=== PATIENT | female | born 1940 | race Caucasian/White ===

== ENCOUNTER 2016-10-22 10:45 | Observation (INO) | payer MEDICARE ==
[~2016-10-22] VITALS: Ht 157.5 cm; Wt 67.9 kg
[~2016-10-22 10:45] MED LIST: ALBU6.7H INH; ASPI1TAB69 PO; BUPIVACAINE LIPOSOME PF 1.3% 20 ML VIAL ONE; DEXAMETHASONE SOD PHOS PF 10 MG/ML VIAL IV ONE; FOLI400T PO; LAMO100T PO; LEVE250T5 PO; LIPI40TA PO; LYRI75CA PO; OXYB5TAB10 PO; SPIRCAP INH; TRIA37.5 PO
[2016-10-22 11:40] VITALS: BP 145/71; PULSE 68; RESP 16; TEMP 97.8; O2SAT 99
[2016-10-22] MEDS ORDERED: LACTATED RINGER'S 1000 ML IV PRN (11:45)
[2016-10-22] MEDS ORDERED: METOPROLOL TARTRATE 25 MG TAB PO PRN (11:45)
[2016-10-22] MEDS ORDERED: SODIUM CHLORID 0.9% 500 ML IV PRN (11:45)
[2016-10-22] MEDS ORDERED: CHLORHEXIDINE GLUCONATE 2 % 1 PACK (2 CLOTHS) TOPICAL PRN (11:45)
[2016-10-22] MEDS ORDERED: INSULIN HUMAN REGULAR 1,000 UNITS/10 ML VIAL SQ PRN (11:45)
[2016-10-22] MEDS ORDERED: POVIDONE IODINE 5% (ANTISEPSIS KIT) 4 APPLICATIONS EACH NARE PRN (11:45)
[2016-10-22] MEDS ORDERED: ceFAZolin 2 GM PREMIX 50 ML IV SCH (11:45)
[2016-10-22 11:59] LABS: BASOPHIL # 0.1 TH/MM3 (0-0.2); BASOPHIL % 0.7 % (0.0-2.0); EOSINOPHIL # 0.3 TH/MM3 (0-0.4); EOSINOPHIL % 3.5 % (0.0-4.0); HEMATOCRIT 35.4 % (35.0-46.0); HEMO FLAGS DIFF FINAL; LYMPH % 11.6 % (9.0-44.0); MEAN CELL VOLUME 87.4 FL (80.0-100.0); MEAN CORPUSCULAR HEMOGLOBIN 28.8 PG (27.0-34.0); MEAN CORPUSCULAR HGB CONC 32.9 % (32.0-36.0); MONO % 6.5 % (0.0-8.0); NEUT % 77.7 % (16.0-70.0); PLATELET COUNT 160 TH/MM3 (150-450); RED BLOOD COUNT 4.06 MIL/MM3 (4.00-5.30); RED CELL DISTRIBUTION WIDTH 14.4 % (11.6-17.2)
[2016-10-22] MEDS ORDERED: PROPOFOL 200 MG/20 ML AMP IV ONE (12:00)
[2016-10-22] MEDS ORDERED: ONDANSETRON HCL 4 MG/2 ML VIAL IV PUSH ONE (12:00)
[2016-10-22] MEDS ORDERED: ePHEDrine/NS 25 MG/5 ML SYR IV ONE (12:00)
[2016-10-22] MEDS ORDERED: LACTATED RINGER'S 1000 ML INJ 1,000 ML IV ONE (12:00)
[2016-10-22] MEDS ORDERED: NEOSTIGMINE 3 MG/3 ML SYR IV ONE (12:00)
[2016-10-22 12:11] LABS: BICARBONATE 31.6 MEQ/L (21.0-32.0); POTASSIUM 3.4 MEQ/L (3.5-5.1)
[2016-10-22] MEDS ORDERED: methylPREDNISolone SOD SUCC 125 MG/2 ML VIAL ONE (13:17)
[2016-10-22] MEDS ORDERED: BUPRENORPHINE HCL 0.3 MG/1 ML VIAL ONE (13:20)
[2016-10-22] MEDS ORDERED: BUPIVACAINE/EPINEPHRINE 0.25% 50 ML VIAL ONE (13:28)
[2016-10-22] MEDS ORDERED: fentaNYL CITRATE 250 MCG/5 ML AMP ONE (13:34)
[2016-10-22] MEDS ORDERED: MIDAZOLAM HCL 2 MG/2 ML VIAL ONE (13:34)
[2016-10-22] MEDS ORDERED: ACETAMINOPHEN 1000 MG/100 ML VIAL IV ONE (13:34)
--- NOTE | 2016-10-22 15:59 | HHI.PR ---
cc: Alok Oates MD Immediate Post Op Note Procedure Date: October 22, 2016 Pre Op Diagnosis: (1) Incisional hernia (2) Mass of left inguinal region Post Op Diagnosis: (1) Mass of left inguinal region (2) Incisional hernia Surgeon: Alok Oates Ward Secretary(s): Please refer to the OR records in the computer for documentation Procedure: Repair of recurrent incisional hernia midline abdomen Lysis of adhesions Excision of left groin mass 4 cm cystic structure Findings: Mass in the groin cystic in nature Recurrent incisional hernia midline with explantation of mesh numerous suture material and heather with primary repair of Complications: None Specimen(s) removed: Left groin mass cystic structure Mesh and suture material and heather from incisional hernia Estimated blood loss: 30 cc Anesthesia: General, Regional Block Drains: None IVF Patient to: PACU Patient Condition: Good Implant/Devices: SEE IMPLANT LOG (if applicable) Date/Time of Procedure: SEE SURGICAL CARE RECORD Alok Oates MD October 22, 2016 15:59
[2016-10-22] MEDS ORDERED: SODIUM CHLORIDE 0.9% FLUSH 5 ML FLUSH IVF PRN (16:00)
[2016-10-22] MEDS ORDERED: ALBUTEROL SULFATE 90 MCG/ACT HFA 8 GM INHALER INH PRN (16:00)
[2016-10-22] MEDS ORDERED: ACETAMINOPHEN/HYDROcodone 325 MG/5 MG TAB PO PRN ×2 (16:00)
[2016-10-22] MEDS: SODIUM CHLOR 0.9% 1000 ML INJ 1,000 ML IV SCH (16:45)
--- NOTE | 2016-10-22 19:16 | EKG ---
Date Performed: 10/22/2016 Time Performed: 11:30:36 PTAGE: 75 years EKG: SINUS BRADYCARDIA MILD IVCD PREVIOUS TRACING : 11/13/2013 14.03 Compared to prior tracing no significant change DOCTOR: Kady Beck Interpretating Date/Time 10/22/2016 19:14:43
[2016-10-22 20:00] VITALS: BP 117/50; PULSE 70; RESP 20; TEMP 97.4; O2SAT 96
[2016-10-22] MEDS: SODIUM CHLORIDE 0.9% FLUSH 5 ML FLUSH IVF SCH (21:00)
[2016-10-22] MEDS: OXYBUTYNIN CHLORIDE 5 MG TAB PO SCH (21:21)
[2016-10-22] MEDS: ACETAMINOPHEN 1000 MG/100 ML VIAL IV SCH (21:21)
[2016-10-22] MEDS: PREGABALIN 75 MG CAP PO SCH (21:22)
[2016-10-22] MEDS: ATORVASTATIN 40 MG TAB PO SCH (21:22)
[2016-10-23] VITALS: BP 106/51; PULSE 69; RESP 20; TEMP 97.5; O2SAT 95
[2016-10-23] MEDS: levETIRAcetam 250 MG TAB PO SCH ×3 (00:10→21:28)
[2016-10-23] MEDS: lamoTRIgine 100 MG TAB PO SCH ×3 (00:10→21:28)
[2016-10-23] MEDS: PANTOPRAZOLE SOD 40 MG DELAYED RELEASE TAB PO SCH ×2 (00:10→14:49)
[2016-10-23] MEDS: ACETAMINOPHEN 1000 MG/100 ML VIAL IV SCH ×3 (00:11→14:43)
[2016-10-23] MEDS: SODIUM CHLOR 0.9% 1000 ML INJ 1,000 ML IV SCH (01:52)
[2016-10-23 08:00] VITALS: BP 99/50; PULSE 65; RESP 16; TEMP 95.5; O2SAT 91
[2016-10-23] MEDS ORDERED: HYDR-3516 PO (08:52)
--- NOTE | 2016-10-23 08:54 | HHI.FF ---
Face to Face Verification Diagnosis: (1) Incisional hernia (2) Mass of left inguinal region Home Health Nursing Order: Wound care and dressing changes Instructions: Midline incision- Monitor ZE dressing LEFT groin: dry dressing ---change daily and PRN Patient requests Tere Barrios as Nurse I have seen patient Jackie Petty on 10/23/16. My clinical findings support the need for the requested home health care services because: Limited ability to care for self I certify that my clinical findings support that this patient is homebound because: Post-op weakness Malini Morales October 23, 2016 08:54
[2016-10-23] MEDS: SODIUM CHLORIDE 0.9% FLUSH 5 ML FLUSH IVF SCH ×2 (09:00→21:00)
[2016-10-23] MEDS: PREGABALIN 75 MG CAP PO SCH ×2 (09:08→21:28)
[2016-10-23] MEDS: FOLIC ACID 1 MG TAB PO SCH (09:09)
--- NOTE | 2016-10-23 10:09 | MP ---
cc: JULI OATES M.D. Corrected Copy: 11/06/16 DATE OF SURGERY 10/22/2016 PREOPERATIVE DIAGNOSES Left groin mass. Incisional hernia, recurrent. POSTOPERATIVE DIAGNOSES 1. Left groin mass, appears to be a cystic structure, pathology pending. 2. Repair of recurrent incisional hernia, low midline with removal of previous mesh connected to small bowel. 3. Lysis of adhesions. 4. Primary repair of recurrent incisional hernia. PROCEDURE Excision of left deep groin mass, exploratory lap with lysis of adhesions repair of recurrent ventral hernia removal of mesh. ANESTHESIA General with a TAP block. SURGEON Dr. Oates. INDICATIONS This is a pleasant 75-year-old female who has had numerous abdominal surgeries. She had a recurrent incisional hernia in the midline. She also has a groin mass on the left side. Plans were made for above. Intraoperatively it was found that a portion of the mesh had been previously placed, was stuck to the small bowel. This was teased off the small bowel without any violation of the serosa. She had multiple adhesions from her numerous surgeries which were taken down. Because of her history of infection, no mesh was placed. She has good, strong tissue that is reapproximated under no tension. PROCEDURE The patient is taken to the operating room, placed on the operating room table in the supine position. After anesthesia of a TAP block and she is placed under general anesthesia, her abdomen and left groin are prepped with Betadine. Time-out is done. She is given preoperative antibiotics. We first direct our attention to the left groin where the palpable nathalie is appreciated. It had been previously marked. We anesthetized with Marcaine solution, about 10 cc, dissected into the deep subcutaneous tissue and enucleate out a clear cystic structure with a rind around it; it came out and was not connected any other major structures. This was dissected free using a combination of blunt dissection and electrocautery. This was passed off the field intact. We then closed the deep layer with 3-0 Vicryl and the skin was reapproximated with 4-0 Vicryl. Sterile bandage applied. We then direct our attention the abdomen and make a midline incision. She had previously had her umbilicus removed. It goes from the midabdomen down to above the pubis, about 15 cm in length. Dissect down to the subcutaneous tissue, identifying multiple Kosovan cheese-like defects that were incarcerated with omentum. This incarcerated omentum is reduced. We then freed up circumferentially just below the fascia on the left side were previous mesh is placed; it is connected to the small bowel which is carefully teased away from the abdominal wall to bring the small bowel up in the an I can see it closely and it is carefully teased away from the small bowel and amputated. The small bowel is then placed, covered with some snow for hemostasis. We dissect circumferentially, lysing flimsy adhesions along the anterior abdominal wall from her multiple previous surgeries to normal-appearing fascia above and below our incision. Once this is done, we then free up the fascia from the subcutaneous tissue circumferentially to mobilize the fascia towards the midline which is done and then we simply reapproximate the fascia with interrupted 0 Ethibond ajaooa-hq-yablu sutures to reapproximate the fascia in the midline to repair the recurrent incisional hernia. Once this is done, then we irrigate copiously. We then close the deep layer with a 3-0 Vicryl in interrupted fashion. The skin is reapproximated with the skin stapling device. The ZE dressing is then applied and placed to suction. Abdominal binder is placed. There was no immediate postop complication at the time of this dictation. I talked to the friend as instructed by the patient; we give her an update. She will be admitted overnight for pain control. She will talk to the as he cannot hear too well. MD CHANDU Jenkins/MINESH /4:14 PM /1:13 PM
[2016-10-23] MEDS: TIOTROPIUM BROMIDE 18 MCG INH INH SCH (11:21)
[2016-10-23] MEDS: ALBUTEROL SULFATE 90 MCG/ACT HFA 18 GM INHALER INH PRN (11:21)
[2016-10-23 12:00] VITALS: BP 124/55; PULSE 63; RESP 17; TEMP 95.6; O2SAT 96
--- NOTE | 2016-10-23 12:53 | HHI.PR ---
Subjective Subjective Notes PROGRESS NOTE FOR SURGICAL ATTENDING, DR. ALOK OATES Resting in bed Had one episode of increased pain overnight but none today Reports headache Objective Vitals/I&O Vital Signs Date Time Temp Pulse Resp B/P Pulse Ox O2 Delivery O2 Flow Rate FiO2 10/23/16 12:00 95.6 63 17 124/55 96 10/22/16 18:00 Nasal Cannula 2 Cardiovascular: Regular Lungs: Clear Abdomen: Other (Abdomen soft; ZE in place with good seal; battery pack with green blinky light; LEFT groin tegaderm in place without any drainage ) Extremities: No edema Narrative Exam Jeong in place A/P Problem List: (1) Incisional hernia (2) Mass of left inguinal region Plan: excised path pending (3) S/P hernia repair Assessment and Plan 75 year old female POD1 report of recurrent incisional hernia; AMBER; excision of LEFT groin mass ---cystic in nature -Advance to regular diet -Pain control---Mccarley + Ofirmev -OOB and mobilize -DC Jeong -DC IVF -CM consult for HHC -Plan for DC tomorrow Attending Statement PROGRESS NOTE FOR SURGICAL ATTENDING, DR. ALOK OATES pt feels pretty good looking to go home tomorrow I agree with above assessment and plan. The exam, history, and the medical decision-making described in the above note were completed with the assistance of the mid-level provider. I reviewed and agree with the findings presented. I attest that I had a vioh-xo-ctaf encounter with the patient on the same day, and personally performed and documented my assessment and findings in the medical record. The following services were provided during this hospital visit: Chart data review, vital sign assessments/reviewing monitor data Review of consultations notes if present. Medication orders/review and/or management Ordering and/or reviewing lab tests Ordering and/or interpreting/reviewing x-rays and/or diagnostic studies Care of the patient and discussion of the patient with the care team Documentation time To help prompt me to consider important information that might be impacting today's encounter and assessment, information from prior notes written by myself or my colleagues may have been "brought forward/copy and pasted" into today's note. Malini Morales October 23, 2016 12:53 Alok Oates MD October 23, 2016 15:13
[2016-10-23] MEDS: ENOXAPARIN SODIUM 30 MG/0.3 ML SYRINGE SQ SCH (14:43)
[2016-10-23] MEDS: CALCIUM CARBONATE 500 MG CHEWABLE TAB CHEW PRN ×4 (15:15→23:39)
[2016-10-23 16:00] VITALS: BP 107/54; PULSE 63; RESP 17; TEMP 95.5; O2SAT 95
[2016-10-23 20:00] VITALS: BP 105/64; PULSE 60; RESP 18; TEMP 97.5; O2SAT 95
[2016-10-23] MEDS: OXYBUTYNIN CHLORIDE 5 MG TAB PO SCH (21:28)
[2016-10-23] MEDS: ATORVASTATIN 40 MG TAB PO SCH (21:28)
[2016-10-24] VITALS: BP 134/63; PULSE 61; RESP 18; TEMP 97.2; O2SAT 95
[2016-10-24] MEDS: CALCIUM CARBONATE 500 MG CHEWABLE TAB CHEW PRN ×3 (03:12→17:55)
[2016-10-24] MEDS: ALBUTEROL SULFATE 90 MCG/ACT HFA 18 GM INHALER INH PRN (03:29)
[2016-10-24 04:51] LABS: AUTOMATED NEUTROPHIL # 14.3 TH/MM3 (1.8-7.7); BASOPHIL % 0.1 % (0.0-2.0); EOSINOPHIL % 0.1 % (0.0-4.0); HEMATOCRIT 33.6 % (35.0-46.0); HEMO FLAGS DIFF FINAL; LYMPH % 5.8 % (9.0-44.0); LYMPHOCYTE # 0.9 TH/MM3 (1.0-4.8); MEAN CORPUSCULAR HEMOGLOBIN 28.9 PG (27.0-34.0); MEAN CORPUSCULAR HGB CONC 32.8 % (32.0-36.0); MONO % 5.2 % (0.0-8.0); NEUT % 88.8 % (16.0-70.0); PLATELET COUNT 157 TH/MM3 (150-450); RED BLOOD COUNT 3.82 MIL/MM3 (4.00-5.30); RED CELL DISTRIBUTION WIDTH 14.3 % (11.6-17.2); WHITE BLOOD COUNT 16.1 TH/MM3 (4.0-11.0)
[2016-10-24 08:00] VITALS: BP 109/51; PULSE 67; RESP 17; TEMP 96.4; O2SAT 90
[2016-10-24] MEDS: TIOTROPIUM BROMIDE 18 MCG INH INH SCH (09:00)
[2016-10-24] MEDS: SODIUM CHLORIDE 0.9% FLUSH 5 ML FLUSH IVF SCH ×2 (09:00→21:00)
[2016-10-24] MEDS: FOLIC ACID 1 MG TAB PO SCH (09:03)
[2016-10-24] MEDS: PREGABALIN 75 MG CAP PO SCH ×2 (09:03→22:25)
[2016-10-24] MEDS: levETIRAcetam 250 MG TAB PO SCH ×2 (09:03→22:25)
[2016-10-24] MEDS: lamoTRIgine 100 MG TAB PO SCH ×2 (09:03→22:25)
--- NOTE | 2016-10-24 11:37 | HHI.PR ---
Subjective Subjective Notes DAILY PROGRESS NOTE FOR SURGICAL ATTENDING, DR. JULI OATES Patient states that she had a bad night She was eating and then started having some chest pain which she was unclear if there is reflux or she was having another heart attack She was concerned. 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 Objective Vitals/I&O Vital Signs Date Time Temp Pulse Resp B/P Pulse Ox O2 Delivery O2 Flow Rate FiO2 10/24/16 08:00 96.4 67 17 109/51 90 10/22/16 18:00 Nasal Cannula 2 Labs Laboratory Tests Test 10/24/16 03:32 White Blood Count 16.1 Red Blood Count 3.82 Hemoglobin 11.0 Hematocrit 33.6 Mean Corpuscular Volume 88.0 Mean Corpuscular Hemoglobin 28.9 Mean Corpuscular Hemoglobin 32.8 Concent Red Cell Distribution Width 14.3 Platelet Count 157 Mean Platelet Volume 8.8 Neutrophils (%) (Auto) 88.8 Lymphocytes (%) (Auto) 5.8 Monocytes (%) (Auto) 5.2 Eosinophils (%) (Auto) 0.1 Basophils (%) (Auto) 0.1 Neutrophils # (Auto) 14.3 Lymphocytes # (Auto) 0.9 Monocytes # (Auto) 0.8 Eosinophils # (Auto) 0.0 Basophils # (Auto) 0.0 CBC Comment DIFF FINAL Differential Comment Radiology Last Impressions Chest X-Ray 10/25/16 0000 Signed Impressions: Service Date/Time: Tuesday, October 25, 2016 11:09 - CONCLUSION: Trace bilateral pleural effusions with atelectasis at the lung bases. Otherwise, no acute finding is seen. Shahid Causey MD Cardiovascular: Regular Lungs: Clear, Other (no sob) Abdomen: Post-op tenderness (dressing ZE intact min pain) Extremities: No edema, SCD's on A/P Problem List: (1) Chest pain Plan: EKG and troponin levels (2) Incisional hernia (3) Mass of left inguinal region Plan: excised path pending (4) S/P hernia repair (5) History of [place] (myocardial infarction) Assessment and Plan 75-year-old female with a history of cardiac disease status post recurrent incisional hernia repair and removal of left groin mass Was doing well developed some chest pain may be reflux questionable heart. EKG orders troponin levels ordered I talked to the business resiliency manager office about a consultation as well. Will hold discharge. Attending Statement NOTE FOR SURGICAL ATTENDING, DR. JULI OATES I attest that I had a mjjr-js-boql encounter with the patient on the same day, and personally performed and documented my assessment and findings in the medical record. The following services were provided during this hospital visit: Chart data review, vital sign assessments/reviewing monitor data Review of consultations notes if present. Medication orders/review and/or management Ordering and/or reviewing lab tests Ordering and/or interpreting/reviewing x-rays and/or diagnostic studies Care of the patient and discussion of the patient with the care team Documentation time To help prompt me to consider important information that might be impacting today's encounter and assessment, information from prior notes written by myself or my colleagues may have been "brought forward/copy and pasted" into today's note. Problem Qualifiers (1) Chest pain: Qualified Code: R07.89 - Other chest pain Juli Oates MD October 24, 2016 11:37
[2016-10-24 12:00] VITALS: BP 104/60; PULSE 64; RESP 17; TEMP 95.4; O2SAT 92
[2016-10-24 13:19] LABS: AUTOMATED NEUTROPHIL # 9.8 TH/MM3 (1.8-7.7); BASOPHIL # 0.1 TH/MM3 (0-0.2); BASOPHIL % 0.7 % (0.0-2.0); EOSINOPHIL # 0.1 TH/MM3 (0-0.4); EOSINOPHIL % 0.8 % (0.0-4.0); HEMATOCRIT 34.9 % (35.0-46.0); HEMO FLAGS DIFF FINAL; LYMPH % 9.5 % (9.0-44.0); LYMPHOCYTE # 1.1 TH/MM3 (1.0-4.8); MEAN CELL VOLUME 88.6 FL (80.0-100.0); MEAN CORPUSCULAR HEMOGLOBIN 28.7 PG (27.0-34.0); MEAN CORPUSCULAR HGB CONC 32.3 % (32.0-36.0); PLATELET COUNT 146 TH/MM3 (150-450); RED BLOOD COUNT 3.93 MIL/MM3 (4.00-5.30); WHITE BLOOD COUNT 11.6 TH/MM3 (4.0-11.0)
--- NOTE | 2016-10-24 14:25 | EKG ---
Date Performed: 10/24/2016 Time Performed: 09:40:15 PTAGE: 75 years EKG: Sinus rhythm POSSIBLE LATERAL MYOCARDIAL INFARCTION , PROBABLY OLD BORDERLINE ECG Compared to prior tracing no si gnificant change PREVIOUS TRACING : 10/22/2016 11.30 DOCTOR: Jett Skinner Interpretating Date/Time 10/24/2016 14:21:40
[2016-10-24 16:00] VITALS: BP 104/59; PULSE 68; RESP 18; TEMP 95.8; O2SAT 94
[2016-10-24] MEDS: PANTOPRAZOLE SOD 40 MG DELAYED RELEASE TAB PO SCH (17:55)
[2016-10-24] MEDS: ENOXAPARIN SODIUM 30 MG/0.3 ML SYRINGE SQ SCH (17:55)
--- NOTE | 2016-10-24 19:11 | MB ---
cc: BRIKIRBYASIA Hook DO DATE OF CONSULTATION 10/24/16 IMPRESSION 1. Chest discomfort unlikely to be related to atherosclerotic heart disease 2. Odynophagia/dysphasia present for 3-4 weeks. 3. Dilated cardiomyopathy, etiology ischemic heart disease, [place] [employer] functional class II, history of myocardial infarction 2000, recent stress test 10/02/2016 demonstrating ejection fraction of 28% with a fixed perfusion defect in the inferolateral wall with mild left ventricular chamber dilatation. The patient was noted to have a dyskinetic area in this region. 4. Hypertension. 5. COPD. Previous smoker. 6. Bilateral carotid bruits. 7. Dyslipidemia on atorvastatin for his 8. Obesity. 9. Postop day #1 status post inguinal hernia repair, right side, removal of masses frp, the left groin. No pathology available. RECOMMENDATIONS 1. Start the patient on PPI Omeprazole 40 mg daily for 2-4 weeks. 2. Outpatient GI evaluation, either a sonogram or EGD. 3. Resume the patient's home cardiac medications. 4. We will repeat an EKG and troponin tomorrow morning. If they are normal, the patient may be discharged. CLINICAL DATA Mrs. Petty is a 75-year-old female admitted to the hospital for hernia repair and removal of masses from her left groin. She apparently developed chest pain postoperatively the surgery and recovery so far had been uneventful. An EKG and troponin are normal so far. She has a history of atherosclerotic heart disease as noted above. Risk factors include remote tobacco usage, hypertension and dyslipidemia. She has had no recent admissions to the hospital for congestive heart failure. She has no history of cardiac arrhythmias or pericardial heart disease. She did have an acute myocardial infarction in 2000. She had a repeat heart catheterization in 2003 which demonstrated patent stent. I do not have the catheterization reports available. She has known carotid artery disease. She apparently had two strokes in 2013. She may have had a seizure at that time but has had no recent seizures that I aware of. She has a history of COPD. No history of GI bleeding or reflux. She has no history of liver disease. No history of kidney disease or thyroid disease. She states that over the past three weeks she has developed odynophagia. She has a feeling that food gets stuck in her upper chest. This is solid food and not liquid at this point in time. She also states that she has been having pressure in the chest which has been also over the past 2-3 weeks. She has had no exertional angina. She has had no palpitations or syncope. She has had no febrile illness. She has not been vomiting. PHYSICAL EXAMINATION GENERAL: An alert and oriented female sitting up in a chair. She is breathing room air. She is not dyspneic nor tachypneic. VITAL SIGNS: She is in a regular rhythm, rate in the 60s, blood pressure was 107/54. HEENT: Anicteric sclerae. Jugular venous pressures are normal. She has bilateral sharp early systolic bruits LUNGS: Auscultation of lungs demonstrates expiratory wheezing and rhonchi bilaterally. CARDIAC: Distant heart sounds, regular rate and rhythm, 1/6 systolic ejection murmur. No gallops or diastolic murmurs noted. ABDOMEN: Soft but distended. EXTREMITIES: Free of cyanosis, clubbing or edema. Peripheral pulses are palpable. CARDIOLOGY STUDIES 12-lead EKG demonstrates sinus rhythm, nonspecific ST-T changes. She is noted to have Q-waves in the apical leads 1 and aVL which are borderline significant. Lytes yesterday preoperatively were 141, 3.4, 104,31.6, BUN 25, creatinine 1.3. Troponin on the was normal. Most recent CBC - white count 9000, hematocrit 35, platelet count 160. She did have mild left shift. IMAGING STUDIES Chest x-ray not available. DISCUSSION This is a 75-year-old female postop day #1 after herniorrhaphy who had chest pain. This is unlikely to be related to atherosclerotic heart disease. She did have a stress test demonstrating no evidence of reversible ischemia, although she had fairly depressed LV function and wall motion abnormalities as noted in the opening remarks. Recommendations are as noted above. The patient will be started on Omeprazole 40 mg daily. We will obtain an EKG and troponin tomorrow morning. If these are negative, she may be discharged. DO FARRUKH Finley/ /6:21 PM /6:58 PM
[2016-10-24 20:00] VITALS: BP 123/69; PULSE 62; RESP 18; TEMP 97.3; O2SAT 94
[2016-10-24 21:30] LABS: ANION GAP 11 MEQ/L (5-15); BLOOD UREA NITROGEN 21 MG/DL (7-18); CHLORIDE 105 MEQ/L (98-107); GLOMERULAR FILTRATION RATE 60 ML/MIN (>89); SODIUM (NA) 140 MEQ/L (136-145)
[2016-10-24 21:44] LABS: POTASSIUM 4.1 MEQ/L (3.5-5.1)
[2016-10-24] MEDS: ATORVASTATIN 40 MG TAB PO SCH (22:25)
[2016-10-24] MEDS: OXYBUTYNIN CHLORIDE 5 MG TAB PO SCH (22:25)
[2016-10-25] VITALS (7 sets, daily range): BP systolic 108–137; BP diastolic 51–65; PULSE 69–79; RESP 17–19; TEMP 96–99; O2SAT 93–97
[2016-10-25] MEDS: PREGABALIN 75 MG CAP PO SCH ×2 (08:34→19:55)
[2016-10-25] MEDS: levETIRAcetam 250 MG TAB PO SCH ×2 (08:34→19:55)
[2016-10-25] MEDS: FOLIC ACID 1 MG TAB PO SCH (08:34)
[2016-10-25] MEDS: lamoTRIgine 100 MG TAB PO SCH ×2 (08:34→19:55)
[2016-10-25] MEDS: SODIUM CHLORIDE 0.9% FLUSH 5 ML FLUSH IVF SCH ×2 (08:35→19:55)
[2016-10-25] MEDS: TIOTROPIUM BROMIDE 18 MCG INH INH SCH (08:35)
[2016-10-25] MEDS: DOCUSATE SODIUM 100 MG/10 ML UDC PO SCH ×2 (09:00→19:55)
--- NOTE | 2016-10-25 09:44 | HHI.PR ---
Subjective Subjective Notes reports SOB and wheezing today, thinks she should have a lung doctor check her out. not ready to go home just yet. reports she is constipated but tolerating po. no N/V, no fevers Objective Vitals/I&O Vital Signs Date Time Temp Pulse Resp B/P Pulse Ox O2 Delivery O2 Flow Rate FiO2 10/25/16 08:00 97.4 69 18 125/56 95 10/25/16 07:38 Nasal Cannula 2.00 Labs Laboratory Tests Test 10/24/16 10/24/16 10/25/16 12:45 19:50 05:20 White Blood Count 11.6 Red Blood Count 3.93 Hemoglobin 11.3 Hematocrit 34.9 Mean Corpuscular Volume 88.6 Mean Corpuscular Hemoglobin 28.7 Mean Corpuscular Hemoglobin 32.3 Concent Red Cell Distribution Width 14.0 Platelet Count 146 Mean Platelet Volume 8.8 Neutrophils (%) (Auto) 84.0 Lymphocytes (%) (Auto) 9.5 Monocytes (%) (Auto) 5.0 Eosinophils (%) (Auto) 0.8 Basophils (%) (Auto) 0.7 Neutrophils # (Auto) 9.8 Lymphocytes # (Auto) 1.1 Monocytes # (Auto) 0.6 Eosinophils # (Auto) 0.1 Basophils # (Auto) 0.1 CBC Comment DIFF FINAL Differential Comment Troponin I LESS THAN 0.02 LESS THAN 0.02 LESS THAN 0.02 B-Type Natriuretic Peptide 132 Sodium Level 140 Potassium Level 4.1 Chloride Level 105 Carbon Dioxide Level 24.0 Anion Gap 11 Blood Urea Nitrogen 21 Creatinine 0.92 Estimat Glomerular Filtration 60 Rate Random Glucose 101 Calcium Level 8.5 Magnesium Level 2.0 Cardiovascular: Regular Lungs: Clear Abdomen: Non-distended, Post-op tenderness, BS normal Narrative Exam minimal wheezing, coarse upper airway sounds, Wound Wound : Wound Location: Abdomen Appearance: Clean & Dry A/P Problem List: (1) Chest pain (2) Incisional hernia (3) Mass of left inguinal region (4) S/P hernia repair (5) History of [place] (myocardial infarction) Assessment and Plan S/P repair recurrent incisional hernia Cardiology ruled out Cardiac source Pt would like Dr. Kennedy to evaluate her for her SOB and "wheezing". He cares for her Will discharge once cleared. Problem Qualifiers (1) Chest pain: Qualified Code: R07.89 - Other chest pain Brian Singh MD October 25, 2016 09:44
[2016-10-25] MEDS: RESP: ALBUTEROL CONC 2.5 MG/0.5 ML NEB NEB SCH ×3 (10:00→20:12)
--- NOTE | 2016-10-25 11:33 | RADRPT ---
EXAM DATE/TIME: 10/25/2016 11:09 [facility] COMPARISON: CHEST SINGLE AP, November 07, 2013, 12:11. INDICATIONS : Shortness of breath post abdominal hernia repair. MEDICAL HISTORY : Myocardial infarction. SURGICAL HISTORY : CABG. ENCOUNTER: Initial ACUITY: 4 - 6 days PAIN SCORE: 4/10 LOCATION: Bilateral lower chest FINDINGS: AP and lateral views of the chest demonstrate a normal size cardiac silhouette. Lungs are underinflat ed with mild atelectasis at the lung bases. There is slight blunting of the costophrenic sulci bilate rally on the lateral projection. No pneumothorax is visualized. Bones and soft tissues demonstrate no acute finding. IVC filter is present. There are clips in the upper abdomen. CONCLUSION: Trace bilateral pleural effusions with atelectasis at the lung bases. Otherwise, no acute finding is seen. Shahid Causey MD on October 25, 2016 at 11:29 Board Certified Radiologist. This report was verified electronically.
[2016-10-25] MEDS: ENOXAPARIN SODIUM 30 MG/0.3 ML SYRINGE SQ SCH (14:27)
--- NOTE | 2016-10-25 15:11 | MB ---
cc: YOSELYN ZAFAR MARK W. M.D. DATE OF CONSULTATION: 10/25/2016. REASON FOR CONSULTATION: Evaluation for wheezing. REQUESTING PHYSICIAN: Dr. Brian Singh. HISTORY OF PRESENT ILLNESS: Ms. Petty is a pleasant 75-year-old female with history of coronary disease status post AL a long time ago and she had dilated cardiomyopathy. History of COPD. She has a long history of smoking; now she smokes only once in awhile. The patient has had multiple surgeries. She says she has had twelve hernia surgeries. She came over here for left inguinal hernia surgery. She had the surgery done and today she felt that she had some wheezing. She had some difficulty swallowing off and on for a month or so. The wheezing has gone now. She denies any shortness of breath. No fever or chills. No night sweats. No nausea or vomiting. She had a workup done in the hospital. Her WBC count was 11.6, hemoglobin 11.3, hematocrit 34.9, MCH 80, platelet count 146,000. Sodium 140, potassium 4.1, chloride 105, carbon dioxide 24, BUN 21, creatinine 0.92. Her chest x-ray shows trace of bilateral pleural effusions with atelectasis. Currently she is feeling much better and denies any shortness breath. No wheezing. No cough. PAST MEDICAL HISTORY: Her past medical history is significant for: 1. History of coronary disease. 2. Cardiomyopathy. 3. Hypertension. 4. COPD. 5. History of about 36 surgeries including 12 hernia surgeries, 6 bladder surgeries, hysterectomy, cholecystectomy, tubal ligation, , femoropopliteal bypass. MEDICATIONS: She is currently takin. Protonix 40 milligrams a day. 2. Albuterol 2.5 milligrams nebulizer treatment. 3. Colace 100 milligrams q. 12-hour. 4. Lovenox 30 milligrams q.24 h. 5. Folic acid 0.4 milligrams. 6. Spiriva once a day. 7. Lamictal 100 milligrams twice a day. 8. Keppra 250 milligrams twice a day. 9. Oxybutynin 5 milligrams a day. 10. Lyrica 75 milligrams twice a day. 11. Lortab for pain. ALLERGIES: She is allergic to: 1. ESTROGEN. 2. NIACIN. 3. SULFA. 4. AMOXICILLIN. SOCIAL HISTORY: She is . She has a history of smoking one pack a day for about 38 years, which she cut down to a few cigarettes a day. No alcohol abuse. FAMILY HISTORY: Noncontributory. REVIEW OF SYSTEMS: Normally she is up, around and active. No headache or dizziness. No malignancy. No DVT or pulmonary embolism. PHYSICAL EXAMINATION: GENERAL: Pleasant elderly female not in acute distress. VITAL SIGNS: Blood pressure 136/65, heart rate 72, respiration 90, temperature 96, saturation 96% on 2 liters nasal cannula. HEAD, EYES, EARS, NOSE, THROAT: Pupils are equal and reactive to light. Oral mucosa and nasal mucosa are normal. NECK: The neck is supple. JVP not raised. CHEST: Air entry equal bilaterally. No rhonchi. CARDIOVASCULAR: S1 and S2 normal. ABDOMEN: Abdomen soft and nondistended. Bowel sounds are present. EXTREMITIES: No edema. IMPRESSION: 1. Wheezing, which has improved. Currently she has no wheezing. 2. Likely underlying COPD. She has a long history of smoking. 3. Nicotine use. 4. Inguinal hernia surgery. 5. Cardiomyopathy. PLAN: 1. I discussed with the patient we will wean off her oxygen. She has nebulizer treatment which she will use only as needed. 2. She will need pulmonary function study as an outpatient. 3. I advised her to quit smoking. 4. She was Lovenox 30 milligrams a day. 5. Spiriva once a day. 6. Albuterol nebulizer as needed. The patient is stable from the pulmonary standpoint of view. Further treatment will depend on the course in the hospital. Thank you, Dr. Singh, for this consultation. MD GAYLE Brar/ALEAH /2:53 PM /3:00 PM
--- NOTE | 2016-10-25 15:54 | EKG ---
Date Performed: 10/25/2016 Time Performed: 05:37:42 PTAGE: 75 years EKG: Sinus rhythm Inferior/lateral T wave changes are nonspecific Borderline ECG Since PREVIOUS TRACING 10/24/2016, no significant change. PREVIOUS TRACING 10/24/2016 DOCTOR: Chevy Cedillo Interpretating Date/Time 10/25/2016 15:53:37
[2016-10-25] MEDS: PANTOPRAZOLE SOD 40 MG DELAYED RELEASE TAB PO SCH (18:20)
[2016-10-25] MEDS: ATORVASTATIN 40 MG TAB PO SCH (19:55)
[2016-10-25] MEDS: OXYBUTYNIN CHLORIDE 5 MG TAB PO SCH (19:55)
[2016-10-26] VITALS (8 sets, daily range): BP systolic 104–120; BP diastolic 56–61; PULSE 80–92; RESP 17–21; TEMP 97.7–99.5; O2SAT 91–97
[2016-10-26] MEDS: RESP: ALBUTEROL CONC 2.5 MG/0.5 ML NEB NEB SCH ×4 (03:27→21:31)
[2016-10-26] MEDS: SODIUM CHLORIDE 0.9% FLUSH 5 ML FLUSH IVF SCH ×2 (09:00→19:45)
[2016-10-26] MEDS: DOCUSATE SODIUM 100 MG/10 ML UDC PO SCH ×2 (09:00→19:24)
[2016-10-26] MEDS: levETIRAcetam 250 MG TAB PO SCH ×2 (09:35→19:45)
[2016-10-26] MEDS: FOLIC ACID 1 MG TAB PO SCH (09:35)
[2016-10-26] MEDS: PREGABALIN 75 MG CAP PO SCH ×2 (09:35→19:45)
[2016-10-26] MEDS: lamoTRIgine 100 MG TAB PO SCH ×2 (09:35→19:45)
[2016-10-26] MEDS: TIOTROPIUM BROMIDE 18 MCG INH INH SCH (09:37)
--- NOTE | 2016-10-26 11:34 | HHI.PR ---
Subjective Subjective Notes still with some SOB Objective Vitals/I&O Vital Signs Date Time Temp Pulse Resp B/P Pulse Ox O2 Delivery O2 Flow Rate FiO2 10/26/16 08:35 92 21 10/26/16 08:00 97.8 80 17 117/61 10/26/16 03:30 Nasal Cannula 2.00 Lungs: Upper airway course sound Abdomen: Non-distended, Post-op tenderness Extremities: Perfused, SCD's on A/P Problem List: (1) Chest pain (2) Incisional hernia (3) Mass of left inguinal region (4) S/P hernia repair (5) History of [place] (myocardial infarction) Assessment and Plan 75yo female with COPD, CAD s/p incisional hernia repair, doing well. pain ok, elsa PO, +BM incision ok, dressing on ZE appreciate cards and pulm help, will keep patient today due to continued SOB, possible DC tomorrow Problem Qualifiers (1) Chest pain: Qualified Code: R07.89 - Other chest pain Chidi Grande MD October 26, 2016 11:34
[2016-10-26] MEDS: ENOXAPARIN SODIUM 30 MG/0.3 ML SYRINGE SQ SCH (13:42)
[2016-10-26] MEDS: PANTOPRAZOLE SOD 40 MG DELAYED RELEASE TAB PO SCH (17:44)
--- NOTE | 2016-10-26 19:12 | HHI.PR ---
Subjective Remarks 75 YOWF s/p hernia surgery, Nicotine use Had wheezing , improving Denies sob Weaned to RA Objective Vital Signs Vital Signs Date Time Temp Pulse Resp B/P Pulse Ox O2 Delivery O2 Flow Rate FiO2 10/26/16 16:06 91 21 10/26/16 16:00 98.6 80 21 104/56 95 10/26/16 12:00 97.7 81 17 113/58 93 10/26/16 08:35 92 21 10/26/16 08:00 97.8 80 17 117/61 93 10/26/16 03:30 91 Nasal Cannula 2.00 10/26/16 00:21 99.5 92 17 120/56 97 10/25/16 20:55 18 10/25/16 20:12 94 Nasal Cannula 2.00 10/25/16 20:00 99.0 79 18 114/57 95 10/25/16 19:57 Nasal Cannula 2.00 I/O 10/25/16 10/25/16 10/25/16 10/26/16 10/26/16 10/26/16 07:00 15:00 23:00 07:00 15:00 23:00 Intake Total 120 ml 550 ml 480 ml 280 ml 585 ml Output Total 0 ml Balance 120 ml 550 ml 480 ml 280 ml 585 ml Intake Oral 120 ml 550 ml 480 ml 280 ml 585 ml IV Total 0 ml 0 ml Output Urine Total 0 ml # Voids 3 2 2 5 # Bowel Movements 0 0 1 Result Diagram: 10/24/16 1245 10/24/16 1950 Objective Remarks GENERAL: WBWN WF,NAD SKIN: Warm and dry. HEAD: Normocephalic. EYES: No scleral icterus. No injection or drainage. NECK: Supple, trachea midline. No JVD or lymphadenopathy. CARDIOVASCULAR: Regular rate and rhythm without murmurs, gallops, or rubs. RESPIRATORY: Breath sounds equal bilaterally. No accessory muscle use. GASTROINTESTINAL: Abdomen soft, non-tender, nondistended. MUSCULOSKELETAL: No cyanosis, or edema. BACK: Nontender without obvious deformity. No CVA tenderness. A/P Assessment and Plan Wheezing improved Likly underlying COPD Nicotine use CMP S/P Hernia repair PLAN: Spiriva daily Albuterol prn Smoking cessation PFT as out pt Stable from pulm standpoint Kyler Call MD October 26, 2016 19:12
[2016-10-26] MEDS: OXYBUTYNIN CHLORIDE 5 MG TAB PO SCH (19:45)
[2016-10-26] MEDS: ATORVASTATIN 40 MG TAB PO SCH (19:45)
[2016-10-27] VITALS: BP 103/56; PULSE 89; RESP 18; TEMP 98.3; O2SAT 98
[2016-10-27] MEDS: RESP: ALBUTEROL CONC 2.5 MG/0.5 ML NEB NEB SCH ×2 (04:12→09:27)
[2016-10-27 04:14] VITALS: O2SAT 93
[2016-10-27 08:00] VITALS: BP 103/55; PULSE 92; RESP 16; TEMP 97.5; O2SAT 93
[2016-10-27] MEDS: levETIRAcetam 250 MG TAB PO SCH (08:47)
[2016-10-27] MEDS: lamoTRIgine 100 MG TAB PO SCH (08:47)
[2016-10-27] MEDS: DOCUSATE SODIUM 100 MG/10 ML UDC PO SCH (08:47)
[2016-10-27] MEDS: SODIUM CHLORIDE 0.9% FLUSH 5 ML FLUSH IVF SCH (08:47)
[2016-10-27] MEDS: PREGABALIN 75 MG CAP PO SCH (08:47)
[2016-10-27] MEDS: FOLIC ACID 1 MG TAB PO SCH (08:47)
[2016-10-27] MEDS: TIOTROPIUM BROMIDE 18 MCG INH INH SCH (08:48)
[2016-10-27] MEDS ORDERED: OXYGENTANK NAS.CANULA (10:20)
[2016-10-27 12:00] VITALS: BP 103/67; PULSE 78; RESP 17; TEMP 96.7; O2SAT 93
--- NOTE | 2016-10-27 12:36 | HHI.PR ---
Subjective Subjective Notes DAILY PROGRESS NOTE FOR SURGICAL ATTENDING, DR. ALOK OATES Wants to get hair done Feels ready to go home Objective Vitals/I&O Vital Signs Date Time Temp Pulse Resp B/P Pulse Ox O2 Delivery O2 Flow Rate FiO2 10/27/16 08:53 93 Nasal Cannula 2.00 10/27/16 08:00 97.5 92 16 103/55 10/26/16 16:06 21 Radiology Last Impressions Chest X-Ray 10/25/16 0000 Signed Impressions: Service Date/Time: Tuesday, October 25, 2016 11:09 - CONCLUSION: Trace bilateral pleural effusions with atelectasis at the lung bases. Otherwise, no acute finding is seen. Shahid Causey MD Cardiovascular: Regular Lungs: Clear Abdomen: Non-distended, Non-tender, Other (ZE in place with good seal ) Extremities: No edema A/P Problem List: (1) Chest pain Plan: EKG and troponin levels (2) Incisional hernia (3) Mass of left inguinal region Plan: excised path benign (4) S/P hernia repair (5) History of [place] (myocardial infarction) Assessment and Plan 75 year old female s/p report of recurrent incisional hernia; AMBER; excision of LEFT groin mass ---cystic in nature -Tolerating regular diet -Pain control with [place] -OOB and mobilize -CM consult for HHC for wound care and o2 -CM setting up home o2 -Plan for DC today if arrangements can be made for home oxygen -Follow up with Dr. Oates on Attending Statement NOTE FOR SURGICAL ATTENDING, DR. ALOK OATES I agree with above assessment and plan. The exam, history, and the medical decision-making described in the above note were completed with the assistance of the mid-level provider. I reviewed and agree with the findings presented. I attest that I had a [id number] encounter with the patient on the same day, and personally performed and documented my assessment and findings in the medical record. The following services were provided during this hospital visit: Chart data review, vital sign assessments/reviewing monitor data Review of consultations notes if present. Medication orders/review and/or management Ordering and/or reviewing lab tests Ordering and/or interpreting/reviewing x-rays and/or diagnostic studies Care of the patient and discussion of the patient with the care team Documentation time To help prompt me to consider important information that might be impacting today's encounter and assessment, information from prior notes written by myself or my colleagues may have been "brought forward/copy and pasted" into today's note. Problem Qualifiers (1) Chest pain: Qualified Code: R07.89 - Other chest pain Malini Morales October 27, 2016 12:36 Alok Oates MD October 27, 2016 12:38
--- NOTE | 2016-10-27 17:18 | HHI.PR ---
Subjective Remarks 75 YOWF s/p hernia surgery, Nicotine use Had wheezing , improving Denies sob Weaned to RA Up in chair Anxious to go home Objective Vital Signs Vital Signs Date Time Temp Pulse Resp B/P Pulse Ox O2 Delivery O2 Flow Rate FiO2 10/27/16 12:00 96.7 78 17 103/67 93 10/27/16 08:53 93 Nasal Cannula 2.00 10/27/16 08:00 97.5 92 16 103/55 93 10/27/16 04:14 93 Nasal Cannula 2.00 10/27/16 00:00 98.3 89 18 103/56 98 10/26/16 20:45 18 10/26/16 20:00 99.3 89 21 110/56 92 I/O 10/26/16 10/26/16 10/26/16 10/27/16 10/27/16 10/27/16 06:59 14:59 22:59 06:59 14:59 22:59 Intake Total 280 ml 585 ml 380 ml 380 ml Balance 280 ml 585 ml 380 ml 380 ml Intake Oral 280 ml 585 ml 380 ml 380 ml IV Total 0 ml # Voids 2 5 2 2 # Bowel Movements 1 Result Diagram: 10/24/16 1245 10/24/16 1950 Objective Remarks GENERAL: WBWN WF,NAD SKIN: Warm and dry. HEAD: Normocephalic. EYES: No scleral icterus. No injection or drainage. NECK: Supple, trachea midline. No JVD or lymphadenopathy. CARDIOVASCULAR: Regular rate and rhythm without murmurs, gallops, or rubs. RESPIRATORY: Breath sounds equal bilaterally. No accessory muscle use. GASTROINTESTINAL: Abdomen soft, non-tender, nondistended. MUSCULOSKELETAL: No cyanosis, or edema. BACK: Nontender without obvious deformity. No CVA tenderness. A/P Assessment and Plan Wheezing improved Likly underlying COPD Nicotine use CMP S/P Hernia repair PLAN: Spiriva daily Albuterol prn Smoking cessation PFT as out pt Stable from pulm standpoint Will FU in office 2 weeks Kyler Call MD October 27, 2016 17:18
--- NOTE | 2016-10-28 13:18 | HHI.DS ---
Discharge Summary Admission Date October 22, 2016 at 18:44 Discharge Date: October 27, 2016 Admitting Diagnosis (1) Chest pain (2) Incisional hernia (3) Mass of left inguinal region (4) S/P hernia repair (5) History of [place] (myocardial infarction) Brief History 75 year old female s/p report of recurrent incisional hernia; AMBER; excision of LEFT groin mass ---cystic in nature CBC/BMP: 10/24/16 1245 10/24/16 1950 PE at Discharge Resting in bed Cardio: RRR Resp: CTAB Abd: ZE in place; LEFT groin dressing in place Hospital Course This is a 75 year old female s/p report of recurrent incisional hernia; AMBER; excision of LEFT groin mass ---cystic in nature. The patient was evaluated by Pulmonology and Cardiology and cleared for DC. She was able to tolerate a regular diet. Her pain was controlled using [place]. The patient need home oxygen set up and this was completed through the assistance of case management. HHC was arranged. The patient will follow up on for ZE removal in the office. Pt Condition on Discharge: Good Discharge Disposition: Disch w/ Home Health Serv Discharge Instructions DIET: Follow Instructions for: As Tolerated, No Restrictions Activities you can perform: See Additionl Instruction Other Activity Instructions: Okay to shower; do not get battery pack wet Malini Morales October 28, 2016 13:17
== END 2016-10-27 15:00 | disposition home health service (06) ==
LOC: HSDC 10:45 → UNDOADMIN 17:23 → HSDI 17:23 → N07A 18:44 → HSDI 18:44
PROVIDERS: ADMIT Surgery; ATTEND Surgery
DX: K43.0 Incisional hernia with obstruction, without gangrene (principal); R19.09 Other intra-abdominal and pelvic swelling, mass and lump; R07.9 Chest pain, unspecified; K66.0 Peritoneal adhesions (postprocedural) (postinfection); I42.0 Dilated cardiomyopathy; I10 Essential (primary) hypertension; G40.909 Epilepsy, unspecified, not intractable, without status epilepticus; J44.9 Chronic obstructive pulmonary disease, unspecified; E66.9 Obesity, unspecified; E78.5 Hyperlipidemia, unspecified; R06.2 Wheezing; I25.2 Old myocardial infarction; I25.10 Atherosclerotic heart disease of native coronary artery without angina pectoris; Z79.51 Long term (current) use of inhaled steroids; Z88.1 Allergy status to other antibiotic agents; Z88.2 Allergy status to sulfonamides; Z88.8 Allergy status to other drugs, medicaments and biological substances; Z87.891 Personal history of nicotine dependence; Z68.27 Body mass index [BMI] 27.0-27.9, adult; Z86.73 Personal history of transient ischemic attack (TIA), and cerebral infarction without residual deficits; Z86.718 Personal history of other venous thrombosis and embolism; Z79.82 Long term (current) use of aspirin
CPT/HCPCS: 11400; 49566; 71020; 80048; 83735; 83880; 84484; 85025; 88304; 93005; 94150; 94620; 94640; 94664; C9290; J0131; J0592; J0690; J1100; J1650; J2250; J2405; J2710; J2930; J3010; J7030; J7120; J7611; 88300; 88305; G0378

== ENCOUNTER 2016-11-12 13:08 | Emergency (ER) | payer OTHER, MEDICARE ==
[~2016-11-12] VITALS: Ht 157.5 cm; Wt 66.0 kg
[~2016-11-12 13:08] MED LIST changes: -BUPIVACAINE LIPOSOME PF 1.3% 20 ML VIAL ONE; -DEXAMETHASONE SOD PHOS PF 10 MG/ML VIAL IV ONE; +HYDR-3516 PO; +OXYGENTANK NAS.CANULA
[2016-11-12 13:22] VITALS: BP 118/63; PULSE 83; RESP 16; TEMP 98.3; O2SAT 97
[2016-11-12] MEDS ORDERED: ASPI81CH37 CHEW (13:38)
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
[2016-11-12] MEDS ORDERED: SODIUM CHLORIDE 0.9% FLUSH 10 ML FLUSH IV FLUSH PRN (14:30)
[2016-11-12 14:37] VITALS: RESP 16; O2SAT 97
[2016-11-12 15:18] LABS: AUTOMATED NEUTROPHIL # 6.4 TH/MM3 (1.8-7.7); BASOPHIL # 0.1 TH/MM3 (0-0.2); BASOPHIL % 0.6 % (0.0-2.0); EOSINOPHIL # 0.5 TH/MM3 (0-0.4); EOSINOPHIL % 5.9 % (0.0-4.0); LYMPH % 12.6 % (9.0-44.0); LYMPHOCYTE # 1.1 TH/MM3 (1.0-4.8); MEAN CELL VOLUME 87.9 FL (80.0-100.0); MEAN CORPUSCULAR HEMOGLOBIN 28.6 PG (27.0-34.0); MEAN CORPUSCULAR HGB CONC 32.5 % (32.0-36.0); MONO % 5.3 % (0.0-8.0); NEUT % 75.6 % (16.0-70.0); PLATELET COUNT 207 TH/MM3 (150-450); RED BLOOD COUNT 3.75 MIL/MM3 (4.00-5.30); RED CELL DISTRIBUTION WIDTH 14.1 % (11.6-17.2); WHITE BLOOD COUNT 8.6 TH/MM3 (4.0-11.0)
[2016-11-12 15:19] LABS: HEMO FLAGS DIFF FINAL
[2016-11-12 15:23] VITALS: BP 119/61; PULSE 69; RESP 16; O2SAT 100
[2016-11-12 15:23] LABS: CHLORIDE 107 MEQ/L (98-107); SODIUM (NA) 145 MEQ/L (136-145)
[2016-11-12 15:27] LABS: ANION GAP 8 MEQ/L (5-15); BICARBONATE 29.9 MEQ/L (21.0-32.0); BLOOD UREA NITROGEN 24 MG/DL (7-18)
[2016-11-12 15:29] LABS: ALT (GPT) 22 U/L (10-53)
--- NOTE | 2016-11-12 15:29 | RADHPO ---
EXAM DATE/TIME: 11/12/2016 15:10 CORRECTION Corrected on: November 12, 2016; [facility] COMPARISON: No previous studies available for comparison. INDICATIONS : Left arm pain. MEDICAL HISTORY : None. SURGICAL HISTORY : None. ENCOUNTER: Initial ACUITY: 2 days PAIN SCORE: 4/10 LOCATION: Left humerus FINDINGS: Degenerative changes are evident about the shoulder. Alignment anatomic. Fracture is not appreciat ed. CONCLUSION: Degenerative changes otherwise negative Tien Ledezma MD FACR on November 12, 2016 at 15:23 Board Certified Radiologist. This report was verified electronically. Tien Ledezma MD FACR on November 12, 2016 at 15:50 Board Certified Radiologist. This report was verified electronically.
[2016-11-12 15:30] LABS: AST (GOT) 16 U/L (15-37); GLOMERULAR FILTRATION RATE 44 ML/MIN (>89)
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
[2016-11-12 15:31] LABS: TOTAL BILIRUBIN ADULT 0.3 MG/DL (0.2-1.0)
[2016-11-12 15:33] LABS: ALKALINE PHOSPHATASE 121 U/L (45-117)
[2016-11-12] MEDS ORDERED: IOHEXOL 350 MG/ML 10 ML VIAL (for RAD DIAG) IV ONE (16:07)
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
[2016-11-12 16:48] VITALS: BP 122/50; PULSE 71; RESP 16; O2SAT 96
--- NOTE | 2016-11-13 17:11 | EKG ---
Date Performed: 11/12/2016 Time Performed: 14:39:06 PTAGE: 76 years EKG: Sinus rhythm POSSIBLE LATERAL MYOCARDIAL INFARCTION-age indeterminate BORDERLINE ECG PREVIOUS TRACING : 10/25/2016 05.37 DOCTOR: Kade Laura Interpretating Date/Time 11/13/2016 17:10:28
== END 2016-11-12 17:39 | disposition home or self-care (01) ==
LOC: PHEFT 13:08
DX: R10.33 Periumbilical pain (principal); M54.5 Low back pain; M79.602 Pain in left arm; R94.31 Abnormal electrocardiogram [ECG] [EKG]; J45.909 Unspecified asthma, uncomplicated; E78.00 Pure hypercholesterolemia, unspecified; I10 Essential (primary) hypertension; J44.9 Chronic obstructive pulmonary disease, unspecified; I50.9 Heart failure, unspecified; I25.10 Atherosclerotic heart disease of native coronary artery without angina pectoris; G40.909 Epilepsy, unspecified, not intractable, without status epilepticus; Z86.73 Personal history of transient ischemic attack (TIA), and cerebral infarction without residual deficits; Z95.5 Presence of coronary angioplasty implant and graft; V43.52XA Car driver injured in collision with other type car in traffic accident, initial encounter; Y93.89 Activity, other specified; Y92.410 Unspecified street and highway as the place of occurrence of the external cause; Y99.8 Other external cause status
CPT/HCPCS: 71010; 73060; 74177; 80053; 85025; 93005; 99285; Q9967

== ENCOUNTER → 2016-11-26 | Day surgery (SDC) | payer MEDICARE ==
[~2016-11-26] MED LIST changes: +ACETAMINOPHEN 1000 MG/100 ML VIAL IV ONE; +ACETAMINOPHEN/HYDROcodone 325 MG/5 MG TAB ONE; -ASPI1TAB69 PO; +ASPI81CH37 CHEW; +BUPIVACAINE/EPINEPHRINE 0.5% PF 10 ML VIAL ONE; +ISOSULFAN BLUE 50 MG/5 ML VIAL SQ ONE; +LACTATED RINGER'S 1000 ML INJ 1,000 ML ONE; +LIDOCAINE 1.5%/EPINEPHrine 1:200,000 PF SOLN 30 ML AMP ONE; +MIDAZOLAM HCL 2 MG/2 ML VIAL ONE; +MORPHINE SULFATE 4 MG/ML INJ ONE; +NEOMYCIN/POLYMYXIN/BACITRACIN OINT 15 GM TUBE ONE; +ONDANSETRON HCL 4 MG/2 ML VIAL IV PUSH ONE; +PROPOFOL 200 MG/20 ML AMP IV ONE; +ceFAZolin INJ 1,000 MG VIAL ONE
--- NOTE | 2016-11-26 14:53 | TN ---
cc: JULI OATES M.D. DATE OF SURGERY: 11/26/2016 PREOPERATIVE DIAGNOSIS Persistent seroma left groin. POSTOPERATIVE DIAGNOSIS Persistent seroma left groin. PROCEDURE injection of blue dye to identify lymph channels Removal of seroma cavity with drainage of seroma with obliteration of the space with placement of MARIEL. ANESTHESIA TIVA. SURGEON Dr. Oates. ENGINE EMISSION TECHNICIAN Malini Morales, SABAS The STATOR TESTER was present from beginning to the end of the case assisting in all portions of the procedure. It was necessary to have this individual in the room to assist in the above surgical procedure. The surgical procedure was assisted by the STATOR TESTER. The STATOR TESTER presence was necessary throughout the case for appropriate retraction, dissection, visualization, and resection of the important anatomical structures during the surgical procedure. The STATOR TESTER was assisting throughout the entirety of the operation. The skill set of the STATOR TESTER is medically and surgically necessary to safely complete the surgical procedure. During the surgical case the operating room ophthalmic surgical assistant was working instrument table and passing instruments to the attending surgeon and STATOR TESTER The STATOR TESTER was directly assisting the operating surgeon and involved in the technical aspects of the surgical case. INDICATIONS This is a pleasant lady who I had taken out a large fluid filled sac about a month ago in her left groin and subsequently recurred despite repeated drainage attempts in the office. Plans were made for placement of a MARIEL. I added procedure injection of Lymphazurin blue dye to hopefully identify the lymphatic channel that was leaking with the injection of Lymphazurin blue dye in the anterior thigh, however, no drainage of blue lymph was seen intraoperatively. PROCEDURE The patient was taken to the operating room and placed in the supine position. After anesthesia her left leg and groin are prepped with Betadine. We inject 5 ccs of Lymphazurin blue dye in the subcutaneous tissues and the anterior thigh. We then prep with Betadine. The cavity is aspirated, it probably has about 60 ccs of fluid within it. None of it is stained blue. We then make an incision over the previous incision down to the cyst cavity which portions of removed. I do not see any blue dye in the vicinity. There were two areas, one along the inferior border of the cyst cavity and one superior that appeared to possibly be serous fluid slowly coming out. These were oversewn with a Vicryl suture. We then dried up the area and carefully inspected the area. There was one other area that seemed to be slowly oozing some serous fluid and this is oversewn with a [id number] Vicryl suture. We then cauterized essentially the entirety of the space. I did place a little alcohol in the space to irritate the area and some Betadine. We then placed some Solitario after drying it out and watched this for about 5 minutes to see if any of the Solitario could localize the oozing area, one very small spot was seen, this was oversewn again in the inferior aspect of the wound about mid in the floor of the cavity. This was oversewn with a 3-0 Vicryl. After this was done we then did not note any other wet spots. We then placed the 6 MARIEL coming out to the lateral edge which is sewed with a 3-0 Nylon at the skin level. Deep layer was then reapproximated with 3-0 Vicryl and skin is closed with 4-0 Vicryl. A pressure dressing is applied. The patient tolerated the procedure well and had no immediate postop complication. MD CHANDU Jenkins/NADEGE /1:26 PM /2:30 PM ROBERTH
== END | disposition home or self-care (01) ==
LOC: ESDC 08:56
PROVIDERS: ATTEND Surgery
DX: L76.34 Postprocedural seroma of skin and subcutaneous tissue following other procedure (principal)
CPT/HCPCS: 00400; 10140; 38792; J0131; J0690; J2250; J2270; J2405; J3010; J7120; Q9968

== ENCOUNTER 2016-12-20 19:06 | Emergency (ER) | payer MEDICARE ==
[~2016-12-20] VITALS: Ht 157.5 cm; Wt 64.0 kg
[~2016-12-20 19:06] MED LIST changes: -ACETAMINOPHEN 1000 MG/100 ML VIAL IV ONE; -ACETAMINOPHEN/HYDROcodone 325 MG/5 MG TAB ONE; -BUPIVACAINE/EPINEPHRINE 0.5% PF 10 ML VIAL ONE; -ISOSULFAN BLUE 50 MG/5 ML VIAL SQ ONE; -LACTATED RINGER'S 1000 ML INJ 1,000 ML ONE; -LIDOCAINE 1.5%/EPINEPHrine 1:200,000 PF SOLN 30 ML AMP ONE; -MIDAZOLAM HCL 2 MG/2 ML VIAL ONE; -MORPHINE SULFATE 4 MG/ML INJ ONE; -NEOMYCIN/POLYMYXIN/BACITRACIN OINT 15 GM TUBE ONE; -ONDANSETRON HCL 4 MG/2 ML VIAL IV PUSH ONE; -PROPOFOL 200 MG/20 ML AMP IV ONE; -ceFAZolin INJ 1,000 MG VIAL ONE
[2016-12-20 19:25] VITALS: BP 150/67; PULSE 69; RESP 18; TEMP 98.1; O2SAT 99
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
[2016-12-20 19:56] VITALS: BP 150/67; PULSE 69; RESP 18; TEMP 98.1; O2SAT 99
== END 2016-12-20 20:17 | disposition home or self-care (01) ==
LOC: PHED 19:06
DX: L76.34 Postprocedural seroma of skin and subcutaneous tissue following other procedure (principal); I50.9 Heart failure, unspecified; I11.0 Hypertensive heart disease with heart failure; I25.2 Old myocardial infarction; G40.909 Epilepsy, unspecified, not intractable, without status epilepticus; Z95.5 Presence of coronary angioplasty implant and graft; Z79.82 Long term (current) use of aspirin; E78.00 Pure hypercholesterolemia, unspecified; J44.9 Chronic obstructive pulmonary disease, unspecified
CPT/HCPCS: 99282

== ENCOUNTER 2017-01-19 14:35 | Observation (INO) | payer MEDICARE ==
[~2017-01-19] VITALS: Ht 157.5 cm; Wt 65.0 kg
[~2017-01-19 14:35] MED LIST changes: -HYDR-3516 PO
[2017-01-19] MEDS ORDERED: SODIUM CHLORIDE 0.9% FLUSH 10 ML FLUSH IVF PRN (15:15)
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
--- NOTE | 2017-01-19 15:32 | RADRPT ---
EXAM DATE/TIME: 01/19/2017 15:21 [facility] COMPARISON: CHEST SINGLE AP, November 12, 2016, 14:34. INDICATIONS : Syncope MEDICAL HISTORY : Myocardial infarction. SURGICAL HISTORY : CABG. ENCOUNTER: Initial ACUITY: 1 day PAIN SCORE: 0/10 LOCATION: Bilateral chest FINDINGS: A single view of the chest demonstrates the lungs to be hyperaerated without evidence of mass, infilt rate or effusion. Cardiomegaly. Pulmonary vascularity normal. The cardiomediastinal contours are unr emarkable. Osseous structures are intact. CONCLUSION: Cardiomegaly. Jose Contreras MD on January 19, 2017 at 15:30 Board Certified Radiologist. This report was verified electronically.
[2017-01-19 15:45] VITALS: BP 133/61; PULSE 63; RESP 16; TEMP 98; O2SAT 100
[2017-01-19] MEDS ORDERED: SODIUM CHLORID 0.9% 500 ML INJ 500 ML IV ONE (16:00)
--- NOTE | 2017-01-19 16:11 | RADRPT ---
EXAM DATE/TIME: 01/19/2017 15:37 [facility] COMPARISON: CT BRAIN W/O CONTRAST, March 30, 2014, 7:26. INDICATIONS : Patient complains of weakness, dizziness. RADIATION DOSE: 56.77 CTDIvol (mGy) MEDICAL HISTORY : Cardiovascular disease. Chronic obstructive pulmonary disease. Stroke. SURGICAL HISTORY : None. ENCOUNTER: Initial ACUITY: 1 day PAIN SCALE: 0/10 LOCATION: cranial TECHNIQUE: Multiple contiguous axial images were obtained of the head. Using automated exposure control and adj ustment of the mA and/or kV according to patient size, radiation dose was kept as low as reasonably a chievable to obtain optimal diagnostic quality images. DICOM format image data is available electro nically for review and comparison. FINDINGS: An area of encephalomalacia involving the right parietal lobe. Supratentorial and infratentorial atro phy noted. No hemorrhage or acute infarction. Ventricles are normal in size. Paranasal sinuses and ma stoid air cells. CONCLUSION: 1. No acute intracranial abnormality. 2. Right parietal encephalomalacia. Carlton Flanagan Jr., MD on January 19, 2017 at 16:03 Board Certified Radiologist. This report was verified electronically.
[2017-01-19 16:27] LABS: AUTOMATED NEUTROPHIL # 5.3 TH/MM3 (1.8-7.7); BASOPHIL # 0.1 TH/MM3 (0-0.2); BASOPHIL % 0.8 % (0.0-2.0); EOSINOPHIL # 0.3 TH/MM3 (0-0.4); EOSINOPHIL % 4.6 % (0.0-4.0); HEMATOCRIT 34.3 % (35.0-46.0); HEMO FLAGS DIFF FINAL; LYMPH % 12.7 % (9.0-44.0); LYMPHOCYTE # 0.9 TH/MM3 (1.0-4.8); MEAN CELL VOLUME 87.9 FL (80.0-100.0); MEAN CORPUSCULAR HEMOGLOBIN 29.2 PG (27.0-34.0); MEAN CORPUSCULAR HGB CONC 33.2 % (32.0-36.0); MONO % 8.3 % (0.0-8.0); NEUT % 73.6 % (16.0-70.0); PLATELET COUNT 182 TH/MM3 (150-450); RED BLOOD COUNT 3.91 MIL/MM3 (4.00-5.30); RED CELL DISTRIBUTION WIDTH 14.1 % (11.6-17.2); WHITE BLOOD COUNT 7.2 TH/MM3 (4.0-11.0)
[2017-01-19 16:37] LABS: APTT (PATIENT) 24.2 SEC (24.3-30.1); INTERNATIONAL NORMALIZED RATIO 0.9 RATIO
[2017-01-19 16:52] LABS: ANION GAP 7 MEQ/L (5-15); BICARBONATE 31.4 MEQ/L (21.0-32.0); BLOOD UREA NITROGEN 18 MG/DL (7-18); CHLORIDE 105 MEQ/L (98-107); GLOMERULAR FILTRATION RATE 45 ML/MIN (>89); MAGNESIUM 2.1 MG/DL (1.5-2.5); POTASSIUM 3.2 MEQ/L (3.5-5.1); SODIUM (NA) 143 MEQ/L (136-145)
[2017-01-19 16:53] LABS: CREATINE KINASE 101 U/L (26-192)
[2017-01-19 17:09] LABS: BACTERIA, URINE RARE /hpf; BLOOD, URINE NEG (NEG); COMMENT (UR) CATH-CULTURE IND; CULTURE IF INDICATED CATH CULTURE IND; GLUCOSE,URINE NEG (NEG); KETONE, URINE NEG (NEG); NITRITE,URINE NEG (NEG); PH, URINE 6.5 (5.0-8.5); SQUAMOUS EPITHELIAL CELL URINE <1 /hpf (0-5); URINE COLOR LIGHT-YELLOW (YELLW/STRAW)
[2017-01-19] MEDS ORDERED: TRIA37.53 PO (17:14)
[2017-01-19] MEDS ORDERED: POTASSIUM CHLORIDE 20 MEQ CONTROLLED RELEASE TAB PO ONE (17:30)
[2017-01-19 18:24] VITALS: BP 148/65; PULSE 56; RESP 17; O2SAT 99
[2017-01-19] MEDS ORDERED: NALOXONE HCL 0.4 MG/ML AMP IV PRN (18:45)
[2017-01-19] MEDS ORDERED: SENNOSIDES 8.6 MG TAB PO PRN (18:45)
[2017-01-19] MEDS ORDERED: MAGNESIUM HYDROXIDE SUSP 30 ML CUP PO PRN (18:45)
[2017-01-19] MEDS ORDERED: BISACODYL 10 MG SUPP RECTAL PRN (18:45)
[2017-01-19] MEDS ORDERED: ACETAMINOPHEN 325 MG TAB PO PRN (18:45)
[2017-01-19] MEDS ORDERED: LACTULOSE SYRUP 20 GM/30 ML CUP PO PRN (18:45)
[2017-01-19] MEDS ORDERED: ONDANSETRON HCL 4 MG/2 ML VIAL IVP PRN (18:45)
[2017-01-19] MEDS ORDERED: PILL SPLITTER OTHER PRN (19:00)
[2017-01-19] MEDS ORDERED: ALBUTEROL SULFATE 90 MCG/ACT HFA 18 GM INHALER INH PRN (19:15)
--- NOTE | 2017-01-19 19:58 | RADRPT ---
EXAM DATE/TIME: 01/19/2017 19:14 [facility] COMPARISON: MRI BRAIN W/O CONTRAST, January 19, 2017, 19:14. MRA BRAIN W/O CONTRAST, November 07, 2013, 15:33. INDICATIONS : CVA. MEDICAL HISTORY : Myocardial infarction. Chronic obstructive pulmonary disease. Diverticulosis. Skin cancer-15 years ag o, Kidney cysts, Seizures. SURGICAL HISTORY : CABG Cholecystectomy. Hysterectomy. Aortobifemoral bypass graft-1998, Abdomen hernia repair x13 last one 10/22/16, Bladder sx-6 years ago. ENCOUNTER: Initial ACUITY: 1 day PAIN SCORE: 3/10 LOCATION: Bilateral cranial Please note a normal MRA of the brain does not entirely exclude the possibility of a small aneurysm, nor the possibility of distal intracranial vessel disease. TECHNIQUE: 3D time of flight MRA was performed. Source images, multiplanar STS MIP, and 3D volume MIP reconstru ctions were reviewed. FINDINGS: There is excellent visualization of the major intracranial arteries out to the second-order branch ve ssels. Vascular asymmetry is identified in the middle cerebral arteries. There is a paucity of vessels exten ding to the right posterior parietal region where a large old infarct is noted. There are no proximal intraluminal filling defects or evidence of proximal occlusive disease. There is no evidence of aneurysm, mass effect or vascular malformations. Right vertebral artery is dominant. Left vertebral artery terminates in PICA. CONCLUSION: 1. Old right parietal lobe infarct associated with paucity of vessels in the infarcted area. 2. No findings characteristic of acute occlusive disease or intraluminal filling defects. 3. Dominant right vertebral artery and PICA continuation of the left vertebral artery. 4. No evidence of aneurysm, vascular malformation or mass effect. Eligio Mendes MD on January 19, 2017 at 19:44 Board Certified Radiologist. This report was verified electronically.
--- NOTE | 2017-01-19 20:10 | RADRPT ---
EXAM DATE/TIME: 01/19/2017 19:14 [facility] COMPARISON: MRI BRAIN W/O CONTRAST, November 07, 2013, 15:33. INDICATIONS : CVA. MEDICAL HISTORY : Myocardial infarction. Chronic obstructive pulmonary disease. Diverticulosis. Siezure-2 years ago, Sk in cancer-15 years ago. SURGICAL HISTORY : CABG Cholecystectomy. Hysterectomy. Aortobifemoral bypass graft-1998, Abdomen hernia repair x13 last one 10/22/16, Bladder sx-6 years ago. ENCOUNTER: Initial ACUITY: 1 day PAIN SCORE: 3/10 LOCATION: Bilateral cranial TECHNIQUE: Multiplanar, multisequence MRI of the brain was performed without contrast. FINDINGS: CEREBRUM: Large area of encephalomalacia is identified in the right parietal lobe. There are no findings charac teristic of an acute infarct, hemorrhage or mass. There are no structural fluid collections. WHITE MATTER: A few scattered T2 hyperintense signal abnormalities are seen in the white matter. POSTERIOR FOSSA: The cerebellum and brainstem are intact. The 4th ventricle is midline. The cerebellopontine angle is unremarkable. The cerebellar tonsils are normal in position. DIFFUSION IMAGING: No focal areas of restricted diffusion are seen. No evidence of acute infarction. EXTRACRANIAL: The visualized portions of the orbits and paranasal sinuses are unremarkable. CONCLUSION: 1. Right parietal encephalomalacia characteristic of old infarct. 2. No evidence of acute infarct, hemorrhage, mass or edema. 3. Cerebral white matter disease characteristic of chronic microvascular ischemic change. Elgiio Mendes MD on January 19, 2017 at 20:01 Board Certified Radiologist. This report was verified electronically.
[2017-01-19] MEDS: SODIUM CHLOR 0.45% 1000 ML INJ 1,000 ML IV SCH (20:52)
[2017-01-19] MEDS: levETIRAcetam 250 MG TAB PO SCH (20:53)
[2017-01-19] MEDS: OXYBUTYNIN CHLORIDE 5 MG TAB PO SCH (20:53)
[2017-01-19] MEDS: HEPARIN SODIUM - SQ 10,000 UNITS/ML VIAL SQ SCH (20:53)
[2017-01-19] MEDS: lamoTRIgine 100 MG TAB PO SCH (20:53)
[2017-01-19] MEDS: ATORVASTATIN 40 MG TAB PO SCH (20:54)
[2017-01-19] MEDS: SODIUM CHLORIDE 0.9% FLUSH 10 ML FLUSH IV FLUSH SCH (20:54)
[2017-01-19] MEDS: DOCUSATE SODIUM 50 MG/SENNA 8.6 MG TAB PO SCH (20:54)
[2017-01-19 21:23] VITALS: BP 145/67; PULSE 58; RESP 18; O2SAT 98
[2017-01-19 22:29] VITALS: BP_SYST 111; BP_SYST 138; BP_SYST 144; BP_DIAS 57; BP_DIAS 60; BP_DIAS 62; PULSE 68; RESP 17; TEMP 98.2; O2SAT 98
[2017-01-19 23:56] VITALS: BP 101/52; PULSE 64; RESP 17; TEMP 97.1; O2SAT 95
[2017-01-20] VITALS (9 sets, daily range): BP systolic 108–148; BP diastolic 53–69; PULSE 57–70; RESP 16–18; TEMP 97.2–98.3; O2SAT 96–99
[2017-01-20 07:54] LABS: BICARBONATE 20.7 MEQ/L (21.0-32.0); POTASSIUM 3.7 MEQ/L (3.5-5.1)
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
[2017-01-20] MEDS: TIOTROPIUM BROMIDE 18 MCG INH INH SCH (09:00)
--- NOTE | 2017-01-20 09:42 | RADRPT ---
EXAM DATE/TIME: 01/20/2017 08:38 [place] COMPARISON: No previous studies available for comparison. INDICATIONS : Cerebrovascular accident. MEDICAL HISTORY : Congestive heart failure. Myocardial infarction. Hypercholesterolemia. Stroke. Epilepsy. Seizures. Pe ripheral neuropathy. Dizziness. CAD. Peripheral vascular disease. Hypertension. COPD. Asthma. Sleep a pnea. Dyspena. GERD. IBS. SURGICAL HISTORY : Cholecystectomy. Hysterectomy. Bilateral cataract surgery. Cardiac stents. Left fermoral endarectom y. CABG. Hernia repair. Bilateral breast lump removal. Bladder surgery. ENCOUNTER: Initial ACUITY: 1 day PAIN SCORE: 110 LOCATION: Bilateral neck PEAK SYSTOLIC VELOCITIES (cm/sec): ICA/CCA RATIO: Right: 2.7 Left: 2.2 ICA: Right: 167 Left: 133 CCA: Right: 62 Left: 60 ECA: Right: 52 Left: 57 VERTEBRAL: Right: 65 antegrade Left: 46 antegrade Elevated flow velocities and ICA/CCA ratios have been found to correlate with increased degrees of vessel stenosis, calculated as percentage of diameter relative to a normal segment of distal ICA/CCA FINDINGS: RIGHT CAROTID: Mild calcified plaque in the bulb extending to the origin of the internal carotid artery. Increased r atios likely exaggerated by tortuosity corresponding to moderate, 50-69%, stenosis. LEFT CAROTID: Mild calcified plaque in the bulb extending to the origin of the internal carotid artery. Increased r atios likely exaggerated by tortuosity corresponding to moderate, 50-69%, stenosis. VERTEBRAL ARTERIES: Antegrade flow is seen in both vertebral arteries. MISCELLANEOUS: None. CONCLUSION: 1. Findings consistent with moderate, 50-69%, carotid artery stenosis bilaterally, likely exaggerated by tortuosity. 2. Antegrade vertebral artery flow bilaterally. Gareth Pizano MD on January 20, 2017 at 9:37 Board Certified Radiologist. This report was verified electronically.
[2017-01-20] MEDS: HEPARIN SODIUM - SQ 10,000 UNITS/ML VIAL SQ SCH ×2 (10:11→23:38)
[2017-01-20] MEDS: MECLIZINE HCL 25 MG TAB PO PRN (10:12)
[2017-01-20] MEDS: DOCUSATE SODIUM 50 MG/SENNA 8.6 MG TAB PO SCH ×2 (10:12→19:52)
[2017-01-20] MEDS: TRIAMTERENE/HCTZ 37.5 MG/25 MG CAP PO SCH (10:12)
[2017-01-20] MEDS: FOLIC ACID 1 MG TAB PO SCH (10:12)
[2017-01-20] MEDS: lamoTRIgine 100 MG TAB PO SCH (10:12)
[2017-01-20] MEDS: levETIRAcetam 250 MG TAB PO SCH ×2 (10:12→23:36)
[2017-01-20] MEDS: SODIUM CHLOR 0.45% 1000 ML INJ 1,000 ML IV SCH (10:13)
[2017-01-20] MEDS: SODIUM CHLORIDE 0.9% FLUSH 10 ML FLUSH IV FLUSH SCH ×2 (10:13→23:37)
[2017-01-20] MEDS: ASPIRIN 81 MG CHEW TAB CHEW SCH (10:13)
--- NOTE | 2017-01-20 13:52 | EKG ---
Date Performed: 01/19/2017 Time Performed: 16:35:53 PTAGE: 76 years EKG: SINUS BRADYCARDIA WITH FIRST DEGREE AV BLOCK POSSIBLE LATERAL MYOCARDIAL INFARCTION ABNORMA L ECG PREVIOUS TRACING : 11/12/2016 14.39 Since the prior tracing, there has been some lengthening in the IL interval, with no other significant serial change. DOCTOR: Denise Hernandez Interpretating Date/Time 01/20/2017 13:51:22
[2017-01-20 14:05] LABS: AUTOMATED NEUTROPHIL # 6.1 TH/MM3 (1.8-7.7); BASOPHIL % 0.5 % (0.0-2.0); EOSINOPHIL # 0.3 TH/MM3 (0-0.4); EOSINOPHIL % 3.6 % (0.0-4.0); HEMATOCRIT 38.1 % (35.0-46.0); HEMO FLAGS DIFF FINAL; LYMPH % 13.5 % (9.0-44.0); LYMPHOCYTE # 1.1 TH/MM3 (1.0-4.8); MEAN CELL VOLUME 88.6 FL (80.0-100.0); MEAN CORPUSCULAR HEMOGLOBIN 28.8 PG (27.0-34.0); MEAN CORPUSCULAR HGB CONC 32.5 % (32.0-36.0); MONO % 6.1 % (0.0-8.0); NEUT % 76.3 % (16.0-70.0); PLATELET COUNT 176 TH/MM3 (150-450); RED CELL DISTRIBUTION WIDTH 14.1 % (11.6-17.2)
--- NOTE | 2017-01-20 14:42 | ECHRPT ---
Indication: cva/tia CONCLUSIONS The left ventricular systolic function is severely reduced with an estimated ejection fraction in th e range of 20-25%. Normal left ventricular size. Wall thickness is normal. Trace mitral valve regurgitation. There is mild tricuspid valve regurgitation. The pulmonary valve is not well visualized. BP: / HR: Rhythm: MEASUREMENTS (Male / Female) Normal Values Technical Quality:Good 2D ECHO LV Diastolic Diameter PLAX 5.1 cm 4.2 - 5.9 / 3.9 - 5.3 cm LV Systolic Diameter PLAX 4.8 cm IVS Diastolic Thickness 0.8 cm 0.6 - 1.0 / 0.6 - 0.9 cm LVPW Diastolic Thickness 0.8 cm 0.6 - 1.0 / 0.6 - 0.9 cm LV Relative Wall Thickness 0.3 RV Internal Dim ED PLAX 2.3 cm M-MODE Aortic Root Diameter MM 3.5 cm LA Systolic Diameter MM 2.8 cm LA Ao Ratio MM 0.8 AV Cusp Separation MM 2.1 cm DOPPLER Mitral E Point Velocity 62.2 cm/s Mitral A Point Velocity 74.0 cm/s Mitral E to A Ratio 0.8 LV E' Lateral Velocity 9.3 cm/s Mitral E to LV E' Lateral Ratio 6.7 LV E' Septal Velocity 5.6 cm/s Mitral E to LV E' Septal Ratio 11.0 FINDINGS LEFT VENTRICLE The left ventricular systolic function is severely reduced with an estimated ejection fraction in th e range of 20-25%. Global hypokinesis Normal left ventricular size. Wall thickness is normal. RIGHT VENTRICLE Normal right ventricular size and systolic function. LEFT ATRIUM The left atrial size is normal. RIGHT ATRIUM The right atrial size is normal. ATRIAL SEPTUM Normal atrial septal thickness without atrial level shunting by limited color doppler interrogation. AORTA The aortic root and proximal ascending aorta are normal in size on limited imaging. MITRAL VALVE Structurally normal mitral valve. Trace mitral valve regurgitation. AORTIC VALVE Trileaflet aortic valve. No aortic valve stenosis or regurgitation. TRICUSPID VALVE There is mild tricuspid valve regurgitation. PULMONARY VALVE The pulmonary valve is not well visualized. VESSELS The inferior vena cava is normal in size. PERICARDIUM No pericardial effusion. Letha Hall MD, FACC (Electronically Signed) Final Date:20 January 2017 14:41
--- NOTE | 2017-01-20 22:00 | MG ---
cc: JONNY GERARDO MD Sex: F DATE OF : 1940 REFERRING PHYSICIAN: Dr. Khanna MEDICAL HISTORY: 1. Hyperlipidemia. 2. Heart attack. 3. TIA. 4. Coronary artery disease 5. Hypercholesterolemia 6. Sleep apnea. 7. Asthma. 8. COPD. 9. Diverticulitis. 10. Seizure. 11. Dementia. MEDICATIONS: 1. Aspirin 2. Folic acid 3. Antivert 4. Lipitor 5. Lamictal. 6. Keppra. 7. Ditropan 8. Heparin. DESCRIPTION: The background activity is 9-10 hertz alpha located posteriorly, attenuates bilateral and symmetrically to eye opening. During the recording there was drop out of the background rhythm that was replaced by 5-6 Hz theta activity, with appearance of sleep spindles and transitioning to stage II sleep. Hyperventilation was not done. Photic stimulation did not elicit a driving response.No electrographic seizures or epileptiform discharges were noted during the recording. There is excessive muscle artifact. INTERPRETATION This is a normal awake and asleep EEG. There were no electrographic seizure or epileptiform discharges noted during the recording. Clinical correlation is recommended. Jonny Gerardo MD [facility] /9:40 PM /9:44 PM MTDD
[2017-01-20] MEDS: ATORVASTATIN 40 MG TAB PO SCH (23:36)
[2017-01-20] MEDS: OXYBUTYNIN CHLORIDE 5 MG TAB PO SCH (23:36)
[2017-01-21] VITALS (12 sets, daily range): BP systolic 109–142; BP diastolic 54–68; PULSE 60–67; RESP 16–20; TEMP 97.7–98.3; O2SAT 94–98
[2017-01-21] MEDS: lamoTRIgine 100 MG TAB PO SCH ×3 (00:20→20:09)
[2017-01-21] MEDS: SODIUM CHLOR 0.45% 1000 ML INJ 1,000 ML IV SCH (00:21)
--- NOTE | 2017-01-21 08:01 | HHI.PR ---
Subjective Remarks Dizziness with sitting up and head movement No nausea No chest pain No shortness of breath Anxious to go home Left groin with fluid-filled cyst unchanged Telemetry reviewed, sinus rhythm Objective Objective Results - Vital Signs Date Time Temp Pulse Resp B/P (MAP) Pulse Ox O2 Delivery O2 Flow Rate FiO2 01/21/17 03:51 98.2 62 17 109/60 (76) 95 01/21/17 00:10 98.3 62 17 129/62 (84) 94 01/20/17 19:31 98.3 65 17 129/61 (83) 96 01/20/17 16:21 65 01/20/17 16:00 98.1 57 17 133/66 (88) 99 01/20/17 13:09 60 01/20/17 12:00 97.7 66 16 148/69 (95) 98 01/20/17 08:00 97.9 62 18 138/64 (88) 98 I/O 01/20/17 01/20/17 01/20/17 01/21/17 01/21/17 01/21/17 06:59 14:59 22:59 06:59 14:59 22:59 Intake Total 1160 ml Balance 1160 ml Intake Oral 960 ml IV Total 200 ml # Voids 6 5 # Bowel Movements 2 Result Diagram: 01/20/17 1312 01/20/17 0600 Imaging Last Impressions Head CT 01/19/17 1505 Signed Impressions: Service Date/Time: Thursday, January 19, 2017 15:37 - CONCLUSION: 1. No acute intracranial abnormality. 2. Right parietal encephalomalacia. Carlton Flanagan Jr., MD Chest X-Ray 01/19/17 1505 Signed Impressions: Service Date/Time: Thursday, January 19, 2017 15:21 - CONCLUSION: Cardiomegaly. Jose Contreras MD Head Magnetic Resonance Angiography 01/19/17 0000 Signed Impressions: Service Date/Time: Thursday, January 19, 2017 19:14 - CONCLUSION: 1. Old right parietal lobe infarct associated with paucity of vessels in the infarcted area. 2. No findings characteristic of acute occlusive disease or intraluminal filling defects. 3. Dominant right vertebral artery and PICA continuation of the left vertebral artery. 4. No evidence of aneurysm, vascular malformation or mass effect. Eligio Mendes MD Brain MRI 01/19/17 0000 Signed Impressions: Service Date/Time: Thursday, January 19, 2017 19:14 - CONCLUSION: 1. Right parietal encephalomalacia characteristic of old infarct. 2. No evidence of acute infarct, hemorrhage, mass or edema. 3. Cerebral white matter disease characteristic of chronic microvascular ischemic change. Eligio Mendes MD Other Results Laboratory Tests Test 01/20/17 13:12 01/20/17 13:20 White Blood Count 8.0 Red Blood Count 4.30 Hemoglobin 12.4 Hematocrit 38.1 Mean Corpuscular Volume 88.6 Mean Corpuscular Hemoglobin 28.8 Mean Corpuscular Hemoglobin Concent 32.5 Red Cell Distribution Width 14.1 Platelet Count 176 Mean Platelet Volume 8.4 Neutrophils (%) (Auto) 76.3 Lymphocytes (%) (Auto) 13.5 Monocytes (%) (Auto) 6.1 Eosinophils (%) (Auto) 3.6 Basophils (%) (Auto) 0.5 Neutrophils # (Auto) 6.1 Lymphocytes # (Auto) 1.1 Monocytes # (Auto) 0.5 Eosinophils # (Auto) 0.3 Basophils # (Auto) 0.0 CBC Comment DIFF FINAL Differential Comment Vitamin B12 Level 437 Thyroid Stimulating Hormone 3rd Gen 0.875 Date/Time Source Procedure Growth Status 01/19/17 16:20 Urine Catheterized Urine Urine Culture - Preliminary NO GROWTH IN 24 HOURS. Resulted ROS General: Other (dizziness ), No: Fatigue, Weakness HEENT: No: Sore Throat, Dysphagia Cardiac: No: Chest Pain, Edema, Palpitations Pulmonary: No: Cough, SOB, Wheezing GI: No: Abdominal Pain, BM, Diarrhea, N/V /CREATIVE RECRUITER: No: Dysuria, Urgency Neuro/MS: No: Lightheaded, Confusion Psych: No: Anxiety, Depression Skin: No: Itching, Rash Physical Exam Physical Exam GENERAL: This is a well-nourished, well-developed patient, in no apparent distress. SKIN: No rashes, ecchymoses or lesions. Cool and dry. HEAD: Atraumatic. Normocephalic. No temporal or scalp tenderness. EYES: Pupils equal round and reactive. Extraocular motions intact. No scleral icterus. No injection or drainage. ENT: Nose without bleeding, purulent drainage or septal hematoma. Throat without erythema, tonsillar hypertrophy or exudate. Uvula midline. Airway patent. NECK: Trachea midline. No JVD or lymphadenopathy. Supple, nontender, no meningeal signs. CARDIOVASCULAR: Regular rate and rhythm without murmurs, gallops, or rubs. RESPIRATORY: Clear to auscultation. Breath sounds equal bilaterally. No wheezes , rales, or rhonchi. GASTROINTESTINAL: Abdomen soft, non-tender, nondistended. No hepato-splenomegaly , or palpable masses. No guarding. Left groin with fluid filled area, no erythema, no drainage MUSCULOSKELETAL: Extremities without clubbing, cyanosis, or edema. No joint tenderness, effusion, or edema noted. No calf tenderness. Negative Homans sign bilaterally. NEUROLOGICAL: Awake, alert oriented 3. Bilateral upper and lower extremities weak, 4 out of 5. Bilateral upper extremity ataxia with [id number]. Slow to respond. Urinary Catheter: No Vascular Central Line Catheter: No A/P Diagnosis: (1) Dizziness ICD Codes: R42 - Dizziness and giddiness Status: Acute (2) Seizure disorder ICD Codes: G40.909 - Epilepsy, unspecified, not intractable, without status epilepticus Status: Chronic (3) History of CVA (cerebrovascular accident) ICD Codes: Z86.73 - Personal history of transient ischemic attack (TIA), and cerebral infarction without residual deficits Status: Chronic (4) S/P hernia repair ICD Codes: Z98.890 - Other specified postprocedural states; Z87.19 - Personal history of other diseases of the digestive system Status: Acute (5) Hyperlipemia ICD Codes: E78.5 - Hyperlipidemia Status: Acute (6) Heartburn ICD Codes: R12 - Heartburn Status: Chronic (7) Peripheral neuropathy ICD Codes: G62.9 - Polyneuropathy, unspecified Status: Chronic (8) COPD (chronic obstructive pulmonary disease) ICD Codes: J44.9 - Chronic obstructive pulmonary disease, unspecified Status: Chronic Assessment and Plan 76-year-old female with history of stroke, peripheral neuropathy, epilepsy. Presented with worsening dizziness. Dizziness, no evidence of new stroke per imaging findings. Possible positional vertigo -Continue neuro checks -PTE valve -Appreciate your input, possibly vertigo. -EEG done, no seizure -Continue aspirin, statin -Neuro workup so far negative, echo EF 20-25% -No carotis stenosis -continuous cardiac telemetry -Symptoms consistent with vertigo, has been started on Antivert, requested that RN give first dose at this time. History of epilepsy -Continue with seizure precautions -Continue with Keppra and Lamictal -Lamictal and Keppra levels pending s/p report of recurrent incisional hernia; AMBER; excision of LEFT groin mass --- cystic in nature September 2016. Had recent MARIEL that was accidentally dislodged and frequent aspirations per surgeon. -Appreciate surgical input, Dr. Oates may be aspirating left groin today before she goes home. History of dilated cardiomyopathy History of CAD and prior CT Hypertension -Continue with home meds -EF 20-25%, patient may benefit from Roshan inhibitor, defer to documentation clerk. -Patient to continue to follow with Dr. Garay as outpatient. COPD, stable -Continue with Ventolin inhaler as needed Heparin for DVT prophylaxis Case management for discharge planning, home health care and PT We will have patient get out of bed to ambulate today Plan to discharge this afternoon Follow-up with neurology Follow-up with cardiology Follow-up with surgeon Diet heart healthy Activity as tolerated, no driving Discussed with RN Discussed with patient Discussed with Dr. Rawls Patient was seen by myself and Dr. Rawls, this note is written on his behalf Problem Qualifiers (1) Peripheral neuropathy: Qualified Codes: G62.9 - Polyneuropathy, unspecified (2) COPD (chronic obstructive pulmonary disease): Qualified Codes: J44.9 - Chronic obstructive pulmonary disease, unspecified Nohemi Sousa Jan 21, 2017 08:01
--- NOTE | 2017-01-21 08:08 | HHI.FF ---
Face to Face Verification Diagnosis: (1) BPPV (benign paroxysmal positional vertigo) (2) History of CVA (cerebrovascular accident) Physical Therapy Order: Evaluate and Treat Home Health Nursing Order: Medical education Nursing assessment with vital signs I have seen patient Jackie Petty on 01/21/17. My clinical findings support the need for the requested home health care services because: Deconditioned w/ increased weakness Need for psychosocial assistance High risk of falls I certify that my clinical findings support that this patient is homebound because: Unsteady gait/balance Need for psychosocial assistance Nohemi Sousa Jan 21, 2017 08:08
[2017-01-21] MEDS: ASPIRIN 81 MG CHEW TAB CHEW SCH (08:46)
[2017-01-21] MEDS: HEPARIN SODIUM - SQ 10,000 UNITS/ML VIAL SQ SCH ×2 (08:46→20:09)
[2017-01-21] MEDS: MECLIZINE HCL 25 MG TAB PO PRN ×2 (08:47→20:06)
[2017-01-21] MEDS: DOCUSATE SODIUM 50 MG/SENNA 8.6 MG TAB PO SCH ×2 (08:47→20:11)
[2017-01-21] MEDS: FOLIC ACID 1 MG TAB PO SCH (08:47)
[2017-01-21] MEDS: SODIUM CHLORIDE 0.9% FLUSH 10 ML FLUSH IV FLUSH SCH ×2 (08:47→20:08)
[2017-01-21] MEDS: levETIRAcetam 250 MG TAB PO SCH ×2 (08:47→20:07)
[2017-01-21] MEDS: TRIAMTERENE/HCTZ 37.5 MG/25 MG CAP PO SCH (08:47)
[2017-01-21] MEDS: TIOTROPIUM BROMIDE 18 MCG INH INH SCH (08:47)
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
--- NOTE | 2017-01-21 09:30 | MP ---
cc: JULI OATES M.D. DATE OF PROCEDURE 01/21/2017 PREOPERATIVE DIAGNOSIS Persistent seroma left groin. POSTOPERATIVE DIAGNOSIS Persistent seroma left groin. PROCEDURE Aspiration of persistent seroma left groin. 55cc SURGEON Dr. Juli Oates M.D. PROCEDURE NOTE The patient is in G-80 in the ER. She was being evaluated for dizziness, questionable TIA. She has had a recurrence of this seroma. She was supposed to be in the office yesterday but she has been in the ER since yesterday. The patient is in the room. We prepped the groin with Betadine. An 18-gauge Angiocath is used to advance into the seroma. About 55 cc of clear fluid is aspirated. A pressure dressing is applied. The patient tolerated the procedure well. Juli Oates MD JDB/SSB /9:00 AM /9:20 AM ROBERTH
[2017-01-21] MEDS: ACETAMINOPHEN 325 MG TAB PO PRN ×2 (12:11→20:20)
[2017-01-21] MEDS ORDERED: LISINOPRIL 5 MG TAB PO ONE (13:00)
[2017-01-21 16:27] LABS: LEVETIRACETAM 17.4 mcg/mL (12.0 - 46.0)
[2017-01-21] MEDS: ATORVASTATIN 40 MG TAB PO SCH (20:08)
[2017-01-21] MEDS: CARVEDILOL 3.125 MG TAB PO SCH (20:10)
[2017-01-21] MEDS: OXYBUTYNIN CHLORIDE 5 MG TAB PO SCH (20:10)
[2017-01-21] MEDS ORDERED: TEMAZEPAM 7.5 MG CAP PO PRN (23:45)
[2017-01-22] VITALS (8 sets, daily range): BP systolic 93–111; BP diastolic 52–58; PULSE 50–64; RESP 16–20; TEMP 97.7–98.3; O2SAT 93–95
[2017-01-22] MEDS: levETIRAcetam 250 MG TAB PO SCH (08:09)
[2017-01-22] MEDS: SODIUM CHLORIDE 0.9% FLUSH 10 ML FLUSH IV FLUSH SCH (08:09)
[2017-01-22] MEDS: MECLIZINE HCL 25 MG TAB PO PRN (08:09)
[2017-01-22] MEDS: HEPARIN SODIUM - SQ 10,000 UNITS/ML VIAL SQ SCH (08:09)
[2017-01-22] MEDS: DOCUSATE SODIUM 50 MG/SENNA 8.6 MG TAB PO SCH (08:10)
[2017-01-22] MEDS: ASPIRIN 81 MG CHEW TAB CHEW SCH (08:10)
[2017-01-22] MEDS: TIOTROPIUM BROMIDE 18 MCG INH INH SCH (08:10)
[2017-01-22] MEDS: FOLIC ACID 1 MG TAB PO SCH (08:10)
[2017-01-22] MEDS ORDERED: MECL1TAB42 PO (08:13)
[2017-01-22] MEDS ORDERED: LISI-519 PO (08:13)
[2017-01-22] MEDS ORDERED: CARV3.125 PO (08:13)
[2017-01-22] MEDS: CARVEDILOL 3.125 MG TAB PO SCH (08:16)
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
--- NOTE | 2017-01-22 08:21 | HHI.PR ---
Subjective Remarks less dizzy no cp no sob had cyst drained yesterday, left groin better no fever anxious to go home Objective Objective Results - Vital Signs Date Time Temp Pulse Resp B/P (MAP) Pulse Ox O2 Delivery O2 Flow Rate FiO2 01/22/17 07:36 98.3 60 16 102/54 (70) 95 01/22/17 04:18 97.7 58 20 93/52 (66) 93 01/22/17 04:11 50 01/22/17 01:00 58 01/22/17 00:18 98.3 59 20 93/53 (66) 95 01/21/17 21:46 18 01/21/17 21:00 66 01/21/17 20:36 97.9 62 20 129/54 (79) 95 01/21/17 16:50 62 01/21/17 15:13 98.1 67 16 142/68 (92) 97 01/21/17 12:25 61 01/21/17 11:42 97.9 64 16 132/68 (89) 98 I/O 01/21/17 01/21/17 01/21/17 01/22/17 01/22/17 01/22/17 06:59 14:59 22:59 06:59 14:59 22:59 Intake Total 225 ml Balance 225 ml IV Total 225 ml # Voids 10 1 3 1 # Bowel Movements 1 1 Result Diagram: 01/20/17 1312 01/20/17 0600 Imaging Last Impressions Head CT 01/19/17 1505 Signed Impressions: Service Date/Time: Thursday, January 19, 2017 15:37 - CONCLUSION: 1. No acute intracranial abnormality. 2. Right parietal encephalomalacia. Carlton Flanagan Jr., MD Chest X-Ray 01/19/17 1505 Signed Impressions: Service Date/Time: Thursday, January 19, 2017 15:21 - CONCLUSION: Cardiomegaly. Jose Contreras MD Head Magnetic Resonance Angiography 01/19/17 0000 Signed Impressions: Service Date/Time: Thursday, January 19, 2017 19:14 - CONCLUSION: 1. Old right parietal lobe infarct associated with paucity of vessels in the infarcted area. 2. No findings characteristic of acute occlusive disease or intraluminal filling defects. 3. Dominant right vertebral artery and PICA continuation of the left vertebral artery. 4. No evidence of aneurysm, vascular malformation or mass effect. Eligio Mendes MD Brain MRI 01/19/17 0000 Signed Impressions: Service Date/Time: Thursday, January 19, 2017 19:14 - CONCLUSION: 1. Right parietal encephalomalacia characteristic of old infarct. 2. No evidence of acute infarct, hemorrhage, mass or edema. 3. Cerebral white matter disease characteristic of chronic microvascular ischemic change. Eligio Mendes MD Other Results Date/Time Source Procedure Growth Status 01/19/17 16:20 Urine Catheterized Urine Urine Culture - Final NO GROWTH IN 48 HOURS. Complete ROS General: Other (dizziness) HEENT: No: Sore Throat, Dysphagia Cardiac: No: Chest Pain, Edema, Palpitations Pulmonary: No: Cough, SOB, Wheezing GI: No: Abdominal Pain, BM, Diarrhea, N/V /AUTO BODY REPAIR TECHNICIAN: No: Dysuria, Urgency Neuro/MS: Other (poor balance ), No: Lightheaded, Confusion Psych: No: Anxiety, Depression Skin: No: Itching, Rash Physical Exam Physical Exam GENERAL: This is a well-nourished, well-developed patient, in no apparent distress. SKIN: No rashes, ecchymoses or lesions. Cool and dry. HEAD: Atraumatic. Normocephalic. No temporal or scalp tenderness. EYES: Pupils equal round and reactive. Extraocular motions intact. No scleral icterus. No injection or drainage. ENT: Nose without bleeding, purulent drainage or septal hematoma. Throat without erythema, tonsillar hypertrophy or exudate. Uvula midline. Airway patent. NECK: Trachea midline. No JVD or lymphadenopathy. Supple, nontender, no meningeal signs. CARDIOVASCULAR: Regular rate and rhythm without murmurs, gallops, or rubs. RESPIRATORY: Clear to auscultation. Breath sounds equal bilaterally. No wheezes , rales, or rhonchi. GASTROINTESTINAL: Abdomen soft, non-tender, nondistended. No hepato-splenomegaly , or palpable masses. No guarding. Left groin with fluid filled area, no erythema, no drainage MUSCULOSKELETAL: Extremities without clubbing, cyanosis, or edema. No joint tenderness, effusion, or edema noted. No calf tenderness. Negative Homans sign bilaterally. NEUROLOGICAL: Awake, alert oriented 3. Bilateral upper and lower extremities weak, 4 out of 5. Bilateral upper extremity ataxia with [id number]. Slow to respond. Urinary Catheter: No Vascular Central Line Catheter: No A/P Diagnosis: (1) Dizziness ICD Codes: R42 - Dizziness and giddiness Status: Acute (2) Seizure disorder ICD Codes: G40.909 - Epilepsy, unspecified, not intractable, without status epilepticus Status: Chronic (3) History of CVA (cerebrovascular accident) ICD Codes: Z86.73 - Personal history of transient ischemic attack (TIA), and cerebral infarction without residual deficits Status: Chronic (4) S/P hernia repair ICD Codes: Z98.890 - Other specified postprocedural states; Z87.19 - Personal history of other diseases of the digestive system Status: Acute (5) Hyperlipemia ICD Codes: E78.5 - Hyperlipidemia Status: Acute (6) Heartburn ICD Codes: R12 - Heartburn Status: Chronic (7) Peripheral neuropathy ICD Codes: G62.9 - Polyneuropathy, unspecified Status: Chronic (8) COPD (chronic obstructive pulmonary disease) ICD Codes: J44.9 - Chronic obstructive pulmonary disease, unspecified Status: Chronic (9) Cardiomyopathy ICD Codes: I42.9 - Cardiomyopathy, unspecified Status: Chronic Assessment and Plan 76-year-old female with history of stroke, peripheral neuropathy, epilepsy. Presented with worsening dizziness. Dizziness, no evidence of new stroke per imaging findings. Possible positional vertigo -Continue neuro checks -PT eval -Appreciate neuro input, possibly vertigo. -EEG done, no seizure -Continue aspirin, statin -Neuro workup so far negative, echo EF 20-25% -No carotis stenosis -continuous cardiac telemetry -dizziness improving, continue Antivert History of epilepsy -Continue with seizure precautions -Continue with Keppra and Lamictal -Lamictal (p) and Keppra levels ok s/p report of recurrent incisional hernia; AMBER; excision of LEFT groin mass --- cystic in nature September 2016. Had recent MARIEL that was accidentally dislodged and frequent aspirations per surgeon. -Appreciate surgical input, Dr. Oates -s/p aspiration of left groin 01/21, tolerated well History of dilated cardiomyopathy History of CAD and prior [place] Hypertension -Continue with home meds -EF 20-25%, started on Lisinopril 2.5 mg po daily and Coreg 3.125 mg po bid -BP low 100s, typically runs low. Will stop triamterene and HCTZ -Patient to follow with Dr. Garay as outpatient in one week COPD, stable -Continue with Ventolin inhaler as needed Heparin for DVT prophylaxis Case management for discharge planning, home health care and PT Plan to discharge this afternoon Follow-up with neurology Follow-up with cardiology Follow-up with surgeon Diet heart healthy Activity as tolerated, no driving Discussed with RN Discussed with patient Discussed with Dr. Rawls Patient was seen by myself and Dr. Rawls, this note is written on his behalf Discharge Planning 45 Problem Qualifiers (1) Peripheral neuropathy: Qualified Codes: G62.9 - Polyneuropathy, unspecified (2) COPD (chronic obstructive pulmonary disease): Qualified Codes: J44.9 - Chronic obstructive pulmonary disease, unspecified (3) Cardiomyopathy: Qualified Codes: I42.9 - Cardiomyopathy, unspecified [facility] Jan 22, 2017 08:21
[2017-01-22] MEDS ORDERED: LISINOPRIL 5 MG TAB PO SCH (09:00)
[2017-01-22] MEDS: lamoTRIgine 100 MG TAB PO SCH (09:00)
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
== END 2017-01-22 15:49 | disposition home or self-care (01) ==
LOC: NEPE 14:35 → INTOOBSV 18:31 → NEDA 18:31 → NEPGCP 22:00
PROVIDERS: ADMIT Specialist; ATTEND Specialist
DX: R42 Dizziness and giddiness (principal); G40.909 Epilepsy, unspecified, not intractable, without status epilepticus; R12 Heartburn; E78.5 Hyperlipidemia, unspecified; G62.9 Polyneuropathy, unspecified; J44.9 Chronic obstructive pulmonary disease, unspecified; I25.10 Atherosclerotic heart disease of native coronary artery without angina pectoris; R82.79 Other abnormal findings on microbiological examination of urine; Z86.73 Personal history of transient ischemic attack (TIA), and cerebral infarction without residual deficits; I65.29 Occlusion and stenosis of unspecified carotid artery; I42.0 Dilated cardiomyopathy; R94.31 Abnormal electrocardiogram [ECG] [EKG]
CPT/HCPCS: 70450; 70544; 70551; 71010; 80048; 80175; 80177; 81001; 82550; 82607; 83735; 84443; 84484; 85025; 85610; 85730; 87086; 93005; 93306; 93880; 95819; 96360; 96361; 96372; 97110; 97116; 97163; 99285; G0378; G8987; G8988; J1644; J7040

== ENCOUNTER → 2017-02-24 | Day surgery (SDC) | payer MEDICARE ==
[~2017-02-24] MED LIST changes: +CARV3.125 PO; +LISI-519 PO; +MECL1TAB42 PO; -TRIA37.5 PO
--- NOTE | 2017-02-24 16:57 | RADRPT ---
EXAM DATE/TIME: 02/24/2017 09:23 [place] COMPARISON: No previous studies available for comparison. INDICATIONS : Post operative seroma of left groin after surgery on 10/14/16. DOSE: 4.0 mCi Tc99m Sulfur Colloid INJECTION SITE: Bilateral Feet MEDICAL HISTORY : Peripheral vascular disease. Chronic obstructive pulmonary disease. Myocardial infarction. SURGICAL HISTORY : Tubal ligation. Inguinal hernia repair. Hysterectomy. ENCOUNTER: Sequela ACUITY: 4 - 6 months PAIN SCALE: 0/10 LOCATION: Left Groin. TECHNIQUE: Multiple injections were made per protocol. Lymphangiogram phase was obtained in addition to delayed spot views. FINDINGS: 1 mci injection was performed with 27 gauge needle in the first and second web spaces of the feet ruthy aterally. Imaging was then performed at 60 minutes. Radiotracer accumulation is noted in lymphatic webs in the proximal calf extending to mid to distal t high on the left side. Slightly more prominent accumulation of radiotracer in the left groin correspo nding to the patient's region of fluid collection. This however is moderately improved on delayed diana ging. Radiotracer accumulation is noted more centrally in the iliac shwetha chain. CONCLUSION: 1. Findings consistent with delayed lymphatic drainage in the left lower extremity without focal sign ificant obstruction. 2. Asymmetric accumulation of radiotracer in the left groin in the region of patient's fluid collecti on consistent with small lymphocele. This collection does improve on delayed imaging. Gareth Pizano MD on February 24, 2017 at 16:15 Board Certified Radiologist. This report was verified electronically.
== END | disposition home or self-care (01) ==
LOC: HRAD 09:02
PROVIDERS: ATTEND Surgery
DX: L76.82 Other postprocedural complications of skin and subcutaneous tissue (principal); Y83.8 Other surgical procedures as the cause of abnormal reaction of the patient, or of later complication, without mention of misadventure at the time of the procedure; I73.9 Peripheral vascular disease, unspecified; J44.9 Chronic obstructive pulmonary disease, unspecified; I25.2 Old myocardial infarction
CPT/HCPCS: 78195; A9541

== ENCOUNTER 2017-05-12 06:26 | Day surgery (SDC) | payer MEDICARE ==
[2017-05-12] VITALS (7 sets, daily range): BP systolic 101–153; BP diastolic 52–83; PULSE 64–69; RESP 17–22; TEMP 97.6–98.1; O2SAT 95–98
[~2017-05-12] VITALS: Ht 157.5 cm; Wt 63.2 kg
[~2017-05-12 06:26] MED LIST changes: -ASPI81CH37 CHEW; +ASPI81CH6 CHEW; -OXYB5TAB10 PO; +OXYB5TAB8 PO
[2017-05-12] MEDS ORDERED: LIDOCAINE 1%/EPINEPHrine 1:100,000 SOLN 20 ML VIAL ONE (07:39)
[2017-05-12 08:10] LABS: BASOPHIL % 0.5 % (0.0-2.0); EOSINOPHIL # 0.2 TH/MM3 (0-0.4); EOSINOPHIL % 2.4 % (0.0-4.0); HEMATOCRIT 39.3 % (35.0-46.0); HEMO FLAGS DIFF FINAL; LYMPH % 10.8 % (9.0-44.0); LYMPHOCYTE # 0.9 TH/MM3 (1.0-4.8); MEAN CELL VOLUME 90.1 FL (80.0-100.0); MEAN CORPUSCULAR HEMOGLOBIN 30.1 PG (27.0-34.0); MEAN CORPUSCULAR HGB CONC 33.4 % (32.0-36.0); NEUT % 80.3 % (16.0-70.0); PLATELET COUNT 188 TH/MM3 (150-450); RED BLOOD COUNT 4.36 MIL/MM3 (4.00-5.30); RED CELL DISTRIBUTION WIDTH 13.3 % (11.6-17.2); WHITE BLOOD COUNT 8.7 TH/MM3 (4.0-11.0)
[2017-05-12 08:21] LABS: APTT (PATIENT) 23.2 SEC (24.3-30.1); PROTHROMBIN TIME - PATIENT 9.8 SEC (9.8-11.6)
[2017-05-12] MEDS ORDERED: MIDAZOLAM HCL 2 MG/2 ML VIAL ONE (09:27)
--- NOTE | 2017-05-12 10:08 | PD.RAD ---
Post CT Procedure Prog Note Pre Procedure Diagnosis: (1) Seroma due to trauma Post Procedure Diagnosis: (1) Seroma due to trauma Procedure Date: May 12, 2017 Supervising Radiologist: Gareth Pizano Anesthesia: Conscious Sedation Plan of Activity Patient to Unit: [facility] Patient Condition: Good See PACS Report for procedural detail/treatment Gareth Pizano MD May 12, 2017 10:08
--- NOTE | 2017-05-12 11:02 | RADRPT ---
EXAM DATE/TIME: 05/12/2017 09:36 [facility] COMPARISON: No previous studies available for comparison. INDICATIONS : History of persistent left thigh seroma. Seroma drain has been requested. SEDATION TIME: 30 minutes MEDICATION(S): 1.) 1.5 mg midazolam (Versed) IV 2.) 75 mcg fentanyl (Sublimaze) IV DEVICE(S): 1.) 18 gauge Wilson blunt needle 2.) 8 Fr Skater FLUID: Total volume of 40 cc of clear, yellow fluid was removed. Fluid was discarded. MEDICAL HISTORY : Chronic obstructive pulmonary disease. Myocardial infarction. Cerebrovascular disease. Seizure. SURGICAL HISTORY : None. ENCOUNTER: Initial ACUITY: 1 day PAIN SCORE: 0/10 LOCATION: Left thigh PROCEDURE: 1.) Conscious sedation with continuous EKG and oximetry monitoring. 2.) EKG and oximetry remained stable throughout the procedure. PROCEDURE : 1. CT guided drainage of left thigh seroma 2. Conscious sedation with continuous EKG and oximetry monitoring. The risks, benefits and alternatives to the procedure were explained and verbal and written consent w as obtained. Using automated exposure control and adjustment of the mA and/or kV according to patient size, radiation dose was kept as low as reasonably achievable to obtain optimal diagnostic quality i mages. The site was prepped in sterile fashion. Full sterile technique was used, including cap, ma sk, sterile gloves and gown and a large sterile sheet. Hand hygiene and 2% chlorhexidine and/or beta dine/alcohol prep was utilized per protocol for cutaneous antisepsis. The skin and subcutaneous tiss ues were infiltrated with local anesthetic solution. DICOM format image data is available electronic ally for review and comparison. Using CT guidance the prescribed site was localized. Drainage was performed using the prescribed cat heter The patient tolerated the procedure well and there were no complications. Conscious sedation was per formed with the prescribed dosages and duration as above in the presence of an independent trained ra diology nurse to assist in the monitoring of the patient. EKG and oximetry remained stable throughou t the procedure. The patient tolerated the procedure well and there were no complications. The patient was sent to pos t anesthesia recovery in stable condition. CONCLUSION: Uncomplicated CT guided placement of 8 Trinidadian seroma drainage catheter, as above. Gareth Pizano MD on May 12, 2017 at 10:58 Board Certified Radiologist. This report was verified electronically.
== END 2017-05-12 12:45 | disposition home health service (06) ==
LOC: HRAD 06:26 → HRIP 06:31 → HRAD 12:45
PROVIDERS: ATTEND Surgery
DX: L76.34 Postprocedural seroma of skin and subcutaneous tissue following other procedure (principal); I50.9 Heart failure, unspecified; I25.2 Old myocardial infarction; J44.9 Chronic obstructive pulmonary disease, unspecified; I67.9 Cerebrovascular disease, unspecified; R56.9 Unspecified convulsions; I25.10 Atherosclerotic heart disease of native coronary artery without angina pectoris; I73.9 Peripheral vascular disease, unspecified; I10 Essential (primary) hypertension; Z86.73 Personal history of transient ischemic attack (TIA), and cerebral infarction without residual deficits; Z01.818 Encounter for other preprocedural examination
CPT/HCPCS: 10160; 75989; 85025; 85610; 85730; C1729; C1769; J2250; J3010

== ENCOUNTER 2017-06-05 00:12 | Inpatient (IN) | payer MEDICARE ==
[2017-06-05] VITALS (8 sets, daily range): BP systolic 89–122; BP diastolic 45–58; PULSE 68–87; RESP 15–25; TEMP 95.5–98.1; O2SAT 90–100
[~2017-06-05] VITALS: Ht 157.5 cm; Wt 76.2 kg
[~2017-06-05 00:12] MED LIST changes: -MECL1TAB42 PO; -OXYGENTANK NAS.CANULA
--- NOTE | 2017-06-05 00:34 | PD ---
HPI Chief Complaint: Fall Time Seen by Provider: 00:25 Travel History International Travel<30 days: No Contact w/Intl Traveler<30days: No Traveled to known affect area: No History of Present Illness HPI 76-year-old female brought in by EMS from home for evaluation of left hip and lower extremity pain after mechanical slip and fall on tile jennifer this evening. Patient struck her head on the ground, however she denies loss of consciousness. States that her head pain is mild. Her hip pain and left knee pain was 10 out of 10, and she was given morphine by EMS with improvement in pain to 6 out of 10. She denies any other injuries. She has a MARIEL drain in her left thigh for a chronic seroma that is being managed by general surgeon Dr. Oates. She takes aspirin 81 mg daily. No other antiplatelets or anticoagulants. PFSH Past Medical History Arthritis: Yes Asthma: Yes Cancer: No Cardiac Catheterization: Yes Cardiovascular Problems: Yes ([place]; HX CHF) High Cholesterol: Yes Chest Pain: Yes Congestive Heart Failure: Yes COPD: Yes Cerebrovascular Accident: Yes (STROKE AT AGE 27, TIA VS STROKE OCTOBER 2013) Coronary Artery Disease: Yes Diabetes: No Diminished Hearing: No Endocrine: No Gastrointestinal Disorders: Yes (HX DIVERTICULTIS) Genitourinary: Yes (HAD SURGERY - BLADDER SUSPENSION) Headaches: No Hepatitis: No Hiatal Hernia: No Hypertension: Yes Immune Disorder: No Musculoskeletal: Yes (ARTHRITIS; BACK AND NECK PAIN) Neurologic: Yes (HAD STROKE AT AGE 26; ALSO HAS EPILEPSY ;STROKE NOVEMBER 07 AND NOVEMBER 13) Psychiatric: No Respiratory: Yes (COPD POSSIBLE SLEEP APNEA) Migraines: No Seizures: Yes (EPILEPSY) Thyroid Disease: No ?: Not Menopausal: Yes : 1 Para: 1 Dilation and Curettage (D&C): Yes Tubal Ligation: Yes Past Surgical History Abdominal Surgery: Yes AICD: No Body Medical Devices: GREENFELD FILTER & SHUNT FROM AORTIC FEMORAL BYPASS SURGERY CARDIAC STENTS Cardiac Surgery: Yes (AORTIC BYPASS) Section: Yes Cholecystectomy: Yes Coronary Stent: Yes Ear Surgery: No Endocrine Surgery: No Eye Surgery: No Genitourinary Surgery: Yes Gynecologic Surgery: Yes Hysterectomy: Yes (PARTIAL) Joint Replacement: No Neurologic Surgery: No Oral Surgery: No Pacemaker: No Thoracic Surgery: No Other Surgery: Yes Social History Alcohol Use: No Tobacco Use: Yes Substance Use: No Allergies-Medications (Allergen,Severity, Reaction): Coded Allergies: Sulfa (Sulfonamide Antibiotics) (Unverified Allergy, Severe, RASH, 06/05/17) INTERMEDIATE REACTION niacin (Unverified Allergy, Severe, FELT BODY WAS ON FIRE, 06/05/17) estradiol (Unverified Allergy, Unknown, 06/05/17) HAD STROKE AGE 27 FROM ORAL CONTRACEPTIVES estrogens, conjugated (Unverified Allergy, Unknown, 06/05/17) HAD STROKE AGE 27 FROM ORAL CONTRACEPTIVES amoxicillin (Unverified Adverse Reaction, Severe, Nausea/Vomiting, 06/05/17) Reported Meds & Prescriptions Reported Meds & Active Scripts Active Lisinopril 5 Mg Tab 2.5 Mg PO DAILY 30 Days Coreg (Carvedilol) 3.125 Mg Tab 3.125 Mg PO Q12HR 30 Days Reported Biotin 5 Mg Tab 5 Mg PO Vitamin E Unknown Strength Cap Unknown Dose PO DAILY Vitamin B-12 (Cyanocobalamin) 1,000 Mcg Tab 1,000 Mcg PO DAILY Aspirin Low Dose (Aspirin) 81 Mg Chew 81 Mg CHEW DAILY Ditropan (Oxybutynin Chloride) 5 Mg Tab 5 Mg PO HS Folic Acid 400 Mcg Tab 400 Mcg PO DAILY Lyrica (Pregabalin) 75 Mg Cap 75 Mg PO BID Lamotrigine 100 Mg Tab 100 Mg PO BID Proventil Hfa 6.7 GM Inh (Albuterol Sulfate) 90 Mcg/Act Aer 2 Puff INH Q4-6H PRN Spiriva Handihaler (Tiotropium Inh) 18 Mcg Cap 18 Mcg INH DAILY 1 capsule = 18 mcg Lipitor (Atorvastatin Calcium) 40 Mg Tab 40 Mg PO HS Levetiracetam 250 Mg Tab 250 Mg PO BID Review of Systems Except as stated in HPI: all other systems reviewed are Neg Physical Exam Narrative GENERAL: Well-developed, well-nourished, awake, alert, pleasant, no apparent distress. SKIN: Focused skin assessment warm/dry. No lacerations, abrasions, or ecchymosis. HEAD: Left parietal scalp hematoma. No craniofacial step-offs. Normocephalic. EYES: Pupils equal and round. No scleral icterus. No injection or drainage. ENT: No nasal bleeding or discharge. Mucous membranes pink and moist. NECK: Trachea midline. No JVD. No midline cervical spine step-off or tenderness. CARDIOVASCULAR: Regular rate and rhythm. Distal pulses brisk and equal bilaterally. RESPIRATORY: No accessory muscle use. Clear to auscultation. Breath sounds equal bilaterally. GASTROINTESTINAL: Abdomen soft, non-tender, nondistended. Hepatic and splenic margins not palpable. MUSCULOSKELETAL: Left lower extremity with external rotation and shortening with tenderness at the left hip and thigh. There is a MARIEL drain in the left anterior/lateral thigh which the patient states leads to a seroma that has been there after a trauma and is being managed by general surgeon Dr. Oates. MARIEL drain has clear/serous fluid. Patient has tenderness throughout the entire left lower extremity without obvious deformity to the knee or ankle joints. There is limited range of motion in left lower extremity at the hip and knee secondary to pain. The rest of her joints and extremities are without deformity , without tenderness, with normal range of motion. NEUROLOGICAL: Awake and alert. No obvious cranial nerve deficits. Motor grossly within normal limits. Normal speech. PSYCHIATRIC: Appropriate mood and affect; insight and judgment normal. Data Data Last Documented VS Vital Signs Date Time Temp Pulse Resp B/P (MAP) Pulse Ox O2 Delivery O2 Flow Rate FiO2 06/05/17 00:34 96 Nasal Cannula 2.00 06/05/17 00:21 98.1 87 25 122/58 (79) Orders Orders Electrocardiogram (06/05/17 00:31) Complete Blood Count With Diff (06/05/17 00:31) Comprehensive Metabolic Panel (06/05/17 00:31) Prothrombin Time / Inr (Pt) (06/05/17 00:31) Act Partial Throm Time (Ptt) (06/05/17 00:31) Chest, Single Ap (06/05/17 00:31) Ecg Monitoring (06/05/17 00:31) Iv Access Insert/Monitor (06/05/17 00:31) Oximetry (06/05/17 00:31) Sodium Chloride 0.9% Flush (Ns Flush) (06/05/17 00:45) Ct Brain W/O Iv Contrast(Rout) (06/05/17 ) Ct Cerv Spine W/O Contrast (06/05/17 ) Hip, Uni(4+Vws) W Ap Pelvis (06/05/17 ) Femur (Ap & Lat/2vws) (06/05/17 ) Tibia/Fibula (Ap/Lat) (06/05/17 ) Diet Npo (06/05/17 Breakfast) Labs Laboratory Tests Test 06/05/17 01:10 White Blood Count 17.7 TH/MM3 Red Blood Count 3.79 MIL/MM3 Hemoglobin 11.7 GM/DL Hematocrit 34.1 % Mean Corpuscular Volume 89.9 FL Mean Corpuscular Hemoglobin 30.7 PG Mean Corpuscular Hemoglobin Concent 34.2 % Red Cell Distribution Width 13.5 % Platelet Count 174 TH/MM3 Mean Platelet Volume 8.8 FL Neutrophils (%) (Auto) 89.2 % Lymphocytes (%) (Auto) 4.7 % Monocytes (%) (Auto) 5.1 % Eosinophils (%) (Auto) 0.5 % Basophils (%) (Auto) 0.5 % Neutrophils # (Auto) 15.8 TH/MM3 Lymphocytes # (Auto) 0.8 TH/MM3 Monocytes # (Auto) 0.9 TH/MM3 Eosinophils # (Auto) 0.1 TH/MM3 Basophils # (Auto) 0.1 TH/MM3 CBC Comment DIFF FINAL Differential Comment Prothrombin Time 10.5 SEC Prothromb Time International Ratio 1.0 RATIO Activated Partial Thromboplast Time 24.6 SEC Blood Urea Nitrogen 28 MG/DL Creatinine 1.39 MG/DL Random Glucose 102 MG/DL Total Protein 6.5 GM/DL Albumin 3.5 GM/DL Calcium Level 8.6 MG/DL Alkaline Phosphatase 112 U/L Aspartate Amino Transf (AST/SGOT) 25 U/L Alanine Aminotransferase (ALT/SGPT) 21 U/L Total Bilirubin 0.4 MG/DL Sodium Level 144 MEQ/L Potassium Level 3.1 MEQ/L Chloride Level 110 MEQ/L Carbon Dioxide Level 25.6 MEQ/L Anion Gap 8 MEQ/L Estimat Glomerular Filtration Rate 37 ML/MIN [facility] Medical Decision Making Medical Screen Exam Complete: Yes Emergency Medical Condition: Yes Differential Diagnosis Left hip fracture, left femoral fracture, left knee fracture, left tib-fib fracture, closed head injury, intracranial trauma, cervical spine injury Narrative Course Vital signs show heart rate 87, blood pressure 122/58, pulse ox 90% on room air , oral temp of 98.1F. The patient has history of COPD. There is no wheezing and she is not in any respiratory distress. O2 saturation is 96% on 2 L nasal cannula. CBC: WBC 17.7, hemoglobin 11.7, hematocrit 34.1, platelets 174. CMP is remarkable for potassium 3.1, BUN 28, creatinine 1.38, GFR 37, otherwise unremarkable. Left hip x-ray shows impacted left femoral neck fracture, pigtail drainage catheter in the left proximal thigh at the level of the greater trochanter. Left tib-fib x-ray shows no evidence of fracture. CT head shows right parietal encephalomalacia indicating old insult, no acute intracranial findings. Left femur x-ray shows impacted left femoral neck fracture. CT cervical spine shows no evidence of fracture, prominent multilevel degenerative findings. Chest x-ray shows no acute cardio pulmonary disease. Patient was made aware of all findings. She will be kept NPO. She was given morphine with relief of pain. Case discussed with on-call orthopedist Dr. Mosher who agrees with admission to the medical service and plans for ORIF later today. Case discussed with hospitalist Dr. Giles who will admit the patient to her service. Patient was made aware of all findings and plan. Diagnosis Primary Impression: Fracture of neck of left femur Qualified Codes: S72.002A - Fracture of unspecified part of neck of left femur , initial encounter for closed fracture Additional Impressions: Fall Qualified Codes: W19.XXXA - Unspecified fall, initial encounter Closed head injury Qualified Codes: S09.90XA - Unspecified injury of head, initial encounter Admitting Information Admitting Physician Requests: Admit Gallo Pinto MD Jun 05, 2017 00:34
[2017-06-05] MEDS ORDERED: SODIUM CHLORIDE 0.9% FLUSH 10 ML FLUSH IVF PRN (00:45)
[2017-06-05] MEDS ORDERED: VITA200C3 PO (01:03)
[2017-06-05] MEDS ORDERED: BIOT5TAB PO (01:03)
[2017-06-05] MEDS ORDERED: VITA10002 PO (01:03)
[2017-06-05 01:25] LABS: AUTOMATED NEUTROPHIL # 15.8 TH/MM3 (1.8-7.7); BASOPHIL # 0.1 TH/MM3 (0-0.2); BASOPHIL % 0.5 % (0.0-2.0); EOSINOPHIL # 0.1 TH/MM3 (0-0.4); EOSINOPHIL % 0.5 % (0.0-4.0); HEMATOCRIT 34.1 % (35.0-46.0); HEMOGLOBIN 11.7 GM/DL (11.6-15.3); LYMPH % 4.7 % (9.0-44.0); LYMPHOCYTE # 0.8 TH/MM3 (1.0-4.8); MEAN CELL VOLUME 89.9 FL (80.0-100.0); MEAN CORPUSCULAR HEMOGLOBIN 30.7 PG (27.0-34.0); MEAN CORPUSCULAR HGB CONC 34.2 % (32.0-36.0); MEAN PLATELET VOLUME 8.8 FL (7.0-11.0); MONO % 5.1 % (0.0-8.0); MONOCYTE # 0.9 TH/MM3 (0-0.9); NEUT % 89.2 % (16.0-70.0); PLATELET COUNT 174 TH/MM3 (150-450); RED BLOOD COUNT 3.79 MIL/MM3 (4.00-5.30); RED CELL DISTRIBUTION WIDTH 13.5 % (11.6-17.2); WHITE BLOOD COUNT 17.7 TH/MM3 (4.0-11.0)
[2017-06-05 01:37] LABS: PROTHROMBIN TIME - PATIENT 10.5 SEC (9.8-11.6)
--- NOTE | 2017-06-05 01:41 | RADRPT ---
EXAM DATE/TIME: 06/05/2017 00:52 [facility] COMPARISON: No previous studies available for comparison. INDICATIONS : Pt fell onto left side on a tile floor- Pain to left leg MEDICAL HISTORY : Congestive heart failure. Hypertension Chronic obstructive pulmonary disease. [place], TIA, Angina SURGICAL HISTORY : section. Cholecystectomy. Hysterectomy. Hernia Repair, Aortic Femoral Bypass ENCOUNTER: Initial ACUITY: 1 day PAIN SCORE: 9/10 LOCATION: Left Hip FINDINGS: 4 views left hip and pelvis. Left femoral neck fracture with impaction. Hip joint alignment within no rmal limits. Metallic tacks are seen in the pelvis indicating prior hernia repair surgery. Catheter w ith pigtail configuration is seen anterior to the greater trochanter on the left. Surgical clips in t he inguinal low regions. CONCLUSION: 1. Impacted left femoral neck fracture. 2. Pigtail drainage catheter in the left proximal thigh at the level of the greater trochanter. Duran Amaya MD on June 05, 2017 at 1:36 Board Certified Radiologist. This report was verified electronically.
--- NOTE | 2017-06-05 01:42 | RADRPT ---
EXAM DATE/TIME: 06/05/2017 00:54 [facility] COMPARISON: CHEST SINGLE AP, January 19, 2017, 15:21. INDICATIONS : Pt fell onto left side on a tile floor MEDICAL HISTORY : Congestive heart failure. Chronic obstructive pulmonary disease. Hypertension. [place], TIA, Angina SURGICAL HISTORY : section. Cholecystectomy. Hysterectomy. Hernia Repair, Aortic femoral bypass ENCOUNTER: Initial ACUITY: 1 day PAIN SCORE: 7/10 LOCATION: Bilateral chest FINDINGS: Single AP view of the chest. The lungs are clear. Cardiomediastinal silhouette within normal limits. No evidence of pleural effusion or pneumothorax. CONCLUSION: No acute cardiopulmonary disease identified. Duran Amaya MD on June 05, 2017 at 1:40 Board Certified Radiologist. This report was verified electronically.
--- NOTE | 2017-06-05 01:42 | RADRPT ---
EXAM DATE/TIME: 06/05/2017 00:56 [facility] COMPARISON: No previous studies available for comparison. INDICATIONS : Pt fell onto left side on a tile floor- Pain to left leg MEDICAL HISTORY : Congestive heart failure. Chronic obstructive pulmonary disease. Hypertension. [place], TIA, Angina SURGICAL HISTORY : section. Cholecystectomy. Hysterectomy. Hernia Repair, Aortic femoral Bypass ENCOUNTER: Initial ACUITY: 1 day PAIN SCORE: 6/10 LOCATION: Left Tib-fib FINDINGS: 5 views left tibia and fibula. Bone alignment within normal limits. No evidence of fracture. CONCLUSION: No evidence of fracture. Duran Amaya MD on June 05, 2017 at 1:40 Board Certified Radiologist. This report was verified electronically.
--- NOTE | 2017-06-05 01:44 | RADRPT ---
EXAM DATE/TIME: 06/05/2017 01:05 [facility] COMPARISON: CT BRAIN W/O CONTRAST, January 19, 2017, 15:37. INDICATIONS : Trauma, fall. Hit left side of head. RADIATION DOSE: 56.35 CTDIvol (mGy) MEDICAL HISTORY : Stroke. Hypertension. Myocardial infarction.Epilepsy. SURGICAL HISTORY : CABG Coronary artery stent. ENCOUNTER: Initial ACUITY: 1 day PAIN SCALE: 3/10 LOCATION: cranial TECHNIQUE: Multiple contiguous axial images were obtained of the head. Using automated exposure control and adjustment of the mA and/or kV according to patient size, radiation dose was kept as low as reasonably achievable to obtain optimal diagnostic quality images. DICOM format image data is av ailable electronically for review and comparison. FINDINGS: CEREBRUM: Old right parietal encephalomalacia. The ventricles are normal for age. No evidence of midline shift, mass lesion, hemorrhage or acute infarction. No extra-axial fluid collections are se en. POSTERIOR FOSSA: The cerebellum and brainstem are intact. The 4th ventricle is midline. The cer ebellopontine angle is unremarkable. EXTRACRANIAL: The visualized portion of the orbits is intact. SKULL: The calvaria is intact. No evidence of skull fracture. CONCLUSION: Right parietal encephalomalacia indicating old insult. No acute intracranial findings . Duran Amaya MD on June 05, 2017 at 1:41 Board Certified Radiologist. This report was verified electronically.
--- NOTE | 2017-06-05 01:47 | RADRPT ---
EXAM DATE/TIME: 06/05/2017 00:51 [facility] COMPARISON: No previous studies available for comparison. INDICATIONS : Pt fell onto left side on a tile floor- Pain to left leg MEDICAL HISTORY : Congestive heart failure. Chronic obstructive pulmonary disease. Hypertension. [place], TIA, Angina SURGICAL HISTORY : section. Cholecystectomy. Hysterectomy. Hernia Repair, Aortic Femoral bypass ENCOUNTER: Initial ACUITY: 1 day PAIN SCORE: 9/10 LOCATION: Left Femur FINDINGS: 3 views left femur. Impacted left femoral neck fracture. Pigtail surgical drainage catheter anterior to the intertrochanteric region of the proximal left femur. CONCLUSION: Impacted left femoral neck fracture. Duran Amaya MD on June 05, 2017 at 1:45 Board Certified Radiologist. This report was verified electronically.
[2017-06-05 01:52] LABS: ALBUMIN 3.5 GM/DL (3.4-5.0); ALT (GPT) 21 U/L (10-53); AST (GOT) 25 U/L (15-37); BICARBONATE 25.6 MEQ/L (21.0-32.0); BLOOD UREA NITROGEN 28 MG/DL (7-18); CALCIUM 8.6 MG/DL (8.5-10.1); CHLORIDE 110 MEQ/L (98-107); CREATININE 1.39 MG/DL (0.50-1.00); GLOMERULAR FILTRATION RATE 37 ML/MIN (>89); GLUCOSE,RANDOM 102 MG/DL (74-106); SODIUM (NA) 144 MEQ/L (136-145)
--- NOTE | 2017-06-05 01:53 | RADRPT ---
EXAM DATE/TIME: 06/05/2017 01:05 [facility] COMPARISON: No previous studies available for comparison. INDICATIONS : Trauma, fall. Hit left side of head. RADIATION DOSE: 37.56 CTDIvol (mGy) MEDICAL HISTORY : Stroke. Hypertension. Myocardial infarction.Epilepsy. SURGICAL HISTORY : CABG Coronary artery stent. ENCOUNTER: Initial ACUITY: 1 day PAIN SCALE: 0/10 LOCATION: neck TECHNIQUE: Volumetric scanning of the cervical spine was performed. Multiplanar reconstructions in the sagittal, coronal and oblique axial planes were performed. Using automated exposure control and adjustment o f the mA and/or kV according to patient size, radiation dose was kept as low as reasonably achievable to obtain optimal diagnostic quality images. DICOM format image data is available electronically f or review and comparison. FINDINGS: VERTEBRAE: Normal vertebral body height. ALIGNMENT: No evidence of subluxation. C2-C3: Broad-based disc bulge and bilateral facet arthrosis. Mild central canal narrowing with AP diameter o f the thecal sac measuring 9 mm. Neural foraminal diameters within normal limits. C3-C4: Severe left-sided facet arthrosis. Mild bilateral neural foraminal narrowing. Central canal diameter within normal limits. C4-C5: Severe left-sided facet arthrosis and moderate right-sided facet arthrosis. Severe left neural forami nal narrowing. Central canal diameter within normal limits. C5-C6: Moderate bilateral facet arthrosis and broad-based disc osteophyte complex. Minimal central canal emily rowing. Moderate severity right neural foraminal narrowing. Severe left neural foraminal narrowing. C6-C7: Broad-based disc osteophyte complex. Moderate right neural foraminal narrowing. Mild left neural fora radha narrowing. C7-T1: The bony spinal canal is normal in size. No evidence of disc bulge or herniation. The neural forami na are bilaterally patent. CONCLUSION: 1. No evidence of fracture. 2. Prominent multilevel degenerative findings. Duran Amaya MD on June 05, 2017 at 1:46 Board Certified Radiologist. This report was verified electronically.
[2017-06-05 01:54] LABS: ALKALINE PHOSPHATASE 112 U/L (45-117); TOTAL BILIRUBIN ADULT 0.4 MG/DL (0.2-1.0); TOTAL PROTEIN 6.5 GM/DL (6.4-8.2)
[2017-06-05] MEDS ORDERED: BISACODYL 10 MG SUPP RECTAL PRN (03:00)
[2017-06-05] MEDS ORDERED: MAGNESIUM HYDROXIDE SUSP 30 ML CUP PO PRN (03:00)
[2017-06-05] MEDS ORDERED: ACETAMINOPHEN 325 MG TAB PO PRN (03:00)
[2017-06-05] MEDS ORDERED: SENNOSIDES 8.6 MG TAB PO PRN (03:00)
[2017-06-05] MEDS ORDERED: NALOXONE HCL 0.4 MG/ML AMP IV PUSH PRN (03:00)
[2017-06-05] MEDS ORDERED: LACTULOSE SYRUP 20 GM/30 ML CUP PO PRN (03:00)
[2017-06-05] MEDS ORDERED: SODIUM CHLORIDE 0.9% FLUSH 10 ML FLUSH IV FLUSH PRN (03:00)
[2017-06-05] MEDS ORDERED: ONDANSETRON HCL 4 MG/2 ML VIAL IVP PRN (03:00)
[2017-06-05] MEDS: SODIUM CHLOR 0.9% 1000 ML INJ 1,000 ML IV SCH ×2 (04:04→16:17)
[2017-06-05] MEDS: MORPHINE SULFATE 2 MG/ML INJ IV PUSH PRN (04:05)
--- NOTE | 2017-06-05 06:48 | PD.ORT.PN ---
Subjective Subjective Remarks Patient with history of vertigo and also seroma of left thigh. Fell yesterday when feeding stray cat. Significant pain to left hip and was unable to ambulate Objective Vitals Vital Signs Date Time Temp Pulse Resp B/P (MAP) Pulse Ox O2 Delivery O2 Flow Rate FiO2 06/05/17 04:30 97.8 71 18 102/50 (67) 99 06/05/17 03:50 06/05/17 02:37 87 18 104/51 (68) 100 Nasal Cannula 2.00 06/05/17 00:34 96 Nasal Cannula 2.00 06/05/17 00:21 98.1 87 25 122/58 (79) 90 I/O 06/04/17 06/04/17 06/04/17 06/05/17 06/05/17 06/05/17 07:00 15:00 23:00 07:00 15:00 23:00 Output Total 70 ml Balance -70 ml Output Drainage Total 70 ml Result Diagram: 06/05/17 0110 06/05/17 0110 Other Results Laboratory Tests Test 06/05/17 01:10 Prothromb Time International Ratio 1.0 RATIO Prothrombin Time 10.5 SEC (9.8-11.6) Imaging Last 24 hours Impressions Chest X-Ray 06/05/17 0031 Signed Impressions: Service Date/Time: Monday, June 05, 2017 00:54 - CONCLUSION: No acute cardiopulmonary disease identified. Duran Amaya MD Tibia/Fibula X-Ray 06/05/17 0000 Signed Impressions: Service Date/Time: Monday, June 05, 2017 00:56 - CONCLUSION: No evidence of fracture. Duran Amaya MD Hip and Pelvis X-Ray 06/05/17 0000 Signed Impressions: Service Date/Time: Monday, June 05, 2017 00:52 - CONCLUSION: 1. Impacted left femoral neck fracture. 2. Pigtail drainage catheter in the left proximal thigh at the level of the greater trochanter. 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 No acute intracranial findings. Duran Amaya MD Femur X-Ray 06/05/17 0000 Signed Impressions: Service Date/Time: Monday, June 05, 2017 00:51 - CONCLUSION: Impacted left femoral neck fracture. Duran Amaya MD Cervical Spine CT 06/05/17 0000 Signed Impressions: Service Date/Time: Monday, June 05, 2017 01:05 - CONCLUSION: 1. No evidence of fracture. 2. Prominent multilevel degenerative findings. Duran Amaya MD Objective Remarks Bilateral upper extremities: Full range of motion neurovascular intact Right lower extremity: Full range of motion neurovascularly intact Left lower extremity: Drain in place over left hip. Pain to palpation of hip. Semi-clear serous fluid and drain. No pain with knee or ankle range of motion. Distally intact sensation good capillary refills. Active dorsiflexion plantar flexion foot Assessment & Plan Assessment and Plan Left femoral neck fracture Drain in place from seroma of the left hip Continued nothing by mouth status Need to contact Dr. Oates concerning seroma and findings. Going to continue to schedule her for surgery today for left hip hemiarthroplasty. Sign consents Nazario Apodaca Jr. Jun 05, 2017 06:48
[2017-06-05] MEDS ORDERED: LACTATED RINGER'S 1000 ML IV PRN (07:45)
[2017-06-05] MEDS ORDERED: SODIUM CHLORID 0.9% 500 ML IV PRN (07:45)
[2017-06-05] MEDS ORDERED: POVIDONE IODINE 5% (ANTISEPSIS KIT) 4 APPLICATIONS EACH NARE PRN (07:45)
[2017-06-05] MEDS ORDERED: CHLORHEXIDINE GLUCONATE 2 % 1 PACK (2 CLOTHS) TOPICAL PRN (07:45)
[2017-06-05] MEDS ORDERED: METOPROLOL TARTRATE 25 MG TAB PO PRN (07:45)
[2017-06-05] MEDS: TIOTROPIUM BROMIDE 18 MCG INH INH SCH (08:26)
[2017-06-05] MEDS: levETIRAcetam 250 MG TAB PO SCH ×2 (08:27→22:13)
[2017-06-05] MEDS: LISINOPRIL 5 MG TAB PO SCH (08:27)
[2017-06-05] MEDS: CARVEDILOL 3.125 MG TAB PO SCH ×2 (08:27→21:00)
[2017-06-05] MEDS: DOCUSATE SODIUM 50 MG/SENNA 8.6 MG TAB PO SCH ×2 (08:27→22:13)
[2017-06-05] MEDS: PREGABALIN 75 MG CAP PO SCH ×2 (08:27→22:16)
[2017-06-05] MEDS: lamoTRIgine 100 MG TAB PO SCH ×2 (08:27→22:12)
[2017-06-05] MEDS: SODIUM CHLORIDE 0.9% FLUSH 10 ML FLUSH IV FLUSH SCH ×2 (08:28→22:17)
[2017-06-05] MEDS ORDERED: GENTAMICIN SULFATE 80 MG/2 ML VIAL ONE (09:41)
[2017-06-05] MEDS ORDERED: ACETAMINOPHEN 1000 MG/100 ML 100 ML IV ONE (10:49)
[2017-06-05] MEDS ORDERED: ePHEDrine/NS 25 MG/5 ML SYRINGE IV ONE (12:00)
[2017-06-05] MEDS ORDERED: NS 500 ML (EXCEL BAG) INJ 500 ML IV ONE (12:00)
[2017-06-05] MEDS ORDERED: SODIUM CHLOR 0.9% (EXCEL) INJ 250 ML IV ONE (12:00)
[2017-06-05] MEDS ORDERED: PROPOFOL 200 MG/20 ML AMP IV ONE (12:00)
[2017-06-05] MEDS ORDERED: ONDANSETRON HCL 4 MG/2 ML VIAL IV PUSH ONE (12:00)
[2017-06-05] MEDS ORDERED: PHENYLEPH/NS 1000 MCG/10 ML SYR IV ONE (12:00)
[2017-06-05] MEDS ORDERED: LIDOCAINE HCL 1% PF 5 ML SYRINGE OTHER ONE (12:00)
[2017-06-05] MEDS ORDERED: ROCURONIUM INJ 50 MG/5 ML VIAL IV ONE (12:00)
[2017-06-05] MEDS ORDERED: DEXAMETHASONE SOD PHOS 4 MG/ML VIAL IV ONE (12:00)
[2017-06-05] MEDS ORDERED: ceFAZolin 2 GM PREMIX 50 ML ONE (12:05)
[2017-06-05] MEDS ORDERED: VANCOMYCIN HCL 1000 MG VIAL ONE (12:05)
[2017-06-05] MEDS ORDERED: TRANEXAMIC ACID INJ 1,020 MG in SODIUM CHLORIDE 0.9% INJ 100 ML IV ONE (13:00)
--- NOTE | 2017-06-05 13:05 | PD.OP ---
cc: Adam Maloney MD Operative Report Date of Surgery: Jun 05, 2017 Preoperative Diagnosis: Displaced left femoral neck fracture Postoperative Diagnosis: Procedure: Left hip hemiarthroplasty Anesthesia: Gen. Surgeon: Adam Maloney Personal Lines Underwriter(s): CHRISTIANNE Bennett PA-C The surgical procedure was assisted by my physician assistant athletic trainer. My P.A. presence was necessary throughout this case for the manipulation and positioning of the surgical extremity. My P.A. was assisting me throughout the duration of this procedure. The skill set of a physician assistant athletic trainer was medically necessary to complete this procedure. During the surgical case the surgical supply assistant was working at the back table and the physician assistant athletic trainer was directly assisting me. Operation and Findings: PLAN OF ACTIVITY Weight bear as tolerated. IMPLANTS USED DePuy Corail size [10] stem with size [46] bipolar head and [+] neck. DETAILS OF PROCEDURE This patient was brought into the operating room and placed on the OR table. The patient was given anesthesia. The patient received IV antibiotics. The patient was then placed in lateral decubitus position. The hip and leg were prepped with alcohol, followed by Hibiclens and draped in a usual sterile fashion. Prior to draping the leg the drain along the anterior aspect of the groin was removed. This drain tract was sealed off completely from the surgical field. Clean air was used for this procedure. Time out procedure was performed. The procedure began with a 5 inch incision over the posterolateral hip. The subcutaneous tissue was dissected with the Bovie. The iliotibial band were split in line with fibers. The Charnley retractor was placed. The piriformis and external rotators were released from the femur and tagged with a #1 Vicryl suture. The capsule is now incised and tagged with #1 Vicryl. The femoral neck fracture was now visualized. A corkscrew was now used to remove the femoral head. The femoral head was sized and measured. Soft tissue was now protected. The hip skid was placed underneath the femoral neck. An oscillating saw was used to make a femoral neck cut. At this point attention was turned to preparation of the proximal femur. A box osteotome was used to remove the lateral cortex of the femoral neck. The T- handle reamer was used to open the femoral canal. Next, the canal was broached. A lateralizing reamer was used to help lateralize the prosthesis. At this point a trial head and neck were placed. The hip was reduced. The patient was found to have excellent stability with good range of motion. Trial components were removed. Soft tissue and bone were thoroughly irrigated. A Corail stem was now opened. The stem was now impacted into the proximal femur. Care was taken to keep appropriate anteversion. The head and neck were now impacted onto the stem. The hip was again reduced. The hip was found to have good range of motion and good stability. Leg lengths were clinically equal. The wound was thoroughly irrigated. The capsule, piriformis and iliotibial band were closed with #1 Vicryl. Subcutaneous tissue was closed with 3-0 Vicryl. The skin was closed with heather. A sterile dressing was applied with Primapore. The patient was placed into a knee immobilizer. The patient was awakened and transferred to the recovery room in stable condition. Needle and sponge counts were correct. Adam Maloney MD Jun 05, 2017 13:05
[2017-06-05] MEDS ORDERED: ERGOCALCIFEROL (VIT D2) 50,000 UNIT CAP PO ONE (13:15)
[2017-06-05] MEDS ORDERED: MORPHINE SULFATE 2 MG/ML INJ IV PUSH PRN (13:15)
[2017-06-05] MEDS ORDERED: DO NOT ADM ANY ANTICOAGULANT DRUGS PRN (13:30)
--- NOTE | 2017-06-05 13:31 | MB ---
cc: BEBETO MARTINEZ CONDITION ON ADMISSION: 06/05/2017 DATE OF CONSULTATION 06/05/2017 REASON FOR CONSULTATION Left femoral neck fracture. CONSULTING PHYSICIAN Dr. Nazario Zepeda. HISTORY Shaina is a 76-year-old female who fell at home. She slipped and fell on a tile floor. She had immediate left hip pain. She was unable to stand or ambulate. She did hit her head but denies any loss of consciousness. She denies any dizziness or syncope. She presented to the emergency room where x-rays revealed a left femoral neck fracture. She is currently awake and alert on the orthopedic floor. Her only complaint is her left hip. She states that she has had problems with the left groin area for several months. She developed a seroma which was excised by Dr. Oates. The fluid returned and she has had a drain placed by Interventional Radiology. She denies any history of infection in this region. PAST MEDICAL HISTORY ILLNESSES 1. Coronary artery disease. 2. History of CVA. 3. Diverticulitis. 4. Arthritis. 5. History of seizures. SURGERIES 1. Abdominal surgery. 2. Cholecystectomy. 3. Coronary artery stent placement. 4. . 5. Partial hysterectomy. 6. Aortic bypass. ALLERGIES SULFA. NIACIN. ESTRADIOL. AMOXICILLIN. MEDICATIONS 1. Lisinopril. 2. Coreg. 3. Biotin. 4. Multivitamin. 5. Aspirin. 6. Ditropan. 7. Lyrica. 8. Proventil. 9. Spiriva. 10. Lipitor. SOCIAL HISTORY The patient denies alcohol or drug use. She does smoke. REVIEW OF SYSTEMS The patient denies headache, visual changes, neck pain, chest pain, shortness of breath, abdominal pain, nausea, vomiting or recent weight loss, fever or chills, numbness or tingling of extremities or recent weight loss. She complains of left hip pain. The pain is worse with movement. PHYSICAL EXAMINATION GENERAL: The patient is a well-developed, well-nourished 76-year-old female in no acute distress. She is awake and alert. She is alert and oriented x3. VITAL SIGNS: Temperature 97.9, pulse is 73, respirations 17, blood pressure 103/58, O2 sat 99% on 3 liters nasal cannula. HEAD: The patient is normocephalic. Pupils are equal. NECK: Soft, nontender. Trachea is midline. ABDOMEN: Soft, nontender, nondistended. EXTREMITIES: Examination of bilateral upper extremities reveals no significant pain with shoulder, elbow or wrist motion. She has intact sensation in all fingers. She has good capillary refill in all fingers. Skin is intact to both hands. Examination of right leg reveals no pain with hip, knee or ankle motion. Skin is intact. Dorsalis pedis pulse is palpable. Sensation is intact. Examination of the left leg reveals pain with any hip motion. She has no tenderness around her knee, tibia or ankle. Skin is intact. Dorsalis pedis pulse is palpable. Sensation is intact. The patient also has a drain along the anterior aspect of her groin. There is a well-healed incision from previous seroma excision. X-RAYS X-rays of the left hip are reviewed. X-rays reveal a displaced left femoral neck fracture. ASSESSMENT 1. Probable osteoporosis. 2. Displaced left femoral neck fracture. 3. Seroma of right anterior hip and groin. 4. Coronary artery disease 5. CHF. PLAN The treatment options were discussed with the patient. At this point I would recommend left hip hemiarthroplasty. The risks of surgery include bleeding, infection, injury to arteries, nerves and blood vessels, nonunion, malunion, hip dislocation, leg length discrepancies as well as medical complications including blood clot, stroke, heart attack and . All questions were answered. I will plan on surgery today. I discussed with Dr. Oates who has been managing her left groin seroma. He would recommend removal of the drain at the time of the surgery. A mid-level provider in my office, nurse practitioner or PA, may see this patient on a follow-up basis and continue to implement the objective of this plan including: Starting or adjusting medications, injections of muscle, tendon, bursa or joints, cast application, orthotic or brace application, physical therapy, further radiographic studies including x-ray, MRI, CT, ultrasounds or bone scan, vascular studies, neurologic studies, or other specialist consultations, and proceeding with surgical management as appropriate. MD VAN Richey/MINESH /12:55 PM /1:03 PM
[2017-06-05] MEDS ORDERED: SUGAMMADEX SODIUM 200 MG/2 ML VIAL IV PUSH ONE (13:41)
[2017-06-05] MEDS ORDERED: Post-op Orders (for Pharmacy) XX ONE (14:00)
--- NOTE | 2017-06-05 14:30 | RADRPT ---
EXAM DATE/TIME: 06/05/2017 14:01 [place] COMPARISON: No previous studies available for comparison. INDICATIONS : Post-op left hip replacement. MEDICAL HISTORY : Stroke. Hypertension. Myocardial infarction.Epilepsy. SURGICAL HISTORY : CABG Coronary artery stent. ENCOUNTER: Initial ACUITY: 1 day PAIN SCORE: Non-responsive. LOCATION: Left hip FINDINGS: The patient is status post a total hip arthroplasty with a bipolar prosthesis. Prosthesis is well-sea sam. Alignment is anatomic. A fracture is not appreciated. CONCLUSION: Anatomic alignment. Tien Ledezma MD FACR on June 05, 2017 at 14:27 Board Certified Radiologist. This report was verified electronically.
[2017-06-05] MEDS ORDERED: XARE10TA PO (14:32)
[2017-06-05] MEDS ORDERED: HYDR-3580 PO (14:32)
[2017-06-05] MEDS ORDERED: CALCTAB19 PO (14:32)
[2017-06-05] MEDS ORDERED: VITA500012 PO (14:32)
[2017-06-05] MEDS ORDERED: WALKER/ADULT/FO1 MIS (14:32)
[2017-06-05] MEDS ORDERED: POTASSIUM CHLORIDE 25 MEQ EFFERVESCENT TAB PO ONE (16:15)
[2017-06-05] MEDS ORDERED: RESP: ALBUTEROL 2.5 MG/3 ML NEB (PRN) NEB (16:30)
[2017-06-05] MEDS: ceFAZolin 2 GM PREMIX 50 ML IV SCH ×2 (17:04→22:21)
--- NOTE | 2017-06-05 17:07 | HHI.HP ---
[facility] Primary Care Physician Rambo Puckett MD Admission Diagnosis left femoral neck fracture, fall, closed head injury Diagnoses: Chief Complaint: Fall Travel History International Travel<30 Days: No Contact w/Intl Traveler <30 Da: No Traveled to Known Affected Are: No History of Present Illness The patient is a 76-year-old female with a past medical history of CVA, epilepsy and CAD who is presenting to the hospital after a fall at home. The patient said that she was getting ready to go to [facility] and after feeding a stray cat she walked back into her house and fell down. She is not sure what made her fall. She did not lose consciousness. She did not feel lightheaded or dizzy. She is not sure if she tripped. Her and neighbor helped her up into a chair and then called for an ambulance. The patient was found to have an impacted left femoral fracture and is status post repair. The patient says she was admitted to the hospital a couple weeks ago for vertigo. The patient also mentions that since September she has had complications following a hernia repair on the left side and had to have drainage procedures regularly. She says invasive radiology placed a drain and she follows with general surgery. Review of Systems Except as stated in HPI: all other systems reviewed are Neg Past Family Social History Past Medical History Epilepsy CVA with left-sided weakness Hyperlipidemia CAD status post stent placement Vertigo Past Surgical History Aortofemoral bypass Rudy filter placement Breast surgery for cyst removal Bladder surgery Hernia repair Hysterectomy Cholecystectomy Tubal ligation Allergies: Coded Allergies: Sulfa (Sulfonamide Antibiotics) (Unverified Allergy, Severe, RASH, 06/05/17) INTERMEDIATE REACTION niacin (Unverified Allergy, Severe, FELT BODY WAS ON FIRE, 06/05/17) estradiol (Unverified Allergy, Unknown, 06/05/17) HAD STROKE AGE 27 FROM ORAL CONTRACEPTIVES estrogens, conjugated (Unverified Allergy, Unknown, 06/05/17) HAD STROKE AGE 27 FROM ORAL CONTRACEPTIVES amoxicillin (Unverified Adverse Reaction, Severe, Nausea/Vomiting, 06/05/17) Active Ordered Medications Current Medications Medications (Trade) Dose Ordered Sig/Norah Route Start Time Stop Time Status Last Admin (NS Flush) 2 ml UNSCH PRN IVF 06/05/17 00:45 (Morphine Inj) 2 mg Q4H PRN IV PUSH 06/05/17 03:00 06/05/17 04:05 Sodium Chloride 1,000 ml @ 75 mls/hr [id number] IV 06/05/17 02:57 06/05/17 04:04 (NS Flush) 2 ml UNSCH PRN IV FLUSH 06/05/17 03:00 (NS Flush) 2 ml BID IV FLUSH 06/05/17 09:00 06/05/17 08:28 (Tylenol) 650 mg Q4H PRN PO 06/05/17 03:00 (Zofran Inj) 4 mg Q6H PRN IVP 06/05/17 03:00 (Narcan Inj) 0.4 mg UNSCH PRN IV PUSH 06/05/17 03:00 (Miracle-Colace) 1 tab BID PO 06/05/17 09:00 06/05/17 08:27 (Milk Of Magnesia Liq) 30 ml Q12H PRN PO 06/05/17 03:00 (Senokot) 17.2 mg Q12H PRN PO 06/05/17 03:00 (Dulcolax Supp) 10 mg DAILY PRN RECTAL 06/05/17 03:00 (Lactulose Liq) 30 ml DAILY PRN PO 06/05/17 03:00 (Lipitor) 40 mg HS PO 06/05/17 21:00 (Coreg) 3.125 mg Q12HR PO 06/05/17 09:00 06/05/17 08:27 (LaMICtal) 100 mg BID PO 06/05/17 09:00 06/05/17 08:27 (Keppra) 250 mg BID PO 06/05/17 09:00 06/05/17 08:27 (Prinivil) 2.5 mg DAILY PO 06/05/17 09:00 06/05/17 08:27 (Ditropan) 5 mg HS PO 06/05/17 21:00 (Lyrica) 75 mg BID PO 06/05/17 09:00 06/05/17 08:27 (Spiriva Inh) 18 mcg DAILY INH 06/05/17 09:00 06/05/17 08:26 Lactated Ringer's 1,000 ml @ 30 mls/hr Q24H PRN IV 06/05/17 07:45 06/08/17 07:44 06/05/17 08:26 Sodium Chloride 500 ml @ 30 mls/hr [id number] PRN IV 06/05/17 07:45 06/08/17 07:44 (Lopressor) 25 mg FOIL SPINNER PRN PO 06/05/17 07:45 06/08/17 07:44 (Betadine 5% Antisepsis Kit) 1 applic FOIL SPINNER PRN EACH NARE 06/05/17 07:45 06/08/17 07:44 (Chlorhexidine 2% Cloth) 3 pack FOIL SPINNER PRN TOPICAL 06/05/17 07:45 06/08/17 07:44 Cefazolin Sodium/ Dextrose 50 ml @ 100 mls/hr Q6H IV 06/05/17 18:00 06/07/17 00:29 (Lovenox Inj) 30 mg Q24H SQ 06/06/17 12:30 ([place] 7.5-325 Mg) 1 tab Q3H PRN PO 06/05/17 13:15 Vancomycin HCl 1000 mg/Sodium Chloride 250 ml @ 250 mls/hr Q12H IV 06/06/17 00:00 06/06/17 12:59 (Morphine Inj) 3 mg Q3H PRN IV PUSH 06/05/17 13:15 (Vitamin D3) 5,000 units DAILY PO 06/06/17 09:00 Miscellaneous Information ALL NURSING DEPARTME... UNSCH PRN .XX 06/05/17 13:30 06/06/17 13:29 (Albuterol Neb) 2.5 mg Q2HR NEB PRN NEB 06/05/17 16:30 Family History Both her parents of heart disease in their 50s Alcoholism Social History The patient rarely smokes. She does not drink alcohol. Physical Exam Vital Signs Vital Signs Date Time Temp Pulse Resp B/P (MAP) Pulse Ox O2 Delivery O2 Flow Rate FiO2 06/05/17 16:02 95.5 68 17 92/45 (61) 90 06/05/17 14:15 64 16 132/58 (82) 100 Nasal Cannula 2 06/05/17 14:00 64 16 123/58 (79) 100 Nasal Cannula 2 06/05/17 13:45 69 16 111/57 (75) 100 Nasal Cannula 2 06/05/17 13:30 97.7 72 16 123/56 (78) 98 Nasal Cannula 2 06/05/17 09:30 Nasal Cannula 3 06/05/17 08:00 97.9 73 17 103/58 (73) 99 06/05/17 04:30 97.8 71 18 102/50 (67) 99 06/05/17 03:50 06/05/17 02:37 87 18 104/51 (68) 100 Nasal Cannula 2.00 06/05/17 00:34 96 Nasal Cannula 2.00 06/05/17 00:21 98.1 87 25 122/58 (79) 90 Physical Exam GENERAL: This is a well-nourished, well-developed patient, in no apparent distress. SKIN: No rashes, ecchymoses or lesions. Cool and dry. HEAD: Atraumatic. Normocephalic. No temporal or scalp tenderness. EYES: Pupils equal round and reactive. Extraocular motions intact. No scleral icterus. No injection or drainage. ENT: Nose without bleeding, purulent drainage or septal hematoma. Throat without erythema, tonsillar hypertrophy or exudate. Uvula midline. Airway patent. NECK: Trachea midline. No JVD or lymphadenopathy. Supple, nontender, no meningeal signs. CARDIOVASCULAR: Regular rate and rhythm without murmurs, gallops, or rubs. RESPIRATORY: Clear to auscultation. Breath sounds equal bilaterally. No wheezes , rales, or rhonchi. GASTROINTESTINAL: Abdomen soft, non-tender, nondistended. No hepato-splenomegaly , or palpable masses. No guarding. MUSCULOSKELETAL: Left lower extremity is bandaged and splinted. NEUROLOGICAL: Awake and alert. Cranial nerves II through XII intact. Motor and sensory grossly within normal limits. Five out of 5 muscle strength in all muscle groups. Normal speech. PSYCH: Mood and affect appropriate. Laboratory Laboratory Tests Test 06/05/17 01:10 White Blood Count 17.7 Red Blood Count 3.79 Hemoglobin 11.7 Hematocrit 34.1 Mean Corpuscular Volume 89.9 Mean Corpuscular Hemoglobin 30.7 Mean Corpuscular Hemoglobin Concent 34.2 Red Cell Distribution Width 13.5 Platelet Count 174 Mean Platelet Volume 8.8 Neutrophils (%) (Auto) 89.2 Lymphocytes (%) (Auto) 4.7 Monocytes (%) (Auto) 5.1 Eosinophils (%) (Auto) 0.5 Basophils (%) (Auto) 0.5 Neutrophils # (Auto) 15.8 Lymphocytes # (Auto) 0.8 Monocytes # (Auto) 0.9 Eosinophils # (Auto) 0.1 Basophils # (Auto) 0.1 CBC Comment DIFF FINAL Differential Comment Prothrombin Time 10.5 Prothromb Time International Ratio 1.0 Activated Partial Thromboplast Time 24.6 Blood Urea Nitrogen 28 Creatinine 1.39 Random Glucose 102 Total Protein 6.5 Albumin 3.5 Calcium Level 8.6 Alkaline Phosphatase 112 Aspartate Amino Transf (AST/SGOT) 25 Alanine Aminotransferase (ALT/SGPT) 21 Total Bilirubin 0.4 Sodium Level 144 Potassium Level 3.1 Chloride Level 110 Carbon Dioxide Level 25.6 Anion Gap 8 Estimat Glomerular Filtration Rate 37 Result Diagram: 06/05/17 0110 06/05/17 0110 Imaging Last Impressions Hip and Pelvis X-Ray 06/05/17 1403 Signed Impressions: Service Date/Time: Monday, June 05, 2017 14:01 - CONCLUSION: Anatomic alignment. Tien Ledezma MD FACR Chest X-Ray 06/05/17 0031 Signed Impressions: Service Date/Time: Monday, June 05, 2017 00:54 - CONCLUSION: No acute cardiopulmonary disease identified. Duran Amaya MD Tibia/Fibula X-Ray 06/05/17 0000 Signed Impressions: Service Date/Time: Monday, June 05, 2017 00:56 - CONCLUSION: No evidence of fracture. 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 No acute intracranial findings. Duran Amaya MD Femur X-Ray 06/05/17 0000 Signed Impressions: Service Date/Time: Monday, June 05, 2017 00:51 - CONCLUSION: Impacted left femoral neck fracture. Duran Amaya MD Cervical Spine CT 06/05/17 0000 Signed Impressions: Service Date/Time: Monday, June 05, 2017 01:05 - CONCLUSION: 1. No evidence of fracture. 2. Prominent multilevel degenerative findings. MD Dara Martínez VTE Risk Assessment Caprini VTE Risk Assessment: Mod/High Risk (score >= 2) Caprini Risk Assessment Model Point Value = 1 Point Value = 2 Point Value = 3 Point Value = 5 Age 41-60 Minor surgery BMI > 25 kg/m2 Swollen legs Varicose veins or History of unexplained or recurrent spontaneous Oral contraceptives or hormone replacement Sepsis (< 1 month) Serious lung disease, including pneumonia (< 1 month) Abnormal pulmonary function Acute myocardial infarction Congestive heart failure (< 1 month) History of inflammatory bowel disease Medical patient at bed rest Age 61-74 Arthroscopic surgery Major open surgery (> 45 min) Laparoscopic surgery (> 45 min) Malignancy Confined to bed (> 72 hours) Immobilizing plaster cast Central venous access Age >= 75 History of VTE Family history of VTE Factor V Leiden Prothrombin [id number] Lupus anticoagulant Anticardiolipin antibodies Elevated serum homocysteine Heparin-induced thrombocytopenia Other congenital or acquired thrombophilia Stroke (< 1 month) Elective arthroplasty Hip, pelvis, or leg fracture Acute spinal cord injury (< 1 month) Prophylaxis Regimen Total Risk Factor Score Risk Level Prophylaxis Regimen 0-1 Low Early ambulation 2 Moderate Order ONE of the following: *Sequential Compression Device (SCD) *Heparin 5000 units SQ BID 3-4 Higher Order ONE of the following medications: *Heparin 5000 units SQ TID *Enoxaparin/Lovenox 40 mg SQ daily (WT < 150 kg, CrCl > 30 mL/min) *Enoxaparin/Lovenox 30 mg SQ daily (WT < 150 kg, CrCl > 10-29 mL/min) *Enoxaparin/Lovenox 30 mg SQ BID (WT < 150 kg, CrCl > 30 mL/min) AND/OR *Sequential Compression Device (SCD) 5 or more Highest Order ONE of the following medications: *Heparin 5000 units SQ TID (Preferred with Epidurals) *Enoxaparin/Lovenox 40 mg SQ daily (WT < 150 kg, CrCl > 30 mL/min) *Enoxaparin/Lovenox 30 mg SQ daily (WT < 150 kg, CrCl > 10-29 mL/min) *Enoxaparin/Lovenox 30 mg SQ BID (WT < 150 kg, CrCl > 30 mL/min) AND *Sequential Compression Device (SCD) Assessment and Plan Assessment and Plan Left femoral fracture Orthopedic surgery was consulted. The patient is status post surgical repair. - Anticoagulation, weightbearing and wound care per orthopedic surgery. - Incentive spirometry. - Physical therapy. - Pain control with a bowel regimen. Seroma It was a complication following hernia repair on the left side. She had a drain placed recently by interventional radiology but I was removed in surgery. - Wound care as directed. - Outpatient follow-up with general surgery. Epilepsy The patient says it has been 2 years since her last seizure. - Continue home medications. - Outpatient follow-up. CVA The patient endorses slight left-sided weakness. - Continue with physical therapy. Hypokalemia Likely secondary to decreased by mouth intake. - Replete and monitor. Leukocytosis Likely reactive. - Follow CBC. Hypertension Blood pressure has been low but stable. - Hold antihypertensives if needed. - Fluids. PPx: Per orthopedic surgery Discussed Condition With Patient, patient's family, nurse Physician Certification 2 Midnight Certification Type: Admission for Inpatient Services Order for Inpatient Services The services are ordered in accordance with Medicare regulations or non- Medicare payer requirements, as applicable. In the case of services not specified as inpatient-only, they are appropriately provided as inpatient services in accordance with the 2-midnight benchmark. Estimated LOS (days): 2 days is the estimated time the patient will need to remain in the hospital, assuming treatment plan goals are met and no additional complications. Post-Hospital Plan: Not yet determined Nazario Liu DO Jun 05, 2017 17:07
--- NOTE | 2017-06-05 22:10 | EKG ---
Date Performed: 06/05/2017 Time Performed: 00:43:04 PTAGE: 76 years EKG: Sinus rhythm NONSPECIFIC T-WAVE ABNORMALITY BORDERLINE ECG PREVIOUS TRACING : 01/19/2017 16.35 Compared to prior tracing no significant change DOCTOR: Allan Nova Interpretating Date/Time 06/05/2017 22:08:45
[2017-06-05] MEDS: ATORVASTATIN 40 MG TAB PO SCH (22:13)
[2017-06-05] MEDS: OXYBUTYNIN CHLORIDE 5 MG TAB PO SCH (22:14)
[2017-06-05] MEDS: VANCOMYCIN INJ 1,000 MG in SODIUM CHLOR 0.9% 250 ML INJ 250 ML IV SCH (23:47)
[2017-06-06] VITALS (10 sets, daily range): BP systolic 84–134; BP diastolic 41–60; PULSE 60–86; RESP 14–18; TEMP 95.8–98.9; O2SAT 92–98
[2017-06-06] MEDS: SODIUM CHLOR 0.9% 1000 ML INJ 1,000 ML IV SCH ×2 (03:02→18:57)
[2017-06-06] MEDS: ceFAZolin 2 GM PREMIX 50 ML IV SCH ×3 (05:01→18:18)
[2017-06-06 05:04] LABS: AUTOMATED NEUTROPHIL # 10.3 TH/MM3 (1.8-7.7); BASOPHIL % 0.3 % (0.0-2.0); HEMOGLOBIN 9.8 GM/DL (11.6-15.3); LYMPH % 3.1 % (9.0-44.0); LYMPHOCYTE # 0.3 TH/MM3 (1.0-4.8); MEAN CORPUSCULAR HEMOGLOBIN 30.3 PG (27.0-34.0); MEAN CORPUSCULAR HGB CONC 33.6 % (32.0-36.0); MEAN PLATELET VOLUME 8.2 FL (7.0-11.0); MONO % 3.6 % (0.0-8.0); MONOCYTE # 0.4 TH/MM3 (0-0.9); PLATELET COUNT 112 TH/MM3 (150-450); RED BLOOD COUNT 3.22 MIL/MM3 (4.00-5.30); RED CELL DISTRIBUTION WIDTH 13.6 % (11.6-17.2); WHITE BLOOD COUNT 11.1 TH/MM3 (4.0-11.0)
[2017-06-06] MEDS: MORPHINE SULFATE 2 MG/ML INJ IV PUSH PRN (05:04)
[2017-06-06 05:29] LABS: BICARBONATE 23.3 MEQ/L (21.0-32.0); CALCIUM 8.1 MG/DL (8.5-10.1); CREATININE 1.02 MG/DL (0.50-1.00); MAGNESIUM 1.7 MG/DL (1.5-2.5)
--- NOTE | 2017-06-06 07:09 | PD.ORT.PN ---
Subjective Subjective Remarks Resting comfortably with no new complaints Objective Vitals Vital Signs Date Time Temp Pulse Resp B/P (MAP) Pulse Ox O2 Delivery O2 Flow Rate FiO2 06/06/17 04:10 96.1 86 15 100/51 (67) 97 06/06/17 00:40 97.7 60 14 94/49 (64) 93 06/05/17 20:25 97.0 68 15 89/53 (65) 91 06/05/17 19:58 99 Nasal Cannula 2.00 06/05/17 16:02 95.5 68 17 92/45 (61) 90 06/05/17 14:15 64 16 132/58 (82) 100 Nasal Cannula 2 06/05/17 14:00 64 16 123/58 (79) 100 Nasal Cannula 2 06/05/17 13:45 69 16 111/57 (75) 100 Nasal Cannula 2 06/05/17 13:30 97.7 72 16 123/56 (78) 98 Nasal Cannula 2 06/05/17 09:30 Nasal Cannula 3 06/05/17 08:00 97.9 73 17 103/58 (73) 99 I/O 06/05/17 06/05/17 06/05/17 06/06/17 06/06/17 06/06/17 07:00 15:00 23:00 07:00 15:00 23:00 Intake Total 0 ml 725 ml 350 ml Output Total 70 ml 50 ml Balance -70 ml 675 ml 350 ml Intake Oral 0 ml 225 ml 300 ml IV Total 50 ml Other 500 ml Output Urine Total 0 ml Drainage Total 70 ml Estimated Blood Loss 50 ml # Voids 1 2 # Bowel Movements 0 0 0 Result Diagram: 06/06/17 0457 06/06/17 0457 Imaging Last 24 hours Impressions Chest X-Ray 06/05/17 0031 Signed Impressions: Service Date/Time: Monday, June 05, 2017 00:54 - CONCLUSION: No acute cardiopulmonary disease identified. Duran Amaya MD Tibia/Fibula X-Ray 06/05/17 0000 Signed Impressions: Service Date/Time: Monday, June 05, 2017 00:56 - CONCLUSION: No evidence of fracture. Duran Amaya MD Hip and Pelvis X-Ray 06/05/17 0000 Signed Impressions: Service Date/Time: Monday, June 05, 2017 00:52 - CONCLUSION: 1. Impacted left femoral neck fracture. 2. Pigtail drainage catheter in the left proximal thigh at the level of the greater trochanter. 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 No acute intracranial findings. Duran Amaya MD Femur X-Ray 06/05/17 0000 Signed Impressions: Service Date/Time: Monday, June 05, 2017 00:51 - CONCLUSION: Impacted left femoral neck fracture. Duran Amaya MD Cervical Spine CT 06/05/17 0000 Signed Impressions: Service Date/Time: Monday, June 05, 2017 01:05 - CONCLUSION: 1. No evidence of fracture. 2. Prominent multilevel degenerative findings. Duran Amaya MD Objective Remarks Bilateral upper extremities: Full range of motion neurovascular intact Right lower extremity: Full range of motion neurovascularly intact Left lower extremity: Clean dry dressings intact. Mild swelling. Knee immobilizer in position. Distally intact sensation with good capillary refills. Active dorsiflexion and plantar flexion of foot Assessment & Plan Assessment and Plan Left hip hemiarthroplasty POD 1 Physical therapy twice daily weightbearing as tolerated with posterior hip precautions Dry dressings over posterior incision. Leave in place if not soiled or disheveled Dressing over anterior hip to be changed daily with Xeroform and Primapore. May use ABDs instead if any significant drainage Nazario Apodaca Jr. Jun 06, 2017 07:09
[2017-06-06] MEDS: SODIUM CHLORIDE 0.9% FLUSH 10 ML FLUSH IV FLUSH SCH ×2 (09:00→23:13)
[2017-06-06] MEDS: PREGABALIN 75 MG CAP PO SCH ×3 (09:00→23:12)
[2017-06-06] MEDS: lamoTRIgine 100 MG TAB PO SCH ×2 (09:00→23:12)
[2017-06-06] MEDS: LISINOPRIL 5 MG TAB PO SCH (09:00)
[2017-06-06] MEDS: DOCUSATE SODIUM 50 MG/SENNA 8.6 MG TAB PO SCH ×2 (09:00→23:14)
[2017-06-06] MEDS: CARVEDILOL 3.125 MG TAB PO SCH ×2 (09:00→23:12)
[2017-06-06] MEDS: levETIRAcetam 250 MG TAB PO SCH ×2 (09:00→23:11)
[2017-06-06] MEDS: CHOLECALCIFEROL (VIT D3) 5000 UNIT CAP PO SCH (09:00)
[2017-06-06] MEDS: TIOTROPIUM BROMIDE 18 MCG INH INH SCH (09:00)
[2017-06-06] MEDS: ENOXAPARIN SODIUM 30 MG/0.3 ML SYRINGE SQ SCH (12:30)
[2017-06-06] MEDS: VANCOMYCIN INJ 1,000 MG in SODIUM CHLOR 0.9% 250 ML INJ 250 ML IV SCH (13:30)
[2017-06-06] MEDS: ACETAMINOPHEN/HYDROcodone 325 MG/7.5 MG TAB PO PRN (13:55)
--- NOTE | 2017-06-06 15:11 | HHI.PR ---
Subjective Remarks The patient was looking for her call button. She said she had some pain but was doing well. She said she had some leakage from the wound on her left lower extremity. Discussed with nursing. Objective Vitals Vital Signs Date Time Temp Pulse Resp B/P (MAP) Pulse Ox O2 Delivery O2 Flow Rate FiO2 06/06/17 12:00 95.8 66 18 96/60 (72) 98 06/06/17 09:56 96 Nasal Cannula 1.00 06/06/17 07:31 96.2 62 18 93/52 (66) 98 06/06/17 04:10 96.1 86 15 100/51 (67) 97 06/06/17 00:40 97.7 60 14 94/49 (64) 93 06/05/17 20:25 97.0 68 15 89/53 (65) 91 06/05/17 19:58 99 Nasal Cannula 2.00 06/05/17 16:02 95.5 68 17 92/45 (61) 90 I/O 06/05/17 06/05/17 06/05/17 06/06/17 06/06/17 06/06/17 07:00 15:00 23:00 07:00 15:00 23:00 Intake Total 0 ml 725 ml 350 ml 240 ml Output Total 70 ml 50 ml Balance -70 ml 675 ml 350 ml 240 ml Intake Oral 0 ml 225 ml 300 ml 240 ml IV Total 50 ml Other 500 ml Output Urine Total 0 ml Drainage Total 70 ml Estimated Blood Loss 50 ml # Voids 1 2 1 # Bowel Movements 0 0 0 0 Result Diagram: 06/06/17 0457 06/06/17 0457 Imaging Last Impressions Hip and Pelvis X-Ray 06/05/17 1403 Signed Impressions: Service Date/Time: Monday, June 05, 2017 14:01 - CONCLUSION: Anatomic alignment. Tien Ledezma MD FACR Chest X-Ray 06/05/17 0031 Signed Impressions: Service Date/Time: Monday, June 05, 2017 00:54 - CONCLUSION: No acute cardiopulmonary disease identified. Duran Amaya MD Tibia/Fibula X-Ray 06/05/17 0000 Signed Impressions: Service Date/Time: Monday, June 05, 2017 00:56 - CONCLUSION: No evidence of fracture. 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 No acute intracranial findings. Duran Amaya MD Femur X-Ray 06/05/17 0000 Signed Impressions: Service Date/Time: Monday, June 05, 2017 00:51 - CONCLUSION: Impacted left femoral neck fracture. Duran Amaya MD Cervical Spine CT 06/05/17 0000 Signed Impressions: Service Date/Time: Monday, June 05, 2017 01:05 - CONCLUSION: 1. No evidence of fracture. 2. Prominent multilevel degenerative findings. Duran Amaya MD Objective Remarks GENERAL: This is a well-nourished, well-developed patient, in no apparent distress. SKIN: No rashes, ecchymoses or lesions. Cool and dry. HEAD: Atraumatic. Normocephalic. No temporal or scalp tenderness. EYES: Pupils equal round and reactive. Extraocular motions intact. No scleral icterus. No injection or drainage. ENT: Nose without bleeding, purulent drainage or septal hematoma. Throat without erythema, tonsillar hypertrophy or exudate. Uvula midline. Airway patent. NECK: Trachea midline. No JVD or lymphadenopathy. Supple, nontender, no meningeal signs. CARDIOVASCULAR: Regular rate and rhythm without murmurs, gallops, or rubs. RESPIRATORY: Clear to auscultation. Breath sounds equal bilaterally. No wheezes , rales, or rhonchi. GASTROINTESTINAL: Abdomen soft, non-tender, nondistended. No hepato-splenomegaly , or palpable masses. No guarding. MUSCULOSKELETAL: Left lower extremity is bandaged and splinted. NEUROLOGICAL: Awake and alert. Cranial nerves II through XII intact. Motor and sensory grossly within normal limits. Five out of 5 muscle strength in all muscle groups. Normal speech. PSYCH: Mood and affect appropriate. Medications and IVs Current Medications Medications (Trade) Dose Ordered Sig/Norah Route Start Time Stop Time Status Last Admin (NS Flush) 2 ml UNSCH PRN IVF 06/05/17 00:45 (Morphine Inj) 2 mg Q4H PRN IV PUSH 06/05/17 03:00 06/06/17 05:04 Sodium Chloride 1,000 ml @ 75 mls/hr [id number] IV 06/05/17 02:57 06/06/17 03:02 (NS Flush) 2 ml UNSCH PRN IV FLUSH 06/05/17 03:00 (NS Flush) 2 ml BID IV FLUSH 06/05/17 09:00 06/06/17 09:00 (Tylenol) 650 mg Q4H PRN PO 06/05/17 03:00 (Zofran Inj) 4 mg Q6H PRN IVP 06/05/17 03:00 (Narcan Inj) 0.4 mg UNSCH PRN IV PUSH 06/05/17 03:00 (Miracle-Colace) 1 tab BID PO 06/05/17 09:00 06/06/17 09:00 (Milk Of Magnesia Liq) 30 ml Q12H PRN PO 06/05/17 03:00 (Senokot) 17.2 mg Q12H PRN PO 06/05/17 03:00 (Dulcolax Supp) 10 mg DAILY PRN RECTAL 06/05/17 03:00 (Lactulose Liq) 30 ml DAILY PRN PO 06/05/17 03:00 (Lipitor) 40 mg HS PO 06/05/17 21:00 06/05/17 22:13 (Coreg) 3.125 mg Q12HR PO 06/05/17 09:00 06/06/17 09:00 (LaMICtal) 100 mg BID PO 06/05/17 09:00 06/06/17 09:00 (Keppra) 250 mg BID PO 06/05/17 09:00 06/06/17 09:00 (Prinivil) 2.5 mg DAILY PO 06/05/17 09:00 06/06/17 09:00 (Ditropan) 5 mg HS PO 06/05/17 21:00 06/05/17 22:14 (Lyrica) 75 mg BID PO 06/05/17 09:00 06/06/17 09:00 (Spiriva Inh) 18 mcg DAILY INH 06/05/17 09:00 06/06/17 09:00 Lactated Ringer's 1,000 ml @ 30 mls/hr Q24H PRN IV 06/05/17 07:45 06/08/17 07:44 06/05/17 08:26 Sodium Chloride 500 ml @ 30 mls/hr [id number] PRN IV 06/05/17 07:45 06/08/17 07:44 (Lopressor) 25 mg ANIMAL TRAINER SUPERVISOR PRN PO 06/05/17 07:45 06/08/17 07:44 (Betadine 5% Antisepsis Kit) 1 applic ANIMAL TRAINER SUPERVISOR PRN EACH NARE 06/05/17 07:45 06/08/17 07:44 (Chlorhexidine 2% Cloth) 3 pack ANIMAL TRAINER SUPERVISOR PRN TOPICAL 06/05/17 07:45 06/08/17 07:44 Cefazolin Sodium/ Dextrose 50 ml @ 100 mls/hr Q6H IV 06/05/17 18:00 06/07/17 00:29 06/06/17 13:30 (Lovenox Inj) 30 mg Q24H SQ 06/06/17 12:30 ([place] 7.5-325 Mg) 1 tab Q3H PRN PO 06/05/17 13:15 06/06/17 13:55 (Morphine Inj) 3 mg Q3H PRN IV PUSH 06/05/17 13:15 (Vitamin D3) 5,000 units DAILY PO 06/06/17 09:00 06/06/17 09:00 (Albuterol Neb) 2.5 mg Q2HR NEB PRN NEB 06/05/17 16:30 A/P Assessment and Plan Left femoral fracture Orthopedic surgery was consulted. The patient is status post surgical repair. - Anticoagulation, weightbearing and wound care per orthopedic surgery. - Incentive spirometry. - Physical therapy. - Pain control with a bowel regimen. Seroma It was a complication following hernia repair on the left side. She had a drain placed recently by interventional radiology but it was removed in surgery. - Wound care as directed. - Outpatient follow-up with general surgery. Epilepsy The patient says it has been 2 years since her last seizure. - Continue home medications. - Outpatient follow-up. CVA The patient endorses slight left-sided weakness. - Continue with physical therapy. Hypokalemia Likely secondary to decreased by mouth intake. Resolved. - Replete and monitor. Leukocytosis Likely reactive. Chest x-ray unremarkable. - Follow CBC. Improving. Hypertension Blood pressure has been low but stable. - Hold lisinopril. Continue Coreg with holding parameters. - Fluids. Renal insufficiency Improved with IV fluids. - Continue IV fluids and avoid nephrotoxins. Thrombocytopenia Appears somewhat chronic. - Monitor CBC. PPx: Per orthopedic surgery Nazario Liu DO Jun 06, 2017 15:11
[2017-06-06] MEDS: ATORVASTATIN 40 MG TAB PO SCH (23:12)
[2017-06-06] MEDS: OXYBUTYNIN CHLORIDE 5 MG TAB PO SCH (23:13)
[2017-06-07] MEDS: ceFAZolin 2 GM PREMIX 50 ML IV SCH (00:24)
[2017-06-07] MEDS: ACETAMINOPHEN/HYDROcodone 325 MG/7.5 MG TAB PO PRN ×2 (00:34→19:41)
[2017-06-07 05:23] VITALS: BP 88/43
[2017-06-07 05:27] VITALS: BP 88/43; PULSE 72; RESP 18; TEMP 97.4; O2SAT 93
[2017-06-07] MEDS ORDERED: SODIUM CHLORID 0.9% 500 ML INJ 500 ML IV ONE (05:30)
--- NOTE | 2017-06-07 06:56 | PD.ORT.PN ---
Subjective Subjective Remarks Resting comfortably with no new complaints Objective Vitals Vital Signs Date Time Temp Pulse Resp B/P (MAP) Pulse Ox O2 Delivery O2 Flow Rate FiO2 06/07/17 05:27 97.4 72 18 88/43 (58) 93 06/07/17 05:23 88/43 (58) 06/06/17 23:09 98.9 73 18 134/58 (83) 92 06/06/17 21:30 95/51 (66) 06/06/17 19:18 97.4 70 18 84/41 (55) 93 06/06/17 16:00 96.7 72 18 87/46 (60) 92 06/06/17 15:38 98 21 06/06/17 12:00 95.8 66 18 96/60 (72) 98 06/06/17 09:56 96 Nasal Cannula 1.00 06/06/17 07:31 96.2 62 18 93/52 (66) 98 I/O 06/06/17 06/06/17 06/06/17 06/07/17 06/07/17 06/07/17 07:00 15:00 23:00 07:00 15:00 23:00 Intake Total 960 ml 480 ml 480 ml Balance 960 ml 480 ml 480 ml Intake Oral 960 ml 480 ml 480 ml # Voids 3 1 2 # Bowel Movements 0 0 0 Result Diagram: 06/06/17 0457 06/06/17 0457 Imaging Last 24 hours Impressions Chest X-Ray 06/05/17 0031 Signed Impressions: Service Date/Time: Monday, June 05, 2017 00:54 - CONCLUSION: No acute cardiopulmonary disease identified. Duran Amaya MD Tibia/Fibula X-Ray 06/05/17 0000 Signed Impressions: Service Date/Time: Monday, June 05, 2017 00:56 - CONCLUSION: No evidence of fracture. Duran Amaya MD Hip and Pelvis X-Ray 06/05/17 0000 Signed Impressions: Service Date/Time: Monday, June 05, 2017 00:52 - CONCLUSION: 1. Impacted left femoral neck fracture. 2. Pigtail drainage catheter in the left proximal thigh at the level of the greater trochanter. 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 No acute intracranial findings. Duran Amaya MD Femur X-Ray 06/05/17 0000 Signed Impressions: Service Date/Time: Monday, June 05, 2017 00:51 - CONCLUSION: Impacted left femoral neck fracture. Duran Amaya MD Cervical Spine CT 06/05/17 0000 Signed Impressions: Service Date/Time: Monday, June 05, 2017 01:05 - CONCLUSION: 1. No evidence of fracture. 2. Prominent multilevel degenerative findings. Duran Amaya MD Objective Remarks Bilateral upper extremities: Full range of motion neurovascular intact Right lower extremity: Full range of motion neurovascularly intact Left lower extremity: Clean dry dressings intact. Mild swelling. Knee immobilizer in position. Distally intact sensation with good capillary refills. Active dorsiflexion and plantar flexion of foot Assessment & Plan Assessment and Plan Left hip hemiarthroplasty POD 2 Physical therapy twice daily weightbearing as tolerated with posterior hip precautions Dry dressings over posterior incision. Leave in place if not soiled or disheveled Dressing over anterior hip to be changed daily with Xeroform and Primapore. May use ABDs instead if any significant drainage Lovenox Plan on discharge to rehabilitation follow-up Dr. Maloney or [place] in 2 weeks Nazario Apodaca Jr. Jun 07, 2017 06:56
[2017-06-07 08:12] VITALS: BP 86/47; PULSE 63; RESP 18; TEMP 98.3; O2SAT 95
[2017-06-07] MEDS: SODIUM CHLORIDE 0.9% FLUSH 10 ML FLUSH IV FLUSH SCH ×2 (08:46→21:00)
[2017-06-07] MEDS: CARVEDILOL 3.125 MG TAB PO SCH (08:46)
[2017-06-07] MEDS: lamoTRIgine 100 MG TAB PO SCH ×2 (08:47→23:39)
[2017-06-07] MEDS: DOCUSATE SODIUM 50 MG/SENNA 8.6 MG TAB PO SCH ×2 (08:47→23:39)
[2017-06-07] MEDS: levETIRAcetam 250 MG TAB PO SCH ×2 (08:48→23:40)
[2017-06-07] MEDS: CHOLECALCIFEROL (VIT D3) 5000 UNIT CAP PO SCH (08:48)
[2017-06-07] MEDS: SODIUM CHLOR 0.9% 1000 ML INJ 1,000 ML IV SCH (08:48)
[2017-06-07] MEDS: PREGABALIN 75 MG CAP PO SCH ×2 (08:48→23:39)
[2017-06-07] MEDS: TIOTROPIUM BROMIDE 18 MCG INH INH SCH (08:49)
[2017-06-07 08:56] LABS: HEMATOCRIT 24.8 % (35.0-46.0); HEMOGLOBIN 8.5 GM/DL (11.6-15.3); MEAN CELL VOLUME 90.3 FL (80.0-100.0); MEAN CORPUSCULAR HGB CONC 34.4 % (32.0-36.0); MEAN PLATELET VOLUME 8.6 FL (7.0-11.0); PLATELET COUNT 96 TH/MM3 (150-450); RED BLOOD COUNT 2.74 MIL/MM3 (4.00-5.30); RED CELL DISTRIBUTION WIDTH 13.4 % (11.6-17.2); WHITE BLOOD COUNT 6.9 TH/MM3 (4.0-11.0)
[2017-06-07 09:20] LABS: BICARBONATE 21.9 MEQ/L (21.0-32.0); CALCIUM 7.9 MG/DL (8.5-10.1); CREATININE 0.92 MG/DL (0.50-1.00); MAGNESIUM 1.7 MG/DL (1.5-2.5)
[2017-06-07 12:00] VITALS: BP 122/64; PULSE 67; RESP 18; TEMP 98; O2SAT 97
[2017-06-07] MEDS: ENOXAPARIN SODIUM 30 MG/0.3 ML SYRINGE SQ SCH (12:36)
--- NOTE | 2017-06-07 15:52 | HHI.PR ---
Subjective Remarks The patient was sitting up in a chair. She said that her family was bringing her food as she did not get breakfast or lunch here. She said her breathing was stable. She had a bowel movement last night. The patient wants to go home and not to rehabilitation. Discussed with nursing. Objective Vitals Vital Signs Date Time Temp Pulse Resp B/P (MAP) Pulse Ox O2 Delivery O2 Flow Rate FiO2 06/07/17 12:00 98.0 67 18 122/64 (83) 97 06/07/17 09:48 16 06/07/17 08:12 98.3 63 18 86/47 (60) 95 06/07/17 05:27 97.4 72 18 88/43 (58) 93 06/07/17 05:23 88/43 (58) 06/06/17 23:09 98.9 73 18 134/58 (83) 92 06/06/17 21:30 95/51 (66) 06/06/17 19:18 97.4 70 18 84/41 (55) 93 06/06/17 16:00 96.7 72 18 87/46 (60) 92 I/O 06/06/17 06/06/17 06/06/17 06/07/17 06/07/17 06/07/17 07:00 15:00 23:00 07:00 15:00 23:00 Intake Total 960 ml 480 ml 480 ml Balance 960 ml 480 ml 480 ml Intake Oral 960 ml 480 ml 480 ml # Voids 3 1 2 # Bowel Movements 0 0 0 Result Diagram: 06/07/17 0837 06/07/17 0757 Imaging Last Impressions Hip and Pelvis X-Ray 06/05/17 1403 Signed Impressions: Service Date/Time: Monday, June 05, 2017 14:01 - CONCLUSION: Anatomic alignment. Tien Ledezma MD FACR Chest X-Ray 06/05/17 0031 Signed Impressions: Service Date/Time: Monday, June 05, 2017 00:54 - CONCLUSION: No acute cardiopulmonary disease identified. Duran Amaya MD Tibia/Fibula X-Ray 06/05/17 0000 Signed Impressions: Service Date/Time: Monday, June 05, 2017 00:56 - CONCLUSION: No evidence of fracture. 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 No acute intracranial findings. Duran Amaya MD Femur X-Ray 06/05/17 0000 Signed Impressions: Service Date/Time: Monday, June 05, 2017 00:51 - CONCLUSION: Impacted left femoral neck fracture. Duran Amaya MD Cervical Spine CT 06/05/17 0000 Signed Impressions: Service Date/Time: Monday, June 05, 2017 01:05 - CONCLUSION: 1. No evidence of fracture. 2. Prominent multilevel degenerative findings. Duran Amaya MD Objective Remarks GENERAL: This is a well-nourished, well-developed patient, in no apparent distress. SKIN: No rashes, ecchymoses or lesions. Cool and dry. HEAD: Atraumatic. Normocephalic. No temporal or scalp tenderness. EYES: Pupils equal round and reactive. Extraocular motions intact. No scleral icterus. No injection or drainage. ENT: Nose without bleeding, purulent drainage or septal hematoma. Throat without erythema, tonsillar hypertrophy or exudate. Uvula midline. Airway patent. NECK: Trachea midline. No JVD or lymphadenopathy. Supple, nontender, no meningeal signs. CARDIOVASCULAR: Regular rate and rhythm without murmurs, gallops, or rubs. RESPIRATORY: Clear to auscultation. Breath sounds equal bilaterally. No wheezes , rales, or rhonchi. GASTROINTESTINAL: Abdomen soft, non-tender, nondistended. No hepato-splenomegaly , or palpable masses. No guarding. MUSCULOSKELETAL: Left lower extremity is bandaged and splinted. NEUROLOGICAL: Awake and alert. Cranial nerves II through XII intact. Motor and sensory grossly within normal limits. Five out of 5 muscle strength in all muscle groups. Normal speech. PSYCH: Mood and affect appropriate. Procedures Left hip hemiarthroplasty Medications and IVs Current Medications Medications (Trade) Dose Ordered Sig/Norah Route Start Time Stop Time Status Last Admin (NS Flush) 2 ml UNSCH PRN IVF 06/05/17 00:45 (Morphine Inj) 2 mg Q4H PRN IV PUSH 06/05/17 03:00 06/06/17 05:04 Sodium Chloride 1,000 ml @ 75 mls/hr [id number] IV 06/05/17 02:57 06/07/17 08:48 (NS Flush) 2 ml UNSCH PRN IV FLUSH 06/05/17 03:00 (NS Flush) 2 ml BID IV FLUSH 06/05/17 09:00 06/07/17 08:46 (Tylenol) 650 mg Q4H PRN PO 06/05/17 03:00 (Zofran Inj) 4 mg Q6H PRN IVP 06/05/17 03:00 (Narcan Inj) 0.4 mg UNSCH PRN IV PUSH 06/05/17 03:00 (Miracle-Colace) 1 tab BID PO 06/05/17 09:00 06/07/17 08:47 (Milk Of Magnesia Liq) 30 ml Q12H PRN PO 06/05/17 03:00 (Senokot) 17.2 mg Q12H PRN PO 06/05/17 03:00 (Dulcolax Supp) 10 mg DAILY PRN RECTAL 06/05/17 03:00 (Lactulose Liq) 30 ml DAILY PRN PO 06/05/17 03:00 (Lipitor) 40 mg HS PO 06/05/17 21:00 06/06/17 23:12 (Coreg) 3.125 mg Q12HR PO 06/05/17 09:00 06/06/17 23:12 (LaMICtal) 100 mg BID PO 06/05/17 09:00 06/07/17 08:47 (Keppra) 250 mg BID PO 06/05/17 09:00 06/07/17 08:48 (Prinivil) 2.5 mg DAILY PO 06/05/17 09:00 Future Hold 06/06/17 09:00 (Ditropan) 5 mg HS PO 06/05/17 21:00 06/06/17 23:13 (Lyrica) 75 mg BID PO 06/05/17 09:00 06/07/17 08:48 (Spiriva Inh) 18 mcg DAILY INH 06/05/17 09:00 06/07/17 08:49 Lactated Ringer's 1,000 ml @ 30 mls/hr Q24H PRN IV 06/05/17 07:45 06/08/17 07:44 06/05/17 08:26 Sodium Chloride 500 ml @ 30 mls/hr [id number] PRN IV 1/5/18 07:45 06/08/17 07:44 (Lopressor) 25 mg CHRISTIAN SCIENCE NURSE PRN PO 06/05/17 07:45 06/08/17 07:44 (Betadine 5% Antisepsis Kit) 1 applic CHRISTIAN SCIENCE NURSE PRN EACH NARE 06/05/17 07:45 06/08/17 07:44 (Chlorhexidine 2% Cloth) 3 pack CHRISTIAN SCIENCE NURSE PRN TOPICAL 06/05/17 07:45 06/08/17 07:44 (Lovenox Inj) 30 mg Q24H SQ 06/06/17 12:30 06/07/17 12:36 ([place] 7.5-325 Mg) 1 tab Q3H PRN PO 06/05/17 13:15 06/07/17 00:34 (Morphine Inj) 3 mg Q3H PRN IV PUSH 06/05/17 13:15 (Vitamin D3) 5,000 units DAILY PO 06/06/17 09:00 06/07/17 08:48 (Albuterol Neb) 2.5 mg Q2HR NEB PRN NEB 06/05/17 16:30 A/P Assessment and Plan Left femoral fracture Orthopedic surgery was consulted. The patient is status post surgical repair. - Anticoagulation, weightbearing and wound care per orthopedic surgery. - Incentive spirometry. - Physical therapy. - Pain control with a bowel regimen. Seroma It was a complication following hernia repair on the left side. She had a drain placed recently by interventional radiology but it was removed in surgery. - Wound care as directed. - Outpatient follow-up with general surgery. Epilepsy The patient says it has been 2 years since her last seizure. - Continue home medications. - Outpatient follow-up. CVA The patient endorses slight left-sided weakness. - Continue with physical therapy. Hypokalemia Likely secondary to decreased by mouth intake. Resolved. - Replete and monitor. Leukocytosis Likely reactive. Chest x-ray unremarkable. - Follow CBC. Resolved. Hypertension Blood pressure has been low but stable. - Hold lisinopril and Coreg. - Status post fluids. Renal insufficiency Improved with IV fluids. - avoid nephrotoxins. Thrombocytopenia Appears somewhat chronic. - Monitor CBC. Anemia Postsurgical. - follow CBC. - check anemia labs, Hemoccult. PPx: Per orthopedic surgery Discharge Planning D/c to SNF vs. [facility] when cleared by ortho and if blood pressure is improved Nazario Liu DO Jun 07, 2017 15:52
[2017-06-07 16:04] VITALS: BP 112/67; PULSE 63; RESP 18; TEMP 97.9; O2SAT 100
[2017-06-07 17:27] LABS: % SATURATION IRON PROFILE 7.8 % (20-50); IRON (FE) 17 MCG/DL (50-170); TOTAL IRON BINDING CAPACITY 218 MCG/DL (250-450)
[2017-06-07 17:52] LABS: FERRITIN 116 NG/ML (8-252); FOLATE 15.1 NG/ML (3.1-17.5)
[2017-06-07 20:00] VITALS: BP 133/58; PULSE 81; RESP 18; TEMP 98.4; O2SAT 97
[2017-06-07] MEDS: OXYBUTYNIN CHLORIDE 5 MG TAB PO SCH (21:00)
[2017-06-07] MEDS: ATORVASTATIN 40 MG TAB PO SCH (23:39)
[2017-06-08] VITALS: BP 100/56; PULSE 72; RESP 16; TEMP 99.3; O2SAT 98
[2017-06-08 03:34] VITALS: BP 104/53; PULSE 69; RESP 17; TEMP 98.6; O2SAT 97
[2017-06-08 05:31] LABS: HEMOGLOBIN 8.2 GM/DL (11.6-15.3); MEAN CELL VOLUME 90.5 FL (80.0-100.0); MEAN CORPUSCULAR HGB CONC 34.2 % (32.0-36.0); MEAN PLATELET VOLUME 8.6 FL (7.0-11.0); PLATELET COUNT 100 TH/MM3 (150-450); RED BLOOD COUNT 2.65 MIL/MM3 (4.00-5.30); RED CELL DISTRIBUTION WIDTH 13.6 % (11.6-17.2); WHITE BLOOD COUNT 6.3 TH/MM3 (4.0-11.0)
--- NOTE | 2017-06-08 06:39 | PD.ORT.PN ---
Subjective Subjective Remarks POD 3 s/p left hip hemiarthroplasty doing well. pain controlled. out of bed with assistance Objective Vitals Vital Signs Date Time Temp Pulse Resp B/P (MAP) Pulse Ox O2 Delivery O2 Flow Rate FiO2 06/08/17 03:34 98.6 69 17 104/53 (70) 97 06/08/17 00:00 99.3 72 16 100/56 (71) 98 06/07/17 20:00 98.4 81 18 133/58 (83) 97 06/07/17 16:04 97.9 63 18 112/67 (82) 100 06/07/17 12:00 98.0 67 18 122/64 (83) 97 06/07/17 09:48 16 06/07/17 08:12 98.3 63 18 86/47 (60) 95 I/O 06/07/17 06/07/17 06/07/17 06/08/17 06/08/17 06/08/17 07:00 15:00 23:00 07:00 15:00 23:00 Intake Total 480 ml 240 ml 720 ml 360 ml Balance 480 ml 240 ml 720 ml 360 ml Intake Oral 480 ml 240 ml 720 ml 360 ml # Voids 2 2 2 2 # Bowel Movements 0 Result Diagram: 06/08/17 0504 06/07/17 0757 Imaging Last 24 hours Impressions Chest X-Ray 06/05/17 0031 Signed Impressions: Service Date/Time: Monday, June 05, 2017 00:54 - CONCLUSION: No acute cardiopulmonary disease identified. Duran Amaya MD Tibia/Fibula X-Ray 06/05/17 0000 Signed Impressions: Service Date/Time: Monday, June 05, 2017 00:56 - CONCLUSION: No evidence of fracture. Duran Amaya MD Hip and Pelvis X-Ray 06/05/17 0000 Signed Impressions: Service Date/Time: Monday, June 05, 2017 00:52 - CONCLUSION: 1. Impacted left femoral neck fracture. 2. Pigtail drainage catheter in the left proximal thigh at the level of the greater trochanter. 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 No acute intracranial findings. Duran Amaya MD Femur X-Ray 06/05/17 0000 Signed Impressions: Service Date/Time: Monday, June 05, 2017 00:51 - CONCLUSION: Impacted left femoral neck fracture. Duran Amaya MD Cervical Spine CT 06/05/17 0000 Signed Impressions: Service Date/Time: Monday, June 05, 2017 01:05 - CONCLUSION: 1. No evidence of fracture. 2. Prominent multilevel degenerative findings. Duran Amaya MD Objective Remarks LLE: dressings clean and dry. intact. NVI. +knee brace Assessment & Plan Assessment and Plan Left hip hemiarthroplasty POD 3 Physical therapy twice daily weightbearing as tolerated with posterior hip precautions Dry dressings over posterior incision. Leave in place if not soiled or disheveled Dressing over anterior hip to be changed daily with Xeroform and Primapore. May use ABDs instead if any significant drainage Lovenox Plan on discharge to rehabilitation follow-up Dr. Maloney or [place] in 2 weeks [place]/Instructional Writer SHELLEY Jun 08, 2017 06:39
[2017-06-08 08:00] VITALS: BP 116/60; PULSE 64; RESP 20; TEMP 99; O2SAT 100
[2017-06-08 10:10] VITALS: O2SAT 100
[2017-06-08] MEDS: lamoTRIgine 100 MG TAB PO SCH (10:58)
[2017-06-08] MEDS: DOCUSATE SODIUM 50 MG/SENNA 8.6 MG TAB PO SCH (10:58)
[2017-06-08] MEDS: PREGABALIN 75 MG CAP PO SCH (10:59)
[2017-06-08] MEDS: levETIRAcetam 250 MG TAB PO SCH (10:59)
[2017-06-08] MEDS: CHOLECALCIFEROL (VIT D3) 5000 UNIT CAP PO SCH (10:59)
[2017-06-08] MEDS: SODIUM CHLORIDE 0.9% FLUSH 10 ML FLUSH IV FLUSH SCH (10:59)
[2017-06-08] MEDS: TIOTROPIUM BROMIDE 18 MCG INH INH SCH (11:00)
[2017-06-08] MEDS: ENOXAPARIN SODIUM 30 MG/0.3 ML SYRINGE SQ SCH (11:14)
[2017-06-08] MEDS: ACETAMINOPHEN/HYDROcodone 325 MG/7.5 MG TAB PO PRN ×2 (11:15→17:24)
[2017-06-08 12:00] VITALS: BP 123/65; PULSE 66; RESP 18; TEMP 98.1; O2SAT 94
--- NOTE | 2017-06-08 12:18 | HHI.PR ---
Subjective Remarks Follow-up left hip fracture 06/08/17-patient seen and examined, stable and denies any significant lower extremity pain. States now she would like to be discharged to SNF however wants it to be done tomorrow Objective Vitals Vital Signs Date Time Temp Pulse Resp B/P (MAP) Pulse Ox O2 Delivery O2 Flow Rate FiO2 06/08/17 10:10 100 06/08/17 08:00 99.0 64 20 116/60 (78) 100 06/08/17 03:34 98.6 69 17 104/53 (70) 97 06/08/17 00:00 99.3 72 16 100/56 (71) 98 06/07/17 20:00 98.4 81 18 133/58 (83) 97 06/07/17 16:04 97.9 63 18 112/67 (82) 100 I/O 06/07/17 06/07/17 06/07/17 06/08/17 06/08/17 06/08/17 07:00 15:00 23:00 07:00 15:00 23:00 Intake Total 480 ml 240 ml 720 ml 360 ml Balance 480 ml 240 ml 720 ml 360 ml Intake Oral 480 ml 240 ml 720 ml 360 ml # Voids 2 2 2 2 # Bowel Movements 0 Result Diagram: 06/08/17 0504 06/07/17 0757 Imaging Last Impressions Hip and Pelvis X-Ray 06/05/17 1403 Signed Impressions: Service Date/Time: Monday, June 05, 2017 14:01 - CONCLUSION: Anatomic alignment. Tien Ledezma MD FACR Chest X-Ray 06/05/17 0031 Signed Impressions: Service Date/Time: Monday, June 05, 2017 00:54 - CONCLUSION: No acute cardiopulmonary disease identified. Duran Amaya MD Tibia/Fibula X-Ray 06/05/17 0000 Signed Impressions: Service Date/Time: Monday, June 05, 2017 00:56 - CONCLUSION: No evidence of fracture. 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 No acute intracranial findings. Duran Amaya MD Femur X-Ray 06/05/17 0000 Signed Impressions: Service Date/Time: Monday, June 05, 2017 00:51 - CONCLUSION: Impacted left femoral neck fracture. Duran Amaya MD Cervical Spine CT 06/05/17 0000 Signed Impressions: Service Date/Time: Monday, June 05, 2017 01:05 - CONCLUSION: 1. No evidence of fracture. 2. Prominent multilevel degenerative findings. Duran Amaya MD Objective Remarks GENERAL: NAD SKIN: Warm and dry. HEAD: Normocephalic. EYES: No scleral icterus. No injection or drainage. NECK: Supple, trachea midline. No JVD or lymphadenopathy. CARDIOVASCULAR: Regular rate and rhythm without murmurs, gallops, or rubs. RESPIRATORY: Breath sounds equal bilaterally. No accessory muscle use. GASTROINTESTINAL: Abdomen soft, non-tender, nondistended. MUSCULOSKELETAL: No cyanosis, or edema. BACK: Nontender without obvious deformity. No CVA tenderness. Procedures Left hip hemiarthroplasty A/P Problem List: (1) Fracture of neck of left femur ICD Code: S72.002A - Fracture of unspecified part of neck of left femur, initial encounter for closed fracture Status: Acute Assessment and Plan 76-year-old female with Left femoral fracture The patient is status post surgical repair. - Anticoagulation, weightbearing and wound care per orthopedic surgery. - Incentive spirometry. - Physical therapy. - Pain control with a bowel regimen. Seroma It was a complication following hernia repair on the left side. She had a drain placed recently by interventional radiology but it was removed in surgery. - Wound care as directed. - Outpatient follow-up with general surgery. Epilepsy The patient says it has been 2 years since her last seizure. - Continue home medications. - Outpatient follow-up. CVA The patient endorses slight left-sided weakness. - Continue with physical therapy. Hypokalemia-Resolved. Leukocytosis Likely reactive. Chest x-ray unremarkable. - Follow CBC. Resolved. Hypertension Blood pressure has been low but stable. - continue to Hold lisinopril and Coreg. - Status post fluids. Renal insufficiency Improved with IV fluids. - avoid nephrotoxins. Thrombocytopenia - chronic. - Monitor CBC. Anemia Postsurgical. - follow CBC. PPx: Lovenox Problem Qualifiers (1) Fracture of neck of left femur: Qualified Codes: S72.002A - Fracture of unspecified part of neck of left femur , initial encounter for closed fracture Jose Richard MD Jun 08, 2017 12:18
--- NOTE | 2017-06-08 12:25 | HHI.DS ---
Discharge Summary Admission Date Jun 05, 2017 at 02:37 Discharge Date: Jun 08, 2017 Admitting Diagnosis left femoral neck fracture, fall, closed head injury (1) Fracture of neck of left femur ICD Code: S72.002A - Fracture of unspecified part of neck of left femur, initial encounter for closed fracture Status: Acute Procedures Left hip hemiarthroplasty Brief History - From Admission The patient is a 76-year-old female with a past medical history of CVA, epilepsy and CAD who is presenting to the hospital after a fall at home. The patient said that she was getting ready to go to [facility] and after feeding a stray cat she walked back into her house and fell down. She is not sure what made her fall. She did not lose consciousness. She did not feel lightheaded or dizzy. She is not sure if she tripped. Her and neighbor helped her up into a chair and then called for an ambulance. The patient was found to have an impacted left femoral fracture and is status post repair. The patient says she was admitted to the hospital a couple weeks ago for vertigo. The patient also mentions that since September she has had complications following a hernia repair on the left side and had to have drainage procedures regularly. She says invasive radiology placed a drain and she follows with general surgery. CBC/BMP: 06/08/17 0504 06/07/17 0757 Significant Findings Laboratory Tests Test 06/06/17 04:57 06/07/17 07:57 06/07/17 08:37 06/08/17 05:04 White Blood Count 11.1 TH/MM3 (4.0-11.0) Red Blood Count 3.22 MIL/MM3 (4.00-5.30) 2.74 MIL/MM3 (4.00-5.30) 2.65 MIL/MM3 (4.00-5.30) Hemoglobin 9.8 GM/DL (11.6-15.3) 8.5 GM/DL (11.6-15.3) 8.2 GM/DL (11.6-15.3) Hematocrit 29.0 % (35.0-46.0) 24.8 % (35.0-46.0) 24.0 % (35.0-46.0) Platelet Count 112 TH/MM3 (150-450) 96 TH/MM3 (150-450) 100 TH/MM3 (150-450) Neutrophils (%) (Auto) 93.0 % (16.0-70.0) Lymphocytes (%) (Auto) 3.1 % (9.0-44.0) Neutrophils # (Auto) 10.3 TH/MM3 (1.8-7.7) Lymphocytes # (Auto) 0.3 TH/MM3 (1.0-4.8) Blood Urea Nitrogen 21 MG/DL (7-18) Creatinine 1.02 MG/DL (0.50-1.00) Random Glucose 144 MG/DL (74-106) Calcium Level 8.1 MG/DL (8.5-10.1) 7.9 MG/DL (8.5-10.1) Chloride Level 112 MEQ/L (98-107) 113 MEQ/L (98-107) Estimat Glomerular Filtration Rate 53 ML/MIN (>89) 60 ML/MIN (>89) Iron Level 17 MCG/DL (50-170) Total Iron Binding Capacity 218 MCG/DL (250-450) Percent Iron Saturation 7.8 % (20-50) Imaging Last Impressions Hip and Pelvis X-Ray 06/05/17 1403 Signed Impressions: Service Date/Time: Monday, June 05, 2017 14:01 - CONCLUSION: Anatomic alignment. Tien Ledezma MD FACR Chest X-Ray 06/05/17 0031 Signed Impressions: Service Date/Time: Monday, June 05, 2017 00:54 - CONCLUSION: No acute cardiopulmonary disease identified. Duran Amaya MD Tibia/Fibula X-Ray 06/05/17 0000 Signed Impressions: Service Date/Time: Monday, June 05, 2017 00:56 - CONCLUSION: No evidence of fracture. 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 No acute intracranial findings. Duran Amaya MD Femur X-Ray 06/05/17 0000 Signed Impressions: Service Date/Time: Monday, June 05, 2017 00:51 - CONCLUSION: Impacted left femoral neck fracture. Duran Amaya MD Cervical Spine CT 06/05/17 0000 Signed Impressions: Service Date/Time: Monday, June 05, 2017 01:05 - CONCLUSION: 1. No evidence of fracture. 2. Prominent multilevel degenerative findings. Duran Amaya MD PE at Discharge GENERAL: NAD SKIN: Warm and dry. HEAD: Normocephalic. EYES: No scleral icterus. No injection or drainage. NECK: Supple, trachea midline. No JVD or lymphadenopathy. CARDIOVASCULAR: Regular rate and rhythm without murmurs, gallops, or rubs. RESPIRATORY: Breath sounds equal bilaterally. No accessory muscle use. GASTROINTESTINAL: Abdomen soft, non-tender, nondistended. MUSCULOSKELETAL: No cyanosis, or edema. BACK: Nontender without obvious deformity. No CVA tenderness. Hospital Course While in hospital, patient was treated for: Left femoral fracture Orthopedic surgery was consulted and patient underwent repair. PT was consulted postoperatively. Pain management was provided and patient was placed on Lovenox for DVT prophylaxis Seroma It was a complication following hernia repair on the left side. She had a drain placed recently by interventional radiology but it was removed in surgery. - Wound care as directed. - Outpatient follow-up with general surgery. Epilepsy The patient says it has been 2 years since her last seizure. - She was continued on her home medications. - Outpatient follow-up. CVA The patient endorses slight left-sided weakness. - Physical therapy was consulted. Hypokalemia-Resolved. Leukocytosis Likely reactive. Chest x-ray unremarkable. - Follow CBC. Resolved. Hypertension - Lisinopril and Coreg were held due to low and soft BP. Renal insufficiency Improved with IV fluids. - avoid nephrotoxins. Thrombocytopenia - chronic. - Monitor CBC. Anemia Postsurgical. - follow CBC. PPx: Lovenox Pt Condition on Discharge: Good Discharge Disposition: Discharge to SNF Discharge Time: > 30 minutes Discharge Instructions DIET: Follow Instructions for: Heart Healthy Diet Activities you can perform: Regular-No Restrictions Follow up Referrals: Orthopedics - [facility] Weeks [facility] with Adam Weber MD PCP Follow-up - 2-3 Days New Medications: Calcium Carbonate-Vitamin D (Calcium 600+D 200) 600-200 Mg-Unit Tab 1 TAB PO BID for Nutritional Supplement, #90 TAB 0 Refills Ergocalciferol (Ergocalciferol) 50,000 Unit Cap 10737 UNITS PO Q7D for Nutritional Supplement, #8 CAP Hydrocodone-Acetaminophen (Hydrocodone-Acetaminophen) 7.5 Mg-325 Mg Tab 1 TAB PO Q4H PRN for PAIN, #60 TAB 0 Refills Rivaroxaban (Xarelto) 10 Mg Tab 10 MG PO DAILY for Blood Clot Prevention, #14 TAB 0 Refills Walker/Adult/Folding (Walker/Adult/Folding) 1 Mis Mis EA .ROUTE DIRECTED, #1 0 Refills Continued Medications: Albuterol 6.7 GM Inh (Proventil Hfa 6.7 GM Inh) 90 Mcg/Act Aer 2 PUFF INH Q4-6H PRN for SHORTNESS OF BREATH, #1 INHALER 0 Refills Aspirin (Aspirin Low Dose) 81 Mg Chew 81 MG CHEW DAILY, TAB 0 Refills Atorvastatin (Lipitor) 40 Mg Tab 40 MG PO HS for Cholesterol Management, #30 TAB 0 Refills Biotin (Biotin) 5 Mg Tab 5 MG PO, #1 BOTTLE Carvedilol (Coreg) 3.125 Mg Tab 3.125 MG PO Q12HR for CARDIOMYOPATHY for 30 Days, #60 TAB Cyanocobalamin (Vitamin B-12) 1,000 Mcg Tab 1000 MCG PO DAILY for Nutritional Supplement, #1 BOTTLE 0 Refills Folic Acid (Folic Acid) 400 Mcg Tab 400 MCG PO DAILY for Nutritional Supplement, TAB 0 Refills Lamotrigine (Lamotrigine) 100 Mg Tab 100 MG PO BID for Control Seizures, #60 TAB 0 Refills Levetiracetam (Levetiracetam) 250 Mg Tab 250 MG PO BID for Control Seizures, #60 TAB 0 Refills Oxybutynin (Ditropan) 5 Mg Tab 5 MG PO HS for Urinary Symptom Managemen, #60 TAB 0 Refills Pregabalin (Lyrica) 75 Mg Cap 75 MG PO BID, #60 CAP 0 Refills Tiotropium Inh (Spiriva Handihaler) 18 Mcg Cap 18 MCG INH DAILY for COPD, #30 CAP 0 Refills 1 capsule = 18 mcg Jose Richard MD Jun 08, 2017 12:25
[2017-06-08] MEDS ORDERED: LYRI75CA PO (16:06)
== END 2017-06-08 17:41 | DRG 470 ==
LOC: NEPC 00:12 → NEDA 02:37 → N06B 03:36
PROVIDERS: ADMIT Hospitalist; ATTEND Hospitalist
PROC: 0SRS01A Replacement of Left Hip Joint, Femoral Surface with Metal Synthetic Substitute, Uncemented, Open Approach (ICD-10-PCS; principal; 2017-06-05 11:58)
DX: S72.002A Fracture of unspecified part of neck of left femur, initial encounter for closed fracture (principal); D69.6 Thrombocytopenia, unspecified; I11.0 Hypertensive heart disease with heart failure; I50.9 Heart failure, unspecified; I69.354 Hemiplegia and hemiparesis following cerebral infarction affecting left non-dominant side; S09.90XA Unspecified injury of head, initial encounter; J44.9 Chronic obstructive pulmonary disease, unspecified; M19.90 Unspecified osteoarthritis, unspecified site; M25.562 Pain in left knee; W01.0XXA Fall on same level from slipping, tripping and stumbling without subsequent striking against object, initial encounter; E78.5 Hyperlipidemia, unspecified; I25.10 Atherosclerotic heart disease of native coronary artery without angina pectoris; G40.909 Epilepsy, unspecified, not intractable, without status epilepticus; M54.2 Cervicalgia; F17.210 Nicotine dependence, cigarettes, uncomplicated; E87.6 Hypokalemia; D72.829 Elevated white blood cell count, unspecified; N28.9 Disorder of kidney and ureter, unspecified; D64.9 Anemia, unspecified; Z95.1 Presence of aortocoronary bypass graft; Z95.5 Presence of coronary angioplasty implant and graft; Y92.009 Unspecified place in unspecified non-institutional (private) residence as the place of occurrence of the external cause; I25.2 Old myocardial infarction; Z79.82 Long term (current) use of aspirin
CPT/HCPCS: 70450; 71045; 72125; 73502; 73503; 73552; 73590; 80048; 80053; 82306; 82607; 82728; 82746; 83540; 83550; 83735; 85025; 85027; 85610; 85730; 93005; 94150; C1776; J0131; J0690; J1100; J1580; J1650; J2270; J2370; J2405; J3010; J3370; J7030; J7040; J7050; J7120; L1830

== ENCOUNTER 2017-07-09 10:25 | Inpatient (IN) | payer MEDICARE ==
[~2017-07-09] VITALS: Ht 157.5 cm; Wt 65.1 kg
[2017-07-09] VITALS (8 sets, daily range): BP systolic 102–169; BP diastolic 53–73; PULSE 59–72; RESP 15–20; TEMP 97.6–98.8; O2SAT 95–100
[~2017-07-09 10:25] MED LIST changes: +BIOT5TAB PO; +CALCTAB19 PO; +HYDR-3580 PO; +VITA10002 PO; +VITA200C3 PO; +VITA500012 PO; +WALKER/ADULT/FO1 MIS; +XARE10TA PO
--- NOTE | 2017-07-09 11:41 | RADRPT ---
EXAM DATE/TIME: 07/09/2017 11:28 [facility] COMPARISON: CT BRAIN W/O CONTRAST, June 05, 2017, 1:05. INDICATIONS : Patient fell and hit left temporal area of head RADIATION DOSE: 56.35 CTDIvol (mGy) MEDICAL HISTORY : Cardiovascular disease. Hypertension. Chronic obstructive pulmonary disease. SURGICAL HISTORY : Hysterectomy. ENCOUNTER: Initial ACUITY: 1 day PAIN SCALE: 3/10 LOCATION: Left cranial TECHNIQUE: Multiple contiguous axial images were obtained of the head. Using automated exposure control and adj ustment of the mA and/or kV according to patient size, radiation dose was kept as low as reasonably a chievable to obtain optimal diagnostic quality images. DICOM format image data is available electro nically for review and comparison. FINDINGS: Stable remote encephalomalacia in the right parietal-occipital region. There is no evidence of intrac ranial mass or hemorrhage. There is nothing to suggest acute injury or acute infarction. There is a s calp laceration in the left frontal region. No evidence of underlying skull fracture. Sinuses and mas toids are clear. CONCLUSION: No acute intracranial injury Shahid Davis MD on July 09, 2017 at 11:38 Board Certified Radiologist. This report was verified electronically.
[2017-07-09 12:07] LABS: AUTOMATED NEUTROPHIL # 7.6 TH/MM3 (1.8-7.7); BASOPHIL # 0.1 TH/MM3 (0-0.2); BASOPHIL % 0.7 % (0.0-2.0); EOSINOPHIL # 0.4 TH/MM3 (0-0.4); EOSINOPHIL % 4.3 % (0.0-4.0); HEMOGLOBIN 11.6 GM/DL (11.6-15.3); LYMPH % 7.8 % (9.0-44.0); LYMPHOCYTE # 0.7 TH/MM3 (1.0-4.8); MEAN CELL VOLUME 88.5 FL (80.0-100.0); MEAN CORPUSCULAR HEMOGLOBIN 30.3 PG (27.0-34.0); MEAN CORPUSCULAR HGB CONC 34.2 % (32.0-36.0); MEAN PLATELET VOLUME 8.4 FL (7.0-11.0); MONO % 4.9 % (0.0-8.0); MONOCYTE # 0.5 TH/MM3 (0-0.9); NEUT % 82.3 % (16.0-70.0); PLATELET COUNT 201 TH/MM3 (150-450); RED BLOOD COUNT 3.85 MIL/MM3 (4.00-5.30); RED CELL DISTRIBUTION WIDTH 14.1 % (11.6-17.2); WHITE BLOOD COUNT 9.3 TH/MM3 (4.0-11.0)
[2017-07-09 12:24] LABS: CALCIUM 9.2 MG/DL (8.5-10.1); CREATININE 1.12 MG/DL (0.50-1.00)
--- NOTE | 2017-07-09 12:27 | RADRPT ---
EXAM DATE/TIME: 07/09/2017 11:31 [facility] COMPARISON: CT CERVICAL SPINE W/O CONTRAST, June 05, 2017, 1:05. INDICATIONS : Patient fell and hit head RADIATION DOSE: 25.82 CTDIvol (mGy) MEDICAL HISTORY : Cardiovascular disease. Hypertension. Chronic obstructive pulmonary disease. SURGICAL HISTORY : Hysterectomy. ENCOUNTER: Initial ACUITY: 1 day PAIN SCALE: 0/10 LOCATION: neck TECHNIQUE: Volumetric scanning of the cervical spine was performed. Multiplanar reconstructions in the sagittal, coronal and oblique axial planes were performed. Using automated exposure control and adjustment o f the mA and/or kV according to patient size, radiation dose was kept as low as reasonably achievable to obtain optimal diagnostic quality images. DICOM format image data is available electronically f or review and comparison. FINDINGS: There is normal alignment of the vertebral bodies of the cervical spine in lateral projection and pre servation of vertebral body height. Narrowing of the C5-6 interspace with endplate sclerosis and post erior osteophytes at C5-6 and C6-7 are similar in appearance to prior exam June 2017. There is a m ild curvature of the cervical spine convex toward the left which is a new finding from prior exam, pr obably positional. Moderate severity degenerative changes in the facet joints at C3-C6, stable from p rior. The atlantoaxial articulation is intact. C2-C3: Central bulging of the disc is similar to prior. Moderate left-sided neural foraminal stenosis due to facet joint hypertrophy, stable. C3-C4: Bilateral neuroforaminal narrowing, left greater than right due to facet joint hypertrophy, stable fr om prior. No fracture seen. C4-C5: Moderate bilateral neural foraminal stenosis due to a combination of endplate hypertrophy and lateral mass hypertrophy, stable from prior. No fracture seen. C5-C6: Moderate bilateral neural foraminal stenosis, stable. No fracture seen. C6-C7: The bony spinal canal is normal in size. Mild central disc, similar to prior.. The neural foramina a re bilaterally patent. C7-T1: The bony spinal canal is normal in size. No evidence of disc bulge or herniation. The neural forami na are bilaterally patent. CONCLUSION: 1. No evidence of compression deformity or spondylolisthesis. No fracture seen. 2. Advanced lateral mass arthrosis and multilevel neural foraminal stenosis, similar to prior CT. 3. There is a levocurvature of the cervical spine convex towards the left position. Carlton Lundberg MD on July 09, 2017 at 12:04 Board Certified Radiologist. This report was verified electronically.
[2017-07-09] MEDS ORDERED: LIDOCAINE 1%/EPINEPHrine 1:100,000 SOLN 50 ML VIAL INFIL ONE (12:45)
[2017-07-09] MEDS ORDERED: SODIUM CHLORID 0.9% 500 ML INJ 500 ML IV ONE (12:45)
[2017-07-09] MEDS ORDERED: POTASSIUM CHLORIDE 20 MEQ CONTROLLED RELEASE TAB PO ONE (12:45)
--- NOTE | 2017-07-09 12:48 | RADRPT ---
EXAM DATE/TIME: 07/09/2017 12:20 [facility] COMPARISON: HIP LEFT (AP&LAT 2/3VWS) W AP PELVIS, June 05, 2017, 14:01. INDICATIONS : Left hip pain, fall. MEDICAL HISTORY : Cardiovascular disease. Hypertension. Chronic obstructive pulmonary disease. SURGICAL HISTORY : Hysterectomy. Left total hip replacement. ENCOUNTER: Initial ACUITY: 1 day PAIN SCORE: 5/10 LOCATION: Left proximal hip FINDINGS: Examination of the left hip was performed with AP Pelvis. Left total hip arthroplasty remains intact. No fracture of the regional [place] osseous structures. 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 Surgical cl ips over the right inguinal region may be related to a prior vascular intervention. Degenerative spur ring of the lower lumbar spine and both SI joints. Atherosclerotic calcification of the regional vasc ulature. CONCLUSION: 1. Left total hip arthroplasty remains intact. No acute fracture. 2. Postsurgical changes characteristic of prior mesh repair for abdominal wall hernia. Surgical clips in the right inguinal region could be related to a prior vascular intervention. Michael Breaux MD on July 09, 2017 at 12:43 Board Certified Radiologist. This report was verified electronically.
--- NOTE | 2017-07-09 12:50 | RADRPT ---
EXAM DATE/TIME: 07/09/2017 12:26 [facility] COMPARISON: TIBIA/FIBULA LEFT (AP/LAT), June 05, 2017, 0:56. INDICATIONS : Left leg pain, fall. MEDICAL HISTORY : Cardiovascular disease. Hypertension. Chronic obstructive pulmonary disease. SURGICAL HISTORY : Lef total hip replacement. ENCOUNTER: Initial ACUITY: 1 day PAIN SCORE: 6/10 LOCATION: Left proximal leg FINDINGS: Two view examination of the left tibia demonstrates no evidence of fracture or dislocation. Bony min eralization is normal. The soft tissue structures are intact. CONCLUSION: No fracture. Michael Breaux MD on July 09, 2017 at 12:47 Board Certified Radiologist. This report was verified electronically.
--- NOTE | 2017-07-09 12:50 | RADRPT ---
EXAM DATE/TIME: 07/09/2017 12:24 [facility] COMPARISON: FEMUR LEFT (AP & LAT/2VWS), June 05, 2017, 0:51. INDICATIONS : Left femur pain, fall. MEDICAL HISTORY : None. Cardiovascular disease. Hypertension. Chronic obstructive pulmonary disease. SURGICAL HISTORY : Left total hip replacement. ENCOUNTER: Initial ACUITY: 1 day PAIN SCORE: 10/10 LOCATION: Left middle femur FINDINGS: Two view examination of the left femur demonstrates a total arthroplasty which represents interval re pair for a prior subcapital fracture. The arthroplasty remains intact without dislocation. No fractur e of the regional [place] osseous structures. Calcified calcification of the regional vasculature. CONCLUSION: 1. Left total hip arthroplasty remains intact without dislocation. 2. No acute fracture Michael Breaux MD on July 09, 2017 at 12:46 Board Certified Radiologist. This report was verified electronically.
--- NOTE | 2017-07-09 13:45 | PD ---
HPI Chief Complaint: Fall Time Seen by Provider: 11:00 Travel History International Travel<30 days: No Contact w/Intl Traveler<30days: No Traveled to known affect area: No History of Present Illness HPI 76-year-old female with history of coronary artery disease, COPD, cardiomyopathy , previous CVA, recent hip surgery and fracture, who presents here after having an episode of dizziness followed by a fall. Patient has laceration to her left upper scalp. Patient states that she went to go use her walker while dizzy and turned to the left when she wanted to go to the right and fell. She reports pain in her left forehead as well as pain in her left hip and leg. She denies any syncope but did state that the dizziness was new. She reports inability to ambulate secondary to the pain in her leg. There is no obvious shortening or external rotation of the left leg. PFSH Past Medical History Arthritis: Yes Asthma: Yes Cancer: No Cardiac Catheterization: Yes Cardiovascular Problems: Yes ([place]; HX CHF) High Cholesterol: Yes Chest Pain: Yes Congestive Heart Failure: Yes COPD: Yes Cerebrovascular Accident: Yes (STROKE AT AGE 27, TIA VS STROKE OCTOBER 2013) Coronary Artery Disease: Yes Diabetes: No Diminished Hearing: No Endocrine: No Gastrointestinal Disorders: Yes (HX DIVERTICULTIS) Genitourinary: Yes (HAD SURGERY - BLADDER SUSPENSION) Headaches: No Hepatitis: No Hiatal Hernia: No Hypertension: Yes Immune Disorder: No Medical other: Yes (COPD) Musculoskeletal: Yes (ARTHRITIS; BACK AND NECK PAIN) Neurologic: Yes (HAD STROKE AT AGE 26; ALSO HAS EPILEPSY ;STROKE NOVEMBER 07 AND NOVEMBER 13) Psychiatric: No Respiratory: Yes (COPD POSSIBLE SLEEP APNEA) Migraines: No Seizures: Yes (EPILEPSY) Thyroid Disease: No Influenza Vaccination: Yes Menopausal: Yes : 3 Para: 3 Miscarriage: 1 Dilation and Curettage (D&C): Yes Tubal Ligation: Yes Past Surgical History Abdominal Surgery: Yes (HERNIA SURGERY X 14) AICD: No Body Medical Devices: [place] FILTER & SHUNT FROM AORTIC FEMORAL BYPASS SURGERY CARDIAC STENTS Cardiac Surgery: Yes (AORTIC BYPASS) Section: Yes Cholecystectomy: Yes Coronary Stent: Yes Ear Surgery: No Endocrine Surgery: No Eye Surgery: No Genitourinary Surgery: Yes (BLADDER SURGERY X6) Gynecologic Surgery: Yes Hysterectomy: Yes (PARTIAL) Joint Replacement: No Neurologic Surgery: No Oral Surgery: No Pacemaker: No Thoracic Surgery: No Other Surgery: Yes (STATES SHE "CANT REMEMBER THEM ALL") Social History Alcohol Use: No Tobacco Use: Yes Substance Use: No Allergies-Medications (Allergen,Severity, Reaction): Coded Allergies: Sulfa (Sulfonamide Antibiotics) (Unverified Allergy, Severe, RASH, 06/05/17) INTERMEDIATE REACTION niacin (Unverified Allergy, Severe, FELT BODY WAS ON FIRE, 06/05/17) estradiol (Unverified Allergy, Unknown, 06/05/17) HAD STROKE AGE 27 FROM ORAL CONTRACEPTIVES estrogens, conjugated (Unverified Allergy, Unknown, 06/05/17) HAD STROKE AGE 27 FROM ORAL CONTRACEPTIVES amoxicillin (Unverified Adverse Reaction, Severe, Nausea/Vomiting, 06/05/17) Reported Meds & Prescriptions Reported Meds & Active Scripts Active Lyrica (Pregabalin) 75 Mg Cap 75 Mg PO BID Calcium 600+D 200 (Calcium Carbonate-Vitamin D) 600-200 Mg-Unit Tab 1 Tab PO BID Ergocalciferol 50,000 Unit Cap 50,000 Units PO Q7D Xarelto (Rivaroxaban) 10 Mg Tab 10 Mg PO DAILY Hydrocodone-Acetaminophen 7.5 Mg-325 Mg Tab 1 Tab PO Q4H PRN Walker/Adult/Folding (Device) 1 Mis Mis Ea .ROUTE DIRECTED Lisinopril 5 Mg Tab 2.5 Mg PO DAILY 30 Days Coreg (Carvedilol) 3.125 Mg Tab 3.125 Mg PO Q12HR 30 Days Reported Biotin 5 Mg Tab 5 Mg PO Vitamin E Unknown Strength Cap Unknown Dose PO DAILY Vitamin B-12 (Cyanocobalamin) 1,000 Mcg Tab 1,000 Mcg PO DAILY Aspirin Low Dose (Aspirin) 81 Mg Chew 81 Mg CHEW DAILY Ditropan (Oxybutynin Chloride) 5 Mg Tab 5 Mg PO HS Folic Acid 400 Mcg Tab 400 Mcg PO DAILY Lyrica (Pregabalin) 75 Mg Cap 75 Mg PO BID Lamotrigine 100 Mg Tab 100 Mg PO BID Proventil Hfa 6.7 GM Inh (Albuterol Sulfate) 90 Mcg/Act Aer 2 Puff INH Q4-6H PRN Spiriva Handihaler (Tiotropium Inh) 18 Mcg Cap 18 Mcg INH DAILY 1 capsule = 18 mcg Lipitor (Atorvastatin Calcium) 40 Mg Tab 40 Mg PO HS Levetiracetam 250 Mg Tab 250 Mg PO BID Review of Systems Except as stated in HPI: all other systems reviewed are Neg General / Constitutional: No: Fever HENT: Positive: Headaches, Other (2-1/2 inch laceration to the left forehead), No: Neck Pain (Left forehead) Cardiovascular: No: Chest Pain or Discomfort, Palpitations, Irregular Rhythm Respiratory: No: Cough, Shortness of Breath Gastrointestinal: No: Nausea, Vomiting, Abdominal Pain Genitourinary: No: Frequency, Dysuria Musculoskeletal: Positive: Limited ROM, Weakness, Pain (Left hip and lower leg) Skin: No Rash (Secondary to pain), No Lesions Neurologic: Positive: Weakness, Headache (Previous CVA affecting her right side left forehead), Other, No: Incontinence Physical Exam Narrative GENERAL: Well-developed well-nourished female in no acute respiratory distress. SKIN: Focused skin assessment warm/dry. HEAD: Normocephalic. 2-1/2 inch laceration to the left forehead. EYES: extraocular muscles were intact. No scleral icterus. No injection or drainage. ENT: No nasal bleeding or discharge. Mucous membranes pink and moist. NECK: Trachea midline. Supple. CARDIOVASCULAR: Regular rate and rhythm. No murmur appreciated. RESPIRATORY: No accessory muscle use. Clear to auscultation. Breath sounds equal bilaterally. GASTROINTESTINAL: Abdomen soft, non-tender, nondistended. Hepatic and splenic margins not palpable. MUSCULOSKELETAL: No obvious deformities. No clubbing. No cyanosis. No edema. Pain in the left hip, mid femur, tib-fib area NEUROLOGICAL: Awake and alert. No obvious cranial nerve deficits. Motor grossly within normal limits, however decreased range of motion in the left lower extremity secondary to pain. Normal speech. Data Data Last Documented VS Vital Signs Date Time Temp Pulse Resp B/P (MAP) Pulse Ox O2 Delivery O2 Flow Rate FiO2 07/09/17 13:27 62 18 135/68 (90) 100 Room Air Orders Orders Femur (Ap & Lat/2vws) (07/09/17 11:01) Hip, Uni(Ap&Lat) W Ap Pelvis (07/09/17 11:01) Tibia/Fibula (Ap/Lat) (07/09/17 11:01) Ct Brain W/O Iv Contrast(Rout) (07/09/17 11:01) Ct Cerv Spine W/O Contrast (07/09/17 11:01) Complete Blood Count With Diff (07/09/17 11:01) Basic Metabolic Panel (Bmp) (07/09/17 11:01) Iv Access Insert/Monitor (07/09/17 11:01) Ecg Monitoring (07/09/17 11:01) Oximetry (07/09/17 11:01) Sodium Chlorid 0.9% 500 Ml Inj (Ns 500 M (07/09/17 12:45) Potassium Chloride (Kcl) (07/09/17 12:45) Lidocai-Epi 1%-1:100,000 Inj (Xylocaine- (07/09/17 12:45) Labs Laboratory Tests Test 07/09/17 11:20 White Blood Count 9.3 TH/MM3 Red Blood Count 3.85 MIL/MM3 Hemoglobin 11.6 GM/DL Hematocrit 34.0 % Mean Corpuscular Volume 88.5 FL Mean Corpuscular Hemoglobin 30.3 PG Mean Corpuscular Hemoglobin Concent 34.2 % Red Cell Distribution Width 14.1 % Platelet Count 201 TH/MM3 Mean Platelet Volume 8.4 FL Neutrophils (%) (Auto) 82.3 % Lymphocytes (%) (Auto) 7.8 % Monocytes (%) (Auto) 4.9 % Eosinophils (%) (Auto) 4.3 % Basophils (%) (Auto) 0.7 % Neutrophils # (Auto) 7.6 TH/MM3 Lymphocytes # (Auto) 0.7 TH/MM3 Monocytes # (Auto) 0.5 TH/MM3 Eosinophils # (Auto) 0.4 TH/MM3 Basophils # (Auto) 0.1 TH/MM3 CBC Comment DIFF FINAL Differential Comment Blood Urea Nitrogen 25 MG/DL Creatinine 1.12 MG/DL Random Glucose 94 MG/DL Calcium Level 9.2 MG/DL Sodium Level 141 MEQ/L Potassium Level 3.3 MEQ/L Chloride Level 108 MEQ/L Carbon Dioxide Level 26.0 MEQ/L Anion Gap 7 MEQ/L Estimat Glomerular Filtration Rate 47 ML/MIN [facility] Medical Decision Making Medical Screen Exam Complete: Yes Emergency Medical Condition: Yes Differential Diagnosis TIA versus presyncope versus metabolic derangement versus left hip fracture versus intracranial injury Narrative Course 76-year-old female with history of cardiomyopathy, previous CVA, presents after having a mechanical fall that was preceded by dizziness. The patient states that she felt very dizzy and tried to ambulate with her walker and fell striking her head. Patient is a large laceration to her left frontal temporal area. This is been repaired by Logan Abraham PA-C. The patient was noted to be mildly dehydrated and have mild hypokalemia. She has had 500 cc of fluid and 20 mEq of potassium chloride. The patient states that she is unable to ambulate secondary to pain in her left leg. There is no evidence of fracture on her left hip or lower extremity. She does have postsurgical hip repair changes. She will be admitted to the resident service for the inability to ambulate. She will likely need to have physical therapy and possibly rehabilitation. Diagnosis Primary Impression: Pre-syncope Additional Impressions: Mild dehydration History of cardiomyopathy Rule out TIA Left hip pain, inability to ambulate Admitting Information Admitting Physician Requests: Observation Xavier Ash MD Jul 09, 2017 13:45
--- NOTE | 2017-07-09 14:53 | HHI.HP ---
HPI Service Family Medicine Primary Care Physician Rambo Puckett MD Admission Diagnosis pre syncopy, mild dehydration, hypokalemia, inability to ambulate, l Diagnoses: International Travel<30 Days: No Contact w/Intl Traveler<30days: No Known Affected Area: No History of Present Illness 76 y/o F, pmhx of left hip arthroplasty in June after fall, CAD stent placement, epilepsy, and vertigo comes in after fall this morning between 8:00-9 :00AM. Pt was walking with her walker and took a turn to the left and fell - she has no idea why - and used the bookcase to catch her fall using her hand. She was sitting at the desk in the computer room prior to doing this when she started to feel dizzy. She has had vertigo before and she did NOT have vertigo at this time. She denies any headache, N/V. She hit her head on something but she is not sure what. The family is here to assist in the story and they relate that she hit her head on the side of the entertainment center. She does not complain of any head pain since she hit the head. She was in Rehab for 28 days after her surgery and got out 1 week ago. She has been exhausted for the entire week because she didn't sleep well in the rehab. She got up frequently to clean the house for short periods of time. She had 1 episode 4 days ago where she felt chest pain, she took tums, and then she threw up. This was an isolated episode and didn't happen again the last 3 days. Per the family, she has not been taking her dilantin as prescribed and she had increased episodes where her eyes are glazed over for multiple months. Review of Systems ROS Limitations: Poor Historian Constitutional: DENIES: Weight loss, Chills Endocrine: DENIES: Heat/cold intolerance Eyes: DENIES: Eye inflammation, Eye pain Respiratory: DENIES: Wheezing, Hemoptysis Cardiovascular: COMPLAINS OF: Orthopnea (yes she has to sit on edge of bed before she gets all the way up), DENIES: Lower Extremity Edema Gastrointestinal: DENIES: Constipation, Diarrhea Genitourinary: DENIES: Urinary frequency, Urinary incontinence Integumentary: DENIES: Rash Psychiatric: DENIES: Mood changes, Depression Past Family Social History Past Medical History Epilepsy - last seizure 2.5 years ago CVA with left-sided weakness - 2-mini stroked 2 years ago Hyperlipidemia CAD status post stent placement -placed in 2000, cardiologst ? Vertigo, and eyes "glazed over" - 4-6 months Hx of hernia PCP [facility], last visit Past Surgical History Aortofemoral bypass [place] filter placement Breast surgery for cyst removal Bladder surgery Hernia repair Hysterectomy Cholecystectomy Tubal ligation Allergies: Coded Allergies: Sulfa (Sulfonamide Antibiotics) (Unverified Allergy, Severe, RASH, 06/05/17) INTERMEDIATE REACTION niacin (Unverified Allergy, Severe, FELT BODY WAS ON FIRE, 06/05/17) estradiol (Unverified Allergy, Unknown, 06/05/17) HAD STROKE AGE 27 FROM ORAL CONTRACEPTIVES estrogens, conjugated (Unverified Allergy, Unknown, 06/05/17) HAD STROKE AGE 27 FROM ORAL CONTRACEPTIVES amoxicillin (Unverified Adverse Reaction, Severe, Nausea/Vomiting, 06/05/17) Family History Mother - heart disease Social History Live with , 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 Very talkative, awake alert and oriented 3 SKIN: No rashes, ecchymoses or lesions. Cool and dry. HEAD: Atraumatic. Normocephalic. Frontotemporal laceration is sutured 5 cm across scalp, with abrasion another 10 cm. No active bleeding or drainage from site. No tenderness over site EYES: Pupils equal round and reactive. Extraocular motions intact. No scleral icterus. No injection or drainage. ENT: Nose without bleeding, purulent drainage or septal hematoma. Throat without erythema, tonsillar hypertrophy or exudate. Uvula midline. Airway patent. NECK: Trachea midline. No JVD or lymphadenopathy. Supple, nontender, no meningeal signs. CARDIOVASCULAR: Regular rate and rhythm without murmurs, gallops, or rubs. RESPIRATORY: Clear to auscultation. Breath sounds equal bilaterally, although distant. No wheezes, rales, or rhonchi. GASTROINTESTINAL: Abdomen soft, non-tender, nondistended. No hepato-splenomegaly , or palpable masses. No guarding. MUSCULOSKELETAL: Superficial Abrasions on dorsum of left and right hands. Extremities without clubbing, cyanosis, or edema. No joint tenderness, effusion , or edema noted. No calf tenderness. Negative Homans sign bilaterally. Vague left leg pain NEUROLOGICAL: Awake and alert. Cranial nerves II through XII intact. Motor and sensory grossly within normal limits. Left sided weakness in comparison to right due to pain. Normal speech. Laboratory Laboratory Tests Test 07/09/17 11:20 White Blood Count 9.3 Red Blood Count 3.85 Hemoglobin 11.6 Hematocrit 34.0 Mean Corpuscular Volume 88.5 Mean Corpuscular Hemoglobin 30.3 Mean Corpuscular Hemoglobin Concent 34.2 Red Cell Distribution Width 14.1 Platelet Count 201 Mean Platelet Volume 8.4 Neutrophils (%) (Auto) 82.3 Lymphocytes (%) (Auto) 7.8 Monocytes (%) (Auto) 4.9 Eosinophils (%) (Auto) 4.3 Basophils (%) (Auto) 0.7 Neutrophils # (Auto) 7.6 Lymphocytes # (Auto) 0.7 Monocytes # (Auto) 0.5 Eosinophils # (Auto) 0.4 Basophils # (Auto) 0.1 CBC Comment DIFF FINAL Differential Comment Blood Urea Nitrogen 25 Creatinine 1.12 Random Glucose 94 Calcium Level 9.2 Sodium Level 141 Potassium Level 3.3 Chloride Level 108 Carbon Dioxide Level 26.0 Anion Gap 7 Estimat Glomerular Filtration Rate 47 Result Diagram: 07/09/17 1120 07/09/17 1120 Caprini VTE Risk Assessment Caprini VTE Risk Assessment: No/Low Risk (score <= 1) Caprini Risk Assessment Model Point Value = 1 Point Value = 2 Point Value = 3 Point Value = 5 Age 41-60 Minor surgery BMI > 25 kg/m2 Swollen legs Varicose veins or History of unexplained or recurrent spontaneous Oral contraceptives or hormone replacement Sepsis (< 1 month) Serious lung disease, including pneumonia (< 1 month) Abnormal pulmonary function Acute myocardial infarction Congestive heart failure (< 1 month) History of inflammatory bowel disease Medical patient at bed rest Age 61-74 Arthroscopic surgery Major open surgery (> 45 min) Laparoscopic surgery (> 45 min) Malignancy Confined to bed (> 72 hours) Immobilizing plaster cast Central venous access Age >= 75 History of VTE Family history of VTE Factor V Leiden Prothrombin [id number] Lupus anticoagulant Anticardiolipin antibodies Elevated serum homocysteine Heparin-induced thrombocytopenia Other congenital or acquired thrombophilia Stroke (< 1 month) Elective arthroplasty Hip, pelvis, or leg fracture Acute spinal cord injury (< 1 month) Prophylaxis Regimen Total Risk Factor Score Risk Level Prophylaxis Regimen 0-1 Low Early ambulation 2 Moderate Order ONE of the following: *Sequential Compression Device (SCD) *Heparin 5000 units SQ BID 3-4 Higher Order ONE of the following medications: *Heparin 5000 units SQ TID *Enoxaparin/Lovenox 40 mg SQ daily (WT < 150 kg, CrCl > 30 mL/min) *Enoxaparin/Lovenox 30 mg SQ daily (WT < 150 kg, CrCl > 10-29 mL/min) *Enoxaparin/Lovenox 30 mg SQ BID (WT < 150 kg, CrCl > 30 mL/min) AND/OR *Sequential Compression Device (SCD) 5 or more Highest Order ONE of the following medications: *Heparin 5000 units SQ TID (Preferred with Epidurals) *Enoxaparin/Lovenox 40 mg SQ daily (WT < 150 kg, CrCl > 30 mL/min) *Enoxaparin/Lovenox 30 mg SQ daily (WT < 150 kg, CrCl > 10-29 mL/min) *Enoxaparin/Lovenox 30 mg SQ BID (WT < 150 kg, CrCl > 30 mL/min) AND *Sequential Compression Device (SCD) Assessment and Plan Assessment and Plan 76 y/o F, pmhx of left hip arthroplasty in June after fall, CAD stent placement, epilepsy, previous CVA, and vertigo comes in with pre-syncopal fall. Differential includes seizure, stroke, vitamin deficiency, vertigo. Patient will need workup for etiology of falls and physical therapy evaluation for safe discharge to home or to rehabilitation/SNF. Code Status Full code Discussed Condition With Dr. Dos Santos Problem List: (1) Pre-syncope ICD Codes: R55 - Syncope and collapse Status: Acute Plan: Feelings of dizziness with subsequent fall Differential includes seizure, stroke, vitamin deficiency, vertigo Vitals stable and not meeting sepsis criteria Follow up UA and urine culture Follow up TSH Follow-up bedside glucose Follow-up stat troponin Follow-up stat EKG Neuro checks every 4 hours Regular diet Follow-up vitamin B1, vitamin B12 CT head: Negative Likelihood of stroke at this point is low, no indication for MRI of brain at this point Follow-up ultrasound of carotids EEG for seizure Follow up Keppra level Follow-up Lamictal level Follow up echo (2) Epilepsy ICD Codes: G40.909 - Epilepsy, unspecified, not intractable, without status epilepticus Status: Chronic Plan: Epilepsy on medications, last seizure 2 years ago Continue home medications Follow-up seizure medication levels f/u EEG (3) CAD (coronary artery disease) ICD Codes: I25.10 - Atherosclerotic heart disease of [place] coronary artery without angina pectoris Status: Chronic Plan: Continue statin After CT negative, continue aspirin 81mg (4) Vertigo ICD Codes: R42 - Dizziness and giddiness Status: Acute Plan: Unclear etiology of vertigo Neuro checks every 4 (5) fen/ppx Status: Chronic Plan: Fluids: By mouth fluids Electrolytes: Potassium 3.3 admission, stat 40 mEq potassium now Nutrition: Heart healthy diet GI prophylaxis: Not indicated DVT prophylaxis: Start Lovenox tomorrow, will DC if further bleeding from abrasions Physician Certification 2 Midnight Certification Type: Admission for Inpatient Services Order for Inpatient Services The services are ordered in accordance with Medicare regulations or non- Medicare payer requirements, as applicable. In the case of services not specified as inpatient-only, they are appropriately provided as inpatient services in accordance with the 2-midnight benchmark. Estimated LOS (days): 2 days is the estimated time the patient will need to remain in the hospital, assuming treatment plan goals are met and no additional complications. Post-Hospital Plan: Not yet determined Cindi Lea MD R2 Jul 09, 2017 14:53
[2017-07-09] MEDS ORDERED: SODIUM CHLORIDE 0.9% FLUSH 10 ML FLUSH IV FLUSH PRN (15:30)
[2017-07-09] MEDS ORDERED: POTASSIUM CHLORIDE 10 MEQ CAP PO ONE (15:45)
[2017-07-09] MEDS ORDERED: SENNOSIDES 8.6 MG TAB PO PRN (15:45)
[2017-07-09] MEDS ORDERED: ACETAMINOPHEN 325 MG TAB PO PRN (15:45)
[2017-07-09] MEDS ORDERED: MAGNESIUM HYDROXIDE SUSP 30 ML CUP PO PRN (15:45)
[2017-07-09] MEDS ORDERED: LACTULOSE SYRUP 20 GM/30 ML CUP PO PRN (15:45)
[2017-07-09] MEDS ORDERED: BISACODYL 10 MG SUPP RECTAL PRN (15:45)
[2017-07-09] MEDS ORDERED: LAMO150T PO (16:05)
[2017-07-09] MEDS ORDERED: CHOL1CAP34 PO (16:05)
[2017-07-09] MEDS: SODIUM CHLOR 0.9% 1000 ML INJ 1,000 ML IV SCH (16:33)
--- NOTE | 2017-07-09 18:10 | RADRPT ---
EXAM DATE/TIME: 07/09/2017 16:49 [facility] COMPARISON: US CAROTID ARTERIES, January 20, 2017, 8:38. INDICATIONS : Syncope. MEDICAL HISTORY : Congestive heart failure. Myocardial infarction. Hypercholesterolemia. Stroke. Epilepsy. Seizures. Pe ripheral neuropathy. Dizziness. CAD. Peripheral vascular disease. Hypertension. COPD. Asthma. Sleep a pnea. Dyspena. GERD. IBS. SURGICAL HISTORY : Cholecystectomy. Hysterectomy. Bilateral cataract surgery. Cardiac stents. Left fermoral endarectomy. CABG. Hernia repair. Bilateral breast lump removal. Bladder surgery. ENCOUNTER: Subsequent ACUITY: 1 day PAIN SCORE: 0/10 LOCATION: Bilateral neck PEAK SYSTOLIC VELOCITIES (cm/sec): ICA/CCA RATIO: Right: 2.1 Left: 2.1 ICA: Right: 143 Left: 186 CCA: Right: 68 Left: 91 ECA: Right: 65 Left: 85 VERTEBRAL: Right: 61 antegrade Left: 45 antegrade Elevated flow velocities and ICA/CCA ratios have been found to correlate with increased degrees of vessel stenosis, calculated as percentage of diameter relative to a normal segment of distal ICA/CCA FINDINGS: RIGHT CAROTID: Moderate plaque in the bulb and proximal internal carotid artery. 50-69% narrowing. LEFT CAROTID: Moderate plaque of the bulb and proximal internal carotid artery. 50-69% narrowing. VERTEBRAL ARTERIES: Antegrade flow is seen in both vertebral arteries. MISCELLANEOUS: None. CONCLUSION: Moderate stenosis bilaterally of the proximal internal carotid arteries and similar to before. No hem odynamically significant stenosis. Shahid Edwards MD on July 09, 2017 at 18:06 Board Certified Radiologist. This report was verified electronically.
[2017-07-09] MEDS ORDERED: ATORVASTATIN 40 MG TAB PO SCH (21:00)
[2017-07-09] MEDS: DOCUSATE SODIUM 50 MG/SENNA 8.6 MG TAB PO SCH (21:00)
[2017-07-09] MEDS ORDERED: OXYBUTYNIN CHLORIDE 5 MG TAB PO SCH (21:00)
[2017-07-09] MEDS: lamoTRIgine 100 MG TAB PO SCH (21:11)
[2017-07-09] MEDS: PREGABALIN 75 MG CAP PO SCH (21:13)
[2017-07-09] MEDS: levETIRAcetam 250 MG TAB PO SCH (21:13)
[2017-07-09] MEDS: SODIUM CHLORIDE 0.9% FLUSH 10 ML FLUSH IV FLUSH SCH (21:14)
[2017-07-09 21:23] LABS: TROPONIN I LESS THAN 0.02 NG/ML (0.02-0.05)
[2017-07-09 22:18] LABS: HEMOGLOBIN A1C 5.5 % (4.3-6.0)
[2017-07-10] MEDS ORDERED: TEMAZEPAM 15 MG CAP PO PRN (02:00)
[2017-07-10] MEDS: SODIUM CHLOR 0.9% 1000 ML INJ 1,000 ML IV SCH ×2 (02:07→08:54)
[2017-07-10 04:00] VITALS: PULSE 74
--- NOTE | 2017-07-10 06:54 | HHI.FPPN ---
Subjective Remarks Jackie Petty is a 76yo lady with h/o CVA, CAD, vertigo, and epilepsy admitted after a fall in which she hit her head. Prior to the fall, she was sitting and felt dizzy. Of note, she underwent left hip arthroplasty 1 month ago and had returned home from rehab one week ago. She uses a walker to ambulate. For further details, please see resident H&P dated 07/09/17. This morning, she reports she is feeling better. She denies any further dizziness, but not has been out of bed much. She does complain of left hip pain. ROS: As per HPI and per resident H&P dated 07/09/2017. + left hip pain. All other systems reviewed are negative. PMH/PSxH/SocHx/FamHx: Per resident H&P dated 07/09/17. Significant for: epilepsy with last seizure 2 years ago, CVA with residual left-sided weakness, CAD s/p stent, and h/o vertigo a few months ago. Cardiomyopathy, with EF 20-25% noted 2016. PSxH of aortofemoral bypass, emma filter placement, recent left hip arthroplasty. Mother with heart disease. Lives at home with ; recently released from rehab after left hip surgery. + tobacco use. No alcohol or recreational drug use. Objective Vitals Vital Signs Date Time Temp Pulse Resp B/P (MAP) Pulse Ox O2 Delivery O2 Flow Rate FiO2 07/09/17 23:54 98.8 69 16 102/53 (69) 95 07/09/17 23:50 71 07/09/17 21:00 97.6 71 20 124/58 (80) 98 07/09/17 20:01 72 07/09/17 19:00 Room Air 07/09/17 18:18 66 15 143/65 (91) 96 07/09/17 15:09 64 15 140/63 (88) 100 Room Air 07/09/17 13:27 62 18 135/68 (90) 100 Room Air 07/09/17 10:41 59 16 169/73 (105) 100 Room Air 07/09/17 10:41 100 Room Air I/O 07/09/17 07/09/17 07/09/17 07/10/17 07/10/17 07/10/17 07:00 15:00 23:00 07:00 15:00 23:00 Intake Total 500 ml 1240 ml Balance 500 ml 1240 ml Intake Oral 240 ml IV Total 500 ml 1000 ml # Voids 2 Result Diagram: 07/09/17 1120 07/09/17 1120 Objective Remarks Per resident H&P dated 07/09/17. Significant for: RRR, S1 S2. No murmurs. Left fourth digit with bruising distally. Mildly tender to touch. Left hip with healing incision - closed. Mildly tender to touch. Left frontotemporal scalp with 5cm laceration approximated with multiple interrupted sutures. Neuro: Grossly WNL. Normal muscle tone. A/P Assessment and Plan 76 y/o F, pmhx of left hip arthroplasty in June after fall, CAD stent placement, epilepsy, previous CVA, and vertigo comes in with pre-syncopal fall which also resulted in left hip pain. Differential includes seizure, stroke, vitamin deficiency, vertigo. Discharge Planning Anticipate possible discharge to SNF today. Attending Attestation Patient seen, examined, and discussed with resident team. The patient has been seen and examined. The chart and all resident notes have been reviewed. I agree that inpatient care is appropriate and that a two midnight stay is expected for the reasons documented in the resident history and physical. I have discussed this with the resident and certify the resident s order for inpatient admission. Problem List: (1) Pre-syncope ICD Codes: R55 - Syncope and collapse Status: Resolved Plan: Feelings of dizziness with subsequent fall Differential includes seizure, stroke, vitamin deficiency, vertigo, vs medication toxicity Check orthostatics Follow up UA and urine culture TSH is low; Free T4 is pending Troponin reassuring. B12: No deficiency B1: pending CT head: Negative Carotid ultrasound negative. No obvious seizure activity - pt can follow up with neurology as an outpatient and have EEG if indicated then. Keppra level: pending Lamictal level: pending Pt with known cardiomyopathy; telemetry is reassuring. Last echo 12/2016, which demonstrated dilated cardiomyopathy with EF 20%. (2) Epilepsy ICD Codes: G40.909 - Epilepsy, unspecified, not intractable, without status epilepticus Status: Chronic Plan: Epilepsy on medications, last seizure 2 years ago Continue home medications Follow-up seizure medication levels Follow up with neurology as an outpatient. (3) History of arthroplasty of left hip ICD Codes: Z96.642 - Presence of left artificial hip joint Status: Chronic Plan: Pt with left hip pain after a fall. PT evaluation. Would benefit from rehab placement, as pt was unsuccessful at home after recent discharge from rehab. Appreciate case management assistance (4) Abnormal TSH ICD Codes: R94.6 - Abnormal results of thyroid function studies Status: Acute Plan: Free T4 reassuring. May benefit from repeat testing as an outpatient in 6 weeks. (5) CAD (coronary artery disease) ICD Codes: I25.10 - Atherosclerotic heart disease of [place] coronary artery without angina pectoris Status: Chronic Plan: Continue statin, medical management. Asymptomatic. Pt follows with cardiology as an outpatient. (6) Vertigo ICD Codes: R42 - Dizziness and giddiness Status: Resolved Plan: Pt with prior h/o vertigo a few months ago. No vertigo currently. No further intervention at this time. (7) Hypokalemia ICD Codes: E87.6 - Hypokalemia Status: Acute Plan: Replete. Mild, asymptomatic. (8) Laceration of scalp ICD Codes: S01.01XA - Laceration without foreign body of scalp, initial encounter Status: Acute Plan: Laceration repair looks good. Sutures will need to be removed in 7-10days. (9) Cardiomyopathy ICD Codes: I42.9 - Cardiomyopathy, unspecified Status: Chronic Plan: Pt with longstanding h/o severe cardiomyopathy. She is followed by Dr Garay as an outpatient. Review of telemetry is reassuring. In the past, diuretics have been held due to low blood pressure. Pt is maintaining sats on room air and there is no evidence of fluid overload. (10) Traumatic ecchymosis of finger ICD Codes: S60.00XA - Contusion of unspecified finger without damage to nail, initial encounter Plan: Check x-ray of hand to ensure no fracture. If fracture, consider metal splint to finger. Problem Qualifiers (1) Epilepsy: (2) Laceration of scalp: Qualified Codes: S01.01XD - Laceration without foreign body of scalp, subsequent encounter (3) Cardiomyopathy: Qualified Codes: I42.0 - Dilated cardiomyopathy (4) Traumatic ecchymosis of finger: Qualified Codes: S60.00XD - Contusion of unspecified finger without damage to nail, subsequent encounter Idania Dos Santos MD Jul 10, 2017 06:54
[2017-07-10] MEDS: SODIUM CHLORIDE 0.9% FLUSH 10 ML FLUSH IV FLUSH SCH (06:55)
[2017-07-10 07:34] VITALS: PULSE 67
[2017-07-10 07:52] LABS: AUTOMATED NEUTROPHIL # 5.4 TH/MM3 (1.8-7.7); BASOPHIL % 0.4 % (0.0-2.0); EOSINOPHIL # 0.2 TH/MM3 (0-0.4); EOSINOPHIL % 3.2 % (0.0-4.0); HEMATOCRIT 24.4 % (35.0-46.0); HEMOGLOBIN 8.4 GM/DL (11.6-15.3); LYMPH % 13.8 % (9.0-44.0); MEAN CELL VOLUME 88.9 FL (80.0-100.0); MEAN CORPUSCULAR HEMOGLOBIN 30.7 PG (27.0-34.0); MEAN CORPUSCULAR HGB CONC 34.5 % (32.0-36.0); MEAN PLATELET VOLUME 8.2 FL (7.0-11.0); MONO % 9.2 % (0.0-8.0); MONOCYTE # 0.7 TH/MM3 (0-0.9); NEUT % 73.4 % (16.0-70.0); PLATELET COUNT 132 TH/MM3 (150-450); RED BLOOD COUNT 2.74 MIL/MM3 (4.00-5.30); RED CELL DISTRIBUTION WIDTH 14.2 % (11.6-17.2); WHITE BLOOD COUNT 7.3 TH/MM3 (4.0-11.0)
[2017-07-10 08:00] VITALS: BP 107/57; PULSE 67; RESP 18; TEMP 99.3; O2SAT 94
[2017-07-10 08:11] LABS: ALBUMIN 2.6 GM/DL (3.4-5.0); ALT (GPT) 11 U/L (10-53); AST (GOT) 10 U/L (15-37); BICARBONATE 23.4 MEQ/L (21.0-32.0); BLOOD UREA NITROGEN 15 MG/DL (7-18); CHLORIDE 112 MEQ/L (98-107); CREATININE 0.91 MG/DL (0.50-1.00); DIRECT BILIRUBIN ADULT 0.1 MG/DL (0.0-0.2); GLOMERULAR FILTRATION RATE 60 ML/MIN (>89); GLUCOSE,RANDOM 102 MG/DL (74-106); SODIUM (NA) 144 MEQ/L (136-145)
[2017-07-10 08:14] LABS: ALKALINE PHOSPHATASE 97 U/L (45-117); INDIRECT BILIRUBIN 0.4 MG/DL (0.0-0.8); TOTAL BILIRUBIN ADULT 0.5 MG/DL (0.2-1.0); TOTAL PROTEIN 4.9 GM/DL (6.4-8.2); TROPONIN I LESS THAN 0.02 NG/ML (0.02-0.05)
[2017-07-10] MEDS ORDERED: POTASSIUM CHLORIDE 10 MEQ CONTROLLED RELEASE TAB PO ONE (08:15)
[2017-07-10] MEDS: levETIRAcetam 250 MG TAB PO SCH (08:52)
[2017-07-10] MEDS: lamoTRIgine 100 MG TAB PO SCH (08:52)
[2017-07-10] MEDS: PREGABALIN 75 MG CAP PO SCH (08:52)
[2017-07-10] MEDS: DOCUSATE SODIUM 50 MG/SENNA 8.6 MG TAB PO SCH (08:53)
[2017-07-10] MEDS ORDERED: CYANOCOBALAMIN 1,000 MCG TAB PO SCH (09:00)
[2017-07-10] MEDS ORDERED: ENOXAPARIN SODIUM 40 MG/0.4 ML SYRINGE SQ SCH (09:00)
[2017-07-10] MEDS ORDERED: ASPIRIN 81 MG CHEW TAB CHEW SCH (09:00)
[2017-07-10] MEDS ORDERED: ERGOCALCIFEROL (VIT D2) 50,000 UNIT CAP PO SCH (09:00)
[2017-07-10] MEDS ORDERED: CALCIUM/VITAMIN D 250 MG/125 U TAB PO SCH (09:00)
[2017-07-10] MEDS ORDERED: TIOTROPIUM BROMIDE 18 MCG INH INH SCH (09:00)
[2017-07-10] MEDS ORDERED: FOLIC ACID 1 MG TAB PO SCH (09:00)
[2017-07-10] MEDS ORDERED: LISINOPRIL 5 MG TAB PO SCH (09:00)
--- NOTE | 2017-07-10 09:16 | HHI.DCPOC ---
Discharge Care Plan Diagnosis: (1) Pre-syncope (2) Left hip pain Goals to Promote Your Health * To prevent worsening of your condition and complications * To maintain your health at the optimal level Directions to Meet Your Goals Take your medications as prescribed Follow your dietary instruction Follow activity as directed Keep your appointments as scheduled Take your immunizations and boosters as scheduled If your symptoms worsen call your PCP, if no PCP go to Urgent Care Center or Emergency Room Smoking is Dangerous to Your Health. Avoid second hand smoke Call the 24-hour hour crisis hotline for domestic abuse at Malini Torres MD, R3 Jul 10, 2017 09:16
--- NOTE | 2017-07-10 11:01 | RADRPT ---
EXAM DATE/TIME: 07/10/2017 09:27 [facility] COMPARISON: No previous studies available for comparison. INDICATIONS : Left fourth digit bruising, fell yesterday MEDICAL HISTORY : None. SURGICAL HISTORY : None. ENCOUNTER: Initial ACUITY: 2 days PAIN SCORE: 0/10 LOCATION: Left fourth digit FINDINGS: Three view examination of the left hand demonstrates no soft tissue swelling, dislocation, or fractur e. The carpal bones appear intact. The interphalangeal and metacarpophalangeal joints are intact. Bony mineralization is normal. CONCLUSION: Negative for fracture Tien Ledezma MD FACR on July 10, 2017 at 10:58 Board Certified Radiologist. This report was verified electronically.
[2017-07-10 12:00] VITALS: BP 101/54; PULSE 65; RESP 18; TEMP 97.7; O2SAT 97
[2017-07-10] MEDS ORDERED: LYRI75CA PO (14:22)
--- NOTE | 2017-07-10 14:56 | EKG ---
Date Performed: 07/09/2017 Time Performed: 10:41:52 PTAGE: 76 years EKG: SINUS BRADYCARDIA MODERATE INTRAVENTRICULAR CONDUCTION DELAY Since previous tracing, no sig nificant change noted BORDERLINE ECG PREVIOUS TRACING : 06/05/2017 00.43 DOCTOR: Denise Hernandez Interpretating Date/Time 07/10/2017 14:54:19
[2017-07-11 16:00] LABS: LEVETIRACETAM 12.3 mcg/mL (12.0 - 46.0)
[2017-07-14 13:51] LABS: LAMOTRIGINE 9.8 mcg/mL (4.0-18.0)
== END 2017-07-10 13:18 | DRG 312 ==
LOC: NEPC 10:25 → NEDA 13:57 → OBSVTOIN 15:32 → N04A 18:26
PROVIDERS: ADMIT Family Medicine; ATTEND Family Medicine
PROC: 0HQ1XZZ Repair Face Skin, External Approach (ICD-10-PCS; principal; 2017-07-09)
DX: R55 Syncope and collapse (principal); I42.0 Dilated cardiomyopathy; I69.354 Hemiplegia and hemiparesis following cerebral infarction affecting left non-dominant side; J44.9 Chronic obstructive pulmonary disease, unspecified; E86.0 Dehydration; G40.909 Epilepsy, unspecified, not intractable, without status epilepticus; E87.6 Hypokalemia; I25.10 Atherosclerotic heart disease of native coronary artery without angina pectoris; E78.5 Hyperlipidemia, unspecified; M25.552 Pain in left hip; S01.81XA Laceration without foreign body of other part of head, initial encounter; M19.90 Unspecified osteoarthritis, unspecified site; I10 Essential (primary) hypertension; R94.6 Abnormal results of thyroid function studies; Z72.0 Tobacco use; I25.2 Old myocardial infarction; Z79.82 Long term (current) use of aspirin; Z95.5 Presence of coronary angioplasty implant and graft; Z90.710 Acquired absence of both cervix and uterus; Z96.642 Presence of left artificial hip joint; W18.30XA Fall on same level, unspecified, initial encounter; Y93.01 Activity, walking, marching and hiking
CPT/HCPCS: 70450; 72125; 73130; 73502; 73552; 73590; 80048; 80076; 80175; 80177; 82607; 82948; 83036; 84425; 84439; 84443; 84484; 85025; 93005; 93880; J1650; J7030; J7040

== ENCOUNTER 2017-08-25 20:00 | Inpatient (IN) | payer MEDICARE ==
[~2017-08-25] VITALS: Ht 157.5 cm; Wt 60.0 kg
[~2017-08-25 20:00] MED LIST changes: -ALBU6.7H INH; -CALCTAB19 PO; -HYDR-3580 PO; -LAMO100T PO; +LAMO150T PO; -LISI-519 PO; -WALKER/ADULT/FO1 MIS; -XARE10TA PO
[2017-08-25] MEDS ORDERED: DEXTROSE 50% IN WATER 50 ML SYRINGE ONE (20:09)
[2017-08-25 20:18] VITALS: BP 135/63; PULSE 56; RESP 18; TEMP 98.1; O2SAT 98
[2017-08-25 20:21] VITALS: O2SAT 98
--- NOTE | 2017-08-25 20:23 | PD ---
HPI Chief Complaint: Altered mentation Time Seen by Provider: 20:17 Travel History International Travel<30 days: No Contact w/Intl Traveler<30days: No History of Present Illness HPI The patient is a 76 year old female who presents to the [facility] emergency department with a history of being confused and weak prior to arrival. The patient was noted to have a blood sugar of 15. According to ambulance services, the patient does not have any history of diabetes. The patient on arrival reports that she has had a diminished appetite for the last few days. She denies having any nausea or vomiting. She reports that she did recently in June have a left hip replacement, and then fell in July and also had a pelvic fracture. She denies having any diarrhea. She reports that she last moved her bowels earlier today. On review of systems otherwise, the patient denies having any known recent fevers, cough, congestion, neck pain, chest pain, shortness of breath, abdominal pain, vomiting, diarrhea, or urinary symptoms. PFS Past Medical History Narrative Medical The patient's past medical history is significant for epilepsy, coronary artery disease status post stent placement, history of vertigo, history of cerebrovascular accident with left-sided weakness, and history of hyperlipidemia. Arthritis: Yes Asthma: Yes Anxiety: No Depression: No Cancer: Yes (skin cancer) Cardiac Catheterization: Yes Cardiovascular Problems: Yes (DE; HX CHF) High Cholesterol: Yes Chemotherapy: No Chest Pain: Yes Congestive Heart Failure: Yes COPD: Yes Cerebrovascular Accident: Yes (STROKE AT AGE 27, TIA VS STROKE OCTOBER 2013) Coronary Artery Disease: Yes Diabetes: No Diminished Hearing: No Endocrine: No Gastrointestinal Disorders: Yes (HX DIVERTICULTIS) Genitourinary: Yes (HAD SURGERY - BLADDER SUSPENSION) Headaches: No Hepatitis: No Hiatal Hernia: No Hypertension: Yes Immune Disorder: No Implanted Vascular Access Dvce: Yes Medical other: Yes (COPD) Musculoskeletal: Yes (ARTHRITIS; BACK AND NECK PAIN) Neurologic: Yes (HAD STROKE AT AGE 27; ALSO HAS EPILEPSY ;STROKE NOVEMBER 07 AND NOVEMBER 13) Psychiatric: No Respiratory: Yes (COPD POSSIBLE SLEEP APNEA) Migraines: No Seizures: Yes (EPILEPSY) Thyroid Disease: No Influenza Vaccination: Yes Menopausal: Yes : 3 Para: 3 Miscarriage: 1 Dilation and Curettage (D&C): Yes Tubal Ligation: Yes Past Surgical History Narrative Surgical The patient's past surgical history is significant for an aortofemoral bypass, Jignesh filter placement, breast surgery for cyst removal, bladder surgery, hernia repair, hysterectomy, cholecystectomy, , bilateral tubal ligation. Abdominal Surgery: Yes (HERNIA SURGERY X 14) AICD: No Arteriovenous Shunt: Yes Body Medical Devices: GREENFELD FILTER & SHUNT FROM AORTIC FEMORAL BYPASS SURGERY CARDIAC STENTS Cardiac Surgery: Yes (AORTIC BYPASS, INSERTION JIGNESH FILTER) Section: Yes Cholecystectomy: Yes Coronary Stent: Yes Ear Surgery: No Endocrine Surgery: No Eye Surgery: No Genitourinary Surgery: Yes (BLADDER SURGERY X6) Gynecologic Surgery: Yes Hysterectomy: Yes (PARTIAL) Neurologic Surgery: No Oral Surgery: No Pacemaker: No Thoracic Surgery: No Other Surgery: Yes (STATES SHE "CANT REMEMBER THEM ALL") Social History Alcohol Use: No Tobacco Use: Yes Substance Use: No Allergies-Medications (Allergen,Severity, Reaction): Coded Allergies: Sulfa (Sulfonamide Antibiotics) (Unverified Allergy, Severe, RASH, 06/05/17) INTERMEDIATE REACTION niacin (Unverified Allergy, Severe, FELT BODY WAS ON FIRE, 06/05/17) estradiol (Unverified Allergy, Unknown, 06/05/17) HAD STROKE AGE 27 FROM ORAL CONTRACEPTIVES estrogens, conjugated (Unverified Allergy, Unknown, 06/05/17) HAD STROKE AGE 27 FROM ORAL CONTRACEPTIVES amoxicillin (Unverified Adverse Reaction, Severe, Nausea/Vomiting, 06/05/17) Reported Meds & Prescriptions Reported Meds & Active Scripts Active Lyrica (Pregabalin) 75 Mg Cap 75 Mg PO BID Ergocalciferol 50,000 Unit Cap 50,000 Units PO Q7D Reported Lisinopril 5 Mg Tab 5 Mg PO DAILY Azithromycin 250 Mg Tab 250 Mg PO DAILY Lamotrigine 150 Mg Tab 150 Mg PO BID Biotin 5 Mg Tab 5 Mg PO DAILY Vitamin E 200 Unit Cap 200 Mg PO DAILY Vitamin B-12 (Cyanocobalamin) 1,000 Mcg Tab 1,500 Mcg PO DAILY Aspirin Low Dose (Aspirin) 81 Mg Chew 81 Mg CHEW DAILY Ditropan (Oxybutynin Chloride) 5 Mg Tab 5 Mg PO HS Folic Acid 400 Mcg Tab 400 Mcg PO DAILY Spiriva Handihaler (Tiotropium Inh) 18 Mcg Cap 18 Mcg INH DAILY 1 capsule = 18 mcg Lipitor (Atorvastatin Calcium) 40 Mg Tab 40 Mg PO HS Levetiracetam 250 Mg Tab 250 Mg PO BID Review of Systems Except as stated in HPI: all other systems reviewed are Neg General / Constitutional: No: Fever Eyes: No: Visual changes HENT: No: Headaches Cardiovascular: No: Chest Pain or Discomfort Respiratory: No: Shortness of Breath Gastrointestinal: Positive: Loss of Appetite, No: Nausea, Vomiting, Diarrhea, Abdominal Pain Genitourinary: No: Dysuria Musculoskeletal: No: Pain Skin: No Rash Neurologic: Positive: Weakness (Generalized weakness), Change in Mentation, Slurred Speech, No: Focal Abnormalities, Sensory Disturbance Psychiatric: No: Depression Endocrine: No: Polydipsia Hematologic/Lymphatic: No: Easy Bruising Physical Exam Narrative General: The patient is a well-developed well-nourished female in no acute distress. Head and Neck exam: Head is normocephalic atraumatic. Eyes: EOMI, pupils are equal round and reactive to light. Nose: Midline septum with pink mucous membranes Mouth: Dentition unremarkable. Moist mucus membranes. Posterior oropharynx is not erythematous. No tonsillar hypertrophy. Uvula midline. Airway patent. Neck: No palpable lymphadenopathy. No nuchal rigidity. No thyromegaly. Cardiovascular: Regular rate and rhythm without murmurs, gallops, or rubs. Lungs: Clear to auscultation bilaterally. No wheezes, rhonchi, or rales. Abdomen: Soft, without tenderness to palpation in all 4 quadrants of the abdomen. No guarding, rebound, or rigidity. Normal bowel sounds are audible. No tenderness on palpation of McBurney's point. Negative Du sign. Extremities: No clubbing, cyanosis, or edema. 2+ pulses in all 4 extremities. The patient has a scar in place over the lateral left hip. This appears to be healing well. The patient has good range of motion of left hip on exam. No deformity noted. No shortening or rotation. Back: No spinous process tenderness to palpation. No costovertebral angle tenderness to palpation. Neurologic Exam: Grossly nonfocal Skin Exam: No rash noted. Intact skin that is warm and dry. Data Data Last Documented VS Vital Signs Date Time Temp Pulse Resp B/P (MAP) Pulse Ox O2 Delivery O2 Flow Rate FiO2 08/25/17 20:21 98 Room Air 08/25/17 20:18 98.1 56 18 Orders Orders Dextrose 50% In Lauri (Syr) Inj (D50w (Syr (08/25/17 20:09) Electrocardiogram (08/25/17 20:17) Complete Blood Count With Diff (08/25/17 20:17) Comprehensive Metabolic Panel (08/25/17 20:17) Creatine Kinase (Cpk) (08/25/17 20:17) Ckmb (Isoenzyme) Profile (08/25/17 20:17) Troponin I (08/25/17 20:17) B-Type Natriuretic Peptide (08/25/17 20:17) Prothrombin Time / Inr (Pt) (08/25/17 20:17) Act Partial Throm Time (Ptt) (08/25/17 20:17) Lipase (08/25/17 20:17) Urinalysis - C+S If Indicated (08/25/17 20:17) Magnesium (Mg) (08/25/17 20:17) Thyroid Stimulating Hormone (08/25/17 20:17) Chest, Single Ap (08/25/17 20:17) Iv Access Insert/Monitor (08/25/17 20:17) Ecg Monitoring (08/25/17 20:17) Oximetry (08/25/17 20:17) Diet As Tolerated (08/25/17 20:17) Dextrose 50% In Lauri (Syr) Inj (D50w (Syr (08/25/17 20:30) Hip, Uni(Ap&Lat) W Ap Pelvis (08/25/17 20:17) Potassium Chloride Eff (K-Lyte Cl Eff) (08/25/17 21:45) Blood Culture (08/25/17 21:39) Levofloxacin (Levaquin) (08/25/17 21:39) D5-1/2 Ns + Kcl 20 Meq Inj (D5-1/2 Ns + (08/25/17 21:45) Admit Order (Ed Use Only) (08/25/17 22:22) Labs Laboratory Tests Test 08/25/17 20:35 08/25/17 20:40 08/25/17 21:45 Blood Urea Nitrogen 18 MG/DL Creatinine 0.76 MG/DL Random Glucose 29 MG/DL Total Protein 6.6 GM/DL Albumin 3.1 GM/DL Calcium Level 8.6 MG/DL Magnesium Level 1.8 MG/DL Alkaline Phosphatase 115 U/L Aspartate Amino Transf (AST/SGOT) 18 U/L Alanine Aminotransferase (ALT/SGPT) 19 U/L Total Bilirubin 0.4 MG/DL Sodium Level 137 MEQ/L Potassium Level 2.5 MEQ/L Chloride Level 103 MEQ/L Carbon Dioxide Level 26.2 MEQ/L Anion Gap 8 MEQ/L Estimat Glomerular Filtration Rate 74 ML/MIN Total Creatine Kinase 31 U/L Troponin I LESS THAN 0.02 NG/ML Lipase 54 U/L Thyroid Stimulating Hormone 3rd Gen 0.245 uIU/ML White Blood Count 11.7 TH/MM3 Red Blood Count 3.66 MIL/MM3 Hemoglobin 10.7 GM/DL Hematocrit 31.9 % Mean Corpuscular Volume 87.3 FL Mean Corpuscular Hemoglobin 29.2 PG Mean Corpuscular Hemoglobin Concent 33.4 % Red Cell Distribution Width 15.4 % Platelet Count 217 TH/MM3 Mean Platelet Volume 8.6 FL Neutrophils (%) (Auto) 90.0 % Lymphocytes (%) (Auto) 4.0 % Monocytes (%) (Auto) 5.4 % Eosinophils (%) (Auto) 0.3 % Basophils (%) (Auto) 0.3 % Neutrophils # (Auto) 10.5 TH/MM3 Lymphocytes # (Auto) 0.5 TH/MM3 Monocytes # (Auto) 0.6 TH/MM3 Eosinophils # (Auto) 0.0 TH/MM3 Basophils # (Auto) 0.0 TH/MM3 CBC Comment DIFF FINAL Differential Comment Prothrombin Time 10.4 SEC Prothromb Time International Ratio 1.0 RATIO Activated Partial Thromboplast Time 26.4 SEC B-Type Natriuretic Peptide 176 PG/ML Urine Color YELLOW Urine Turbidity CLEAR Urine pH 6.0 Urine Specific Conifer 1.009 Urine Protein NEG mg/dL Urine Glucose (UA) 70 mg/dL Urine Ketones NEG mg/dL Urine Occult Blood NEG Urine Nitrite NEG Urine Bilirubin NEG Urine Urobilinogen LESS THAN 2.0 MG/DL Urine Leukocyte Esterase NEG Urine RBC LESS THAN 1 /hpf Urine WBC 3 /hpf Urine Squamous Epithelial Cells 5 /hpf Urine Bacteria RARE /hpf Microscopic Urinalysis Comment CULT NOT INDICATED MDM Medical Decision Making Medical Screen Exam Complete: Yes Emergency Medical Condition: Yes Medical Record Reviewed: Yes Interpretation(s) Last Impressions Hip and Pelvis X-Ray 08/25/172016 Signed Impressions: Service Date/Time: Friday, August 25, 2017 20:33 - CONCLUSION: No acute disease. Shahid Jade MD Chest X-Ray 08/25/172016 Signed Impressions: Service Date/Time: Friday, August 25, 2017 20:30 - CONCLUSION: Suspected focal consolidation or atelectasis in the right upper lung. Shahid Jade MD Differential Diagnosis Hypoglycemia caused by poor p.o. intake, versus accidental administration of insulin, versus accidental administration of oral diabetic medication Narrative Course during the course of the patient's emergency department visit, the patient's history, examination, and differential diagnosis were reviewed with the patient. The patient was placed on a cardiac cath lab manager with oximetry and frequent blood pressure monitoring. The patient had IV access obtained and blood work sent for analysis. The patient had a EKG done on arrival that shows a sinus bradycardia heart rate of 52, QRS duration 134 ms related to an intraventricular conduction delay, QTC 473 ms. While examining the patient she began to get confused again her blood sugar was noted to be 37. 50 g of dextrose will be administered IV. The patient will be started on a p.o. diet to sustain her blood sugar with peanut butter and crackers to start. According to ambulance services, the patient is not diabetic, however she does live with a diabetic. Her whom she lives with his diabetic and also has a history of dementia. The patient's blood sugar after dextrose administration briefly went up into the 200s and then dropped again down into the 30s. The patient was offered orange juice, crackers and peanut butter. The patient will additionally be started on a D5 half normal saline IV fluid supplementation. The patient's laboratory studies were reviewed and remarkable for a white count of 11.7, hemoglobin 10.7, platelets 217 with 90 neutrophils, lymphocytes 4, chemistries remarkable for a potassium of 2.5, glucose 29, however this was prior to the 50 g of dextrose being administered, cardiac enzymes within normal limits, lipase 64, TSH is 0.245 and noted to be low. The patient does not appear to be on any thyroid supplementation according to her prior medication record. PT 10.4, PTT 26.4 Radiology studies were reviewed and remarkable for a chest x-ray that shows a suspected focal consolidation in the right upper lung. Blood cultures 2 were sent. The patient was given Levaquin 750 mg IV 1. The patient's results were discussed with the patient, including the plan of care. I explained that further testing and/ or monitoring is indicated based on the patient's history, examination, and/ or laboratory findings. Therefore, I recommended admission for additional evaluation. The patient expressed understanding and was agreeable with this plan. The patient was admitted to the hospital in stable condition and sent to a bed under the care of the [facility] service. Physician Communication Physician Communication The patient's case including history, pertinent physical examination findings, and laboratory studies were discussed with Dr. Giles. It was agreed that the patient would be admitted to the [facility] service. Diagnosis Primary Impression: Hypoglycemia Additional Impressions: Low TSH level Hypokalemia Pneumonia Qualified Codes: J18.1 - Lobar pneumonia, unspecified organism Admitting Information Admitting Physician Requests: Admit Autumn Dong MD Aug 25, 2017 20:23
[2017-08-25] MEDS ORDERED: DEXTROSE 50% IN WATER 50 ML SYRINGE IV PUSH ONE (20:30)
[2017-08-25] MEDS ORDERED: AZIT250T3 PO (20:38)
[2017-08-25] MEDS ORDERED: LISI-519 PO (21:20)
[2017-08-25 21:28] LABS: AUTOMATED NEUTROPHIL # 10.5 TH/MM3 (1.8-7.7); BASOPHIL % 0.3 % (0.0-2.0); EOSINOPHIL % 0.3 % (0.0-4.0); HEMATOCRIT 31.9 % (35.0-46.0); HEMOGLOBIN 10.7 GM/DL (11.6-15.3); LYMPHOCYTE # 0.5 TH/MM3 (1.0-4.8); MEAN CELL VOLUME 87.3 FL (80.0-100.0); MEAN CORPUSCULAR HEMOGLOBIN 29.2 PG (27.0-34.0); MEAN CORPUSCULAR HGB CONC 33.4 % (32.0-36.0); MEAN PLATELET VOLUME 8.6 FL (7.0-11.0); MONO % 5.4 % (0.0-8.0); MONOCYTE # 0.6 TH/MM3 (0-0.9); PLATELET COUNT 217 TH/MM3 (150-450); RED BLOOD COUNT 3.66 MIL/MM3 (4.00-5.30); RED CELL DISTRIBUTION WIDTH 15.4 % (11.6-17.2); WHITE BLOOD COUNT 11.7 TH/MM3 (4.0-11.0)
[2017-08-25 21:31] LABS: ALBUMIN 3.1 GM/DL (3.4-5.0); ALKALINE PHOSPHATASE 115 U/L (45-117); ALT (GPT) 19 U/L (10-53); AST (GOT) 18 U/L (15-37); BICARBONATE 26.2 MEQ/L (21.0-32.0); BLOOD UREA NITROGEN 18 MG/DL (7-18); CALCIUM 8.6 MG/DL (8.5-10.1); CHLORIDE 103 MEQ/L (98-107); CREATININE 0.76 MG/DL (0.50-1.00); GLOMERULAR FILTRATION RATE 74 ML/MIN (>89); MAGNESIUM 1.8 MG/DL (1.5-2.5); SODIUM (NA) 137 MEQ/L (136-145); TOTAL BILIRUBIN ADULT 0.4 MG/DL (0.2-1.0); TOTAL PROTEIN 6.6 GM/DL (6.4-8.2); TROPONIN I LESS THAN 0.02 NG/ML (0.02-0.05)
--- NOTE | 2017-08-25 21:31 | RADRPT ---
EXAM DATE/TIME: 08/25/2017 20:30 [facility] COMPARISON: CHEST SINGLE AP, June 05, 2017, 0:54. INDICATIONS : Syncope. MEDICAL HISTORY : Chronic obstructive pulmonary disease. Cardiovascular disease. Hypertension. SURGICAL HISTORY : Hysterectomy. ORIF left hip. ENCOUNTER: Initial ACUITY: 1 day PAIN SCORE: Non-responsive. LOCATION: Bilateral chest FINDINGS: The heart size is mildly enlarged. There is a focal density seen in the inferior aspect of the right upper lung. Left lung is grossly clear. No effusion is seen. CONCLUSION: Suspected focal consolidation or atelectasis in the right upper lung. Shahid Jade MD on August 25, 2017 at 21:28 Board Certified Radiologist. This report was verified electronically.
[2017-08-25 21:34] LABS: GLUCOSE,RANDOM 29 MG/DL (74-106)
--- NOTE | 2017-08-25 21:34 | RADRPT ---
EXAM DATE/TIME: 08/25/2017 20:33 [facility] COMPARISON: HIP LEFT (AP&LAT 2/3VWS) W AP PELVIS, July 09, 2017, 12:20. INDICATIONS : Left hip pain. Possible fall. MEDICAL HISTORY : Chronic obstructive pulmonary disease. Cardiovascular disease. Hypertension. SURGICAL HISTORY : Hysterectomy. ORIF left hip. ENCOUNTER: Initial ACUITY: 1 day PAIN SCORE: Non-responsive. LOCATION: Left hip. FINDINGS: There is a bipolar hip prosthesis seen on the left side. An acute fracture is not seen. Hernia mesh i s seen in the right lower abdomen and pelvic region. There is degenerative change in the lower lumbar spine. Surgical clips are seen in the bilateral inguinal regions. CONCLUSION: No acute disease. Shahid Jade MD on August 25, 2017 at 21:31 Board Certified Radiologist. This report was verified electronically.
[2017-08-25 21:37] LABS: PROTHROMBIN TIME - PATIENT 10.4 SEC (9.8-11.6)
[2017-08-25] MEDS ORDERED: LEVOFLOXACIN 750 MG TAB PO STA (21:39)
[2017-08-25] MEDS ORDERED: D5-1/2 NS + KCL 20 MEQ INJ 1,000 ML IV SCH (21:45)
[2017-08-25] MEDS ORDERED: POTASSIUM CHLORIDE 25 MEQ EFFERVESCENT TAB PO ONE (21:45)
[2017-08-25 22:02] LABS: BACTERIA, URINE RARE /hpf; BILIRUBIN, URINE NEG (NEG); BLOOD, URINE NEG (NEG); GLUCOSE,URINE 70 mg/dL (NEG); KETONE, URINE NEG (NEG); NITRITE,URINE NEG (NEG); SQUAMOUS EPITHELIAL CELL URINE 5 /hpf (0-5); URINE COLOR YELLOW (YELLW/STRAW); URINE LEUKOCYTE ESTERASE NEG (NEG)
--- NOTE | 2017-08-25 22:20 | EKG ---
Date Performed: 08/25/2017 Time Performed: 20:16:16 PTAGE: 76 years EKG: SINUS BRADYCARDIA INTRAVENTRICULAR CONDUCTION DELAY POSSIBLE LATERAL MYOCARDIAL INFARCTION ABNORMAL ECG PREVIOUS TRACING : 07/09/2017 10.41 Since the previous tracing, no significant change noted DOCTOR: Kady Beck Interpretating Date/Time 08/25/2017 22:18:30
[2017-08-25 23:08] VITALS: BP 127/78; PULSE 52; RESP 16; O2SAT 98
[2017-08-25] MEDS ORDERED: LACTULOSE SYRUP 20 GM/30 ML CUP PO PRN (23:30)
[2017-08-25] MEDS ORDERED: MAGNESIUM HYDROXIDE SUSP 30 ML CUP PO PRN (23:30)
[2017-08-25] MEDS ORDERED: BISACODYL 10 MG SUPP RECTAL PRN (23:30)
[2017-08-25] MEDS ORDERED: SODIUM CHLORIDE 0.9% FLUSH 10 ML FLUSH IV FLUSH PRN (23:30)
[2017-08-25] MEDS ORDERED: NALOXONE HCL 0.4 MG/ML AMP IV PUSH PRN (23:30)
[2017-08-25] MEDS ORDERED: ACETAMINOPHEN 325 MG TAB PO PRN (23:30)
--- NOTE | 2017-08-25 23:31 | HHI.HP ---
HPI Service [facility] Primary Care Physician Rambo Puckett MD Admission Diagnosis Pneumonia, recurrent hypoglycemia Diagnoses: Travel History International Travel<30 Days: No Contact w/Intl Traveler <30 Da: No Traveled to Known Affected Are: No History of Present Illness 76-year-old female with a past medical history significant for vertigo, seizure disorder, history of CVA, hypertension, hyperlipidemia and peripheral vascular disease presents to the emergency department after 911 was allegedly caught by her . The patient is not sure why she was here. She states that her home physical therapy came to the house today and she was walked around the house approximately 4 times. After this, she states she was tired and went to bed. The next thing patient remembers is waking up in the ambulance. The patient recently broke her left hip on 06/05 and shattered her pelvis on 07/10 and was released from rehabilitation on 08/13. She reports that yesterday and ambulance was also called to her house however she refused to come to the hospital. The patient also endorses a 1 week history of productive cough and she is on day 3 of a Z-Will at this time. She endorses subjective chills. Denies any shortness of breath or chest pain. Denies nausea/vomiting/diarrhea. No dysuria. No lateralizing signs/symptoms. The patient was found to be hypokalemic and hypoglycemic on arrival to the emergency department. Review of Systems Except as stated in HPI: all other systems reviewed are Neg Past Family Social History Past Medical History vertigo, seizure disorder, history of CVA, hypertension, hyperlipidemia and peripheral vascular disease, recent left hip fracture, recent pelvic fracture Past Surgical History Left hip hemiarthroplasty Cholecystectomy Hysterectomy Bilateral tubal ligation Aortofemoral bypass 6 bladder surgeries 14 hernia repairs Reported Medications Reported Meds & Active Scripts Active Lyrica (Pregabalin) 75 Mg Cap 75 Mg PO BID Ergocalciferol 50,000 Unit Cap 50,000 Units PO Q7D Reported Lisinopril 5 Mg Tab 5 Mg PO DAILY Azithromycin 250 Mg Tab 250 Mg PO DAILY Lamotrigine 150 Mg Tab 150 Mg PO BID Biotin 5 Mg Tab 5 Mg PO DAILY Vitamin E 200 Unit Cap 200 Mg PO DAILY Vitamin B-12 (Cyanocobalamin) 1,000 Mcg Tab 1,500 Mcg PO DAILY Aspirin Low Dose (Aspirin) 81 Mg Chew 81 Mg CHEW DAILY Ditropan (Oxybutynin Chloride) 5 Mg Tab 5 Mg PO HS Folic Acid 400 Mcg Tab 400 Mcg PO DAILY Spiriva Handihaler (Tiotropium Inh) 18 Mcg Cap 18 Mcg INH DAILY 1 capsule = 18 mcg Lipitor (Atorvastatin Calcium) 40 Mg Tab 40 Mg PO HS Levetiracetam 250 Mg Tab 250 Mg PO BID Allergies: Coded Allergies: Sulfa (Sulfonamide Antibiotics) (Unverified Allergy, Severe, RASH, 06/05/17) INTERMEDIATE REACTION niacin (Unverified Allergy, Severe, FELT BODY WAS ON FIRE, 06/05/17) estradiol (Unverified Allergy, Unknown, 06/05/17) HAD STROKE AGE 27 FROM ORAL CONTRACEPTIVES estrogens, conjugated (Unverified Allergy, Unknown, 06/05/17) HAD STROKE AGE 27 FROM ORAL CONTRACEPTIVES amoxicillin (Unverified Adverse Reaction, Severe, Nausea/Vomiting, 06/05/17) Family History Both parents in their 50s of [place] Social History Negative for alcohol, tobacco and illicit drugs Physical Exam Vital Signs Vital Signs Date Time Temp Pulse Resp B/P (MAP) Pulse Ox O2 Delivery O2 Flow Rate FiO2 08/25/17 23:08 52 16 127/78 (94) 98 Room Air 08/25/17 20:21 98 Room Air 08/25/17 20:18 98.1 56 18 135/63 (87) 98 Room Air Physical Exam GENERAL: female lying in bed SKIN: No rashes, ecchymoses or lesions. Cool and dry. HEAD: Atraumatic. Normocephalic. No temporal or scalp tenderness. EYES: Pupils equal round and reactive. Extraocular motions intact. No scleral icterus. No injection or drainage. ENT: Nose without bleeding, purulent drainage or septal hematoma. Throat without erythema, tonsillar hypertrophy or exudate. Uvula midline. Airway patent. NECK: Trachea midline. No JVD or lymphadenopathy. Supple, nontender, no meningeal signs. CARDIOVASCULAR: Regular rate and rhythm without murmurs, gallops, or rubs. RESPIRATORY: Clear to auscultation. Breath sounds equal bilaterally. No wheezes , rales, or rhonchi. GASTROINTESTINAL: Abdomen soft, non-tender, nondistended. No hepato-splenomegaly , or palpable masses. No guarding. MUSCULOSKELETAL: Extremities without clubbing, cyanosis, or edema. No joint tenderness, effusion, or edema noted. No calf tenderness. NEUROLOGICAL: Awake and alert. Cranial nerves II through XII intact. Motor and sensory grossly within normal limits. Normal speech. Laboratory Laboratory Tests Test 08/25/17 20:35 08/25/17 20:40 08/25/17 21:45 Blood Urea Nitrogen 18 Creatinine 0.76 Random Glucose 29 Total Protein 6.6 Albumin 3.1 Calcium Level 8.6 Magnesium Level 1.8 Alkaline Phosphatase 115 Aspartate Amino Transf (AST/SGOT) 18 Alanine Aminotransferase (ALT/SGPT) 19 Total Bilirubin 0.4 Sodium Level 137 Potassium Level 2.5 Chloride Level 103 Carbon Dioxide Level 26.2 Anion Gap 8 Estimat Glomerular Filtration Rate 74 Total Creatine Kinase 31 Troponin I LESS THAN 0.02 Lipase 54 Thyroid Stimulating Hormone 3rd Gen 0.245 White Blood Count 11.7 Red Blood Count 3.66 Hemoglobin 10.7 Hematocrit 31.9 Mean Corpuscular Volume 87.3 Mean Corpuscular Hemoglobin 29.2 Mean Corpuscular Hemoglobin Concent 33.4 Red Cell Distribution Width 15.4 Platelet Count 217 Mean Platelet Volume 8.6 Neutrophils (%) (Auto) 90.0 Lymphocytes (%) (Auto) 4.0 Monocytes (%) (Auto) 5.4 Eosinophils (%) (Auto) 0.3 Basophils (%) (Auto) 0.3 Neutrophils # (Auto) 10.5 Lymphocytes # (Auto) 0.5 Monocytes # (Auto) 0.6 Eosinophils # (Auto) 0.0 Basophils # (Auto) 0.0 CBC Comment DIFF FINAL Differential Comment Prothrombin Time 10.4 Prothromb Time International Ratio 1.0 Activated Partial Thromboplast Time 26.4 B-Type Natriuretic Peptide 176 Urine Color YELLOW Urine Turbidity CLEAR Urine pH 6.0 Urine Specific [place] 1.009 Urine Protein NEG Urine Glucose (UA) 70 Urine Ketones NEG Urine Occult Blood NEG Urine Nitrite NEG Urine Bilirubin NEG Urine Urobilinogen LESS THAN 2.0 Urine Leukocyte Esterase NEG Urine RBC LESS THAN 1 Urine WBC 3 Urine Squamous Epithelial Cells 5 Urine Bacteria RARE Microscopic Urinalysis Comment CULT NOT INDICATED Date/Time Source Procedure Growth Status 08/25/17 22:05 Blood Peripheral Aerobic Blood Culture Pending Received 08/25/17 22:05 Blood Peripheral Anaerobic Blood Culture Pending Received Result Diagram: 08/25/17203908/25/172034 Caprini VTE Risk Assessment Caprini VTE Risk Assessment: Mod/High Risk (score >= 2) Caprini Risk Assessment Model Point Value = 1 Point Value = 2 Point Value = 3 Point Value = 5 Age 41-60 Minor surgery BMI > 25 kg/m2 Swollen legs Varicose veins or History of unexplained or recurrent spontaneous Oral contraceptives or hormone replacement Sepsis (< 1 month) Serious lung disease, including pneumonia (< 1 month) Abnormal pulmonary function Acute myocardial infarction Congestive heart failure (< 1 month) History of inflammatory bowel disease Medical patient at bed rest Age 61-74 Arthroscopic surgery Major open surgery (> 45 min) Laparoscopic surgery (> 45 min) Malignancy Confined to bed (> 72 hours) Immobilizing plaster cast Central venous access Age >= 75 History of VTE Family history of VTE Factor V Leiden Prothrombin [id number] Lupus anticoagulant Anticardiolipin antibodies Elevated serum homocysteine Heparin-induced thrombocytopenia Other congenital or acquired thrombophilia Stroke (< 1 month) Elective arthroplasty Hip, pelvis, or leg fracture Acute spinal cord injury (< 1 month) Prophylaxis Regimen Total Risk Factor Score Risk Level Prophylaxis Regimen 0-1 Low Early ambulation 2 Moderate Order ONE of the following: *Sequential Compression Device (SCD) *Heparin 5000 units SQ BID 3-4 Higher Order ONE of the following medications: *Heparin 5000 units SQ TID *Enoxaparin/Lovenox 40 mg SQ daily (WT < 150 kg, CrCl > 30 mL/min) *Enoxaparin/Lovenox 30 mg SQ daily (WT < 150 kg, CrCl > 10-29 mL/min) *Enoxaparin/Lovenox 30 mg SQ BID (WT < 150 kg, CrCl > 30 mL/min) AND/OR *Sequential Compression Device (SCD) 5 or more Highest Order ONE of the following medications: *Heparin 5000 units SQ TID (Preferred with Epidurals) *Enoxaparin/Lovenox 40 mg SQ daily (WT < 150 kg, CrCl > 30 mL/min) *Enoxaparin/Lovenox 30 mg SQ daily (WT < 150 kg, CrCl > 10-29 mL/min) *Enoxaparin/Lovenox 30 mg SQ BID (WT < 150 kg, CrCl > 30 mL/min) AND *Sequential Compression Device (SCD) Assessment and Plan Assessment and Plan Assessment/plan: 1. Hypoglycemia Blood sugar on arrival to the emergency department was 29, patient continues to have episodes of hypoglycemia despite IV replacement D5 ggt Every hour blood glucose checks Encourage by mouth intake 2. Hypokalemia Potassium 2.5 Patient refused to drink by mouth potassium, we will replete with IV bolus plus potassium and IV fluids Repeat BMP 3. Pneumonia Chest x-ray significant for focal consolidation in the right upper lung, personally reviewed Patient on day 3 of azithromycin Levaquin 4. Seizure disorder Continue home Lyrica, Keppra, Lamictal 5. Hypertension/hyperlipidemia Continue home medications 6. Recent hip/pelvic fx PT consulted FEN Heart healthy diet Electrolytes: as above D5 1/2 NS + 20 KCl at 100 cc/hr Heparin Physician Certification 2 Midnight Certification Type: Admission for Inpatient Services Order for Inpatient Services The services are ordered in accordance with Medicare regulations or non- Medicare payer requirements, as applicable. In the case of services not specified as inpatient-only, they are appropriately provided as inpatient services in accordance with the 2-midnight benchmark. Estimated LOS (days): 2 2 days is the estimated time the patient will need to remain in the hospital, assuming treatment plan goals are met and no additional complications. Post-Hospital Plan: Not yet determined Rylie Giles MD Aug 25, 2017 23:31
[2017-08-26] VITALS (14 sets, daily range): BP systolic 96–154; BP diastolic 54–70; PULSE 62–76; RESP 16–24; TEMP 98–98.5; O2SAT 96–98
[2017-08-26] MEDS: POTASSIUM CHLOR 10 MEQ PREMIX 100 ML IV SCH ×4 (00:27→05:48)
[2017-08-26] MEDS ORDERED: DEXTROSE 50% IN WATER 50 ML VIAL(D50) IV PUSH ONE ×2 (03:00→05:45)
[2017-08-26] MEDS ORDERED: LORazepam 2 MG/ML VIAL IV PUSH ONE (03:00)
[2017-08-26] MEDS: SODIUM CHLORIDE IV SCH ×2 (03:27→13:30)
[2017-08-26] MEDS: [UNRECOGNIZED DRUG - OTHER] IV SCH ×2 (03:27→13:30)
[2017-08-26] MEDS: POTASSIUM CHLORIDE IV SCH ×2 (03:27→13:30)
[2017-08-26 05:04] LABS: AUTOMATED NEUTROPHIL # 11.3 TH/MM3 (1.8-7.7); BASOPHIL # 0.1 TH/MM3 (0-0.2); BASOPHIL % 0.5 % (0.0-2.0); EOSINOPHIL # 0.1 TH/MM3 (0-0.4); HEMATOCRIT 30.5 % (35.0-46.0); HEMOGLOBIN 10.4 GM/DL (11.6-15.3); LYMPH % 4.4 % (9.0-44.0); LYMPHOCYTE # 0.6 TH/MM3 (1.0-4.8); MEAN CELL VOLUME 87.5 FL (80.0-100.0); MEAN CORPUSCULAR HEMOGLOBIN 29.7 PG (27.0-34.0); MEAN PLATELET VOLUME 8.7 FL (7.0-11.0); MONO % 6.7 % (0.0-8.0); MONOCYTE # 0.9 TH/MM3 (0-0.9); NEUT % 87.4 % (16.0-70.0); PLATELET COUNT 204 TH/MM3 (150-450); RED BLOOD COUNT 3.49 MIL/MM3 (4.00-5.30); RED CELL DISTRIBUTION WIDTH 15.5 % (11.6-17.2)
[2017-08-26 05:33] LABS: BICARBONATE 28.7 MEQ/L (21.0-32.0); CALCIUM 8.2 MG/DL (8.5-10.1); CREATININE 0.73 MG/DL (0.50-1.00)
[2017-08-26] MEDS: HEPARIN SODIUM - SQ 10,000 UNITS/ML VIAL SQ SCH ×2 (05:49→18:55)
[2017-08-26] MEDS: levETIRAcetam 250 MG TAB PO SCH ×2 (08:56→22:22)
[2017-08-26] MEDS: DOCUSATE SODIUM 50 MG/SENNA 8.6 MG TAB PO SCH ×2 (08:56→22:23)
[2017-08-26] MEDS: LEVOFLOXACIN 750 MG PREMIX INJ 150 ML IV SCH (08:56)
[2017-08-26] MEDS: SODIUM CHLORIDE 0.9% FLUSH 10 ML FLUSH IV FLUSH SCH ×2 (08:57→22:25)
[2017-08-26] MEDS: ASPIRIN 81 MG CHEW TAB CHEW SCH (08:57)
[2017-08-26] MEDS: LISINOPRIL 5 MG TAB PO SCH (08:57)
[2017-08-26] MEDS ORDERED: GLUCAGON 1 MG/ML VIAL IM PRN (09:45)
[2017-08-26] MEDS ORDERED: DEXTROSE 50% IN WATER 50 ML VIAL(D50) IV PUSH PRN (09:45)
[2017-08-26] MEDS: PREGABALIN 75 MG CAP PO SCH ×2 (11:09→22:22)
[2017-08-26] MEDS: TIOTROPIUM BROMIDE 18 MCG INH INH SCH (11:10)
[2017-08-26] MEDS: lamoTRIgine 100 MG TAB PO SCH ×2 (11:10→22:22)
[2017-08-26] MEDS: ONDANSETRON HCL 4 MG/2 ML VIAL IVP PRN (11:11)
--- NOTE | 2017-08-26 13:03 | HHI.PR ---
Subjective Remarks Pt states she feels a bit nauseous but a lot better since getting the nausea medication. denies any hx of DM and states she takes her own meds and doesn't give her her meds. is a DM. She doesn't think she could have mixed her meds w his. She would like a regular pepsi and would like to try a chicken broth. Shedenies any chest pains, SOB. Objective Vitals Vital Signs Date Time Temp Pulse Resp B/P (MAP) Pulse Ox O2 Delivery O2 Flow Rate FiO2 08/26/17 12:00 76 08/26/17 11:20 98.1 73 21 99/54 (69) 97 08/26/17 10:00 73 08/26/17 08:00 98.0 71 20 111/55 (73) 98 08/26/17 08:00 71 08/26/17 06:26 08/26/17 06:08 65 18 154/70 (98) 98 Room Air 08/26/17 04:30 98.0 65 16 133/61 (85) 97 Room Air 08/26/17 02:42 67 18 115/67 (83) 96 Nasal Cannula 2.00 08/26/17 01:52 62 18 117/56 (76) 97 Room Air 08/25/17 23:08 52 16 127/78 (94) 98 Room Air 08/25/17 20:21 98 Room Air 08/25/17 20:18 98.1 56 18 135/63 (87) 98 Room Air I/O 08/25/17 08/25/17 08/25/17 08/26/17 08/26/17 08/26/17 07:00 15:00 23:00 07:00 15:00 23:00 Intake Total 120 ml Output Total 70 ml 275 ml Balance 50 ml -275 ml Intake Oral 120 ml Output Urine Total 70 ml 275 ml # Voids 1 2 Result Diagram: 08/26/17 0450 08/26/17 1035 Imaging Last Impressions Hip and Pelvis X-Ray 08/25/172016 Signed Impressions: Service Date/Time: Friday, August 25, 2017 20:33 - CONCLUSION: No acute disease. Shahid Jade MD Chest X-Ray 08/25/172016 Signed Impressions: Service Date/Time: Friday, August 25, 2017 20:30 - CONCLUSION: Suspected focal consolidation or atelectasis in the right upper lung. Shahid Jade MD Objective Remarks GENERAL: female lying in bed CARDIOVASCULAR: Regular rate and rhythm without murmurs RESPIRATORY: appears clear to auscultation, no wheezing GASTROINTESTINAL: Abdomen soft, non-tender, nondistended. No guarding. MUSCULOSKELETAL: Extremities without edema. No calf tenderness. NEUROLOGICAL: Awake and alert. Motor and sensory grossly within normal limits. Normal speech. A/P Assessment and Plan 1. Hypoglycemia Blood sugar on arrival to the emergency department was 29, patient continues to have episodes of hypoglycemia despite IV replacement currently on hypoglycemia protocol Every hour blood glucose checks. Last serum glucose was 199 Encourage by mouth intake. Pt asking for pepsi and chicken broth. Nausea improved Pt doesn't think she could have taken her DM meds by mistake. IF she continues to have hypoglycemia episodes, consider check insulin levels. 2. Hypokalemia Potassium 2.5 now resolved. Continue to monitor closely. 3. Pneumonia Chest x-ray significant for focal consolidation in the right upper lung, personally reviewed Patient on day 3 of azithromycin as an outpatient on IV Levaquin 4. Seizure disorder Continue home Lyrica, Keppra, Lamictal 5. Hypertension/hyperlipidemia Continue home medications 6. Recent hip/pelvic fx PT consulted FEN Heart healthy diet Electrolytes: as above D5 1/2 NS + 20 KCl at 100 cc/hr Heparin Discharge Planning encourage po intake. continue IVFs. continue to monitor BS q1hr for now. once stabilize, can decrease frequency of accuchecks. continue to monitor in ICU Dilcia Marks MD Aug 26, 2017 13:03
[2017-08-26] MEDS ORDERED: SODIUM CHLORID 0.9% 500 ML INJ 500 ML IV SCH (18:30)
[2017-08-26] MEDS: OXYBUTYNIN CHLORIDE 5 MG TAB PO SCH (22:22)
[2017-08-26] MEDS: ATORVASTATIN 40 MG TAB PO SCH (22:24)
[2017-08-27] VITALS (13 sets, daily range): BP systolic 105–125; BP diastolic 54–60; PULSE 61–82; RESP 16–23; TEMP 98.3–98.6; O2SAT 94–96
[2017-08-27] MEDS: [UNRECOGNIZED DRUG - OTHER] IV SCH (00:29)
[2017-08-27] MEDS: SODIUM CHLORIDE IV SCH (00:29)
[2017-08-27] MEDS: POTASSIUM CHLORIDE IV SCH (00:29)
[2017-08-27] MEDS ORDERED: D5-NS + KCL 20 MEQ INJ 1,000 ML IV SCH (03:45)
[2017-08-27 04:41] LABS: AUTOMATED NEUTROPHIL # 7.1 TH/MM3 (1.8-7.7); BASOPHIL # 0.1 TH/MM3 (0-0.2); BASOPHIL % 0.6 % (0.0-2.0); EOSINOPHIL # 0.1 TH/MM3 (0-0.4); EOSINOPHIL % 1.1 % (0.0-4.0); HEMATOCRIT 30.3 % (35.0-46.0); HEMOGLOBIN 10.1 GM/DL (11.6-15.3); LYMPH % 9.5 % (9.0-44.0); LYMPHOCYTE # 0.9 TH/MM3 (1.0-4.8); MEAN CELL VOLUME 88.8 FL (80.0-100.0); MEAN CORPUSCULAR HEMOGLOBIN 29.5 PG (27.0-34.0); MEAN CORPUSCULAR HGB CONC 33.3 % (32.0-36.0); MEAN PLATELET VOLUME 8.1 FL (7.0-11.0); MONO % 10.6 % (0.0-8.0); NEUT % 78.2 % (16.0-70.0); PLATELET COUNT 174 TH/MM3 (150-450); RED BLOOD COUNT 3.42 MIL/MM3 (4.00-5.30); RED CELL DISTRIBUTION WIDTH 15.6 % (11.6-17.2); WHITE BLOOD COUNT 9.1 TH/MM3 (4.0-11.0)
[2017-08-27] MEDS: HEPARIN SODIUM - SQ 10,000 UNITS/ML VIAL SQ SCH ×2 (04:42→18:59)
[2017-08-27 05:03] LABS: BICARBONATE 24.8 MEQ/L (21.0-32.0); CALCIUM 7.7 MG/DL (8.5-10.1); CREATININE 0.71 MG/DL (0.50-1.00); MAGNESIUM 1.5 MG/DL (1.5-2.5)
[2017-08-27] MEDS: DOCUSATE SODIUM 50 MG/SENNA 8.6 MG TAB PO SCH ×2 (08:01→20:01)
[2017-08-27] MEDS: levETIRAcetam 250 MG TAB PO SCH ×2 (08:02→20:01)
[2017-08-27] MEDS: PREGABALIN 75 MG CAP PO SCH ×2 (08:02→20:01)
[2017-08-27] MEDS: ASPIRIN 81 MG CHEW TAB CHEW SCH (08:02)
[2017-08-27] MEDS: TIOTROPIUM BROMIDE 18 MCG INH INH SCH (08:03)
[2017-08-27] MEDS: lamoTRIgine 100 MG TAB PO SCH ×2 (08:03→20:01)
[2017-08-27] MEDS: LEVOFLOXACIN 750 MG PREMIX INJ 150 ML IV SCH (08:03)
[2017-08-27] MEDS: SODIUM CHLORIDE 0.9% FLUSH 10 ML FLUSH IV FLUSH SCH ×2 (08:04→20:01)
[2017-08-27] MEDS: LISINOPRIL 5 MG TAB PO SCH (08:05)
--- NOTE | 2017-08-27 08:22 | HHI.DCPOC ---
Discharge Care Plan Diagnosis: (1) PNA (pneumonia) (2) Pneumonia (3) Hypoglycemia Your Health Problems Are: Difficulty with ADL Exercise Tolerance Goals to Promote Your Health * To prevent worsening of your condition and complications * To maintain your health at the optimal level Directions to Meet Your Goals Take your medications as prescribed Follow your dietary instruction Follow activity as directed Keep your appointments as scheduled Take your immunizations and boosters as scheduled If your symptoms worsen call your PCP, if no PCP go to Urgent Care Center or Emergency Room Smoking is Dangerous to Your Health. Avoid second hand smoke Call the 24-hour hour crisis hotline for domestic abuse at Rambo Delgado MD Aug 27, 2017 08:22
--- NOTE | 2017-08-27 08:23 | HHI.FF ---
Face to Face Verification Diagnosis: (1) Pneumonia (2) Hypoglycemia Physical Therapy Order: Evaluate and Treat, Improve ambulation, Strength and gait training Home Health Nursing Order: Medical education Signs/symptoms of disease process Medication education-adverse effect Nursing assessment with vital signs I have seen patient Jackie Petty on 08/27/17. My clinical findings support the need for the requested home health care services because: Deconditioned w/ increased weakness I certify that my clinical findings support that this patient is homebound because: Unsafe to leave home unassisted Need for psychosocial assistance Rambo Delgado MD Aug 27, 2017 08:23
[2017-08-27] MEDS ORDERED: WALKER WHEELS/F1 MIS (08:25)
--- NOTE | 2017-08-27 10:14 | HHI.PR ---
Subjective Remarks Follow-up hypoglycemia and pneumonia. Patient doing okay denies hypoglycemic symptoms. Improving cough denies fever, chills and shortness of breath. Discussed with nursing, Tiffany fingerstick 90 on D5 patient tolerating breakfast. Reviewed EMR with regards to previous 2 admissions no hypoglycemia on presentation Objective Vitals Vital Signs Date Time Temp Pulse Resp B/P (MAP) Pulse Ox O2 Delivery O2 Flow Rate FiO2 08/27/17 08:00 98.4 78 18 125/55 (78) 96 08/27/17 08:00 80 08/27/17 06:00 69 08/27/17 04:00 98.6 61 18 105/55 (72) 95 08/27/17 04:00 61 08/27/17 02:00 67 08/27/17 00:00 98.5 66 16 122/57 (78) 96 08/27/17 00:00 66 08/26/17 22:00 71 08/26/17 20:00 66 08/26/17 20:00 98.5 69 24 119/56 (77) 96 08/26/17 18:00 69 08/26/17 16:00 66 08/26/17 15:20 98.1 69 22 96/54 (68) 97 08/26/17 14:00 70 08/26/17 12:00 76 08/26/17 11:20 98.1 73 21 99/54 (69) 97 I/O 08/26/17 08/26/17 08/26/17 08/27/17 08/27/17 08/27/17 06:59 14:59 22:59 06:59 14:59 22:59 Intake Total 1025 ml 628 ml 210 ml Output Total 275 ml 350 ml Balance -275 ml 1025 ml 628 ml -140 ml Intake Oral 480 ml 210 ml IV Total 1025 ml 148 ml Output Urine Total 275 ml 350 ml # Voids 2 6 # Bowel Movements 0 Result Diagram: 08/27/170 08/27/17 043 Imaging Last Impressions Hip and Pelvis X-Ray 08/25/172016 Signed Impressions: Service Date/Time: Friday, August 25, 2017 20:33 - CONCLUSION: No acute disease. Shahid Jade MD Chest X-Ray 08/25/172016 Signed Impressions: Service Date/Time: Friday, August 25, 2017 20:30 - CONCLUSION: Suspected focal consolidation or atelectasis in the right upper lung. Shahid Jade MD Objective Remarks GENERAL: female lying in bed Skin: Warm dry no lesions CARDIOVASCULAR: Regular rate and rhythm without murmurs RESPIRATORY: appears clear to auscultation, no wheezing GASTROINTESTINAL: Abdomen soft, non-tender, nondistended. No guarding. MUSCULOSKELETAL: Extremities without edema. No calf tenderness. NEUROLOGICAL: Awake and alert. Motor and sensory grossly within normal limits. Normal speech. Procedures none A/P Problem List: (1) Pneumonia ICD Code: J18.9 - Pneumonia, unspecified organism Status: Acute Assessment and Plan 1. Hypoglycemia. Improving discontinue D5 and monitor. Hypoglycemia protocol. Will order stat glucose, insulin and C-peptide when she develops another episode of hypoglycemia. Discussed with nursing. This could be related to 2. Hypokalemia. Resolved 3. Pneumonia, hospital-acquired. Meets criteria for sepsis. She already has taken azithromycin. Continue IV Levaquin as she appears clinically stable. Will consider switching to Zosyn or cefepime if worse. Obtain sputum culture, Legionella and pneumococcal urinary antigen. Follow-up blood cultures 4. Seizure disorder. Stable. Continue home Lyrica, Keppra, Lamictal. Seizure precaution 5. Hypertension/hyperlipidemia. Continue home medications 6. Recent hip/pelvic fx. PT consulted FEN Heart healthy diet Electrolytes: as above Heparin Discharge Planning Transferred to telemetry by midday if fingersticks stable possible discharge with PT and visiting nurse in the morning Problem Qualifiers (1) Pneumonia: Qualified Codes: J18.1 - Lobar pneumonia, unspecified organism Rambo Delgado MD Aug 27, 2017 10:14
[2017-08-27] MEDS ORDERED: BENZONATATE 100 MG CAP PO PRN (10:15)
[2017-08-27] MEDS: OXYBUTYNIN CHLORIDE 5 MG TAB PO SCH (20:01)
[2017-08-27] MEDS: ATORVASTATIN 40 MG TAB PO SCH (20:01)
[2017-08-27] MEDS: guaiFENesin E.R. 600 MG TAB PO SCH (20:01)
[2017-08-28] VITALS (11 sets, daily range): BP systolic 98–153; BP diastolic 55–70; PULSE 65–75; RESP 18–24; TEMP 97.9–98.4; O2SAT 92–98
[2017-08-28] MEDS: HEPARIN SODIUM - SQ 10,000 UNITS/ML VIAL SQ SCH ×2 (06:11→18:55)
[2017-08-28] MEDS: ASPIRIN 81 MG CHEW TAB CHEW SCH (08:22)
[2017-08-28] MEDS: DOCUSATE SODIUM 50 MG/SENNA 8.6 MG TAB PO SCH ×2 (08:22→21:23)
[2017-08-28] MEDS: LEVOFLOXACIN 750 MG TAB PO SCH (08:22)
[2017-08-28] MEDS: levETIRAcetam 250 MG TAB PO SCH ×2 (08:22→21:23)
[2017-08-28] MEDS: PREGABALIN 75 MG CAP PO SCH ×2 (08:22→21:23)
[2017-08-28] MEDS: guaiFENesin E.R. 600 MG TAB PO SCH ×2 (08:22→21:23)
[2017-08-28] MEDS: TIOTROPIUM BROMIDE 18 MCG INH INH SCH (08:23)
[2017-08-28] MEDS: LISINOPRIL 5 MG TAB PO SCH (08:23)
[2017-08-28] MEDS: SODIUM CHLORIDE 0.9% FLUSH 10 ML FLUSH IV FLUSH SCH ×2 (08:23→21:00)
[2017-08-28] MEDS: lamoTRIgine 100 MG TAB PO SCH ×2 (08:23→21:23)
[2017-08-28] MEDS: ONDANSETRON HCL 4 MG/2 ML VIAL IVP PRN (09:53)
[2017-08-28] MEDS: SODIUM CHLOR 0.9% 1000 ML INJ 1,000 ML IV SCH (10:00)
[2017-08-28 10:31] LABS: AUTOMATED NEUTROPHIL # 5.7 TH/MM3 (1.8-7.7); BASOPHIL % 0.4 % (0.0-2.0); EOSINOPHIL # 0.3 TH/MM3 (0-0.4); EOSINOPHIL % 3.8 % (0.0-4.0); HEMATOCRIT 29.9 % (35.0-46.0); LYMPH % 11.4 % (9.0-44.0); LYMPHOCYTE # 0.9 TH/MM3 (1.0-4.8); MEAN CELL VOLUME 88.2 FL (80.0-100.0); MEAN CORPUSCULAR HEMOGLOBIN 29.4 PG (27.0-34.0); MEAN CORPUSCULAR HGB CONC 33.4 % (32.0-36.0); MEAN PLATELET VOLUME 8.3 FL (7.0-11.0); MONO % 8.3 % (0.0-8.0); MONOCYTE # 0.6 TH/MM3 (0-0.9); NEUT % 76.1 % (16.0-70.0); PLATELET COUNT 209 TH/MM3 (150-450); RED BLOOD COUNT 3.39 MIL/MM3 (4.00-5.30); RED CELL DISTRIBUTION WIDTH 15.7 % (11.6-17.2); WHITE BLOOD COUNT 7.5 TH/MM3 (4.0-11.0)
--- NOTE | 2017-08-28 10:33 | RADRPT ---
EXAM DATE/TIME: 08/28/2017 10:20 [facility] COMPARISON: CT BRAIN W/O CONTRAST, July 09, 2017, 11:28. INDICATIONS : Stroke alert, left sensory deficit, slurred speach, lethargic RADIATION DOSE: 36.22 CTDIvol (mGy) This report was called by Yenny to Dr. Delgado at 10: 30 AM MEDICAL HISTORY : Stroke. SURGICAL HISTORY : Non-responsive. ENCOUNTER: Initial ACUITY: 1 day PAIN SCALE: Non-responsive LOCATION: cranial TECHNIQUE: Multiple contiguous axial images were obtained of the head. Using automated exposure control and adj ustment of the mA and/or kV according to patient size, radiation dose was kept as low as reasonably a chievable to obtain optimal diagnostic quality images. DICOM format image data is available electro nically for review and comparison. FINDINGS: CEREBRUM: Right parietal encephalomalacia characteristic of an old stroke is stable. There are no characteristi c findings of acute infarct, hemorrhage, mass or edema. POSTERIOR FOSSA: The cerebellum and brainstem are intact. The 4th ventricle is midline. The cerebellopontine angle i s unremarkable. EXTRACRANIAL: The visualized portion of the orbits is intact. SKULL: The calvaria is intact. No evidence of skull fracture. CONCLUSION: 1. No evidence of acute infarct, hemorrhage, mass or edema. 2. Old right parietal infarct Eligio Mendes MD on August 28, 2017 at 10:25 Board Certified Radiologist. This report was verified electronically.
[2017-08-28 10:39] LABS: INTERNATIONAL NORMALIZED RATIO 1.1 RATIO; PROTHROMBIN TIME - PATIENT 10.7 SEC (9.8-11.6)
[2017-08-28] MEDS ORDERED: ENALAPRILAT 1.25 MG/ML VIAL IV PUSH PRN (10:45)
[2017-08-28] MEDS ORDERED: LABETALOL HCL 100 MG/20 ML VIAL IV PUSH PRN (10:45)
[2017-08-28 10:47] LABS: TROPONIN I LESS THAN 0.02 NG/ML (0.02-0.05)
--- NOTE | 2017-08-28 10:58 | HHI.PR ---
Subjective Remarks Called to evaluate patient for possible stroke. This morning she was noted to choke on her breakfast and then vomited. Noted to be altered with slurred speech. Stroke alert was then called. Head CT was unremarkable. Discussed with the stroke navigator and neurology. At this time, patient complains of double vision. Also has right lower quadrant tenderness no bowel movement for the past 3 days. She is passing gas. No UTI symptoms Objective Vitals Vital Signs Date Time Temp Pulse Resp B/P (MAP) Pulse Ox O2 Delivery O2 Flow Rate FiO2 08/28/17 04:00 72 08/28/17 04:00 98.2 72 18 109/55 (73) 92 08/28/17 00:00 98.1 75 20 118/59 (78) 94 08/28/17 00:00 75 08/27/17 20:00 82 08/27/17 20:00 98.3 82 23 123/57 (79) 94 08/27/17 18:00 80 08/27/17 16:00 78 08/27/17 15:20 98.4 79 20 125/60 (81) 95 08/27/17 14:00 74 08/27/17 12:00 68 08/27/17 11:20 98.4 74 19 106/54 (71) 95 I/O 08/27/17 08/27/17 08/27/17 08/28/17 08/28/17 08/28/17 07:00 15:00 23:00 07:00 15:00 23:00 Intake Total 210 ml 380 ml 240 ml Output Total 350 ml 500 ml 500 ml Balance -140 ml -120 ml -260 ml Intake Oral 210 ml 380 ml 240 ml Output Urine Total 350 ml 500 ml 500 ml # Voids 1 # Bowel Movements 0 Result Diagram: 08/28/17 1017 08/27/17 0430 Imaging Last Impressions Head CT 08/28/17 0000 Signed Impressions: Service Date/Time: Monday, August 28, 2017 10:20 - CONCLUSION: 1. No evidence of acute infarct, hemorrhage, mass or edema. 2. Old right parietal infarct Eligio Mendes MD Hip and Pelvis X-Ray 08/25/172016 Signed Impressions: Service Date/Time: Friday, August 25, 2017 20:33 - CONCLUSION: No acute disease. Shahid Jade MD Chest X-Ray 08/25/172016 Signed Impressions: Service Date/Time: Friday, August 25, 2017 20:30 - CONCLUSION: Suspected focal consolidation or atelectasis in the right upper lung. Shahid Jade MD Objective Remarks GENERAL: female lying in bed. Well-developed, well-nourished who looks critically ill Skin: Warm dry no lesions CARDIOVASCULAR: Regular rate and rhythm without murmurs RESPIRATORY: appears clear to auscultation, no wheezing GASTROINTESTINAL: Abdomen soft, non-tender, nondistended. No guarding. MUSCULOSKELETAL: Extremities without edema. No calf tenderness. NEUROLOGICAL: Lethargic but answering questions appropriately. Following commands. Improving slurred speech. Slight left facial droop not sure if this is baseline. Generalized weakness. Procedures none A/P Problem List: (1) Pneumonia ICD Code: J18.9 - Pneumonia, unspecified organism Status: Acute Assessment and Plan 1. Hypoglycemia. Improving discontinue D5 and monitor. Hypoglycemia protocol. Will order stat glucose, insulin and C-peptide when she develops another episode of hypoglycemia. Discussed with nursing. This could be related to 2. Hypokalemia. Resolved 3. Pneumonia, hospital-acquired. Meets criteria for sepsis. S/p azithromycin. Continue Levaquin as she appears clinically stable. Will consider switching to Zosyn or cefepime if worse. F/u sputum culture, Legionella and pneumococcal urinary antigen. Follow-up blood cultures NGTD. Rpt CXR in 6 weeks 4. Seizure disorder. Stable. Continue home Lyrica, Keppra, Lamictal. Seizure precaution 5. Hypertension/hyperlipidemia. Continue home medications 6. Recent hip/pelvic fx. PT consulted 7. Likely CVA involving posterior circulation. Stroke alert. Ct Asa and lipitor. Permissive hypertension. Carotid ultrasound a month ago showed moderate carotid stenosis but not hemodynamically significant. Check echocardiogram. Telemetry shows sinus rhythm. Check A1c and lipid profile. Consult PT, OT and ST. Discussed with neurology, will consider TPA 8. Constipation. Continue bowel regimen. Consider mag citrate. Check KUB FEN Heart healthy diet but currently n.p.o. for now Electrolytes: as above Heparin Discharge Planning Canceled transfer to telemetry keep patient in ICU as she is critical ill and will need close monitoring of her neurologic status. High likelihood of decompensation. Critical care time spent 35 minutes Problem Qualifiers (1) Pneumonia: Qualified Codes: J18.1 - Lobar pneumonia, unspecified organism Rambo Delgado MD Aug 28, 2017 10:58
[2017-08-28] MEDS ORDERED: ASPIRIN 325 MG TAB PO ONE (11:15)
--- NOTE | 2017-08-28 12:03 | RADRPT ---
EXAM DATE/TIME: 08/28/2017 11:04 [facility] COMPARISON: No previous studies available for comparison. INDICATIONS : Abdominal pain lower right side. MEDICAL HISTORY : Chronic obstructive pulmonary disease. Cardiovascular disease. Hypertension. SURGICAL HISTORY : Cholecystectomy. IVC Repair. Hernia repair. ENCOUNTER: Subsequent ACUITY: 3 days PAIN SCORE: 6/10 LOCATION: Abdomen. FINDINGS: Inferior vena cava filter present. Previous hernia repair. Left hip replacement. Nonspecific bowel ga s pattern without evidence for obstruction or free air. Surgical clips at the right groin. CONCLUSION: 1. No acute findings. Postoperative change as above. No obstruction or free air. Alok Mobley MD on August 28, 2017 at 12:00 Board Certified Radiologist. This report was verified electronically.
--- NOTE | 2017-08-28 17:43 | ECHRPT ---
Indication: CVA/TIA CONCLUSIONS Moderately dilated left ventricle. Wall thickness is measured at the upper limits of normal. The left ventricular systolic function is severely reduced with an estimated ejection fraction in th e range of 25-30%. There is global left ventricular dysfunction. Mitral annular calcification is present. Mild mitral valve regurgitation. Moderate pulmonary valve regurgitation. BP: 125 / 57 HR: 68 Rhythm: Sinus MEASUREMENTS (Male / Female) Normal Values Technical Quality:Fair 2D ECHO LV Diastolic Diameter PLAX 5.1 cm 4.2 - 5.9 / 3.9 - 5.3 cm LV Systolic Diameter PLAX 4.9 cm IVS Diastolic Thickness 1.1 cm 0.6 - 1.0 / 0.6 - 0.9 cm LVPW Diastolic Thickness 1.0 cm 0.6 - 1.0 / 0.6 - 0.9 cm LV Relative Wall Thickness 0.4 RV Internal Dim ED PLAX 2.3 cm LVOT Diameter 1.9 cm M-MODE Aortic Root Diameter MM 3.1 cm LA Systolic Diameter MM 4.3 cm LA Ao Ratio MM 1.4 AV Cusp Separation MM 2.2 cm DOPPLER AV Peak Velocity 147.0 cm/s AV Peak Gradient 8.6 mmHg LVOT Peak Velocity 132.0 cm/s LVOT Peak Gradient 7.0 mmHg AV Area Cont Eq pk 2.5 cm MV Area PHT 3.5 cm Mitral E Point Velocity 69.0 cm/s Mitral A Point Velocity 114.0 cm/s Mitral E to A Ratio 0.6 LV E' Lateral Velocity 6.4 cm/s Mitral E to LV E' Lateral Ratio 10.8 LV E' Septal Velocity 4.6 cm/s Mitral E to LV E' Septal Ratio 15.1 FINDINGS LEFT VENTRICLE Moderately dilated left ventricle. Wall thickness is measured at the upper limits of normal. The left ventricular systolic function is severely reduced with an estimated ejection fraction in th e range of 25-30%. There is global left ventricular dysfunction. RIGHT VENTRICLE Normal right ventricular size and systolic function. LEFT ATRIUM The left atrial size is normal. RIGHT ATRIUM The right atrial size is normal. ATRIAL SEPTUM Normal atrial septal thickness without atrial level shunting by limited color doppler interrogation. AORTA The aortic root and proximal ascending aorta are normal in size on limited imaging. MITRAL VALVE Mitral annular calcification is present. Mild mitral valve regurgitation. AORTIC VALVE Trileaflet aortic valve. No aortic valve stenosis or regurgitation. TRICUSPID VALVE Structurally normal tricuspid valve. No tricuspid valve stenosis or regurgitation. PULMONARY VALVE Moderate pulmonary valve regurgitation. VESSELS The inferior vena cava is normal in size. PERICARDIUM No pericardial effusion. Clifford Araujo MD, FACC (Electronically Signed) Final Date:28 August 2017 17:42
[2017-08-28] MEDS ORDERED: MAGNESIUM CITRATE SOLN 300 ML BTL PO ONE (17:45)
[2017-08-28] MEDS ORDERED: DEXTROSE 50% IN WATER 50 ML VIAL(D50) IV PUSH PRN (19:00)
[2017-08-28] MEDS ORDERED: GLUCAGON 1 MG/ML VIAL OTHER PRN (19:00)
[2017-08-28] MEDS ORDERED: SODIUM CHLORIDE 0.9% FLUSH 10 ML FLUSH IV FLUSH PRN (19:00)
[2017-08-28] MEDS: SENNOSIDES 8.6 MG TAB PO PRN (19:02)
--- NOTE | 2017-08-28 20:00 | MB ---
cc: Matt Rodriguez MD, PhD DATE: 08/28/2017 REASON FOR CONSULTATION: Stroke alert. HISTORY OF PRESENT ILLNESS: Ms. Petty is a 76-year-old woman who was admitted for hypoglycemia with a glucose of 29. This has normalized. The patient was stable, was in the process of being evaluated for discharge but then suddenly developed slurring of her speech and some double vision. A stroke alert was therefore called. In the interim, the patient was improving. She was initially found to have a possible left superior visual field cut as well, but this was resolving as well. PAST MEDICAL HISTORY: History of seizure disorder, hypertension, hyperlipidemia, recent hypoglycemia, history of TIAs in the past. PAST SURGICAL HISTORY: History of hysterectomy, cholecystectomy, , left hip surgery, aortofemoral bypass, and 6 bladder surgeries. MEDICATIONS: Enalapril p.r.n., labetalol p.r.n., Levaquin 750 mg daily, guaifenesin, tessalon, lipitor, aspirin 81 mg daily, lamictal 150 mg b.i.d., Keppra 250 mg b.i.d., Lyrica 75 mg b.i.d., Spiriva, subcutaneous Heparin 5000 units q.12 hours. PHYSICAL EXAMINATION: VITAL SIGNS: Blood pressure 115/65, pulse 65, respirations are 18, temperature 98 degrees. NEUROLOGIC: Higher cortical functions are normal. Cranial nerves: The extraocular movements are normal. Visual an are normal to gross confrontational testing. I do not find a left field cut. Pupils equal, reactive. There is a questionable mild left facial droop. Motor exam: No drift. She has got equal strength in both arms and legs. Reflexes are symmetric. IMAGING STUDIES: CT scan of the brain: No acute change identified. LABORATORY DATA: Her white count is 7500; hemoglobin 10; hematocrit 29.9%; platelet count is 209,000. PT 10.7, INR 1.1, APTT elevated at 31.7. Fibrinogen 392. Sodium 139, potassium 4.1, chloride 105, the glucose is 112, BUN is 8, creatinine 0.8. IMPRESSION: I suspect this probably was a vertebrobasilar transient ischemic attack versus stroke. Her symptoms are improving. She does have an elevated APTT likely from her subcutaneous heparin. Given this, as well as the rapid improvement in her symptoms, she is not a candidate for IV TPA. RECOMMENDATIONS: We will continue monitoring her neurological status. I would like to get further evaluation with MRI and MRA of the brain, echocardiogram, and carotid ultrasound. Recommend starting her on Plavix as well at 75 mg daily. Matt Rodriguez MD, PhD KIMBERLY/JESSY , 06:52 PM , 07:59 PM
--- NOTE | 2017-08-28 20:21 | RADRPT ---
EXAM DATE/TIME: 08/28/2017 19:15 [facility] COMPARISON: US CAROTID ARTERIES, July 09, 2017, 16:49. INDICATIONS : Cerebrovascular accident. MEDICAL HISTORY : Hypertension. Hypercholesterolemia. Peripheral vascular disease. Left sensory deficit, slurred speach , lethargic, vertigo, seizures. SURGICAL HISTORY : Cholecystectomy. Hysterectomy. Tubal ligation. Lt hip hemiarthroplasty. Aorto-Femoral Bypass Graft. 6 bladder surgeries. Hernia Repair. ENCOUNTER: Initial ACUITY: 1 day PAIN SCORE: 0/10 LOCATION: Bilateral neck PEAK SYSTOLIC VELOCITIES (cm/sec): ICA/CCA RATIO: Right: 2.1 Left: 2.5 ICA: Right: 148.9 Left: 127.8 CCA: Right: 71.1 Left: 50.4 ECA: Right: 50.4 Left: 62.5 VERTEBRAL: Right: 82.2 antegrade Left: 47.1 antegrade Elevated flow velocities and ICA/CCA ratios have been found to correlate with increased degrees of vessel stenosis, calculated as percentage of diameter relative to a normal segment of distal ICA/CCA FINDINGS: RIGHT CAROTID: There is moderate plaque on the grayscale images at the carotid bulb region. There is mildly elevated velocity with some spectral broadening at the mid right internal carotid artery. LEFT CAROTID: There is moderate plaque on the grayscale images of the carotid bulb region. The velocities are withi n normal limits. The peak systolic velocity of the left internal carotid artery is at the upper limit s of normal. VERTEBRAL ARTERIES: Antegrade flow is seen in both vertebral arteries. MISCELLANEOUS: None. CONCLUSION: Plaque at the carotid bulb regions bilaterally with mildly elevated peak systolic velocity in the rig ht internal carotid artery concerning for a possible more significant stenosis. The carotid systems c ould be better evaluated with a CTA of the neck. Shahid Jade MD on August 28, 2017 at 20:17 Board Certified Radiologist. This report was verified electronically.
[2017-08-28] MEDS: INSULIN ASPART SUPPLEMENTAL SCALE SQ SCH (21:00)
--- NOTE | 2017-08-28 21:06 | RADRPT ---
EXAM DATE/TIME: 08/28/2017 20:08 [facility] COMPARISON: MRI BRAIN W/O CONTRAST, January 19, 2017, 19:14. CT BRAIN W/O CONTRAST, August 28, 2017, 10:20. INDICATIONS : CVA. MEDICAL HISTORY : Seizures. CVA. SURGICAL HISTORY : Coronary artery stent. Inguinal hernia repair. ENCOUNTER: Initial ACUITY: 1 day PAIN SCORE: 0/10 LOCATION: cranial TECHNIQUE: Multiplanar, multisequence MRI of the brain was performed without contrast. FINDINGS: There is stable encephalomalacia in the high convexity right parieto-occipital region. There is patch y mild T2 prolongation in the underlying white matter and elsewhere in deep white matter structures w hich appear stable and benign. There is no evidence of intracranial hemorrhage or mass. There is noth ing to suggest acute infarction. The extracranial structures are benign and intact. CONCLUSION: Stable brain appearance. No acute findings. Shahid Davis MD on August 28, 2017 at 21:02 Board Certified Radiologist. This report was verified electronically.
--- NOTE | 2017-08-28 21:08 | RADRPT ---
EXAM DATE/TIME: 08/28/2017 20:08 [facility] COMPARISON: No previous studies available for comparison. INDICATIONS : CVA. MEDICAL HISTORY : Seizures. SURGICAL HISTORY : Coronary artery stent. Inguinal hernia repair. ENCOUNTER: Initial ACUITY: 1 day PAIN SCORE: 0/10 LOCATION: cranial Please note a normal MRA of the brain does not entirely exclude the possibility of a small aneurysm, nor the possibility of distal intracranial vessel disease. TECHNIQUE: 3D time of flight MRA was performed. Source images, multiplanar STS MIP, and 3D volume MIP reconstru ctions were reviewed. FINDINGS: There is excellent visualization of the major intracranial arteries out to the second-order branch ve ssels. There is no evidence for aneurysm, vessel truncation or stenosis, and no evidence for vascula r malformation. The left vertebral artery appears to terminate in the PICA as a variant of normal. CONCLUSION: No acute [place] vascular findings. Shahid Davis MD on August 28, 2017 at 21:04 Board Certified Radiologist. This report was verified electronically.
[2017-08-28] MEDS: ATORVASTATIN 40 MG TAB PO SCH (21:24)
[2017-08-29] VITALS (12 sets, daily range): BP systolic 98–153; BP diastolic 49–66; PULSE 50–74; RESP 15–30; TEMP 97.6–98.3; O2SAT 92–95
[2017-08-29] MEDS: SODIUM CHLOR 0.9% 1000 ML INJ 1,000 ML IV SCH (00:18)
[2017-08-29] MEDS: HEPARIN SODIUM - SQ 10,000 UNITS/ML VIAL SQ SCH (05:14)
[2017-08-29 05:47] LABS: AUTOMATED NEUTROPHIL # 5.9 TH/MM3 (1.8-7.7); BASOPHIL # 0.1 TH/MM3 (0-0.2); BASOPHIL % 0.8 % (0.0-2.0); EOSINOPHIL # 0.3 TH/MM3 (0-0.4); EOSINOPHIL % 3.6 % (0.0-4.0); HEMATOCRIT 32.8 % (35.0-46.0); HEMOGLOBIN 10.8 GM/DL (11.6-15.3); LYMPH % 10.3 % (9.0-44.0); LYMPHOCYTE # 0.8 TH/MM3 (1.0-4.8); MEAN CELL VOLUME 89.7 FL (80.0-100.0); MEAN CORPUSCULAR HEMOGLOBIN 29.6 PG (27.0-34.0); MEAN PLATELET VOLUME 7.6 FL (7.0-11.0); MONO % 6.7 % (0.0-8.0); MONOCYTE # 0.5 TH/MM3 (0-0.9); NEUT % 78.6 % (16.0-70.0); PLATELET COUNT 204 TH/MM3 (150-450); RED BLOOD COUNT 3.65 MIL/MM3 (4.00-5.30); RED CELL DISTRIBUTION WIDTH 15.5 % (11.6-17.2); WHITE BLOOD COUNT 7.6 TH/MM3 (4.0-11.0)
[2017-08-29 06:11] LABS: CALCIUM 8.5 MG/DL (8.5-10.1); CREATININE 0.88 MG/DL (0.50-1.00); MAGNESIUM 1.8 MG/DL (1.5-2.5)
[2017-08-29 06:14] LABS: CHOLESTEROL/ HDL RATIO 3.86 RATIO; HDL CHOLESTEROL 33.1 MG/DL (40.0-60.0)
[2017-08-29] MEDS: INSULIN ASPART SUPPLEMENTAL SCALE SQ SCH ×4 (08:00→21:00)
[2017-08-29] MEDS ORDERED: LEVA750T9 PO (08:09)
[2017-08-29] MEDS ORDERED: PLAV75TA29 PO (08:09)
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
[2017-08-29] MEDS: SODIUM CHLORIDE 0.9% FLUSH 10 ML FLUSH IV FLUSH SCH ×2 (09:00→22:00)
[2017-08-29] MEDS: lamoTRIgine 100 MG TAB PO SCH ×2 (10:11→21:58)
[2017-08-29] MEDS: TIOTROPIUM BROMIDE 18 MCG INH INH SCH (10:11)
[2017-08-29] MEDS: guaiFENesin E.R. 600 MG TAB PO SCH ×2 (10:13→21:58)
[2017-08-29] MEDS: LEVOFLOXACIN 750 MG TAB PO SCH (10:13)
[2017-08-29] MEDS: levETIRAcetam 250 MG TAB PO SCH ×2 (10:13→21:58)
[2017-08-29] MEDS: PREGABALIN 75 MG CAP PO SCH ×2 (10:13→21:58)
[2017-08-29] MEDS: CLOPIDOGREL 75 MG TAB PO SCH (10:14)
[2017-08-29] MEDS: DOCUSATE SODIUM 50 MG/SENNA 8.6 MG TAB PO SCH ×2 (10:14→21:00)
[2017-08-29] MEDS: ASPIRIN 81 MG CHEW TAB CHEW SCH (10:16)
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
[2017-08-29 13:00] LABS: HEMOGLOBIN A1C 5.3 % (4.3-6.0)
--- NOTE | 2017-08-29 14:13 | EKG ---
Date Performed: 08/28/2017 Time Performed: 11:24:32 PTAGE: 76 years EKG: Sinus rhythm Inferior/lateral ST-T changes may be due to myocardial ischemia Low QRS voltage in precordial leads Compared to PREVIOUS TRACING , nonspecific inferior T-wave changes are now present. PREVIOUS TRACIN08/25/2017 20.16 DOCTOR: Jett Skinner Interpretating Date/Time 08/29/2017 14:11:32
[2017-08-29] MEDS: ATORVASTATIN 40 MG TAB PO SCH (21:58)
[2017-08-30] VITALS (7 sets, daily range): BP systolic 99–145; BP diastolic 52–70; PULSE 68–89; RESP 17–20; TEMP 97.7–98.3; O2SAT 95–100
[2017-08-30] MEDS: HEPARIN SODIUM - SQ 10,000 UNITS/ML VIAL SQ SCH ×2 (04:40→17:31)
[2017-08-30] MEDS: INSULIN ASPART SUPPLEMENTAL SCALE SQ SCH ×4 (08:00→20:49)
[2017-08-30 08:34] LABS: BICARBONATE 25.4 MEQ/L (21.0-32.0); CALCIUM 8.3 MG/DL (8.5-10.1); CREATININE 0.89 MG/DL (0.50-1.00); MAGNESIUM 1.8 MG/DL (1.5-2.5)
[2017-08-30] MEDS: DOCUSATE SODIUM 50 MG/SENNA 8.6 MG TAB PO SCH ×2 (09:00→20:47)
[2017-08-30] MEDS: lamoTRIgine 100 MG TAB PO SCH ×2 (10:01→20:46)
[2017-08-30] MEDS: guaiFENesin E.R. 600 MG TAB PO SCH ×2 (10:01→20:47)
[2017-08-30] MEDS: CLOPIDOGREL 75 MG TAB PO SCH (10:01)
[2017-08-30] MEDS: PREGABALIN 75 MG CAP PO SCH ×2 (10:01→20:47)
[2017-08-30] MEDS: LEVOFLOXACIN 750 MG TAB PO SCH (10:01)
[2017-08-30] MEDS: levETIRAcetam 250 MG TAB PO SCH ×2 (10:02→20:47)
[2017-08-30] MEDS: ASPIRIN 81 MG CHEW TAB CHEW SCH (10:02)
[2017-08-30] MEDS: SODIUM CHLORIDE 0.9% FLUSH 10 ML FLUSH IV FLUSH SCH ×2 (10:02→20:47)
[2017-08-30] MEDS: TIOTROPIUM BROMIDE 18 MCG INH INH SCH (10:03)
--- NOTE | 2017-08-30 10:44 | HHI.PR ---
Subjective Remarks Follow-up TIA. No further neurologic deficits. Patient upset with nursing care seen with son discussed with nursing staff Objective Vitals Vital Signs Date Time Temp Pulse Resp B/P (MAP) Pulse Ox O2 Delivery O2 Flow Rate FiO2 08/30/17 08:00 97.9 68 20 145/63 (90) 97 08/30/17 05:52 97.7 70 20 99/55 (70) 95 08/30/17 00:00 98.3 70 20 102/52 (69) 95 08/29/17 21:00 98.3 69 20 117/56 (76) 94 08/29/17 19:45 93 21 08/29/17 18:00 68 08/29/17 16:00 97.8 66 25 121/59 (79) 95 08/29/17 16:00 66 08/29/17 14:00 66 08/29/17 12:00 97.6 74 30 153/66 (95) 94 08/29/17 12:00 74 I/O 08/29/17 08/29/17 08/29/17 08/30/17 08/30/17 08/30/17 06:59 14:59 22:59 06:59 14:59 22:59 Intake Total 100 ml 500 ml 480 ml 120 ml Output Total 450 ml 350 ml Balance -350 ml 500 ml 130 ml 120 ml Intake Oral 100 ml 480 ml 120 ml IV Total 500 ml Output Urine Total 450 ml 350 ml # Voids 2 # Bowel Movements 0 1 Result Diagram: 08/29/17 0530 08/30/17 0707 Imaging Last Impressions Head Magnetic Resonance Angiography 08/28/17 0000 Signed Impressions: Service Date/Time: Monday, August 28, 2017 20:08 - CONCLUSION: No acute [place] vascular findings. Shahid Davis MD Head CT 08/28/17 0000 Signed Impressions: Service Date/Time: Monday, August 28, 2017 10:20 - CONCLUSION: 1. No evidence of acute infarct, hemorrhage, mass or edema. 2. Old right parietal infarct Eligio Mendes MD Carotid Artery Ultrasound 08/28/17 0000 Signed Impressions: Service Date/Time: Monday, August 28, 2017 19:15 - CONCLUSION: Plaque at the carotid bulb regions bilaterally with mildly elevated peak systolic velocity in the right internal carotid artery concerning for a possible more significant stenosis. The carotid systems could be better evaluated with a CTA of the neck. Shahid Jade MD Brain MRI 08/28/17 0000 Signed Impressions: Service Date/Time: Monday, August 28, 2017 20:08 - CONCLUSION: Stable brain appearance. No acute findings. Shahid Davis MD Abdomen X-Ray 08/28/17 0000 Signed Impressions: Service Date/Time: Monday, August 28, 2017 11:04 - CONCLUSION: 1. No acute findings. Postoperative change as above. No obstruction or free air. Alok Mobley MD Hip and Pelvis X-Ray 08/25/172016 Signed Impressions: Service Date/Time: Friday, August 25, 2017 20:33 - CONCLUSION: No acute disease. Shahid Jade MD Chest X-Ray 08/25/172016 Signed Impressions: Service Date/Time: Friday, August 25, 2017 20:30 - CONCLUSION: Suspected focal consolidation or atelectasis in the right upper lung. Shahid Jade MD Objective Remarks GENERAL: female lying in bed. Well-developed, well-nourished Skin: Warm dry no lesions CARDIOVASCULAR: Regular rate and rhythm without murmurs RESPIRATORY: appears clear to auscultation, no wheezing GASTROINTESTINAL: Abdomen soft, non-tender, nondistended. No guarding. MUSCULOSKELETAL: Extremities without edema. No calf tenderness. NEUROLOGICAL: Awake and alert. Cranial nerves intact, motor power intact, speech normal Procedures none A/P Problem List: (1) Pneumonia ICD Code: J18.9 - Pneumonia, unspecified organism Status: Acute Assessment and Plan 1. Hypoglycemia. Resolved s/p D5 and monitor. Hypoglycemia protocol. Will order stat glucose, insulin and C-peptide when she develops another episode of hypoglycemia. Discussed with nursing. This could be related to sepsis 2. Hypokalemia. Resolved 3. Pneumonia, hospital-acquired. Meets criteria for sepsis. S/p azithromycin. Continue Levaquin as she appears clinically stable. F/u sputum culture, Legionella and pneumococcal urinary antigen. Follow-up blood cultures NGTD. Rpt CXR in 6 weeks 4. Seizure disorder. Stable. Continue home Lyrica, Keppra, Lamictal. Seizure precaution 5. Hypertension/hyperlipidemia. Continue home medications 6. Recent hip/pelvic fx. PT consulted 7. Vertebrobasilar TIA. Stable Ct Plavix and dc [place] in [address] lipitor. Abnormal Carotid US CTA ordered. Echocardiogram without clots. Telemetry shows sinus rhythm. LDL 62 on Lipitor A1c 5.3 consulted PT, OT and ST. Discussed with neurology, stable for discharge if CTA negative. PT for vestibular therapy 8. CMP, known. Restart RA inhibitor unable to start beta-nehemiah secondary to bradycardia. 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 9. Constipation. Unremarkable KUB. Continue bowel regimen. Refuse mag citrate FEN Heart healthy diet Electrolytes: as above Heparin Discharge Planning Stable for dc to SNF pending CTA Problem Qualifiers (1) Pneumonia: Qualified Codes: J18.1 - Lobar pneumonia, unspecified organism Rambo Delgado MD Aug 30, 2017 10:44
--- NOTE | 2017-08-30 14:09 | HHI.DS ---
Discharge Summary Admission Date Aug 25, 2017 at 22:24 Discharge Date: Sep 02, 2017 Admitting Diagnosis Pneumonia, recurrent hypoglycemia (1) Pneumonia ICD Code: J18.9 - Pneumonia, unspecified organism Diagnosis: Principal Status: Acute Procedures none Brief History - From Admission 76-year-old female with a past medical history significant for vertigo, seizure disorder, history of CVA, hypertension, hyperlipidemia and peripheral vascular disease presents to the emergency department after 911 was allegedly caught by her . The patient is not sure why she was here. She states that her home physical therapy came to the house today and she was walked around the house approximately 4 times. After this, she states she was tired and went to bed. The next thing patient remembers is waking up in the ambulance. The patient recently broke her left hip on 06/05 and shattered her pelvis on 07/10 and was released from rehabilitation on 08/13. She reports that yesterday and ambulance was also called to her house however she refused to come to the hospital. The patient also endorses a 1 week history of productive cough and she is on day 3 of a Z-Will at this time. She endorses subjective chills. Denies any shortness of breath or chest pain. Denies nausea/vomiting/diarrhea. No dysuria. No lateralizing signs/symptoms. The patient was found to be hypokalemic and hypoglycemic on arrival to the emergency department. CBC/BMP: 08/29/17 0530 08/30/17 0707 Significant Findings Laboratory Tests Test 08/28/17 10:17 08/29/17 05:30 08/30/17 07:07 Red Blood Count 3.39 MIL/MM3 (4.00-5.30) 3.65 MIL/MM3 (4.00-5.30) Hemoglobin 10.0 GM/DL (11.6-15.3) 10.8 GM/DL (11.6-15.3) Bedside Hemoglobin 9.2 G/DL (11.6-15.3) Hematocrit 29.9 % (35.0-46.0) 32.8 % (35.0-46.0) Bedside Hematocrit 27.0 % (35.0-46.0) Neutrophils (%) (Auto) 76.1 % (16.0-70.0) 78.6 % (16.0-70.0) Monocytes (%) (Auto) 8.3 % (0.0-8.0) Lymphocytes # (Auto) 0.9 TH/MM3 (1.0-4.8) 0.8 TH/MM3 (1.0-4.8) Activated Partial Thromboplast Time 31.7 SEC (24.3-30.1) Fibrinogen 392 mg/dL (227-377) Bedside Glucose 112 MG/DL (68-110) Total Creatine Kinase 18 U/L (26-192) Troponin I LESS THAN 0.02 NG/ML Chloride Level 110 MEQ/L (98-107) 110 MEQ/L (98-107) Estimat Glomerular Filtration Rate 63 ML/MIN (>89) 62 ML/MIN (>89) Triglycerides Level 164 MG/DL (42-150) HDL Cholesterol 33.1 MG/DL (40.0-60.0) Calcium Level 8.3 MG/DL (8.5-10.1) Imaging Last Impressions Neck CTA 08/29/17 0000 Signed Impressions: Service Date/Time: Wednesday, August 30, 2017 14:26 - CONCLUSION: 1. High grade hemodynamically significant stenosis in the proximal right internal carotid artery measuring greater than 80%% narrowing. 2. Moderate to severe stenosis of the proximal left internal carotid artery measuring in the 50-69%% range which may be hemodynamically significant. 3. Dominant right vertebral artery. 4. 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 Eligio Mendes MD Head Magnetic Resonance Angiography 08/28/17 0000 Signed Impressions: Service Date/Time: Monday, August 28, 2017 20:08 - CONCLUSION: No acute [place] vascular findings. Shahid Davis MD Head CT 08/28/17 0000 Signed Impressions: Service Date/Time: Monday, August 28, 2017 10:20 - CONCLUSION: 1. No evidence of acute infarct, hemorrhage, mass or edema. 2. Old right parietal infarct Eligio Mendes MD Carotid Artery Ultrasound 08/28/17 0000 Signed Impressions: Service Date/Time: Monday, August 28, 2017 19:15 - CONCLUSION: Plaque at the carotid bulb regions bilaterally with mildly elevated peak systolic velocity in the right internal carotid artery concerning for a possible more significant stenosis. The carotid systems could be better evaluated with a CTA of the neck. Shahid Jade MD Brain MRI 08/28/17 Signed Impressions: Service Date/Time: Monday, August 28, 2017 20:08 - CONCLUSION: Stable brain appearance. No acute findings. Shahid Davis MD Abdomen X-Ray 08/28/17 Signed Impressions: Service Date/Time: Monday, August 28, 2017 11:04 - CONCLUSION: 1. No acute findings. Postoperative change as above. No obstruction or free air. Alok Mobley MD Hip and Pelvis X-Ray 08/25/172016 Signed Impressions: Service Date/Time: Friday, August 25, 2017 20:33 - CONCLUSION: No acute disease. Shahid Jade MD Chest X-Ray 08/25/172016 Signed Impressions: Service Date/Time: Friday, August 25, 2017 20:30 - CONCLUSION: Suspected focal consolidation or atelectasis in the right upper lung. Shahid Jade MD PE at Discharge GENERAL: female lying in bed. Well-developed, well-nourished. No signs of dehydration Skin: Warm dry no lesions CARDIOVASCULAR: Regular rate and rhythm without murmurs RESPIRATORY: appears clear to auscultation, no wheezing GASTROINTESTINAL: Abdomen soft, non-tender, nondistended. No guarding. MUSCULOSKELETAL: Extremities without edema. No calf tenderness. NEUROLOGICAL: Awake and alert. Cranial nerves intact, motor power intact, speech normal Hospital Course 1. Hypoglycemia. Resolved s/p D5 and monitor. Hypoglycemia protocol. Will order stat glucose, insulin and C-peptide when she develops another episode of hypoglycemia. Discussed with nursing. This could be related to sepsis 2. Hypokalemia. Resolved 3. Pneumonia, hospital-acquired. Meets criteria for sepsis. S/p azithromycin. Continue Levaquin. F/u sputum culture, Legionella and pneumococcal urinary antigen. Follow-up blood cultures NGTD. Rpt CXR in 6 weeks 4. Seizure disorder. Stable. Continue home Lyrica, Keppra, Lamictal. Seizure precaution 5. Hypertension/hyperlipidemia. Continue home medications 6. Recent hip/pelvic fx. PT consulted 7. Vertebrobasilar TIA. Stable Ct Plavix and dc [place] in [address] lipitor. Abnormal Carotid US and CTA with carotid stenosis. Echocardiogram without clots. Telemetry shows sinus rhythm. LDL 62 on Lipitor A1c 5.3 consulted PT, OT and ST. PT for vestibular therapy. Patient has been cleared for discharge by neurology and vascular surgery who recommended outpatient follow-up. Dr. Cortez does not think her recent TIA is related to carotid stenosis recommended antiplatelets and statins and surveillance carotid sonogram. Patient with intermittent nausea and double vision could be related to medications versus vertigo. Nausea resolved with staggering of meds 8. CMP, known. Restarted RA inhibitor unable to start beta-nehemiah secondary to bradycardia. 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 9. Constipation. Unremarkable KUB. +BM Continue bowel regimen. Discussed with nursing to give as needed medicines for constipation FEN Heart healthy diet Electrolytes: as above Heparin Pt Condition on Discharge: Stable Discharge Disposition: Discharge to SNF Discharge Time: > 30 minutes Discharge Instructions DIET: Follow Instructions for: Heart Healthy Diet Speech Therapy-Diet Recommends: Mechanical Soft Activities you can perform: Regular-No Restrictions Activities to Avoid: Driving Follow up Referrals: Neurology - 3 Weeks PCP Follow-up - 1 Week SNF/[facility]DC/ with [facility] Vascular Surgery - 2 Weeks New Orders: X-RAY CHEST PA & LAT - 6 Weeks New Medications: Walker with Front Wheels (Walker with Front Wheels) 1 Mis Mis EA .XX DIRECTED, #1 0 Refills Clopidogrel (Plavix) 75 Mg Tab 75 MG PO DAILY for Prevent Blood Clot, #30 TAB Levofloxacin (Levaquin) 750 Mg Tablet 750 MG PO DAILY for Infection, #5 TAB stop 09/04/17 Continued Medications: Aspirin (Aspirin Low Dose) 81 Mg Chew 81 MG CHEW DAILY, TAB 0 Refills stop 09/02/17 since you will be on Plavix Atorvastatin (Lipitor) 40 Mg Tab 40 MG PO HS for Cholesterol Management, #30 TAB 0 Refills Biotin (Biotin) 5 Mg Tab 5 MG PO DAILY, #1 BOTTLE Cyanocobalamin (Vitamin B-12) 1,000 Mcg Tab 1500 MCG PO DAILY for Nutritional Supplement, #1 BOTTLE 0 Refills Ergocalciferol (Ergocalciferol) 50,000 Unit Cap 06812 UNITS PO Q7D for Nutritional Supplement, #8 CAP Folic Acid (Folic Acid) 400 Mcg Tab 400 MCG PO DAILY for Nutritional Supplement, TAB 0 Refills Lamotrigine (Lamotrigine) 150 Mg Tab 150 MG PO BID for Control Seizures, #30 TAB 0 Refills Levetiracetam (Levetiracetam) 250 Mg Tab 250 MG PO BID for Control Seizures, #60 TAB 0 Refills Lisinopril (Lisinopril) 5 Mg Tab 5 MG PO DAILY for Blood Pressure Management, #30 TAB 0 Refills Oxybutynin (Ditropan) 5 Mg Tab 5 MG PO HS for Urinary Symptom Managemen, #60 TAB 0 Refills Pregabalin (Lyrica) 75 Mg Cap 75 MG PO BID, #60 CAP 0 Refills Tiotropium Inh (Spiriva Handihaler) 18 Mcg Cap 18 MCG INH DAILY for COPD, #30 CAP 0 Refills 1 capsule = 18 mcg Vitamin E (Vitamin E) 200 Unit Cap 200 MG PO DAILY for Nutritional Supplement, CAP 0 Refills Discontinued Medications: Azithromycin (Azithromycin) 250 Mg Tab 250 MG PO DAILY for Infection, TAB 0 Refills Additional Information [facility] Rambo Delgado MD Aug 30, 2017 14:09
[2017-08-30] MEDS ORDERED: IOHEXOL 350 MG/ML 10 ML VIAL (for RAD DIAG) IVCONTRAST ONE (14:42)
--- NOTE | 2017-08-30 15:30 | RADRPT ---
EXAM DATE/TIME: 08/30/2017 14:26 [place] COMPARISON: CTA CAROTID ARTERIES W 3D RECON, November 08, 2013, 13:37. INDICATIONS : Dizziness. IV CONTRAST: 74 cc Omnipaque 350 (iohexol) IV RADIATION DOSE: 10.15 CTDIvol (mGy) MEDICAL HISTORY : Stroke. Congestive heart failure. Chronic obstructive pulmonary disease. SURGICAL HISTORY : None. aortic bypass ENCOUNTER: Initial ACUITY: 1 day PAIN SCALE: 0/10 LOCATION: Bilateral neck Elevated flow velocities and ICA/CCA ratios have been found to correlate with increased degrees of vessel stenosis, calculated as percentage of diameter relative to a normal segment of distal ICA/CCA. TECHNIQUE: Volumetric scanning was performed using a multirow detector CT scanner. The data was post processed with a variety of visualization algorithms including full-volume maximum intensity projection, multip lanar sliding thin-slab reformation, curved-planar reformation, and surface-rendering techniques. Us ing automated exposure control and adjustment of the mA and/or kV according to patient size, radiatio n dose was kept as low as reasonably achievable to obtain optimal diagnostic quality images. DICOM f ormat image data is available electronically for review and comparison. FINDINGS: AORTIC ARCH: Significant calcified plaque is identified at the origin of the great vessels. There is three-vessel origin. Moderate to severe stenosis is noted at the origin of the left subclavian artery secondary to calcified plaque. The innominate and left common carotid artery origins are widely patent. RIGHT CAROTID: Heavily calcified plaque is identified in the proximal right internal carotid artery. There is signif icant luminal compromise with degree of stenosis measuring greater than 80%. The right common carotid artery is widely patent. LEFT CAROTID: Significant calcified plaque is identified in the left carotid bifurcation extending into the proxima l internal carotid artery. There is moderate to severe stenosis in the proximal internal carotid t[place] ry measuring in the 50-69% range. VERTEBRALS: He right vertebral artery is dominant. The left vertebral artery is small and hypoplastic CONCLUSION: 1. High grade hemodynamically significant stenosis in the proximal right internal carotid artery shawn uring greater than 80% narrowing. 2. Moderate to severe stenosis of the proximal left internal carotid artery measuring in the 50-69% r dallin which may be hemodynamically significant. 3. Dominant right vertebral artery. 4. Moderate to severe stenosis at the origin of the left subclavian artery measuring in the 50-69% ra nge. Eligio F. Vaughn, MD on August 30, 2017 at 15:22 Board Certified Radiologist. This report was verified electronically.
[2017-08-30] MEDS: ATORVASTATIN 40 MG TAB PO SCH (20:47)
[2017-08-31] VITALS (8 sets, daily range): BP systolic 112–150; BP diastolic 58–75; PULSE 67–77; RESP 17–20; TEMP 96.7–98.6; O2SAT 94–100
[2017-08-31] MEDS: HEPARIN SODIUM - SQ 10,000 UNITS/ML VIAL SQ SCH ×2 (06:06→17:02)
[2017-08-31 07:42] LABS: BICARBONATE 23.6 MEQ/L (21.0-32.0); CALCIUM 8.6 MG/DL (8.5-10.1); CREATININE 0.89 MG/DL (0.50-1.00); MAGNESIUM 1.9 MG/DL (1.5-2.5)
[2017-08-31] MEDS: INSULIN ASPART SUPPLEMENTAL SCALE SQ SCH ×4 (08:00→20:28)
[2017-08-31] MEDS: DOCUSATE SODIUM 50 MG/SENNA 8.6 MG TAB PO SCH ×2 (09:00→20:27)
[2017-08-31] MEDS: LEVOFLOXACIN 750 MG TAB PO SCH (09:42)
[2017-08-31] MEDS: guaiFENesin E.R. 600 MG TAB PO SCH ×2 (09:42→20:28)
[2017-08-31] MEDS: PREGABALIN 75 MG CAP PO SCH ×2 (09:43→20:28)
[2017-08-31] MEDS: levETIRAcetam 250 MG TAB PO SCH ×2 (09:43→20:28)
[2017-08-31] MEDS: lamoTRIgine 100 MG TAB PO SCH ×2 (09:44→20:27)
[2017-08-31] MEDS: CLOPIDOGREL 75 MG TAB PO SCH (09:44)
[2017-08-31] MEDS: ASPIRIN 81 MG CHEW TAB CHEW SCH (09:45)
[2017-08-31] MEDS: SODIUM CHLORIDE 0.9% FLUSH 10 ML FLUSH IV FLUSH SCH ×2 (09:46→20:28)
[2017-08-31] MEDS: TIOTROPIUM BROMIDE 18 MCG INH INH SCH (09:47)
--- NOTE | 2017-08-31 11:16 | HHI.PR ---
Subjective Remarks Follow-up carotid stenosis. Patient states he had vertigo and vomited 1 this morning currently without symptoms. 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 Objective Vitals Vital Signs Date Time Temp Pulse Resp B/P (MAP) Pulse Ox O2 Delivery O2 Flow Rate FiO2 08/31/17 08:00 97.6 67 20 112/64 (80) 95 08/31/17 08:00 Room Air 08/31/17 04:00 98.6 72 17 125/70 (88) 100 08/31/17 00:27 Room Air 08/31/17 00:00 97.7 70 17 125/69 (87) 100 08/30/17 20:00 97.8 77 17 128/70 (89) 100 08/30/17 17:45 98 21 08/30/17 16:00 Room Air 08/30/17 16:00 97.7 89 20 121/54 (76) 98 08/30/17 12:00 98.2 75 20 124/66 (85) 97 08/30/17 12:00 Room Air I/O 08/30/17 08/30/17 08/30/17 08/31/17 08/31/17 08/31/17 07:00 15:00 23:00 07:00 15:00 23:00 Intake Total 120 ml 480 ml 240 ml Balance 120 ml 480 ml 240 ml Intake Oral 120 ml 480 ml 240 ml # Voids 1 # Bowel Movements 0 Result Diagram: 08/29/17 0530 08/31/17 0653 Imaging Last Impressions Neck CTA 08/29/17 0000 Signed Impressions: Service Date/Time: Wednesday, August 30, 2017 14:26 - CONCLUSION: 1. High grade hemodynamically significant stenosis in the proximal right internal carotid artery measuring greater than 80%% narrowing. 2. Moderate to severe stenosis of the proximal left internal carotid artery measuring in the 50-69%% range which may be hemodynamically significant. 3. Dominant right vertebral artery. 4. 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 Eligio Mendes MD Head Magnetic Resonance Angiography 08/28/17 0000 Signed Impressions: Service Date/Time: Monday, August 28, 2017 20:08 - CONCLUSION: No acute [place] vascular findings. Shahid Davis MD Head CT 3/30/18 0000 Signed Impressions: Service Date/Time: Monday, August 28, 2017 10:20 - CONCLUSION: 1. No evidence of acute infarct, hemorrhage, mass or edema. 2. Old right parietal infarct Eligio Mendes MD Carotid Artery Ultrasound 08/28/17 Signed Impressions: Service Date/Time: Monday, August 28, 2017 19:15 - CONCLUSION: Plaque at the carotid bulb regions bilaterally with mildly elevated peak systolic velocity in the right internal carotid artery concerning for a possible more significant stenosis. The carotid systems could be better evaluated with a CTA of the neck. Shahid Jade MD Brain MRI 08/28/17 Signed Impressions: Service Date/Time: Monday, August 28, 2017 20:08 - CONCLUSION: Stable brain appearance. No acute findings. Shahid Davis MD Abdomen X-Ray 08/28/17 Signed Impressions: Service Date/Time: Monday, August 28, 2017 11:04 - CONCLUSION: 1. No acute findings. Postoperative change as above. No obstruction or free air. Alok Mobley MD Hip and Pelvis X-Ray 08/25/172016 Signed Impressions: Service Date/Time: Friday, August 25, 2017 20:33 - CONCLUSION: No acute disease. Shahid Jade MD Chest X-Ray 08/25/172016 Signed Impressions: Service Date/Time: Friday, August 25, 2017 20:30 - CONCLUSION: Suspected focal consolidation or atelectasis in the right upper lung. Shahid Jade MD Objective Remarks GENERAL: female lying in bed. Well-developed, well-nourished no signs of dehydration Skin: Warm dry no lesions CARDIOVASCULAR: Regular rate and rhythm without murmurs RESPIRATORY: appears clear to auscultation, no wheezing GASTROINTESTINAL: Abdomen soft, non-tender, nondistended. No guarding. MUSCULOSKELETAL: Extremities without edema. No calf tenderness. NEUROLOGICAL: Awake and alert. Cranial nerves intact, motor power intact, speech normal Procedures none A/P Problem List: (1) Pneumonia ICD Code: J18.9 - Pneumonia, unspecified organism Status: Acute Assessment and Plan 1. Hypoglycemia. Resolved s/p D5 and monitor. Hypoglycemia protocol. Will order stat glucose, insulin and C-peptide when she develops another episode of hypoglycemia. Discussed with nursing. This could be related to sepsis 2. Hypokalemia. Resolved 3. Pneumonia, hospital-acquired. Meets criteria for sepsis. S/p azithromycin. Continue Levaquin as she appears clinically stable. F/u sputum culture, Legionella and pneumococcal urinary antigen. Follow-up blood cultures NGTD. Rpt CXR in 6 weeks 4. Seizure disorder. Stable. Continue home Lyrica, Keppra, Lamictal. Seizure precaution 5. Hypertension/hyperlipidemia. Continue home medications 6. Recent hip/pelvic fx. PT consulted 7. Vertebrobasilar TIA. Stable Ct Plavix and dc [place] in [address] lipitor. Abnormal Carotid US and CTA with carotid stenosis. Echocardiogram without clots. Telemetry shows sinus rhythm. LDL 62 on Lipitor A1c 5.3 consulted PT, OT and ST. PT for vestibular therapy. Patient has been cleared for discharge by neurology pending vascular surgery recommendation 8. CMP, known. Restarted RA inhibitor unable to start beta-nehemiah secondary to bradycardia. 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 9. Constipation. Unremarkable KUB. +BM Continue bowel regimen. FEN Heart healthy diet Electrolytes: as above Heparin Discharge Planning Stable for dc to SNF pending [facility] eval Problem Qualifiers (1) Pneumonia: Qualified Codes: J18.1 - Lobar pneumonia, unspecified organism Rambo Delgado MD Aug 31, 2017 11:15
--- NOTE | 2017-08-31 11:17 | PD.VS.CON ---
History of Present Illness Chief Complaint: Carotid Artery Stenosis Consult Requested by: Dr. Delgado History of Present Illness 76/F admitted for hypoglycemia (BS 20's) and recent episode of slurred speech and double vision Pt w/ a PMH of vertigo, seizure disorder, history of CVA (age 27), hypertension , hyperlipidemia and peripheral vascular disease Pt w/ frequent falls - left hip FX on 06/05 and shattered pelvis on 07/10 and was released from rehabilitation on 08/13 Pt has home PT visiting weekly Pt denied vision loss Speech clear during examination Left sided UE/LE weakness noted (Perri Castillo) Past/Family/Social History Past Medical History Vertigo Seizure disorder CVA- age 27 Hypertension Hyperlipidemia Peripheral vascular disease Left hip fracture Pelvic fracture Past Surgical History Left hip hemiarthroplasty Cholecystectomy Hysterectomy Bilateral tubal ligation Aortofemoral bypass 6 bladder surgeries 14 hernia repairs Social History Negative -ETOH Negative- Tobacco use Negative- Illicit drug use Family History Mother- [place] Father-[place] (Perri Castillo) Home Medications Active Scripts Walker with Front Wheels (Walker with Front Wheels) 1 Mis Mis, EA .XX DIRECTED, #1 0 Refills Prov:Rambo Delgado MD 08/27/17 Pregabalin (Lyrica) 75 Mg Cap, 75 MG PO BID, #60 CAP 0 Refills Prov:Keenan Ashford MD R1 07/10/17 Ergocalciferol (Ergocalciferol) 50,000 Unit Cap, 82770 UNITS PO Q7D for Nutritional Supplement, #8 CAP Prov:Nazario Apodaca Jr. 06/05/17 Reported Medications Lisinopril (Lisinopril) 5 Mg Tab, 5 MG PO DAILY for Blood Pressure Management, # 30 TAB 0 Refills 08/25/17 Azithromycin (Azithromycin) 250 Mg Tab, 250 MG PO DAILY for Infection, TAB 0 Refills 08/25/17 Lamotrigine (Lamotrigine) 150 Mg Tab, 150 MG PO BID for Control Seizures, #30 TAB 0 Refills 07/09/17 Biotin (Biotin) 5 Mg Tab, 5 MG PO DAILY, #1 BOTTLE 06/05/17 Vitamin E (Vitamin E) 200 Unit Cap, 200 MG PO DAILY for Nutritional Supplement, CAP 0 Refills 06/05/17 Cyanocobalamin (Vitamin B-12) 1,000 Mcg Tab, 1500 MCG PO DAILY for Nutritional Supplement, #1 BOTTLE 0 Refills 06/05/17 Aspirin (Aspirin Low Dose) 81 Mg Chew, 81 MG CHEW DAILY, TAB 0 Refills 11/12/16 Oxybutynin (Ditropan) 5 Mg Tab, 5 MG PO HS for Urinary Symptom Managemen, #60 TAB 0 Refills 10/21/16 Folic Acid (Folic Acid) 400 Mcg Tab, 400 MCG PO DAILY for Nutritional Supplement , TAB 0 Refills 04/08/16 Tiotropium Inh (Spiriva Handihaler) 18 Mcg Cap, 18 MCG INH DAILY for COPD, #30 CAP 0 Refills 1 capsule = 18 mcg 04/01/16 Atorvastatin (Lipitor) 40 Mg Tab, 40 MG PO HS for Cholesterol Management, #30 TAB 0 Refills 04/01/16 Levetiracetam (Levetiracetam) 250 Mg Tab, 250 MG PO BID for Control Seizures, # 60 TAB 0 Refills 04/01/16 Discontinued Scripts Carvedilol (Coreg) 3.125 Mg Tab, 3.125 MG PO Q12HR for CARDIOMYOPATHY for 30 Days, #60 TAB Prov:Nohemi Suosa 01/22/17 Coded Allergies: Sulfa (Sulfonamide Antibiotics) (Unverified Allergy, Severe, RASH, 06/05/17) INTERMEDIATE REACTION niacin (Unverified Allergy, Severe, FELT BODY WAS ON FIRE, 06/05/17) estradiol (Unverified Allergy, Unknown, 06/05/17) HAD STROKE AGE 27 FROM ORAL CONTRACEPTIVES estrogens, conjugated (Unverified Allergy, Unknown, 06/05/17) HAD STROKE AGE 27 FROM ORAL CONTRACEPTIVES amoxicillin (Unverified Adverse Reaction, Severe, Nausea/Vomiting, 06/05/17) Review of Systems Constitutional: DENIES: Fatigue, Chills, Dizziness Eyes: COMPLAINS OF: Double Vision Cardiovascular: DENIES: Chest pain Gastrointestinal: COMPLAINS OF: Vomiting (Vomited times 1 after medication administered ), DENIES: Abdominal pain Neurologic: DENIES: Headache (Perri Castillo) Physical Exam Vitals/I&O Date Time Temp Pulse Resp B/P (MAP) Pulse Ox O2 Delivery O2 Flow Rate FiO2 08/31/17 08:00 97.6 67 20 112/64 (80) 95 08/31/17 08:00 Room Air 08/31/17 04:00 98.6 72 17 125/70 (88) 100 08/31/17 00:27 Room Air 08/31/17 00:00 97.7 70 17 125/69 (87) 100 08/30/17 20:00 97.8 77 17 128/70 (89) 100 08/30/17 17:45 98 21 08/30/17 16:00 Room Air 08/30/17 16:00 97.7 89 20 121/54 (76) 98 08/30/17 12:00 98.2 75 20 124/66 (85) 97 08/30/17 12:00 Room Air 08/31/17 08/31/17 08/31/17 07:00 15:00 23:00 Intake Total 240 ml Balance 240 ml Neuro: CN 2-12 intact Speech clear A&OX3 HEENT: double vision [place] Neck: No JVD distention No carotid bruits appreciated Heart: RRR Lungs: CTA Abdomen: S/NT Vascular: Palpable R/L radial pulses Extremities: UE 4/5 (R>L) LE 4/5 (R>L) (Perri Castillo) Laboratory Tests Test 08/31/17 06:53 Blood Urea Nitrogen 13 Creatinine 0.89 Random Glucose 89 Calcium Level 8.6 Magnesium Level 1.9 Sodium Level 144 Potassium Level 3.5 Chloride Level 112 Carbon Dioxide Level 23.6 Anion Gap 8 Estimat Glomerular Filtration Rate 62 Date/Time Source Procedure Growth Status 08/25/17 22:05 Blood Peripheral Aerobic Blood Culture - Final NO GROWTH IN 5 DAYS Complete 08/25/17 22:05 Blood Peripheral Anaerobic Blood Culture - Final NO GROWTH IN 5 DAYS Complete (Perri Castillo) Assessment and Plan Assessment: (1) Carotid artery disease Plan 76/F w/ recent episode of slurred speech - resolved Obtained and reviewed CTA- Neck Pt w/ 80 percent narrowing RIGHT ICA Pt w/ 50-69 percent stenosis LEFT ICA No known hx of carotid artery disease Plan Continue Neuro monitoring Continue CV risk factor modification - (Statin/anticoagulation) Can f/u out pt with a surveillance Carotid Duplex Perri Castillo CENTER MEDICAL DIRECTOR [facility] [phone] (Jonathan,Perri F CYBERATHLETE) Plan High grade RIGHT carotid stenosis. Reviewed Neurology assessment who thinks symptoms more consistent with vertebro-basilar territory. As such, the carotid stenosis is asymptomatic and annual stroke risk is 2%. Needs ASA, statin. Will arrange outpatient follow-up. Sim Cortez MD FACS RPVI geospatial image analyst [facility] -Heart [facility] V[facility] Surgery at [facility] [phone] (Sim Cortez MD) Problem Qualifiers (1) Carotid artery disease: Qualified Codes: I77.9 - Disorder of arteries and arterioles, unspecified Perri Castillo [facility] Aug 31, 2017 11:17 Sim Cortez MD Aug 31, 2017 13:57
[2017-08-31] MEDS: ONDANSETRON HCL 4 MG/2 ML VIAL IVP PRN ×2 (11:58→22:25)
[2017-08-31] MEDS ORDERED: POTASSIUM CHLORIDE 20 MEQ CONTROLLED RELEASE TAB PO ONE (17:00)
[2017-08-31] MEDS: ATORVASTATIN 40 MG TAB PO SCH (20:27)
[2017-09-01] VITALS (7 sets, daily range): BP systolic 104–158; BP diastolic 55–68; PULSE 67–72; RESP 16–21; TEMP 97.1–98; O2SAT 93–98
[2017-09-01] MEDS: HEPARIN SODIUM - SQ 10,000 UNITS/ML VIAL SQ SCH ×2 (05:27→17:54)
[2017-09-01 05:41] LABS: BICARBONATE 25.8 MEQ/L (21.0-32.0); CALCIUM 8.3 MG/DL (8.5-10.1); CREATININE 0.87 MG/DL (0.50-1.00); MAGNESIUM 1.8 MG/DL (1.5-2.5)
[2017-09-01] MEDS: INSULIN ASPART SUPPLEMENTAL SCALE SQ SCH ×4 (07:39→21:00)
[2017-09-01] MEDS ORDERED: POTASSIUM CHLORIDE 20 MEQ CONTROLLED RELEASE TAB PO ONE (09:00)
[2017-09-01] MEDS: TIOTROPIUM BROMIDE 18 MCG INH INH SCH (09:00)
[2017-09-01] MEDS: lamoTRIgine 100 MG TAB PO SCH ×2 (09:57→21:50)
[2017-09-01] MEDS: PREGABALIN 75 MG CAP PO SCH ×2 (09:57→21:49)
[2017-09-01] MEDS: LEVOFLOXACIN 750 MG TAB PO SCH (09:57)
[2017-09-01] MEDS: guaiFENesin E.R. 600 MG TAB PO SCH ×2 (09:57→21:50)
[2017-09-01] MEDS: levETIRAcetam 250 MG TAB PO SCH ×2 (09:57→21:50)
[2017-09-01] MEDS: ASPIRIN 81 MG CHEW TAB CHEW SCH (09:58)
[2017-09-01] MEDS: CLOPIDOGREL 75 MG TAB PO SCH (09:59)
[2017-09-01] MEDS: DOCUSATE SODIUM 50 MG/SENNA 8.6 MG TAB PO SCH ×2 (09:59→21:50)
[2017-09-01] MEDS: SODIUM CHLORIDE 0.9% FLUSH 10 ML FLUSH IV FLUSH SCH ×2 (10:01→21:51)
--- NOTE | 2017-09-01 10:57 | HHI.PR ---
Subjective Remarks Follow-up TIA and carotid stenosis. Intermittent nausea and double vision usually during breakfast. No vomiting, slurred speech, numbness and focal weakness. Denies dizziness or vertigo. Neurology alert. Discussed with son and nursing, will stagger medications Objective Vitals Vital Signs Date Time Temp Pulse Resp B/P (MAP) Pulse Ox O2 Delivery O2 Flow Rate FiO2 09/01/17 08:23 Room Air 09/01/17 08:00 97.7 67 20 104/55 (71) 96 09/01/17 04:00 97.7 68 21 111/55 (73) 94 09/01/17 03:39 Room Air 09/01/17 00:00 97.5 71 18 158/68 (98) 98 08/31/17 22:38 94 08/31/17 22:09 70 20 125/68 (87) 96 08/31/17 20:00 97.5 67 20 130/74 (92) 98 08/31/17 20:00 Room Air 08/31/17 16:00 97.7 77 20 123/58 (79) 100 08/31/17 12:00 96.7 68 20 150/75 (100) 98 08/31/17 12:00 95 I/O 08/31/17 08/31/17 08/31/17 09/01/17 09/01/17 09/01/17 07:00 15:00 23:00 07:00 15:00 23:00 Intake Total 240 ml 480 ml Output Total 700 ml Balance 240 ml -220 ml Intake Oral 240 ml 480 ml Output Urine Total 700 ml # Voids 1 # Bowel Movements 0 Result Diagram: 08/29/17 0530 09/01/17 0440 Imaging Last Impressions Neck CTA 08/29/17 0000 Signed Impressions: Service Date/Time: Wednesday, August 30, 2017 14:26 - CONCLUSION: 1. High grade hemodynamically significant stenosis in the proximal right internal carotid artery measuring greater than 80%% narrowing. 2. Moderate to severe stenosis of the proximal left internal carotid artery measuring in the 50-69%% range which may be hemodynamically significant. 3. Dominant right vertebral artery. 4. 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 Eligio Mendes MD Head Magnetic Resonance Angiography 3/30/18 0000 Signed Impressions: Service Date/Time: Monday, August 28, 2017 20:08 - CONCLUSION: No acute [place] vascular findings. Shahid Davis MD Head CT 08/28/17 Signed Impressions: Service Date/Time: Monday, August 28, 2017 10:20 - CONCLUSION: 1. No evidence of acute infarct, hemorrhage, mass or edema. 2. Old right parietal infarct Eligio Mendes MD Carotid Artery Ultrasound 08/28/17 Signed Impressions: Service Date/Time: Monday, August 28, 2017 19:15 - CONCLUSION: Plaque at the carotid bulb regions bilaterally with mildly elevated peak systolic velocity in the right internal carotid artery concerning for a possible more significant stenosis. The carotid systems could be better evaluated with a CTA of the neck. Shahid Jade MD Brain MRI 08/28/17 Signed Impressions: Service Date/Time: Monday, August 28, 2017 20:08 - CONCLUSION: Stable brain appearance. No acute findings. Shahid Davis MD Abdomen X-Ray 08/28/17 Signed Impressions: Service Date/Time: Monday, August 28, 2017 11:04 - CONCLUSION: 1. No acute findings. Postoperative change as above. No obstruction or free air. lAok Mobley MD Hip and Pelvis X-Ray 08/25/172016 Signed Impressions: Service Date/Time: Friday, August 25, 2017 20:33 - CONCLUSION: No acute disease. Shahid Jade MD Chest X-Ray 08/25/172016 Signed Impressions: Service Date/Time: Friday, August 25, 2017 20:30 - CONCLUSION: Suspected focal consolidation or atelectasis in the right upper lung. Shahid Jade MD Objective Remarks GENERAL: female lying in bed. Well-developed, well-nourished who appears ill because of nausea Skin: Warm dry no lesions CARDIOVASCULAR: Regular rate and rhythm without murmurs RESPIRATORY: appears clear to auscultation, no wheezing GASTROINTESTINAL: Abdomen soft, non-tender, nondistended. No guarding. MUSCULOSKELETAL: Extremities without edema. No calf tenderness. NEUROLOGICAL: Awake and alert. Cranial nerves intact, motor power intact, speech normal Procedures none A/P Problem List: (1) Pneumonia ICD Code: J18.9 - Pneumonia, unspecified organism Status: Acute Assessment and Plan 1. Hypoglycemia. Resolved s/p D5 and monitor. Hypoglycemia protocol. Will order stat glucose, insulin and C-peptide when she develops another episode of hypoglycemia. Discussed with nursing. This could be related to sepsis 2. Hypokalemia. Resolved 3. Pneumonia, hospital-acquired. Meets criteria for sepsis. S/p azithromycin. Continue Levaquin. F/u sputum culture, Legionella and pneumococcal urinary antigen. Follow-up blood cultures NGTD. Rpt CXR in 6 weeks 4. Seizure disorder. Stable. Continue home Lyrica, Keppra, Lamictal. Seizure precaution 5. Hypertension/hyperlipidemia. Continue home medications 6. Recent hip/pelvic fx. PT consulted 7. Vertebrobasilar TIA. Stable Ct Plavix and dc Asa in [address] lipitor. Abnormal Carotid US and CTA with carotid stenosis. Echocardiogram without clots. Telemetry shows sinus rhythm. LDL 62 on Lipitor A1c 5.3 consulted PT, OT and ST. PT for vestibular therapy. Patient has been cleared for discharge by neurology and vascular surgery who recommended outpatient follow-up. Dr. Cortez does not take her recent TIA is related to carotid stenosis recommended antiplatelets and statins and surveillance carotid sonogram. Patient with intermittent nausea and double vision this could be related to medications versus vertigo. Alerted neurology and hold discharge. IV fluids 8. CMP, known. Restarted RA inhibitor unable to start beta-nehemiah secondary to bradycardia. 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 9. Constipation. Unremarkable KUB. +BM Continue bowel regimen. Discussed with nursing to give as needed medicines for constipation FEN Heart healthy diet Electrolytes: as above Heparin Discharge Planning Hold discharge patient with nausea and decreased oral intake high likelihood of readmission secondary to dehydration start IV fluid. Problem Qualifiers (1) Pneumonia: Qualified Codes: J18.1 - Lobar pneumonia, unspecified organism Rambo Delgado MD Sep 01, 2017 10:57
[2017-09-01] MEDS: ONDANSETRON HCL 4 MG/2 ML VIAL IVP PRN (11:22)
[2017-09-01] MEDS ORDERED: NS + KCL 20 MEQ INJ 1,000 ML IV PRN (16:45)
[2017-09-01] MEDS: ATORVASTATIN 40 MG TAB PO SCH (21:50)
[2017-09-02] VITALS: BP 156/71; PULSE 72; RESP 18; TEMP 97.8; O2SAT 95
[2017-09-02 04:00] VITALS: BP 102/54; PULSE 69; RESP 18; TEMP 97.7; O2SAT 92
[2017-09-02] MEDS: HEPARIN SODIUM - SQ 10,000 UNITS/ML VIAL SQ SCH (05:31)
[2017-09-02 08:00] VITALS: BP 117/59; PULSE 66; RESP 15; TEMP 97.9; O2SAT 92
[2017-09-02] MEDS: INSULIN ASPART SUPPLEMENTAL SCALE SQ SCH ×2 (08:00→11:40)
[2017-09-02] MEDS: PREGABALIN 75 MG CAP PO SCH (08:47)
[2017-09-02] MEDS: guaiFENesin E.R. 600 MG TAB PO SCH (08:47)
[2017-09-02] MEDS: LEVOFLOXACIN 750 MG TAB PO SCH (08:47)
[2017-09-02] MEDS: CLOPIDOGREL 75 MG TAB PO SCH (08:47)
[2017-09-02] MEDS: ASPIRIN 81 MG CHEW TAB CHEW SCH (08:47)
[2017-09-02] MEDS: DOCUSATE SODIUM 50 MG/SENNA 8.6 MG TAB PO SCH (08:47)
[2017-09-02] MEDS: SODIUM CHLORIDE 0.9% FLUSH 10 ML FLUSH IV FLUSH SCH (08:48)
[2017-09-02] MEDS: TIOTROPIUM BROMIDE 18 MCG INH INH SCH (08:48)
[2017-09-02 09:32] VITALS: O2SAT 97
--- NOTE | 2017-09-02 10:27 | HHI.PR ---
Objective Vitals Vital Signs Date Time Temp Pulse Resp B/P (MAP) Pulse Ox O2 Delivery O2 Flow Rate FiO2 09/02/17 09:32 97 09/02/17 08:00 97.9 66 15 117/59 (78) 92 09/02/17 08:00 Room Air 2.00 21 09/02/17 04:00 97.7 69 18 102/54 (70) 92 09/02/17 04:00 Room Air 09/02/17 00:00 97.8 72 18 156/71 (99) 95 09/01/17 20:00 98.0 72 16 126/59 (81) 93 09/01/17 20:00 Room Air 09/01/17 16:00 97.5 68 20 133/58 (83) 98 09/01/17 13:41 95 09/01/17 12:00 97.1 70 20 144/66 (92) 95 I/O 09/01/17 09/01/17 09/01/17 09/02/17 09/02/17 09/02/17 07:00 15:00 23:00 07:00 15:00 23:00 Output Total 700 ml Balance -700 ml Output Urine Total 700 ml Result Diagram: 08/29/17 0530 09/01/17 0440 Objective Remarks GENERAL: female lying in bed. Well-developed, well-nourished who appears ill because of nausea Skin: Warm dry no lesions CARDIOVASCULAR: Regular rate and rhythm without murmurs RESPIRATORY: appears clear to auscultation, no wheezing GASTROINTESTINAL: Abdomen soft, non-tender, nondistended. No guarding. MUSCULOSKELETAL: Extremities without edema. No calf tenderness. NEUROLOGICAL: Awake and alert. Cranial nerves intact, motor power intact, speech normal Procedures none A/P Problem List: (1) Pneumonia ICD Code: J18.9 - Pneumonia, unspecified organism Status: Acute Assessment and Plan 1. Hypoglycemia. Resolved s/p D5 and monitor. Hypoglycemia protocol. Will order stat glucose, insulin and C-peptide when she develops another episode of hypoglycemia. Discussed with nursing. This could be related to sepsis 2. Hypokalemia. Resolved 3. Pneumonia, hospital-acquired. Meets criteria for sepsis. S/p azithromycin. Continue Levaquin. F/u sputum culture, Legionella and pneumococcal urinary antigen. Follow-up blood cultures NGTD. Rpt CXR in 6 weeks 4. Seizure disorder. Stable. Continue home Lyrica, Keppra, Lamictal. Seizure precaution 5. Hypertension/hyperlipidemia. Continue home medications 6. Recent hip/pelvic fx. PT consulted 7. Vertebrobasilar TIA. Stable Ct Plavix and dc Asa in [address] lipitor. Abnormal Carotid US and CTA with carotid stenosis. Echocardiogram without clots. Telemetry shows sinus rhythm. LDL 62 on Lipitor A1c 5.3 consulted PT, OT and ST. PT for vestibular therapy. Patient has been cleared for discharge by neurology and vascular surgery who recommended outpatient follow-up. Dr. Cortez does not take her recent TIA is related to carotid stenosis recommended antiplatelets and statins and surveillance carotid sonogram. Patient with intermittent nausea and double vision this could be related to medications versus vertigo. Alerted neurology and hold discharge. IV fluids 8. CMP, known. Restarted RA inhibitor unable to start beta-nehemiah secondary to bradycardia. 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 9. Constipation. Unremarkable KUB. +BM Continue bowel regimen. Discussed with nursing to give as needed medicines for constipation FEN Heart healthy diet Electrolytes: as above Heparin Discharge Planning Hold discharge patient with nausea and decreased oral intake high likelihood of readmission secondary to dehydration start IV fluid. Problem Qualifiers (1) Pneumonia: Qualified Codes: J18.1 - Lobar pneumonia, unspecified organism Rambo Delgado MD Sep 02, 2017 10:27
[2017-09-02] MEDS: levETIRAcetam 250 MG TAB PO SCH (10:44)
[2017-09-02] MEDS: SENNOSIDES 8.6 MG TAB PO PRN (11:49)
[2017-09-02] MEDS: lamoTRIgine 100 MG TAB PO SCH (11:51)
[2017-09-02 12:00] VITALS: BP 143/63; PULSE 65; RESP 16; TEMP 97.9; O2SAT 99
== END 2017-09-02 14:52 | DRG 640 ==
LOC: NEPC 20:00 → NEDA 22:24 → NEDH 08-26 02:51 → N03B 08-26 06:34 → N04A 08-29 20:35
PROVIDERS: ADMIT Internal Medicine; ATTEND Internal Medicine
DX: E16.2 Hypoglycemia, unspecified (principal); J18.9 Pneumonia, unspecified organism; I11.0 Hypertensive heart disease with heart failure; I50.9 Heart failure, unspecified; R00.1 Bradycardia, unspecified; J44.0 Chronic obstructive pulmonary disease with (acute) lower respiratory infection; I42.9 Cardiomyopathy, unspecified; I69.354 Hemiplegia and hemiparesis following cerebral infarction affecting left non-dominant side; G45.0 Vertebro-basilar artery syndrome; G40.909 Epilepsy, unspecified, not intractable, without status epilepticus; I65.21 Occlusion and stenosis of right carotid artery; I25.10 Atherosclerotic heart disease of native coronary artery without angina pectoris; E78.5 Hyperlipidemia, unspecified; I25.2 Old myocardial infarction; E78.00 Pure hypercholesterolemia, unspecified; I45.9 Conduction disorder, unspecified; E87.6 Hypokalemia; I73.9 Peripheral vascular disease, unspecified; K59.00 Constipation, unspecified; M19.90 Unspecified osteoarthritis, unspecified site; Y95 Nosocomial condition; Z72.0 Tobacco use; Z85.828 Personal history of other malignant neoplasm of skin; Z88.1 Allergy status to other antibiotic agents; Z88.2 Allergy status to sulfonamides; Z95.5 Presence of coronary angioplasty implant and graft; Z96.642 Presence of left artificial hip joint
CPT/HCPCS: 70450; 70498; 70544; 70551; 71045; 73502; 74018; 76937; 80048; 80053; 80061; 81001; 82550; 82947; 82948; 83036; 83605; 83690; 83735; 83880; 84132; 84443; 84484; 85025; 85384; 85610; 85730; 86850; 86900; 86901; 87040; 93005; 93306; 93880; 96374; J1644; J1956; J2060; J2405; J3480; J7030; J7040; Q9967

== ENCOUNTER 2017-09-14 12:53 | Emergency (ER) | payer MEDICARE ==
[~2017-09-14] VITALS: Ht 157.5 cm; Wt 52.0 kg
[~2017-09-14 12:53] MED LIST changes: -CARV3.125 PO; +LEVA750T9 PO; +LISI-519 PO; +PLAV75TA29 PO; +WALKER WHEELS/F1 MIS
[2017-09-14 13:00] VITALS: BP 101/52; PULSE 84; RESP 18; TEMP 98.5; O2SAT 95
[2017-09-14 13:07] VITALS: BP 101/52; PULSE 88; RESP 18; TEMP 98.5; O2SAT 97
--- NOTE | 2017-09-14 13:24 | PD ---
HPI Chief Complaint: Neuro Symptoms/ Deficits Time Seen by Provider: 13:03 Travel History International Travel<30 days: No Contact w/Intl Traveler<30days: No Traveled to known affect area: No History of Present Illness HPI This is a 76-year-old female who presents from [facility] for evaluation. Paramedics report that the patient was placed in her wheelchair in order to be brought to physical therapy. Reportedly the patient was leaning left in her wheelchair and was unable to straighten herself up. Symptoms resolved prior to paramedics arrived. The patient reports that she just felt like she could not straighten herself up and she was leaning to the left. She denies any recollection of focal weakness in her arms or legs. She denies any slurred speech or facial droop. She denies any chest pain, shortness of breath, dizziness or lightheadedness. She does report that for several weeks she has had intermittent slurred speech but none today. Of note the patient was admitted on August 25 for evaluation of hypoglycemia, hypokalemia , pneumonia, vertebrobasilar TIA. She had CTA of the neck which revealed carotid stenosis and vascular surgery recommended antiplatelet and statin therapy and surveillance carotid sonogram. She had CT the brain, MRA of the brain, MRI of the brain which revealed no acute abnormalities. According to paramedics her blood pressure was 80s over 50s 1 typically her blood pressures little higher in the 90s over 50s. Currently her blood pressure is 101/52. She is currently asymptomatic. PFSH Past Medical History Arthritis: Yes Asthma: Yes Anxiety: No Depression: No Cancer: Yes (skin cancer) Cardiac Catheterization: Yes Cardiovascular Problems: Yes ([place]; HX CHF) High Cholesterol: Yes Chemotherapy: No Chest Pain: Yes Congestive Heart Failure: Yes COPD: Yes Cerebrovascular Accident: Yes (STROKE AT AGE 27, TIA VS STROKE OCTOBER 2013) Coronary Artery Disease: Yes Diabetes: No Diminished Hearing: No Endocrine: No Gastrointestinal Disorders: Yes (HX DIVERTICULTIS) Genitourinary: Yes (HAD SURGERY - BLADDER SUSPENSION) Headaches: No Hepatitis: No Hiatal Hernia: No Hypertension: Yes Immune Disorder: No Implanted Vascular Access Dvce: Yes Medical other: Yes (COPD) Musculoskeletal: Yes (ARTHRITIS; BACK AND NECK PAIN) Neurologic: Yes (HAD STROKE AT AGE 27; ALSO HAS EPILEPSY ;STROKE NOVEMBER 07 AND NOVEMBER 13) Psychiatric: No Respiratory: Yes (COPD POSSIBLE SLEEP APNEA) Migraines: No Seizures: Yes (EPILEPSY) Thyroid Disease: No Tetanus Vaccination: < 5 Years Influenza Vaccination: Yes ?: Not Menopausal: Yes : 3 Para: 3 Miscarriage: 1 Dilation and Curettage (D&C): Yes Tubal Ligation: Yes Past Surgical History Abdominal Surgery: Yes (HERNIA SURGERY X 14) AICD: No Arteriovenous Shunt: Yes Body Medical Devices: GREENFELD FILTER & SHUNT FROM AORTIC FEMORAL BYPASS SURGERY CARDIAC STENTS Cardiac Surgery: Yes (AORTIC BYPASS, INSERTION JIGNESH FILTER) Section: Yes Cholecystectomy: Yes Coronary Stent: Yes Ear Surgery: No Endocrine Surgery: No Eye Surgery: No Genitourinary Surgery: Yes (BLADDER SURGERY X6) Gynecologic Surgery: Yes Hysterectomy: Yes (PARTIAL) Neurologic Surgery: No Oral Surgery: No Pacemaker: No Thoracic Surgery: No Other Surgery: Yes (STATES SHE "CANT REMEMBER THEM ALL") Social History Alcohol Use: No Tobacco Use: Yes Substance Use: No Allergies-Medications (Allergen,Severity, Reaction): Coded Allergies: Sulfa (Sulfonamide Antibiotics) (Unverified Allergy, Severe, RASH, 06/05/17) INTERMEDIATE REACTION niacin (Unverified Allergy, Severe, FELT BODY WAS ON FIRE, 06/05/17) estradiol (Unverified Allergy, Unknown, 06/05/17) HAD STROKE AGE 27 FROM [employer] estrogens, conjugated (Unverified Allergy, Unknown, 06/05/17) HAD STROKE AGE 27 FROM [employer] amoxicillin (Unverified Adverse Reaction, Severe, Nausea/Vomiting, 06/05/17) Reported Meds & Prescriptions Reported Meds & Active Scripts Active Plavix (Clopidogrel Bisulfate) 75 Mg Tab 75 Mg PO DAILY Levaquin (Levofloxacin) 750 Mg Tablet 750 Mg PO DAILY stop 09/04/17 Walker with Front Wheels (Device) 1 Mis Mis Ea .XX DIRECTED Lyrica (Pregabalin) 75 Mg Cap 75 Mg PO BID Ergocalciferol 50,000 Unit Cap 50,000 Units PO Q7D Reported Lisinopril 5 Mg Tab 5 Mg PO DAILY Lamotrigine 150 Mg Tab 150 Mg PO BID Biotin 5 Mg Tab 5 Mg PO DAILY Vitamin E 200 Unit Cap 200 Mg PO DAILY Vitamin B-12 (Cyanocobalamin) 1,000 Mcg Tab 1,500 Mcg PO DAILY Aspirin Low Dose (Aspirin) 81 Mg Chew 81 Mg CHEW DAILY stop 09/02/17 since you will be on Plavix Ditropan (Oxybutynin Chloride) 5 Mg Tab 5 Mg PO HS Folic Acid 400 Mcg Tab 400 Mcg PO DAILY Spiriva Handihaler (Tiotropium Inh) 18 Mcg Cap 18 Mcg INH DAILY 1 capsule = 18 mcg Lipitor (Atorvastatin Calcium) 40 Mg Tab 40 Mg PO HS Levetiracetam 250 Mg Tab 250 Mg PO BID Review of Systems Except as stated in HPI: all other systems reviewed are Neg Physical Exam Narrative GENERAL: Pleasant well-developed well-nourished female in no acute distress SKIN: Warm and dry. HEAD: Atraumatic. Normocephalic. EYES: Pupils equal and round. No scleral icterus. No injection or drainage. ENT: No nasal bleeding or discharge. Mucous membranes pink and moist. NECK: Trachea midline. No JVD. CARDIOVASCULAR: Regular rate and rhythm. No murmur appreciated. RESPIRATORY: No accessory muscle use. Clear to auscultation. Breath sounds equal bilaterally. GASTROINTESTINAL: Abdomen soft, non-tender, nondistended. Hepatic and splenic margins not palpable. MUSCULOSKELETAL: No obvious deformities. No clubbing. No cyanosis. No edema. NEUROLOGICAL: Awake and alert. No obvious cranial nerve deficits. Motor grossly within normal limits. Normal speech. 5 out of 5 muscle strength in all extremities. PSYCHIATRIC: Appropriate mood and affect; insight and judgment normal. Data Data Last Documented VS Vital Signs Date Time Temp Pulse Resp B/P (MAP) Pulse Ox O2 Delivery O2 Flow Rate FiO2 09/14/17 13:07 98.5 88 18 101/52 (68) 97 Room Air Orders Orders Electrocardiogram (09/14/17 13:16) Complete Blood Count With Diff (09/14/17 13:16) Basic Metabolic Panel (Bmp) (09/14/17 13:16) Creatine Kinase (Cpk) (09/14/17 13:16) Troponin I (09/14/17 13:16) Urinalysis - C+S If Indicated (09/14/17 13:16) Ct Brain W/O Iv Contrast(Rout) (09/14/17 13:16) Chest, Single Ap (09/14/17 13:16) Iv Access Insert/Monitor (09/14/17 13:16) Blood Glucose (09/14/17 13:16) Magnesium (Mg) (09/14/17 13:16) Ed Discharge Order (09/14/17 15:41) Labs Laboratory Tests Test 09/14/17 13:30 09/14/17 15:12 White Blood Count 16.4 TH/MM3 Red Blood Count 3.47 MIL/MM3 Hemoglobin 10.2 GM/DL Hematocrit 31.2 % Mean Corpuscular Volume 90.0 FL Mean Corpuscular Hemoglobin 29.3 PG Mean Corpuscular Hemoglobin Concent 32.5 % Red Cell Distribution Width 16.0 % Platelet Count 180 TH/MM3 Mean Platelet Volume 8.4 FL Neutrophils (%) (Auto) 89.3 % Lymphocytes (%) (Auto) 4.5 % Monocytes (%) (Auto) 5.1 % Eosinophils (%) (Auto) 0.8 % Basophils (%) (Auto) 0.3 % Neutrophils # (Auto) 14.7 TH/MM3 Lymphocytes # (Auto) 0.7 TH/MM3 Monocytes # (Auto) 0.8 TH/MM3 Eosinophils # (Auto) 0.1 TH/MM3 Basophils # (Auto) 0.1 TH/MM3 CBC Comment DIFF FINAL Differential Comment Blood Urea Nitrogen 31 MG/DL Creatinine 1.07 MG/DL Random Glucose 102 MG/DL Calcium Level 8.9 MG/DL Magnesium Level 2.0 MG/DL Sodium Level 141 MEQ/L Potassium Level 3.4 MEQ/L Chloride Level 108 MEQ/L Carbon Dioxide Level 24.0 MEQ/L Anion Gap 9 MEQ/L Estimat Glomerular Filtration Rate 50 ML/MIN Total Creatine Kinase 76 U/L Troponin I LESS THAN 0.02 NG/ML Urine Color YELLOW Urine Turbidity CLEAR Urine pH 5.5 Urine Specific [place] 1.021 Urine Protein 30 mg/dL Urine Glucose (UA) NEG mg/dL Urine Ketones NEG mg/dL Urine Occult Blood NEG Urine Nitrite NEG Urine Bilirubin NEG Urine Urobilinogen LESS THAN 2.0 MG/DL Urine Leukocyte Esterase NEG Urine RBC LESS THAN 1 /hpf Urine WBC 1 /hpf Urine Squamous Epithelial Cells 1 /hpf Microscopic Urinalysis Comment CATH-CULT NOT IND MDM Medical Decision Making Medical Screen Exam Complete: Yes Emergency Medical Condition: Yes Medical Record Reviewed: Yes Differential Diagnosis TIA, deconditioning, CVA, hypoglycemia, electrolyte abnormality, hypotension Narrative Course The patient was placed on ECG monitoring pulse oximetry., Lab work, urinalysis , CT the brain, chest x-ray ordered. CBC reveals a WBC count of 16.4, BMP reveals potassium 3.4, GFR 50, cardiac enzymes negative. Chest x-ray reveals COPD with scarring with no acute abnormalities. CT the brain reveals stable old right posterior parietal occipital infarct with no acute intracranial abnormality. Urinalysis reveals 30 protein otherwise unremarkable. Has been asymptomatic during her hospital stay. I discussed with my attending who agrees plan of care. At this point in time the plan will be to discharge the patient back to her nursing facility as she would not benefit from further admission as she recently underwent MRI, MRA , CTA of the brain and neck. Recommend following up closely with her neurologist. She is stable for discharge. Diagnosis Primary Impression: Hypotensive episode Additional Instructions: Follow-up with your primary care physician and neurologist. Return for any emergent medical conditions. Med/Other Pt SpecificInfo: No Change to Meds Disposition: 01 DISCHARGE HOME Condition: Stable Vish Edge Sep 14, 2017 13:24
[2017-09-14 14:04] LABS: AUTOMATED NEUTROPHIL # 14.7 TH/MM3 (1.8-7.7); BASOPHIL # 0.1 TH/MM3 (0-0.2); BASOPHIL % 0.3 % (0.0-2.0); EOSINOPHIL # 0.1 TH/MM3 (0-0.4); EOSINOPHIL % 0.8 % (0.0-4.0); HEMATOCRIT 31.2 % (35.0-46.0); HEMOGLOBIN 10.2 GM/DL (11.6-15.3); LYMPH % 4.5 % (9.0-44.0); LYMPHOCYTE # 0.7 TH/MM3 (1.0-4.8); MEAN CORPUSCULAR HEMOGLOBIN 29.3 PG (27.0-34.0); MEAN CORPUSCULAR HGB CONC 32.5 % (32.0-36.0); MEAN PLATELET VOLUME 8.4 FL (7.0-11.0); MONO % 5.1 % (0.0-8.0); MONOCYTE # 0.8 TH/MM3 (0-0.9); NEUT % 89.3 % (16.0-70.0); PLATELET COUNT 180 TH/MM3 (150-450); RED BLOOD COUNT 3.47 MIL/MM3 (4.00-5.30); WHITE BLOOD COUNT 16.4 TH/MM3 (4.0-11.0)
--- NOTE | 2017-09-14 14:14 | RADRPT ---
EXAM DATE/TIME: 09/14/2017 13:52 [facility] COMPARISON: CT BRAIN W/O CONTRAST, August 28, 2017, 10:20. INDICATIONS : Left sided weakness, slurred speech. RADIATION DOSE: 51.30 CTDIvol (mGy) MEDICAL HISTORY : Cerebrovascular disease. Cardiovascular disease Chronic obstructive pulmonary disease.Seizures, Skin cancer, Hypertension, Asthma. SURGICAL HISTORY : Hysterectomy. ENCOUNTER: Initial ACUITY: 1 day PAIN SCALE: 0/10 LOCATION: cranial TECHNIQUE: Multiple contiguous axial images were obtained of the head. Using automated exposure control and adj ustment of the mA and/or kV according to patient size, radiation dose was kept as low as reasonably a chievable to obtain optimal diagnostic quality images. DICOM format image data is available electro nically for review and comparison. FINDINGS: CEREBRUM: Redemonstration of right posterior parieto-occipital encephalomalacia. The moderate diffuse renal atr ophy. The ventricles are normal for degree of atrophy. No evidence of midline shift, mass lesion, he morrhage or acute infarction. No extra-axial fluid collections are seen. POSTERIOR FOSSA: The cerebellum and brainstem are intact. The 4th ventricle is midline. The cerebellopontine angle i s unremarkable. EXTRACRANIAL: The visualized portion of the orbits is intact. SKULL: The calvaria is intact. No evidence of skull fracture. CONCLUSION: 1. Senescent changes with stable old right posterior parieto-occipital infarct. 2. No acute intracranial abnormality. Gareth Pizano MD on September 14, 2017 at 14:10 Board Certified Radiologist. This report was verified electronically.
--- NOTE | 2017-09-14 14:14 | RADRPT ---
EXAM DATE/TIME: 09/14/2017 13:33 [facility] COMPARISON: CHEST SINGLE AP, August 25, 2017, 20:30. INDICATIONS : Syncope. MEDICAL HISTORY : Stroke. Congestive heart failure. Chronic obstructive pulmonary disease. SURGICAL HISTORY : Stents ENCOUNTER: Initial ACUITY: 2 days PAIN SCORE: 2/10 LOCATION: Bilateral chest FINDINGS: A single view of the chest demonstrates the lungs to be symmetrically aerated with some interstitial prominence in the apices, right greater than left possibly representing some degree of COPD/scarring. No confluent infiltrate or effusion. Heart size is borderline prominent a well compensated. Osseous structures are intact. CONCLUSION: 1. Interstitial prominence in the apices, right greater than left suggesting some degree of COPD with scarring. 2. No acute infiltrate or effusion. 3. Borderline prominent but well compensated heart. Michael Breaux MD on September 14, 2017 at 13:55 Board Certified Radiologist. This report was verified electronically.
[2017-09-14 14:23] LABS: BLOOD UREA NITROGEN 31 MG/DL (7-18); CALCIUM 8.9 MG/DL (8.5-10.1); CHLORIDE 108 MEQ/L (98-107); CREATININE 1.07 MG/DL (0.50-1.00); GLOMERULAR FILTRATION RATE 50 ML/MIN (>89); GLUCOSE,RANDOM 102 MG/DL (74-106); SODIUM (NA) 141 MEQ/L (136-145)
[2017-09-14 14:27] LABS: TROPONIN I LESS THAN 0.02 NG/ML (0.02-0.05)
[2017-09-14 15:00] VITALS: BP 110/56; PULSE 77; RESP 18; O2SAT 97
[2017-09-14 15:37] LABS: BILIRUBIN, URINE NEG (NEG); BLOOD, URINE NEG (NEG); GLUCOSE,URINE NEG (NEG); KETONE, URINE NEG (NEG); NITRITE,URINE NEG (NEG); PH, URINE 5.5 (5.0-8.5); SQUAMOUS EPITHELIAL CELL URINE 1 /hpf (0-5); URINE COLOR YELLOW (YELLW/STRAW); URINE LEUKOCYTE ESTERASE NEG (NEG)
[2017-09-14] MEDS ORDERED: POTASSIUM CHLORIDE 20 MEQ CONTROLLED RELEASE TAB PO ONE (15:45)
--- NOTE | 2017-09-14 16:03 | PD ---
Data Data Last Documented VS Vital Signs Date Time Temp Pulse Resp B/P (MAP) Pulse Ox O2 Delivery O2 Flow Rate FiO2 09/14/17 13:07 98.5 88 18 101/52 (68) 97 Room Air Orders Orders Electrocardiogram (09/14/17 13:16) Complete Blood Count With Diff (09/14/17 13:16) Basic Metabolic Panel (Bmp) (09/14/17 13:16) Creatine Kinase (Cpk) (09/14/17 13:16) Troponin I (09/14/17 13:16) Urinalysis - C+S If Indicated (09/14/17 13:16) Ct Brain W/O Iv Contrast(Rout) (09/14/17 13:16) Chest, Single Ap (09/14/17 13:16) Iv Access Insert/Monitor (09/14/17 13:16) Blood Glucose (09/14/17 13:16) Magnesium (Mg) (09/14/17 13:16) Ed Discharge Order (09/14/17 15:41) Potassium Chloride (Kcl) (09/14/17 15:45) Labs Laboratory Tests Test 09/14/17 13:30 09/14/17 15:12 White Blood Count 16.4 TH/MM3 Red Blood Count 3.47 MIL/MM3 Hemoglobin 10.2 GM/DL Hematocrit 31.2 % Mean Corpuscular Volume 90.0 FL Mean Corpuscular Hemoglobin 29.3 PG Mean Corpuscular Hemoglobin Concent 32.5 % Red Cell Distribution Width 16.0 % Platelet Count 180 TH/MM3 Mean Platelet Volume 8.4 FL Neutrophils (%) (Auto) 89.3 % Lymphocytes (%) (Auto) 4.5 % Monocytes (%) (Auto) 5.1 % Eosinophils (%) (Auto) 0.8 % Basophils (%) (Auto) 0.3 % Neutrophils # (Auto) 14.7 TH/MM3 Lymphocytes # (Auto) 0.7 TH/MM3 Monocytes # (Auto) 0.8 TH/MM3 Eosinophils # (Auto) 0.1 TH/MM3 Basophils # (Auto) 0.1 TH/MM3 CBC Comment DIFF FINAL Differential Comment Blood Urea Nitrogen 31 MG/DL Creatinine 1.07 MG/DL Random Glucose 102 MG/DL Calcium Level 8.9 MG/DL Magnesium Level 2.0 MG/DL Sodium Level 141 MEQ/L Potassium Level 3.4 MEQ/L Chloride Level 108 MEQ/L Carbon Dioxide Level 24.0 MEQ/L Anion Gap 9 MEQ/L Estimat Glomerular Filtration Rate 50 ML/MIN Total Creatine Kinase 76 U/L Troponin I LESS THAN 0.02 NG/ML Urine Color YELLOW Urine Turbidity CLEAR Urine pH 5.5 Urine Specific [place] 1.021 Urine Protein 30 mg/dL Urine Glucose (UA) NEG mg/dL Urine Ketones NEG mg/dL Urine Occult Blood NEG Urine Nitrite NEG Urine Bilirubin NEG Urine Urobilinogen LESS THAN 2.0 MG/DL Urine Leukocyte Esterase NEG Urine RBC LESS THAN 1 /hpf Urine WBC 1 /hpf Urine Squamous Epithelial Cells 1 /hpf Microscopic Urinalysis Comment CATH-CULT NOT IND MDM Supervised Visit with TAMI: Yes Narrative Course I, Dr. Balderas, have reviewed the advance practice practitioner's documentation and am in agreement, met with the patient face to face, made the diagnosis, and the medical decision making was done by me. *My assessment and Findings: This patient had some minor symptoms. She had recent extensive neurologic evaluation. Based upon what happened to her and that recent extensive neurological evaluation I do not think this warrants an inpatient hospitalization. Symptoms have resolved. She is stable for outpatient follow-up Diagnosis Primary Impression: Hypotensive episode Additional Instruction: Follow-up with your primary care physician and neurologist. Return for any emergent medical conditions. Disposition: 01 DISCHARGE HOME Condition: Stable Jonah Balderas MD Sep 14, 2017 16:03
[2017-09-14 16:45] VITALS: BP 114/65; PULSE 74; RESP 18; O2SAT 98
--- NOTE | 2017-09-15 15:25 | EKG ---
Date Performed: 09/14/2017 Time Performed: 14:25:38 PTAGE: 76 years EKG: Sinus rhythm MODERATE INTRAVENTRICULAR CONDUCTION DELAY NONSPECIFIC T-WAVE ABNORMALITY BORDERLINE ECG Since the PREVIOUS TRACING , no significant change noted PREVIOUS TRACIN08/28/2017 11.24 DOCTOR: Kade Laura Interpretating Date/Time 09/15/2017 15:20:51
== END 2017-09-14 17:05 | disposition home or self-care (01) ==
LOC: NEPC 12:53
DX: I95.9 Hypotension, unspecified (principal); R94.31 Abnormal electrocardiogram [ECG] [EKG]; I11.0 Hypertensive heart disease with heart failure; I50.9 Heart failure, unspecified; I25.10 Atherosclerotic heart disease of native coronary artery without angina pectoris; I25.2 Old myocardial infarction; J44.9 Chronic obstructive pulmonary disease, unspecified; E78.00 Pure hypercholesterolemia, unspecified; M19.90 Unspecified osteoarthritis, unspecified site; Z72.0 Tobacco use; Z85.828 Personal history of other malignant neoplasm of skin; Z86.73 Personal history of transient ischemic attack (TIA), and cerebral infarction without residual deficits; Z95.5 Presence of coronary angioplasty implant and graft; Z88.2 Allergy status to sulfonamides; Z88.0 Allergy status to penicillin; Z79.899 Other long term (current) drug therapy
CPT/HCPCS: 70450; 71045; 80048; 81001; 82550; 83735; 84484; 85025; 93005; 99285

== ENCOUNTER 2017-11-13 16:10 | Emergency (ER) | payer MEDICARE ==
[~2017-11-13] VITALS: Ht 157.5 cm; Wt 52.5 kg
[2017-11-13 16:20] VITALS: BP_SYST 80; BP_SYST 83; BP_DIAS 41; BP_DIAS 43; PULSE 85; RESP 18; TEMP 98; O2SAT 98
[2017-11-13 16:35] VITALS: BP 85/54; PULSE 81; RESP 18; O2SAT 100; O2SAT 97
--- NOTE | 2017-11-13 16:38 | PD ---
HPI Chief Complaint: Skin Problem Time Seen by Provider: 16:32 Travel History International Travel<30 days: No Contact w/Intl Traveler<30days: No Traveled to known affect area: No History of Present Illness HPI Patient comes to the emergency department for evaluation of laceration to left lower extremity that occurred around 1300 today. Patient reports a week ago she hit her leg on a cabinet causing bruising and swelling to left lower extremity. Patient states she bumped her leg on the car door causing it to split open and has been bleeding. Patient reports she is on Plavix and aspirin. Reports her tetanus shot is up-to-date. Patient reports mild burning sensation around wound without radiation. Patient reports having dressing applied while visiting a friend at a detention. Denies doing anything else for this. PFSH Past Medical History Hx Anticoagulant Therapy: Yes (PLAVIX) Arthritis: Yes Asthma: Yes Anxiety: No Depression: No Cancer: Yes (skin cancer) Cardiac Catheterization: Yes Cardiovascular Problems: Yes High Cholesterol: Yes Chemotherapy: No Chest Pain: Yes Congestive Heart Failure: Yes COPD: Yes Cerebrovascular Accident: Yes (STROKE AT AGE 27, TIA VS STROKE OCTOBER 2013) Coronary Artery Disease: Yes Diabetes: No Diminished Hearing: No Endocrine: No Gastrointestinal Disorders: Yes (HX DIVERTICULTIS) Genitourinary: Yes (HAD SURGERY - BLADDER SUSPENSION) Headaches: No Hepatitis: No Hiatal Hernia: No Hypertension: Yes Immune Disorder: No Implanted Vascular Access Dvce: Yes Musculoskeletal: Yes (ARTHRITIS; BACK AND NECK PAIN) Neurologic: Yes (HAD STROKE AT AGE 27; ALSO HAS EPILEPSY ;STROKE NOVEMBER 07 AND NOVEMBER 13) Psychiatric: No Respiratory: Yes (COPD POSSIBLE SLEEP APNEA) Migraines: No Seizures: Yes (EPILEPSY) Thyroid Disease: No Menopausal: Yes : 3 Para: 3 Miscarriage: 1 Dilation and Curettage (D&C): Yes Tubal Ligation: Yes Past Surgical History Abdominal Surgery: Yes (HERNIA SURGERY X 14) AICD: No Arteriovenous Shunt: Yes Body Medical Devices: GREENFELD FILTER & SHUNT FROM AORTIC FEMORAL BYPASS SURGERY CARDIAC STENTS Cardiac Surgery: Yes (AORTIC BYPASS, INSERTION JIGNESH FILTER) Section: Yes Cholecystectomy: Yes Coronary Stent: Yes Ear Surgery: No Endocrine Surgery: No Eye Surgery: No Genitourinary Surgery: Yes (BLADDER SURGERY X6) Gynecologic Surgery: Yes Hysterectomy: Yes (PARTIAL) Neurologic Surgery: No Oral Surgery: No Pacemaker: No Thoracic Surgery: No Other Surgery: Yes (STATES SHE "CANT REMEMBER THEM ALL") Social History Alcohol Use: No Tobacco Use: Yes Substance Use: No Allergies-Medications (Allergen,Severity, Reaction): Coded Allergies: Sulfa (Sulfonamide Antibiotics) (Unverified Allergy, Severe, RASH, 11/13/17 ) INTERMEDIATE REACTION niacin (Unverified Allergy, Severe, FELT BODY WAS ON FIRE, 11/13/17) estradiol (Unverified Allergy, Unknown, 11/13/17) HAD STROKE AGE 27 FROM [employer] estrogens, conjugated (Unverified Allergy, Unknown, 11/13/17) HAD STROKE AGE 27 FROM [employer] amoxicillin (Unverified Adverse Reaction, Severe, Nausea/Vomiting, 11/13/17 ) Reported Meds & Prescriptions Reported Meds & Active Scripts Active Plavix (Clopidogrel Bisulfate) 75 Mg Tab 75 Mg PO DAILY Lyrica (Pregabalin) 75 Mg Cap 75 Mg PO BID Ergocalciferol 50,000 Unit Cap 50,000 Units PO Q7D Reported Lisinopril 5 Mg Tab 5 Mg PO DAILY Lamotrigine 150 Mg Tab 150 Mg PO BID Biotin 5 Mg Tab 5 Mg PO DAILY Vitamin E 200 Unit Cap 200 Mg PO DAILY Vitamin B-12 (Cyanocobalamin) 1,000 Mcg Tab 1,500 Mcg PO DAILY Aspirin Low Dose (Aspirin) 81 Mg Chew 81 Mg CHEW DAILY stop 09/02/17 since you will be on Plavix Ditropan (Oxybutynin Chloride) 5 Mg Tab 5 Mg PO HS Folic Acid 400 Mcg Tab 400 Mcg PO DAILY Spiriva Handihaler (Tiotropium Inh) 18 Mcg Cap 18 Mcg INH DAILY 1 capsule = 18 mcg Lipitor (Atorvastatin Calcium) 40 Mg Tab 40 Mg PO HS Levetiracetam 250 Mg Tab 250 Mg PO BID Review of Systems Except as stated in HPI: all other systems reviewed are Neg Physical Exam Narrative GENERAL: Well-developed, well nourished, in no acute distress, and non-ill appearing. SKIN: Hematoma noted over left lateral calf with a small skin tear approximately 2 cm. Mild tenderness to palpation. No crepitus or foreign body noted. HEAD: Atraumatic. Normocephalic. EYES: Pupils equal and round. EOMI. No scleral icterus. No injection or drainage. ENT: No nasal bleeding or discharge. Mucous membranes pink and moist. NECK: Trachea midline. Supple. No nuclear rigidity. RESPIRATORY: No accessory muscle use. No respiratory distress. MUSCULOSKELETAL: No obvious deformities. No clubbing. No cyanosis. No edema. Full range of motion. NEUROLOGICAL: Awake and alert. No obvious cranial nerve deficits. Motor grossly within normal limits. Normal speech. PSYCHIATRIC: Appropriate mood and affect; insight and judgment normal. Data Data Last Documented VS Vital Signs Date Time Temp Pulse Resp B/P (MAP) Pulse Ox O2 Delivery O2 Flow Rate FiO2 11/13/17 18:46 74 18 110/56 (74) 97 Room Air 11/13/17 16:20 98.0 Orders Orders Basic Metabolic Panel (Bmp) (11/13/17 16:33) Complete Blood Count With Diff (11/13/17 16:33) Prothrombin Time / Inr (Pt) (11/13/17 16:33) Act Partial Throm Time (Ptt) (11/13/17 16:33) Iv Access Insert/Monitor (11/13/17 16:33) Ecg Monitoring (11/13/17 16:33) Oximetry (11/13/17 16:33) Sodium Chloride 0.9% Flush (Ns Flush) (11/13/17 16:45) Sodium Chlorid 0.9% 500 Ml Inj (Ns 500 M (11/13/17 16:45) Ed Discharge Order (11/13/17 19:20) Labs Laboratory Tests Test 11/13/17 16:45 White Blood Count 8.6 TH/MM3 Red Blood Count 3.45 MIL/MM3 Hemoglobin 10.3 GM/DL Hematocrit 30.9 % Mean Corpuscular Volume 89.4 FL Mean Corpuscular Hemoglobin 29.8 PG Mean Corpuscular Hemoglobin Concent 33.3 % Red Cell Distribution Width 14.7 % Platelet Count 224 TH/MM3 Mean Platelet Volume 8.5 FL Neutrophils (%) (Auto) 81.0 % Lymphocytes (%) (Auto) 9.7 % Monocytes (%) (Auto) 6.8 % Eosinophils (%) (Auto) 1.9 % Basophils (%) (Auto) 0.6 % Neutrophils # (Auto) 6.9 TH/MM3 Lymphocytes # (Auto) 0.8 TH/MM3 Monocytes # (Auto) 0.6 TH/MM3 Eosinophils # (Auto) 0.2 TH/MM3 Basophils # (Auto) 0.0 TH/MM3 CBC Comment DIFF FINAL Differential Comment Prothrombin Time 10.7 SEC Prothromb Time International Ratio 1.1 RATIO Activated Partial Thromboplast Time 23.5 SEC Blood Urea Nitrogen 20 MG/DL Creatinine 1.27 MG/DL Random Glucose 96 MG/DL Calcium Level 8.7 MG/DL Sodium Level 146 MEQ/L Potassium Level 3.7 MEQ/L Chloride Level 111 MEQ/L Carbon Dioxide Level 21.3 MEQ/L Anion Gap 14 MEQ/L Estimat Glomerular Filtration Rate 41 ML/MIN MDM Medical Decision Making Medical Screen Exam Complete: Yes Emergency Medical Condition: Yes Differential Diagnosis Anemia, uncontrolled bleeding, skin tear, hematoma Narrative Course There was no evidence to suggest foreign bodies. Visual and tactile exams were unremarkable. There was no evidence of neurovascular injury as well. The patients wounds were cleaned and dressed. The patient was given signs and symptom warnings for infection, such as increasing pain, redness, swelling, associated heat, pus or fever. Patient was given warning signs of possible unforeseen foreign body and instructed to return immediately if signs or symptoms develop.. The patient was given instructions for timely follow up. The patient agreed with plan of care. Patient in no obvious distress upon re-evaluation. All pertinent laboratory result(s) discussed with patient. Discussed patient with Dr. Balderas, who saw and evaluated the patient and is in agreement plan of care and disposition. Any questions/concerns in reference to patient diagnosis/condition discussed and clarified prior to patient's discharge. Reinforced sheer importance of close follow up with patient's primary physician or primary care clinic. Instructed patient to return to ED immediately, if symptoms return/worsen. Patient showed understanding of above instructions. Further instructions and recommendations were detailed in discharge paperwork. Patient ambulated without difficulty out of ED at discharge. Procedures Procedure Narrative REPAIR: Verbal consent was obtained. The area of the laceration was cleaned and prepped. The wound was copiously irrigated and explored without evidence of foreign body, bony involvement, ligament injury, tendon injury, or neurovascular injury. A sterile dressing was applied. The patient was advised to keep the affected area as clean and dry as possible using soap and water. There were no complications. Patient tolerated the procedure well. Patient advised to follow-up with wound care. Diagnosis Primary Impression: Skin tear Additional Impression: Hematoma Referrals: [facility] Patient Instructions: General Instructions, Hematoma (ED), Skin Tear (ED) Additional Instructions: Follow-up with your primary care physician and wound care next week for reevaluation. Keep wound dry and clean as possible using soap and water. Keep dressing that was applied here for 12-24 hours before changing it. Then changed at least once daily or as needed. Return to the emergency department if symptoms get worse. Disposition: 01 DISCHARGE HOME Condition: Stable Gavin Abraham Nov 13, 2017 16:38
[2017-11-13] MEDS ORDERED: SODIUM CHLORID 0.9% 500 ML INJ 500 ML IV ONE (16:45)
[2017-11-13] MEDS ORDERED: SODIUM CHLORIDE 0.9% FLUSH 10 ML FLUSH IV FLUSH PRN (16:45)
--- NOTE | 2017-11-13 17:10 | PD ---
Data Data Last Documented VS Vital Signs Date Time Temp Pulse Resp B/P (MAP) Pulse Ox O2 Delivery O2 Flow Rate FiO2 11/13/17 16:35 81 18 85/54 (64) 97 Room Air 11/13/17 16:20 98.0 Orders Orders Basic Metabolic Panel (Bmp) (11/13/17 16:33) Complete Blood Count With Diff (11/13/17 16:33) Prothrombin Time / Inr (Pt) (11/13/17 16:33) Act Partial Throm Time (Ptt) (11/13/17 16:33) Iv Access Insert/Monitor (11/13/17 16:33) Ecg Monitoring (11/13/17 16:33) Oximetry (11/13/17 16:33) Sodium Chloride 0.9% Flush (Ns Flush) (11/13/17 16:45) Sodium Chlorid 0.9% 500 Ml Inj (Ns 500 M (11/13/17 16:45) MDM Supervised Visit with TAMI: Yes Narrative Course I, Dr. Balderas, have reviewed the advance practice practitioner's documentation and am in agreement, met with the patient face to face, made the diagnosis, and the medical decision making was done by me. *My assessment and Findings: Patient has had a hematoma on her left leg in a car door causing it to bleed. She does take aspirin and Plavix. Labs have been sent. Patient reports that she has history of low blood pressures but then also tells me she takes antihypertensives. That is unclear at the moment. However her blood pressure is 90 systolic with a heart rate of 70. We will give her a liter of saline and reassess that. Wound will be fixed by Jonah Galvan MD Nov 13, 2017 17:10
[2017-11-13 17:16] VITALS: BP 90/54; PULSE 74; RESP 16; O2SAT 99
[2017-11-13 17:24] LABS: AUTOMATED NEUTROPHIL # 6.9 TH/MM3 (1.8-7.7); BASOPHIL % 0.6 % (0.0-2.0); EOSINOPHIL # 0.2 TH/MM3 (0-0.4); EOSINOPHIL % 1.9 % (0.0-4.0); HEMATOCRIT 30.9 % (35.0-46.0); HEMOGLOBIN 10.3 GM/DL (11.6-15.3); LYMPH % 9.7 % (9.0-44.0); LYMPHOCYTE # 0.8 TH/MM3 (1.0-4.8); MEAN CELL VOLUME 89.4 FL (80.0-100.0); MEAN CORPUSCULAR HEMOGLOBIN 29.8 PG (27.0-34.0); MEAN CORPUSCULAR HGB CONC 33.3 % (32.0-36.0); MEAN PLATELET VOLUME 8.5 FL (7.0-11.0); MONO % 6.8 % (0.0-8.0); MONOCYTE # 0.6 TH/MM3 (0-0.9); PLATELET COUNT 224 TH/MM3 (150-450); RED BLOOD COUNT 3.45 MIL/MM3 (4.00-5.30); RED CELL DISTRIBUTION WIDTH 14.7 % (11.6-17.2); WHITE BLOOD COUNT 8.6 TH/MM3 (4.0-11.0)
[2017-11-13 17:32] LABS: INTERNATIONAL NORMALIZED RATIO 1.1 RATIO; PROTHROMBIN TIME - PATIENT 10.7 SEC (9.8-11.6)
[2017-11-13 18:07] LABS: BICARBONATE 21.3 MEQ/L (21.0-32.0); CALCIUM 8.7 MG/DL (8.5-10.1)
[2017-11-13 18:08] LABS: CREATININE 1.27 MG/DL (0.50-1.00)
[2017-11-13 18:46] VITALS: BP 110/56; PULSE 74; RESP 18; O2SAT 97
== END 2017-11-13 20:45 | disposition home or self-care (01) ==
LOC: NEPE 16:10
DX: S81.812A Laceration without foreign body, left lower leg, initial encounter (principal); S80.12XA Contusion of left lower leg, initial encounter; I11.0 Hypertensive heart disease with heart failure; I50.9 Heart failure, unspecified; W22.8XXA Striking against or struck by other objects, initial encounter; Z79.02 Long term (current) use of antithrombotics/antiplatelets; Z79.82 Long term (current) use of aspirin; Z72.0 Tobacco use
CPT/HCPCS: 80048; 85025; 85610; 85730; 99283; J7040